=== PATIENT | male | born 1970 | race Caucasian/White ===

== ENCOUNTER → 2017-10-04 07:32 | Outpatient (CLI) | payer BC, SELFPAY | PROVIDERS: Family Provider Physician Assistant; PCP Physician Assistant; Visit Provider Physician Assistant | DX: G47.30 Sleep apnea, unspecified (principal) | CPT/HCPCS: 95811 ==

== ENCOUNTER 2018-06-28 17:23 | Emergency (ER) | payer BC, SELFPAY ==
[2018-06-28 17:24] VITALS: BP 141/85; PULSE 89; RESP 16; TEMP 36.6; O2SAT 96; BMI 46.7
--- NOTE | 2018-06-28 17:35 | RAD_ITS ---
STUDY: X-RAY CHEST REASON FOR EXAM: Male, 47 years old. Trauma TECHNIQUE: PA and lateral views of the chest. COMPARISON: None. FINDINGS: The lungs are clear and expanded. There is no demonstrated pleural abnormality. There is mild cardiac enlargement. Normal mediastinum and ayesha. Normal visualized pulmonary arteries. Normal visualized aortic arch and descending thoracic aorta. There are diffuse degenerative changes of the visualized thoracic spine. Normal visualized ribs, clavicles, and shoulders. There is no demonstrated abnormality of the visualized soft tissue structures of the upper abdomen. RAD/Chest PA and Lateral IMPRESSION: Mild cardiomegaly. Degenerative changes of the thoracic spine. No acute cardiopulmonary disease process is seen. If left rib fracture is clinically suspected, specific left rib views are recommended for further evaluation. Electronically Signed: Shekhar Alfonso MD at 18:18 EST , Service support ,
--- NOTE | 2018-06-28 18:24 | ED.VISSUMM ---
- ER Visit Summary Date of Service: 06/28/18 Chief Complaint: Fall History of Present Illness: The patient is a 47 M who sees Farhad Dockery. He reports that yesterday he slipped on the ice and fell onto his back. He reports that he has left-sided chest pain Zeta 10 severity and right-sided back pain is 5 out of 10 severity. No blow to the head or loss of consciousness. No neck, back, shoulder, wrist, or hip pain. Physical Examination: Vitals: Stable. Afebrile. Neck: No vertebral tenderness. Full ROM without difficulty. Cleared by NEXUS criteria. Back: No vertebral tenderness. Moderate tenderness palpation over the lower ribs on the right. General: A&O x 3. NAD. Cardiovascular exam: Regular rate and rhythm, no murmur, rub or gallop. Respiratory exam: Moderate tenderness palpation over the lower ribs on the left. Pain is reproduced with anterior posterior compression of his chest. No crepitus. Clear to auscultation bilaterally. No wheezes or stridor. Abdominal exam: Soft, nontender, nondistended, normal bowel sounds. No pain in RUQ or LUQ specifically. No peritoneal signs. Extremity: Atraumatic. No pain with range of motion. Test Results: X-ray shows no obvious rib fractures or pneumothorax. Emergency Department Course and Treatment: Patient refused pain medications. He is resting comfortably. Treatment Plan: Patient will be discharged with incentive spirometer and 10 [place]. Instructed to follow-up his primary care physician 1 week if not improving. Return to the emergency department for any worsening symptoms. Disposition: To home in improved and stable condition. Impression: 1. Fall. 2. Chest wall pain. This note was generated with [employer] dictation software. It may contain incorrect words, spelling, and punctuation that were not noted in review of the chart prior to signing ED Disposition - Plan for ED Patient: Chief Complaint: Fall Instructions: ED Contusion Vs Minor Fx Rib Prescriptions: Hydrocodone Bitart/Apap 5-325 [[place] 5MG-325MG] 1 tablet PO Q4H PRN PRN 2 Days #10 tablet PRN Reason: Pain Referrals: Yogesh Dockery PA [Primary Care Provider] - 1 Week if not improving
--- NOTE | 2018-06-28 18:27 | ED.DCSUM_ITS ---
- ER Visit Summary Date of Service: 06/28/18 Chief Complaint: Fall History of Present Illness: The patient is a 47 M who sees Farhad Dockery. He reports that yesterday he slipped on the ice and fell onto his back. He reports that he has left-sided chest pain Zeta 10 severity and right-sided back pain is 5 out of 10 severity. No blow to the head or loss of consciousness. No neck, back, shoulder, wrist, or hip pain. Physical Examination: Vitals: Stable. Afebrile. Neck: No vertebral tenderness. Full ROM without difficulty. Cleared by NEXUS criteria. Back: No vertebral tenderness. Moderate tenderness palpation over the lower ribs on the right. General: A&O x 3. NAD. Cardiovascular exam: Regular rate and rhythm, no murmur, rub or gallop. Respiratory exam: Moderate tenderness palpation over the lower ribs on the left. Pain is reproduced with anterior posterior compression of his chest. No crepitus. Clear to auscultation bilaterally. No wheezes or stridor. Abdominal exam: Soft, nontender, nondistended, normal bowel sounds. No pain in RUQ or LUQ specifically. No peritoneal signs. Extremity: Atraumatic. No pain with range of motion. Test Results: X-ray shows no obvious rib fractures or pneumothorax. Emergency Department Course and Treatment: Patient refused pain medications. He is resting comfortably. Treatment Plan: Patient will be discharged with incentive spirometer and 10 [place]. Instructed to follow-up his primary care physician 1 week if not improving. Return to the emergency department for any worsening symptoms. Disposition: To home in improved and stable condition. Impression: 1. Fall. 2. Chest wall pain. This note was generated with [employer] dictation software. It may contain incorrect words, spelling, and punctuation that were not noted in review of the chart prior to signing ED Disposition - Plan for ED Patient: Chief Complaint: Fall Instructions: ED Contusion Vs Minor Fx Rib Prescriptions: Hydrocodone Bitart/Apap 5-325 [[place] 5MG-325MG] 1 tablet PO Q4H PRN PRN 2 Days #10 tablet PRN Reason: Pain Referrals: Yogesh Dockery PA [Primary Care Provider] - 1 Week if not improving
--- OUTSIDE RECORDS SUMMARY | 2018-09-02 12:25 | XMS RPT_ITS ---
:1970 Author Organization OHIP Care Team Providers Name Role Phone Yogesh DOCKERY (PA-C) Attending Unavailable DOCKERYYogesh (PA-C) Referring Unavailable DOCKERY, Yogesh BOSWELL (PA-C) Attending Unavailable DOCKERYYogesh (PA-C) Attending Unavailable DOCKERYYogesh (PA-C) Referring Unavailable DOCKERY, Yogesh BOSWELL (PA-C) Attending Unavailable Yogesh DOCKERY (PA-C) Referring Unavailable DOCKERYYoegsh (PA-C) Referring Unavailable CHELSI BRITTON (RD) Attending Unavailable Yogesh DOCKERY (PA-C) Referring Unavailable DOCKERYYogesh (PA-C) Attending Unavailable CHELSI BRITTON (RD) Attending Unavailable Yogesh DOCKERY (PA-C) Referring Unavailable DOCKERYYogesh (PA-C) Attending Unavailable CHELSI BRITTON (RD) Attending Unavailable CHELSI BRITTON (RD) Attending Unavailable Yogesh DOCKERY (PA-C) Referring Unavailable DOCKERYYogesh MARCOS (PA-C) Attending Unavailable NNAMDI DALEY Attending Unavailable Yogesh DOCKERY (PA-C) Referring Unavailable Yogesh Dockery Primary Care Unavailable Catracho Zelaya Attending Unavailable Yogesh Dockery Attending Unavailable Yogesh Dockery Referring Unavailable Yogesh Dockery Primary Care Unavailable PROBLEMS PROBLEMS DATE TYPE CONDITION / CODE ATTENDING STATUS SOURCE 07/04/2018 Active Contusion of left NA Active [place] front wall of thorax, Clinic Main subsequent encounter / [place] S20.212D(ICD-10) Repository 06/28/2018 Unknown S22.39XA - Fracture of Nathalie, Active [place] one rib, unspecified [facility] side, initial Hospital encounter for closed Repository fracture / S22.39XA(ICD-10) 04/02/2018 Active Type 2 diabetes NA Active [place] mellitus with moderate [facility] nonproliferative [place] diabetic retinopathy Repository with macular edema, bilateral / E11.3313(ICD-10) 03/27/2018 Active Mixed hyperlipidemia / NA Active [place] E78.2(ICD-10) Clinic Main [place] Repository 09/28/2017 Active Proteinuria, NA Active [place] unspecified / [facility] R80.9(ICD-10) [place] Repository 06/25/2018 Active Essential (primary) NA Active [place] hypertension / [facility] I10(ICD-10) [place] Repository 06/25/2018 Active Male erectile NA Active [place] dysfunction, [facility] unspecified / [place] N52.9(ICD-10) Repository 06/01/2007 Active Elevated NA Active [place] blood-pressure [facility] reading, without [place] diagnosis of Repository hypertension / R03.0(ICD-10) 10/31/2017 Active Unknown / UNK(Unknown) Yogesh DOCKERY Active [place] YESIKA (PA-C) Clinic [facility] [place] Repository 09/25/2017 Active Type 2 diabetes NA Active [place] mellitus with [facility] hyperglycemia / [place] E11.65(ICD-10) Repository 09/25/2017 Active jail (current) NA Active [place] use of insulin / [facility] Z79.4(ICD-10) [place] Repository 09/25/2017 Active Lipoprotein deficiency NA Active [place] / E78.6(ICD-10) Clinic Main [place] Repository 09/25/2017 Active Obstructive sleep NA Active [place] apnea (adult) [facility] (pediatric) / [place] G47.33(ICD-10) Repository PROCEDURES PROCEDURES No Procedure Records FoundRESULTS RESULTS XR RIBS 2V AP/OBL Observed: 07/04/2018 Status: F Source: [facility] 3:21 PM CLINIC MAIN CAMPUS REPOSITORY * * *Final Report* * * DATE OF EXAM: Jul 04 2018 3:21PM WOX [id number] - XR RIBS 2V AP/OBL LT / PROCEDURE REASON: Rib contusion, left, subsequent encounter * * * * Physician Interpretation * * * * EXAM:XR RIBS 2V AP/OBL LT HISTORY: Rib contusion, left, subsequent encounter COMPARISON:None IMPRESSION: Study is limited secondary to patient's body habitus and underpenetrated technique. Lucency projecting over the anterior aspect of the fifth rib is probably projectional artifact, nondisplaced fracture cannot be excluded. Correlation with point of tenderness is recommended. Impregnation Operator: PSCB Transcribe Date/Time: Jul 05 2018 10:12A Dictated by : ISHA ALAN MD This examination was interpreted and the report reviewed and electronically signed by: ISHA ALAN MD on Jul 05 2018 10:14AM EST [id number] PROGRESS Observed: 07/04/2018 Status: COMPLETED Source: [place] 3:09 PM [facility] REPOSITORY HNO ID: [id number] Author: Nancy Jules (RtNikki Dukes Service: (none) Author Type: Electrical Cad Designer Type: Progress Notes Filed: 07/04/2018 3:21 PM Note Text: Radiology Service Progress Note PATIENT NAME: Shekhar Kimbrough DATE OF SERVICE: July 04, 2018 TIME: 3:09 PM PATIENT IDENTITY VERIFICATION COMPLETED USING TWO (2) METHODS: Patient confirmed name verbally and Date of . PATIENT GENDER DATA: Male PATIENT RELEVANT IMPLANT DATA REVIEWED: Not Applicable RADIOLOGY DEPARTMENT: General X-ray: Exam(s) Completed: Rib X-Ray: Left PERIPHERAL IV DATA: Not applicable SIGNED BY: RT Jessica July 04, 2018 3:09 PM PROGRESS Observed: 07/04/2018 Status: COMPLETED Source: [place] 2:59 PM [facility] REPOSITORY HNO ID: [id number] Author: Yogesh Boswell (Kalie Dockery Service: (none) Author Type: Physician Health Service Worker Type: Progress Notes Filed: 07/04/2018 5:48 PM Note Text: 47 year old male with c/o left anterior rib pain after falling on 06/27/18 on [facility] sidewalk. Patient fell onto his left back. Was seen on 06/28/18 in the emergency department with complaint of left-sided chest pain, 10 out of 10. X-rays showed no fracture although only a chest x- ray was done in radiology identified should have focal views of rib of concern. Patient was given 10 [place] which she has used all but one. States the medicine really doesn't help much. He has been taking ibuprofen 400 mg intermittently as well. No nausea, vomiting, abdominal pain. Lesions appetite is been normal. Normal bowel habits. Also identifies that his insurance is no longer covering Lantus insulin and will cause some children some dollars to get his pens. Asking if this can be changed. HISTORIES FAMILY HISTORY Problem Relation Age of Onset - Diabetes Mother - Heart Mother HEART DISEASE - Hypertension Mother - Psychiatry Mother depressed - None Father - Allergies Father - Diabetes Father - Hypertension Father - Stroke Father - Psychiatry Father depression - None Sister - Diabetes Sister - other (Other) Sister growth in lung, lots of lung problems, pneumonia - Diabetes Brother - Psychiatry Brother depression - Breast Cancer Paternal Aunt - Cancer Maternal Aunt Stomache - Cancer Paternal Uncle Bone PAST MEDICAL HISTORY Diagnosis Date - Acute nonsuppurative otitis media, unspecified 03/07/2007 - Cataract right eye, surgery 2009 [facility] - Closed Colles' fracture 08/03/20052007 left - Closed fracture of navicular (scaphoid) bone of wrist 01/18/05 Wrist fracture-left distal radius - Depression in past, was on effexor but stopped years ago. - Diabetes mellitus - Esophagitis, unspecified ESOPHAGITIS - Hyperlipidemia borderline - Measles - Mild intermittent asthma uses albuterl rarely - Mumps - Peptic ulcer, unspecified site, unspecified as acute or chronic, without mention of hemorrhage, perforation, or obstruction Peptic ulcer disease per EGD maybe 2006 - Tobacco use disorder 06/01/2007 Quit 2009 chew - Traumatic pneumothorax 01/15/2008 Ran over by cow, broke 4 ribs, lung collapsed, unconscious. No chest tube. Was sent to [facility]. No sequellae - Unspecified essential hypertension Essential hypertension: controlled without medication PAST SURGICAL HISTORY Procedure Laterality Date - ANKLE SURGERY HX Left 2014 rupture posterior tibial tendon repaired - APPENDECTOMY 1982 - EGD W/O OR W/BRUSH/WASH EGD Social History Marital status: Single Spouse name: Years of education: Number of children: Social History Main Topics Smoking status: Never Smoker Smokeless tobacco: Former User Types: Chew Quit date: 11/15/2009 Alcohol use: No Drug use: No ACTIVE PROBLEM LIST Obesity, Unspecified Infective Otitis Externa, Unspecified Elevated Blood Pressure Reading Without Diagnosis of Hypertension PAD (peripheral artery disease) ([facility]) Sleep Apnea Controlled Type 2 Diabetes Mellitus 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 Disp: Rfl: lisinopril (ZESTRIL, PRINIVIL) 20 mg tablet Take 1 tablet by mouth once daily. Disp: 90 tablet Rfl: 1 atorvastatin (LIPITOR) 20 mg tablet Take 1 tablet by mouth daily at bedtime. For cholesterol. Disp: 90 tablet Rfl: 1 insulin glargine (LANTUS SOLOSTAR U-100 INSULIN) 100 unit/mL (3 mL) inpn Administer 2 injections of 61 units (122 units total) of Lantus once daily in the evening. Disp: Rfl: dulaglutide (TRULICITY) 1.5 mg/ 0.5 ml subcutaneous pen injector Inject 1.5 mg subcutaneously once each week. Inject once per week. Discard Pen After Disp: 4 Pen Rfl: 11 insulin lispro (HUMALOG KWIKPEN INSULIN) 100 unit/mL inpn As directed for coverage scale: add additional 4u for every 50 points above glucose 150 Disp: 5 Pen Rfl: 2 metFORMIN ER (GLUCOPHAGE XR) 500 mg 24 hr tablet Take 4 tablets by mouth daily with breakfast. Disp: 360 tablet Rfl: 3 Lancets lancets Check blood sugar 4 times daily diagnosis: e11.65, insulin: yes Disp: 200 Each Rfl: 3 Insulin [place], Disposable, 32 gauge x 5/16 ndle Use one needle per dose. 5 doses per day Disp: 200 Each Rfl: 5 No current facility-administered medications for this visit. DILATED RETINAL EXAM due on 06/08/2018 EXAM: BP 120/64 Pulse 80 Temp 36.8 ?C (98.2 ?F) (Tympanic) Resp 24 Wt (!) 157.4 kg (347 lb) BMI 47.06 kg/m? Pleasant Obese adult male in moderate distress, holding his left anterior chest and guarding. Alert and oriented all spheres. Normal affect and cognition. Speech normal. No deficits to learning or comprehension. Skin warm, dry, pink to lips and nailbeds. Normal turgor. Respirations regular and unlabored. Chest shows equal expansion on inspiration. No evidence of deformity, bruising, erythema, no subcutaneous crepitus over the chest wall. He is tender in the anterior axillary line at about the 10th rib space. No palpable deformity. Motion of the ribs laterally does not cause pain. Direct pressure does. Extrem: no clubbing, cyanosis, edema. Extremities are warm and pink with prompt capillary refill. X-ray left rib:no obvious fx pending radiologist ASSESSMENT/PLAN: 1. Rib contusion, left, subsequent encounter - ICD9: V58.89, 922.1, ICD10: S20.212D Counseled per d/c instructions. Has used OTC and ED narcotic rx. Very painful, limiting mobility. I week narcotic supplied with cautions on risk and side effects. - XR RIBS 2V AP/OBL LT - HYDROCODONE 10 MG-ACETAMINOPHEN 325 MG TABLET Yogesh Dockery PA-C CNOV Observed: 07/04/2018 Status: COMPLETED Source: [place] 2:00 PM [facility] REPOSITORY Office Visit (FAMPWS) SHEKHAR KIMBROUGH ([id number]) 1970 M Date Time Provider Department 07/04/18 2:00 PM Yogesh DOCKERY) FAMPWS During your visit today, we recorded the following information about you: Temperature Pulse Respiration Blood pressure 98.2 degrees 80/minute 24/minute 120/64 Weight 157.4 kg M Yesika Dockery PA-C 07/04/2018 5:48 PM Signed 47 year old male with c/o left anterior rib pain after falling on 06/27/18 on [address]. Patient fell onto his left back. Was seen on 06/28/18 in the emergency department with complaint of left-sided chest pain, 10 out of 10. X-rays showed no fracture although only a chest x-ray was done in radiology identified should have focal views of rib of concern. Patient was given 10 [place] which she has used all but one. States the medicine really doesn't help much. He has been taking ibuprofen 400 mg intermittently as well. No nausea, vomiting, abdominal pain. Lesions appetite is been normal. Normal bowel habits. Also identifies that his insurance is no longer covering Lantus insulin and will cause some children some dollars to get his pens. Asking if this can be changed. HISTORIES FAMILY HISTORY Problem Relation Age of Onset - Diabetes Mother - Heart Mother HEART DISEASE - Hypertension Mother - Psychiatry Mother depressed - None Father - Allergies Father - Diabetes Father - Hypertension Father - Stroke Father - Psychiatry Father depression - None Sister - Diabetes Sister - other (Other) Sister growth in lung, lots of lung problems, pneumonia - Diabetes Brother - Psychiatry Brother depression - Breast Cancer Paternal Aunt - Cancer Maternal Aunt Stomache - Cancer Paternal Uncle Bone PAST MEDICAL HISTORY Diagnosis Date - Acute nonsuppurative otitis media, unspecified 03/07/2007 - Cataract right eye, surgery 2009 [facility] - Closed Colles' fracture 08/03/20052007 left - Closed fracture of navicular (scaphoid) bone of wrist 01/18/05 Wrist fracture-left distal radius - Depression in past, was on effexor but stopped years ago. - Diabetes mellitus - Esophagitis, unspecified ESOPHAGITIS - Hyperlipidemia borderline - Measles - Mild intermittent asthma uses albuterl rarely - Mumps - Peptic ulcer, unspecified site, unspecified as acute or chronic, without mention of hemorrhage, perforation, or obstruction Peptic ulcer disease per EGD maybe 2006 - Tobacco use disorder 06/01/2007 Quit 2009 chew - Traumatic pneumothorax 01/15/2008 Ran over by cow, broke 4 ribs, lung collapsed, unconscious. No chest tube. Was sent to [facility]. No sequellae - Unspecified essential hypertension Essential hypertension: controlled without medication PAST SURGICAL HISTORY Procedure Laterality Date - ANKLE SURGERY HX Left 2014 rupture posterior tibial tendon repaired - APPENDECTOMY 1982 - EGD W/O OR W/BRUSH/WASH EGD Social History Marital status: Single Spouse name: Years of education: Number of children: Social History Main Topics Smoking status: Never Smoker Smokeless tobacco: Former User Types: Chew Quit date: 11/15/2009 Alcohol use: No Drug use: No ACTIVE PROBLEM LIST Obesity, Unspecified Infective Otitis Externa, Unspecified Elevated Blood Pressure Reading Without Diagnosis of Hypertension PAD (peripheral artery disease) (HCC) Sleep Apnea Controlled Type 2 Diabetes Mellitus With Both Eyes Affected By Moderate Nonproliferative Retinopathy and Macular Edema, Without Long- Term Current Use of Insulin (H[facility]) Mild Intermittent Asthma Cataract Microalbuminuria Low Hdl (Under 40) Reaction, Adjustment, With Depressed Mood, Prolonged Obesity, Class III, BMI >= 40 Hyperlipidemia, Mixed Current Outpatient Prescriptions: HYDROcodone-acetaminophen (NORCO) 5-325 mg per tablet Take 1 tablet by mouth every 4 hours as needed. Disp: Rfl: lisinopril (ZESTRIL, PRINIVIL) 20 mg tablet Take 1 tablet by mouth once daily. Disp: 90 tablet Rfl: 1 atorvastatin (LIPITOR) 20 mg tablet Take 1 tablet by mouth daily at bedtime. For cholesterol. Disp: 90 tablet Rfl: 1 insulin glargine (LANTUS SOLOSTAR U-100 INSULIN) 100 unit/mL (3 mL) inpn Administer 2 injections of 61 units (122 units total) of Lantus once daily in the evening. Disp: Rfl: dulaglutide (TRULICITY) 1.5 mg/ 0.5 ml subcutaneous pen injector Inject 1.5 mg subcutaneously once each week. Inject once per week. Discard Pen After Disp: 4 Pen Rfl: 11 insulin lispro (HUMALOG KWIKPEN INSULIN) 100 unit/mL inpn As directed for coverage scale: add additional 4u for every 50 points above glucose 150 Disp: 5 Pen Rfl: 2 metFORMIN ER (GLUCOPHAGE XR) 500 mg 24 hr tablet Take 4 tablets by mouth daily with breakfast. Disp: 360 tablet Rfl: 3 Lancets lancets Check blood sugar 4 times daily diagnosis: e11.65, insulin: yes Disp: 200 Each Rfl: 3 Insulin [place], Disposable, 32 gauge x 5/16 ndle Use one needle per dose. 5 doses per day Disp: 200 Each Rfl: 5 No current facility-administered medications for this visit. DILATED RETINAL EXAM due on 06/08/2018 EXAM: BP 120/64 Pulse 80 Temp 36.8 ?C (98.2 ?F) (Tympanic) Resp 24 Wt (!) 157.4 kg (347 lb) BMI 47.06 kg/m? Pleasant Obese adult male in moderate distress, holding his left anterior chest and guarding. Alert and oriented all spheres. Normal affect and cognition. Speech normal. No deficits to learning or comprehension. Skin warm, dry, pink to lips and nailbeds. Normal turgor. Respirations regular and unlabored. Chest shows equal expansion on inspiration. No evidence of deformity, bruising, erythema, no subcutaneous crepitus over the chest wall. He is tender in the anterior axillary line at about the 10th rib space. No palpable deformity. Motion of the ribs laterally does not cause pain. Direct pressure does. Extrem: no clubbing, cyanosis, edema. Extremities are warm and pink with prompt capillary refill. X-ray left rib:no obvious fx pending radiologist ASSESSMENT/PLAN: 1. Rib contusion, left, subsequent encounter - ICD9: V58.89, 922.1, ICD10: S20.212D Counseled per d/c instructions. Has used OTC and ED narcotic rx. Very painful, limiting mobility. I week narcotic supplied with cautions on risk and side effects. - XR RIBS 2V AP/OBL LT - HYDROCODONE 10 MG-ACETAMINOPHEN 325 MG TABLET ANDREW Cifuentes PA-C 07/04/2018 3:51 PM Signed [place]: as directed per prescription for pain being careful to limit to 1-2 doses a day unless it is more severe pain. Do not drive or operate dangerous machinery while on this medication. It may cause drowsiness or impair judgment and cause increased risk for falls. This medication may be habit forming if used regularly, and may cause drowsiness, so use caution. This medication may cause constipation so increase fiber and exercise if possible. Stimulant laxatives such as pericolace or Sennekot OTC may help if needed but should not be used over long periods. Rib Injury What is a rib injury? The 12 ribs on each side of your chest may be bruised, strained, broken, or . All of the ribs are attached to the vertebrae (backbone) in the rear. In the front, 10 of them are attached to the sternum (breastbone) by pieces of cartilage. Direct blows to the ribs may bruise or break the ribs or injure the rib cartilage. The ribs may tear away from the cartilage that attaches them to the breastbone. This tearing away from the cartilage is called a costochondral separation. How does it occur? Rib injuries usually result from a direct blow to the chest wall. Breaks usually occur in the curved portion of the outer part of the rib cage. A costochondral separation may occur from trauma, when you land hard on your feet, or even when you cough or sneeze violently. What are the symptoms? A rib injury causes pain and tenderness over the place of injury. You may have pain when you breathe, move, laugh, or cough. How is it diagnosed? Your healthcare provider will review your symptoms, examine your rib cage, and listen to your lungs. He or she may order a chest X-ray to look for rib damage, lung damage, or bleeding around the lungs. How is it treated? To help your injury heal, your provider may recommend that you: Rest. Put an ice pack over the injured rib for 20 to 30 minutes every 3 to 4 hours for 2 to 3 days or until the pain goes away. Take an anti-inflammatory or other pain medicine. Adults aged 65 years and older should not take non-steroidal anti-inflammatory medicine for more than 7 days without their healthcare provider's approval. Wear a rib belt, which your healthcare provider may suggest for very painful injuries. The belt works as a girdle for your chest and helps support your ribs. It limits movement of your ribs when you cough, breathe, or move your body in other ways. This helps decrease pain. If you wear a rib belt, your provider will give you breathing exercises to help you avoid lung complications. How long will the effects last? Bruised ribs and a costochondral separation usually take 3 to 4 weeks to heal. Broken ribs take 6 to 8 weeks to heal. When can I return to my normal activities? Everyone recovers from an injury at a different rate. Return to your activities will be determined by how soon your ribs recover, not by how many days or weeks it has been since your injury has occurred. The goal of rehabilitation is to return you to your normal activities as soon as is safely possible. If you return too soon you may worsen your injury. Your healthcare provider may take an X-ray to see that the bone has healed before he or she allows you to return to your normal activities. You may participate in noncontact activities if you can do so without pain in your ribs and without pain when you breathe. How can I prevent a rib injury? Ribs are often injured in accidents that are not preventable. However, in contact sports such as football it is important to wear appropriate protective equipment. Published by [employer]. This content is reviewed periodically and is subject to change as new health information becomes available. The information is intended to inform and educate and is not a replacement for medical evaluation, advice, diagnosis or treatment by a healthcare professional. Written by Davon Kumar M.D., for [employer] Copyright ? 2006 [employer] and/or one of its subsidiaries. All Rights Reserved. Special Instructions: Copyright ? [employer] 2006 [employer] Copyright ? 2006 [employer]. All rights reserved. - www.[employer] Referring Provider: SELF [200] Allergies As of Date: 07/04/2018 (No Known Allergies) Date Reviewed: 07/04/2018 Reviewed by: Roslyn Rose LPN - Fully Assessed Reason for Visit: ER F/U [41] Cmt: Fell 06/[address] [facility] ER on 06/28/18. Primary Visit Diagnosis:Rib contusion, left, subsequent encounter [I44.752D] Order(s):XR RIBS 2V AP/OBL LT [[id number]] Order #: [id number] FUTURE HYDROcodone-Acetaminophen (NORCO) 10-325 mg per tabletTake 1 tablet by mouth every 8 hours as needed for up to 7 days.Disp: 21 tabletRfl: 0 insulin detemir U-100 (LEVEMIR FLEXTOUCH U-100 INSULN) 100 unit/mL (3 mL) inpn injectionInject 61 Units subcutaneously twice daily.Disp: 11 PenRfl: 5 insulin lispro (HUMALOG KWIKPEN INSULIN) 100 unit/mL inpnAs directed for coverage scale: add additional 4u for every 50 points above glucose 150Disp: 5 PenRfl: 2 Prescriptions as of 07/04/2018 Sig: HYDROCODONE 5 MG-ACETAMINOPHE* Take 1 tablet by mouth every * INSULIN LISPRO (U-100) 100 UN* As directed for coverage scal* LISINOPRIL 20 MG TABLET Take 1 tablet by mouth once d* ATORVASTATIN 20 MG TABLET Take 1 tablet by mouth daily * INSULIN GLARGINE (U-100) 100 * Administer 2 injections of 61* DULAGLUTIDE 1.5 MG/0.5 ML SUB* Inject 1.5 mg subcutaneously * METFORMIN ER 500 MG TABLET,EX* Take 4 tablets by mouth daily* HYDROCODONE 10 MG-ACETAMINOPH* Take 1 tablet by mouth every * INSULIN DETEMIR (U-100) 100 U* Inject 61 Units subcutaneousl* LANCETS Check blood sugar 4 times patricia* PEN NEEDLE, DIABETIC 32 GAUGE* Use one needle per dose. 5 do* Problem List As Of Date 07/04/2018 Noted Resolved Closed Colles' fracture [S52.539A] INVALID FOR*09/25/2017 More... OBESITY NOS [E66.9] INVALID FOR* Acute nonsuppurative otitis media, unspecified *INVALID FOR*09/25/2017 INFEC OTITIS EXTERNA NOS [H60.399] INVALID FOR* Tobacco use disorder [F17.200] INVALID FOR*09/25/2017 More... ELEV BL PRES W/O HYPERTN [R03.0] INVALID FOR* Traumatic pneumothorax [S27.0XXA] INVALID FOR*09/25/2017 More... PAD (peripheral artery disease) (HCC) [I73.9] INVALID FOR* More... Sleep apnea [G47.30] INVALID FOR* More... Controlled type 2 diabetes mellitus with both e*INVALID FOR* More... Mild intermittent asthma [J45.20] More... Cataract [H26.9] More... Microalbuminuria [R80.9] INVALID FOR* Low HDL (under 40) [E78.6] INVALID FOR* Reaction, adjustment, with depressed mood, prol*INVALID FOR* Obesity, Class III, BMI >= 40 [E66.01] INVALID FOR* Hyperlipidemia, mixed [E78.2] INVALID FOR* Other instructions from your clinician: [place]: as directed per prescription for pain being careful to limit to 1-2 doses a day unless it is more severe pain. Do not drive or operate dangerous machinery while on this medication. It may cause drowsiness or impair judgment and cause increased risk for falls. This medication may be habit forming if used regularly, and may cause drowsiness, so use caution. This medication may cause constipation so increase fiber and exercise if possible. Stimulant laxatives such as pericolace or Sennekot OTC may help if needed but should not be used over long periods. Rib Injury What is a rib injury? The 12 ribs on each side of your chest may be bruised, strained, broken, or . All of the ribs are attached to the vertebrae (backbone) in the rear. In the front, 10 of them are attached to the sternum (breastbone) by pieces of cartilage. Direct blows to the ribs may bruise or break the ribs or injure the rib cartilage. The ribs may tear away from the cartilage that attaches them to the breastbone. This tearing away from the cartilage is called a costochondral separation. How does it occur? Rib injuries usually result from a direct blow to the chest wall. Breaks usually occur in the curved portion of the outer part of the rib cage. A costochondral separation may occur from trauma, when you land hard on your feet, or even when you cough or sneeze violently. What are the symptoms? A rib injury causes pain and tenderness over the place of injury. You may have pain when you breathe, move, laugh, or cough. How is it diagnosed? Your healthcare provider will review your symptoms, examine your rib cage, and listen to your lungs. He or she may order a chest X-ray to look for rib damage, lung damage, or bleeding around the lungs. How is it treated? To help your injury heal, your provider may recommend that you: Rest. Put an ice pack over the injured rib for 20 to 30 minutes every 3 to 4 hours for 2 to 3 days or until the pain goes away. Take an anti-inflammatory or other pain medicine. Adults aged 65 years and older should not take non-steroidal anti-inflammatory medicine for more than 7 days without their healthcare provider's approval. Wear a rib belt, which your healthcare provider may suggest for very painful injuries. The belt works as a girdle for your chest and helps support your ribs. It limits movement of your ribs when you cough, breathe, or move your body in other ways. This helps decrease pain. If you wear a rib belt, your provider will give you breathing exercises to help you avoid lung complications. How long will the effects last? Bruised ribs and a costochondral separation usually take 3 to 4 weeks to heal. Broken ribs take 6 to 8 weeks to heal. When can I return to my normal activities? Everyone recovers from an injury at a different rate. Return to your activities will be determined by how soon your ribs recover, not by how many days or weeks it has been since your injury has occurred. The goal of rehabilitation is to return you to your normal activities as soon as is safely possible. If you return too soon you may worsen your injury. Your healthcare provider may take an X-ray to see that the bone has healed before he or she allows you to return to your normal activities. You may participate in noncontact activities if you can do so without pain in your ribs and without pain when you breathe. How can I prevent a rib injury? Ribs are often injured in accidents that are not preventable. However, in contact sports such as football it is important to wear appropriate protective equipment. ----- Published by [employer]. This content is reviewed periodically and is subject to change as new health information becomes available. The information is intended to inform and educate and is not a replacement for medical evaluation, advice, diagnosis or treatment by a healthcare professional. Written by Davon Kumar M.D., for [employer] Copyright ? 2006 [employer] and/or one of its subsidiaries. All Rights Reserved. Special Instructions: Copyright ? [employer] 2007 [employer] Copyright ? 2006 [employer]. All rights reserved. - www.Shicon.DailyDeal Prescriptions ordered this encounter Disp Refills Start End HYDROCODONE 10 MG-ACETAMINOPHEN 325 * 21 t* 0 07/04/2018 07/11/2018 Class: Print RX Route: ORAL Sig: Take 1 tablet by mouth every 8 hours as needed for up to 7 days. INSULIN DETEMIR (U-100) 100 UNIT/ML * 11 P* 5 07/04/2018 Route: SUBCUTANEOUS Sig: Inject 61 Units subcutaneously twice daily. INSULIN LISPRO (U-100) 100 UNIT/ML S* 5 Pen 2 07/04/2018 Sig: As directed for coverage scale: add additional 4u for every 50 points above glucose 150 Medications Discontinued During This Encounter insulin lispro (HUMALOG KWIKPEN INSU* 5 Pen 2 12/28/2017 07/04/2018 Sig: As directed for coverage scale: add additional 4u for every 50 points above glucose 150 Disc: Reason for discontinue is not on file. Encounter Status:Closed by Yogesh DCOKERY PA-C on 07/04/18 EMERGENCY DEPARTMENT Observed: 06/29/2018 Status: F Source: [place] SUMMARY 12:13 AM [facility] Medical Records Department [address] [place] [address] Emergency Department Summary 06/28/18 1824 MR#: [id number] Acct: [id number] Name: SHEKHAR KIMBROUGH Rep #: [id number] : 1970 47 From: Catracho Zelaya MD PCP: Yogesh Dockery Status: DEP ER - ER Visit Summary Date of Service: 06/28/18 Chief Complaint: Fall History of Present Illness: The patient is a 47 M who sees Farhad Dockery. He reports that yesterday he slipped on the ice and fell onto his back. He reports that he has left-sided chest pain Zeta 10 severity and right-sided back pain is 5 out of 10 severity. No blow to the head or loss of consciousness. No neck, back, shoulder, wrist, or hip pain. Physical Examination: Vitals: Stable. Afebrile. Neck: No vertebral tenderness. Full ROM without difficulty. Cleared by NEXUS criteria. Back: No vertebral tenderness. Moderate tenderness palpation over the lower ribs on the right. General: A AND O x 3. NAD. Cardiovascular exam: Regular rate and rhythm, no murmur, rub or gallop. Respiratory exam: Moderate tenderness palpation over the lower ribs on the left. Pain is reproduced with anterior posterior compression of his chest. No crepitus. Clear to auscultation bilaterally. No wheezes or stridor. Abdominal exam: Soft, nontender, nondistended, normal bowel sounds. No pain in RUQ or LUQ specifically. No peritoneal signs. Extremity: Atraumatic. No pain with range of motion. Test Results: X-ray shows no obvious rib fractures or pneumothorax. Emergency Department Course and Treatment: Patient refused pain medications. He is resting comfortably. Treatment Plan: Patient will be discharged with incentive spirometer and 10 [place]. Instructed to follow-up his primary care physician 1 week if not improving. Return to the emergency department for any worsening symptoms. Disposition: To home in improved and stable condition. Impression: 1. Fall. 2. Chest wall pain. This note was generated with [employer] dictation software. It may contain incorrect words, spelling, and punctuation that were not noted in review of the chart prior to signing ED Disposition - Plan for ED Patient: Chief Complaint: Fall Instructions: ED Contusion Vs Minor Fx Rib Prescriptions: Hydrocodone Bitart/Apap 5-325 [[place] 5MG-325MG] 1 tablet PO Q4H PRN PRN 2 Days #10 tablet PRN Reason: Pain Referrals: Yogesh Dockery PA [Primary Care Provider] - 1 Week if not improving What to do if you have Problems For any increased pain, shortness of breath, bleeding, nausea or vomiting, chest pain, or any unexpected problems, contact your Primary Care Provider. Call [facility] ([phone]) or report to the closest Emergency Room. Call 911 if necessary. 06/29/18 0013 <Electronically signed by Catracho Zelaya MD> Date Catracho Zelaya MD Cosigner Signature (If Indicated): Date CC: Yogesh Dockery CHEST PA AND LATERAL Observed: 06/28/2018 Status: F Source: [place] [facility] Imaging Services [address] [place] [address] Chest PA and Lateral MR#: [id number] Acct: [id number] Name: SHEKHAR KIMBROUGH Rep #: [id number] : 1970 M 47 From: Shekhar Alfonso MD PCP: Yogesh Dockery Status: REG ER Study: Chest PA and Lateral Date of Exam: 06/28/18 Exam# [id number] Ordering Dr: Catracho Zelaya MD STUDY: X-RAY CHEST REASON FOR EXAM: Male, 47 years old. Trauma TECHNIQUE: PA and lateral views of the chest. COMPARISON: None. FINDINGS: The lungs are clear and expanded. There is no demonstrated pleural abnormality. There is mild cardiac enlargement. Normal mediastinum and ayesha. Normal visualized pulmonary arteries. Normal visualized aortic arch and descending thoracic aorta. There are diffuse degenerative changes of the visualized thoracic spine. Normal visualized ribs, clavicles, and shoulders. There is no demonstrated abnormality of the visualized soft tissue structures of the upper abdomen. RAD/Chest PA and Lateral IMPRESSION: Mild cardiomegaly. Degenerative changes of the thoracic spine. No acute cardiopulmonary disease process is seen. If left rib fracture is clinically suspected, specific left rib views are recommended for further evaluation. Electronically Signed: Shekhar Alfonso MD at 18:18 EST , Service support , CC: Yogesh Dockery; Catracho Zelaya MD Impregnation Operator: Signed PROGRESS Observed: 06/27/2018 Status: COMPLETED Source: [place] 9:00 AM [facility] REPOSITORY HNO ID: [id number] Author: Mehnaz Cook (Pharmacist) Service: (none) Author Type: Pharmacist Type: Progress Notes Filed: 06/27/2018 10:14 AM Note Text: Patient consents to pharmacy collaborative practice agreement. REASON FOR CONSULT: DM? GOALS: A1c <?7% CONSULTING PROVIDER: ADAM Rosales? Date of Consult: 10/2017 ? Shekhar Kimbrough is a 47 year old male was last seen by PCP, Dr. Yogesh Dockery PA-C on 06/27 - no med changes were made. Yesterday, PCP increased dose of lisinopril to 20mg d/t proteinuria. Subjective: Patient is presenting today for f/u pharmacotherapy management appointment for diabetes. At last PharmD visit on 04/05, no med changes were made. 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 Current HTN Medications: Lisinopril 20mg daily ? Preventative Medications: ? On IVETH/ARB: Yes ? On Statin: Yes - started by PCP 04/02 ? On ASA: Yes - stopped by PCP 04/02, but patient still taking remaining supply ROS: ? Patient denies CP, SOB, SHARMA, blurred vision, dizziness or lightheadedness ? Patient denies symptoms of hypoglycemia (sweating, anxiety, palpitations, hunger, and tremor) ? Patient denies symptoms of hyperglycemia (polyuria, polydipsia, polyphagia) ? Patient denies potential medication adverse effects DIET/EXERCISE/SOCIAL Hx: ? Has eliminated bread, chips, and pasta (no change from last visit) MEDICATIONS: ? Pill bottles are not present. ? Adherence: denies missed doses. ? Pharmacy: [facility]? Rx coverage: [place] ? Affordability: no issues ? Diabetes supplies: [employer]ion ? 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, Without Long- Term Current Use of Insulin ([facility]) Mild Intermittent Asthma Cataract Microalbuminuria Low Hdl (Under 40) Reaction, Adjustment, With Depressed Mood, Prolonged Obesity, Class III, BMI >= 40 Hyperlipidemia, Mixed PAST MEDICAL HISTORY Diagnosis Date - Acute nonsuppurative otitis media, unspecified 03/07/2007 - Cataract right eye, surgery 2009 [facility] - Closed Colles' fracture 08/03/20052007 left - Closed fracture of navicular (scaphoid) bone of wrist 01/18/05 Wrist fracture-left distal radius - Depression in past, was on effexor but stopped years ago. - Diabetes mellitus - Esophagitis, unspecified ESOPHAGITIS - Hyperlipidemia borderline - Measles - Mild intermittent asthma uses albuterl rarely - Mumps - Peptic ulcer, unspecified site, unspecified as acute or chronic, without mention of hemorrhage, perforation, or obstruction Peptic ulcer disease per EGD maybe 2006 - Tobacco use disorder 06/01/2007 Quit 2009 chew - Traumatic pneumothorax 01/15/2008 Ran over by cow, broke 4 ribs, lung collapsed, unconscious. No chest tube. Was sent to [facility]. No sequellae - Unspecified essential hypertension Essential hypertension: controlled without medication ALLERGIES No Known Allergies Medication List Medication Directions Comments Action/Plan atorvastatin (LIPITOR) 20 mg tablet Take 1 tablet by mouth daily at bedtime. For cholesterol. taking dulaglutide (TRULICITY) 1.5 mg/ 0.5 ml subcutaneous pen injector Inject 1.5 mg subcutaneously once each week. Inject once per week. Discard Pen After taking insulin glargine (LANTUS SOLOSTAR U-100 INSULIN) 100 unit/mL (3 mL) inpn Administer 2 injections of 61 units (122 units total) of Lantus once daily in the evening. taking insulin lispro (HUMALOG KWIKPEN INSULIN) 100 unit/mL inpn As directed for coverage scale: add additional 4u for every 50 points above glucose 150 Not using Insulin [place], Disposable, 32 gauge x 5/16 ndle Use one needle per dose. 5 doses per day Lancets lancets Check blood sugar 4 times daily diagnosis: e11.65, insulin: yes lisinopril (ZESTRIL, PRINIVIL) 20 mg tablet Take 1 tablet by mouth once daily. Dose was increased to 20mg daily yesterday metFORMIN ER (GLUCOPHAGE XR) 500 mg 24 hr tablet Take 4 tablets by mouth daily with breakfast. taking Tadalafil (CIALIS) 10 mg tablet One tablets 3-4 hours before anticipated activity Too expensive, not taking Rx meds not listed in EPIC: none OTCs: Multivitamin (Equate gummy); Fiber gummy every other day Herbals: none GLYCEMIC CONTROL: ? Glucometer present at visit: No ? SMBG?s: reports checking BG once or twice/day; hasn't tested BG recently ? Hypoglycemia: none Objective: VITALS: There were no vitals taken for this visit. (BP taken during PCP appt today) Last 3 Encounter BP Readings: Date: BP: 06/27/2018 110/72 04/05/2018 128/80 04/02/2018 110/76 Wt: 153.8 kg (339 lb) BMI: 45.98 kg/(m2) LABS Lab Results Component Value Date HBA1C 6.6 06/25/2018 HBA1C 7.2 03/26/2018 HBA1C 10.1 12/25/2017 CMP: Glucose 93 06/25/2018 BUN 14 06/25/2018 Creatinine 0.57 06/25/2018 Sodium 136 06/25/2018 Potassium 5.0 06/25/2018 Chloride 99 06/25/2018 CO2 24 06/25/2018 Protein, Total 7.8 06/25/2018 Albumin 4.2 06/25/2018 Calcium 9.0 06/25/2018 Alkaline Phosphatase 81 06/25/2018 Bilirubin, Total 0.5 06/25/2018 AST 27 06/25/2018 ALT 28 06/25/2018 Estimated Creatinine Clearance: 247.6 mL/min (A) (based on SCr of 0.57 mg/dL (L)). Last Lipid Panel Lab Results Component Value Date CHOL 108 06/25/2018 Lab Results Component Value Date HDL 38 06/25/2018 Lab Results Component Value Date LDL 52 06/25/2018 Lab Results Component Value Date TG 89 06/25/2018 Albumin/Creat Ratio (mg/g) Date Value 06/25/2018 101 (H) PHARMACOTHERAPY ASSESSMENT/PLAN: 1. Uncontrolled type 2 diabetes mellitus without complication, with long-term current use of insulin (HCC) - ICD9: 250.02, V58.67, ICD10: E11.65, Z79.4 A1c goal <7%; controlled on current regimen and tolerating well; no concerns of hypoglycemia at this time; patient making changes to diet to reduce carb intake; patient not checking BGs currently - PharmD encouraged patient to make sure he is checking BGs at least once daily (FBGs), twice daily is preferred; no medication changes today, although patient said he would prefer to start taking insulin glargine in 2 divided doses (AM and PM) instead of together - PharmD counseled patient to take 1 injection of 61 units this AM and then take 2nd injection this evening (patient's last dose of insulin was yesterday AM); discussed with patient the option of no longer following up with pharmacy since his BG is controlled - patient stated that he likes the follow-up and would prefer to see pharmacy after next A1c; renal fxn and LFTs WNL and appropriate for continued use - CONTINUE metformin ER 2000mg QAM, dulaglutide 1.5mg weekly, insulin glargine 61 units BID, and insulin lispro sliding scale - A1c due in September Patient is scheduled to see PCP on 06/27/18. Patient to return to clinic for PharmD f/u on 10/01. Patient verbalized understanding of instructions. Mehnaz Cook PharmD, BCPS Primary Care Clinical Pharmacist [facility] CNOV Observed: 06/27/2018 Status: COMPLETED Source: [place] [address]:00 AM [facility] REPOSITORY Office Visit (PHMEWO) SHEKHAR KIMBROUGH ([id number]) 1970 M Date Time Provider Department 06/27/18 9:00 AM JUAN (PHARMACIST)MEHNAZ During your visit today, we recorded the following information about you: MEHNAZ COOK PHARMACIST 06/27/2018 10:14 AM Signed Patient consents to pharmacy collaborative practice agreement. REASON FOR CONSULT: DM? GOALS: A1c <?7% CONSULTING PROVIDER: ADAM Rosales? Date of Consult: 10/2017 ? Shekhar Sreedhar Kimbrough is a 47 year old male was last seen by PCP, Dr. Yogesh Dockery PA-C on 06/27 - no med changes were made. Yesterday, PCP increased dose of lisinopril to 20mg d/t proteinuria. Subjective: Patient is presenting today for f/u pharmacotherapy management appointment for diabetes. At last PharmD visit on 04/05, no med changes were made. 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 Current HTN Medications: Lisinopril 20mg daily ? Preventative Medications: ? On IVETH/ARB: Yes ? On Statin: Yes - started by PCP 04/02 ? On ASA: Yes - stopped by PCP 04/02, but patient still taking remaining supply ROS: ? Patient denies CP, SOB, SHARMA, blurred vision, dizziness or lightheadedness ? Patient denies symptoms of hypoglycemia (sweating, anxiety, palpitations, hunger, and tremor) ? Patient denies symptoms of hyperglycemia (polyuria, polydipsia, polyphagia) ? Patient denies potential medication adverse effects DIET/EXERCISE/SOCIAL Hx: ? Has eliminated bread, chips, and pasta (no change from last visit) MEDICATIONS: ? Pill bottles are not present. ? Adherence: denies missed doses. ? [facility]: [facility]? Rx coverage: [place] ? Affordability: no issues ? Diabetes supplies: [employer] ? 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, Without Long- Term Current Use of Insulin ([facility]) Mild Intermittent Asthma Cataract Microalbuminuria Low Hdl (Under 40) Reaction, Adjustment, With Depressed Mood, Prolonged Obesity, Class III, BMI >= 40 Hyperlipidemia, Mixed PAST MEDICAL HISTORY Diagnosis Date - Acute nonsuppurative otitis media, unspecified 03/07/2007 - Cataract right eye, surgery 2010 [facility] - Closed Colles' fracture 08/03/20052007 left - Closed fracture of navicular (scaphoid) bone of wrist 01/18/05 Wrist fracture-left distal radius - Depression in past, was on effexor but stopped years ago. - Diabetes mellitus - Esophagitis, unspecified ESOPHAGITIS - Hyperlipidemia borderline - Measles - Mild intermittent asthma uses albuterl rarely - Mumps - Peptic ulcer, unspecified site, unspecified as acute or chronic, without mention of hemorrhage, perforation, or obstruction Peptic ulcer disease per EGD maybe 2007 - Tobacco use disorder 06/01/2007 Quit 2009 chew - Traumatic pneumothorax 01/15/2008 Ran over by cow, broke 4 ribs, lung collapsed, unconscious. No chest tube. Was sent to [facility]. No sequellae - Unspecified essential hypertension Essential hypertension: controlled without medication ALLERGIES No Known Allergies Medication List Medication Directions Comments Action/Plan atorvastatin (LIPITOR) 20 mg tablet Take 1 tablet by mouth daily at bedtime. For cholesterol. taking dulaglutide (TRULICITY) 1.5 mg/ 0.5 ml subcutaneous pen injector Inject 1.5 mg subcutaneously once each week. Inject once per week. Discard Pen After taking insulin glargine (LANTUS SOLOSTAR U-100 INSULIN) 100 unit/mL (3 mL) inpn Administer 2 injections of 61 units (122 units total) of Lantus once daily in the evening. taking insulin lispro (HUMALOG KWIKPEN INSULIN) 100 unit/mL inpn As directed for coverage scale: add additional 4u for every 50 points above glucose 150 Not using Insulin [place], Disposable, 32 gauge x 5/16 ndle Use one needle per dose. 5 doses per day Lancets lancets Check blood sugar 4 times daily diagnosis: e11.65, insulin: yes lisinopril (ZESTRIL, PRINIVIL) 20 mg tablet Take 1 tablet by mouth once daily. Dose was increased to 20mg daily yesterday metFORMIN ER (GLUCOPHAGE XR) 500 mg 24 hr tablet Take 4 tablets by mouth daily with breakfast. taking Tadalafil (CIALIS) 10 mg tablet One tablets 3-4 hours before anticipated activity Too expensive, not taking Rx meds not listed in EPIC: none OTCs: Multivitamin (Equate gummy); Fiber gummy every other day Herbals: none GLYCEMIC CONTROL: ? Glucometer present at visit: No ? SMBG?s: reports checking BG once or twice/day; hasn't tested BG recently ? Hypoglycemia: none Objective: VITALS: There were no vitals taken for this visit. (BP taken during PCP appt today) Last 3 Encounter BP Readings: Date: BP: 06/27/2018 110/72 04/05/2018 128/80 04/02/2018 110/76 Wt: 153.8 kg (339 lb) BMI: 45.98 kg/(m2) LABS Lab Results Component Value Date HBA1C 6.6 06/25/2018 HBA1C 7.2 03/26/2018 HBA1C 10.1 12/25/2017 CMP: Glucose 93 06/25/2018 BUN 14 06/25/2018 Creatinine 0.57 06/25/2018 Sodium 136 06/25/2018 Potassium 5.0 06/25/2018 Chloride 99 06/25/2018 CO2 24 06/25/2018 Protein, Total 7.8 06/25/2018 Albumin 4.2 06/25/2018 Calcium 9.0 06/25/2018 Alkaline Phosphatase 81 06/25/2018 Bilirubin, Total 0.5 06/25/2018 AST 27 06/25/2018 ALT 28 06/25/2018 Estimated Creatinine Clearance: 247.6 mL/min (A) (based on SCr of 0.57 mg/dL (L)). Last Lipid Panel Lab Results Component Value Date CHOL 108 06/25/2018 Lab Results Component Value Date HDL 38 06/25/2018 Lab Results Component Value Date LDL 52 06/25/2018 Lab Results Component Value Date TG 89 06/25/2018 Albumin/Creat Ratio (mg/g) Date Value 06/25/2018 101 (H) PHARMACOTHERAPY ASSESSMENT/PLAN: 1. Uncontrolled type 2 diabetes mellitus without complication, with long-term current use of insulin ([facility]) - ICD9: 250.02, V58.67, ICD10: E11.65, Z79.4 A1c goal <7%; controlled on current regimen and tolerating well; no concerns of hypoglycemia at this time; patient making changes to diet to reduce carb intake; patient not checking BGs currently - PharmD encouraged patient to make sure he is checking BGs at least once daily (FBGs), twice daily is preferred; no medication changes today, although patient said he would prefer to start taking insulin glargine in 2 divided doses (AM and PM) instead of together - PharmD counseled patient to take 1 injection of 61 units this AM and then take 2nd injection this evening (patient's last dose of insulin was yesterday AM); discussed with patient the option of no longer following up with pharmacy since his BG is controlled - patient stated that he likes the follow- up and would prefer to see pharmacy after next A1c; renal fxn and LFTs WNL and appropriate for continued use - CONTINUE metformin ER 2000mg QAM, dulaglutide 1.5mg weekly, insulin glargine 61 units BID, and insulin lispro sliding scale - A1c due in September Patient is scheduled to see PCP on 06/27/18. Patient to return to clinic for PharmD f/u on 10/01. Patient verbalized understanding of instructions. Mehnaz Cook, MatteoD, BCPS Primary Care Clinical Pharmacist Formerly [facility], [facility] MEHNAZ COOK, PHARMACIST 06/27/2018 9:24 AM Signed No medication changes, keep up the great work! Referring Provider: SELF [[id number]] Allergies As of Date: 06/27/2018 (No Known Allergies) Date Reviewed: 06/27/2018 Reviewed by: Roslyn Rose LPN - Fully Assessed Reason for Visit: Allied Health Visit [5] Cmt: DM f/u Primary Visit Diagnosis:Uncontrolled type 2 diabetes mellitus without complication, with long-term current use of insulin ([facility]) [E11.65, Z79.4] Prescriptions as of 06/27/2018 Sig: LISINOPRIL 20 MG TABLET Take 1 tablet by mouth once d* ATORVASTATIN 20 MG TABLET Take 1 tablet by mouth daily * INSULIN GLARGINE (U-100) 100 * Administer 2 injections of 61* LANCETS Check blood sugar 4 times patricia* DULAGLUTIDE 1.5 MG/0.5 ML SUB* Inject 1.5 mg subcutaneously * INSULIN LISPRO (U-100) 100 UN* As directed for coverage scal* PEN NEEDLE, DIABETIC 32 GAUGE* Use one needle per dose. 5 do* METFORMIN ER 500 MG TABLET,EX* Take 4 tablets by mouth daily* Problem List As Of Date 06/27/2018 Noted Resolved Closed Colles' fracture [S56.221E] INVALID FOR*09/25/2017 More... OBESITY NOS [E66.9] INVALID FOR* Acute nonsuppurative otitis media, unspecified *INVALID FOR*09/25/2017 INFEC OTITIS EXTERNA NOS [H60.399] INVALID FOR* Tobacco use disorder [F17.200] INVALID FOR*09/25/2017 More... ELEV BL PRES W/O HYPERTN [R03.0] INVALID FOR* Traumatic pneumothorax [S27.0XXA] INVALID FOR*09/25/2017 More... PAD (peripheral artery disease) (HCC) [I73.9] INVALID FOR* More... Sleep apnea [G47.30] INVALID FOR* More... Controlled type 2 diabetes mellitus with both e*INVALID FOR* More... Mild intermittent asthma [J45.20] More... Cataract [H26.9] More... Microalbuminuria [R80.9] INVALID FOR* Low HDL (under 40) [E78.6] INVALID FOR* Reaction, adjustment, with depressed mood, prol*INVALID FOR* Obesity, Class III, BMI >= 40 [E66.01] INVALID FOR* Hyperlipidemia, mixed [E78.2] INVALID FOR* Other instructions from your clinician: No medication changes, keep up the great work! Encounter Status:Closed by JUAN (PHARMACIST)MEHNAZ on 06/27/18 PROGRESS Observed: 06/27/2018 Status: COMPLETED Source: [place] 8:[address] [facility] REPOSITORY O ID: [id number] Author: Yogesh Boswell (Andrew) Sarkis Service: (none) Author Type: Physician Health Service Worker Type: Progress Notes Filed: 06/27/2018 9:13 AM Note Text: 47 year old male with c/o 1. HTN: Current meds: Lisinopril 20mg Patient is compliant with meds Yes Monitors bp at home: No. If yes, readings: Denies side effects: No. Chest pain: No. Dyspnea: No. Edema: No. Palpitations: No. Syncope: No. Headache: No. Dizziness: No. Last 3 Encounter BP Readings: Date: BP: 06/27/2018 110/72 04/05/2018 128/80 04/02/2018 110/76 Last 2 Encounter Wt Readings: Date: Wt: 06/27/2018 153.8 kg (339 lb) 06/25/2018 152.2 kg (335 lb 8 oz) 2. Taking medication as directed consistently? Yes Medical Issues / Complications: peripheral neuropathy- slight tingling in left hand and fingers started about a month ago, denies any tingling/numbness in feet. Following with clinical pharmacy with improving control. Followed through with nutritional consult. Checking blood sugars at home? Yes. Watching diet? Yes Physical Activity: Modest Hypoglycemic spells? No Any visual disturbance? No Chest pain? No New numbness, tingling or loss of sensation? Yes Any recent foot problems, sores or rashes? No Any recent or sudden weight loss? No Any recent illness? Yes- stomach virus Renal protective agent? No ASA daily? No Statin therapy? Yes Triglyceride therapy? Yes Last eye exam: 2017 Last foot exam: 09/25/17 HBA1C: 6.6 Hemoglobin A1C (%) Date Value 06/25/2018 6.6 03/26/2018 7.2 ) CMP: Glucose 93 06/25/2018 BUN 14 06/25/2018 Creatinine 0.57 06/25/2018 Sodium 136 06/25/2018 Potassium 5.0 06/25/2018 Chloride 99 06/25/2018 CO2 24 06/25/2018 Protein, Total 7.8 06/25/2018 Albumin 4.2 06/25/2018 Calcium 9.0 06/25/2018 Alkaline Phosphatase 81 06/25/2018 Bilirubin, Total 0.5 06/25/2018 AST 27 06/25/2018 ALT 28 06/25/2018 Last 2 Encounter Wt Readings: Date: Wt: 06/27/2018 153.8 kg (339 lb) 06/25/2018 152.2 kg (335 lb 8 oz) 3. Hyperlipidemia: Taking medication consistently Yes Observing low cholesterol high fiber diet Yes Muscle aches No Component Latest Ref Rng AND Units 03/30/2012 09/25/2017 06/25/2018 Triglyceride <150 mg/dL 112 197 (H) 89 Cholesterol, Total <200 mg/dL 154 177 108 HDL Cholesterol >39 mg/dL 45 (L) 38 (L) 38 (L) VLDL Cholesterol <30 mg/dL 22 39 (H) 18 LDL Cholesterol <100 mg/dL 87 100 (H) 52 Fasting Time hrs FASTING 7 13 TC:HDL Ratio <5.10 3.42 4.66 2.84 LDL:HDL Ratio <2.54 1.93 2.63 (H) 1.37 Non HDL Cholesterol <130 mg/dL 109 139 (H) 70 4. Peripheral artery disease: no pain, cramping, swelling, loss of sensation. 5. PSYCH: Currently tolerating medications well: not currently on any medications Side effects: N/A Sleep issues: No. Energy changes: No- Still tired most of the time Appetite changes: No. Current depression: Yes- but does not feel medication will work Current anxiety: No. Suicidal ideation: No. 6. CARI: compliant with bipap - sleeping relatively ok. Seeing sleep specialist, Dr. Stevens - discussed eye mask or darkening the room 7. Tingling, numbness left hand. Comes and goes. Whole hand and all five fingers. Not really concerned. No loss of strength. HISTORIES FAMILY HISTORY Problem Relation Age of Onset - Diabetes Mother - Heart Mother HEART DISEASE - Hypertension Mother - Psychiatry Mother depressed - None Father - Allergies Father - Diabetes Father - Hypertension Father - Stroke Father - Psychiatry Father depression - None Sister - Diabetes Sister - other (Other) Sister growth in lung, lots of lung problems, pneumonia - Diabetes Brother - Psychiatry Brother depression - Breast Cancer Paternal Aunt - Cancer Maternal Aunt Stomache - Cancer Paternal Uncle Bone PAST MEDICAL HISTORY Diagnosis Date - Acute nonsuppurative otitis media, unspecified 03/07/2007 - Cataract right eye, surgery 2009 [facility] - Closed Colles' fracture 08/03/20052007 left - Closed fracture of navicular (scaphoid) bone of wrist 01/18/05 Wrist fracture-left distal radius - Depression in past, was on effexor but stopped years ago. - Diabetes mellitus - Esophagitis, unspecified ESOPHAGITIS - Hyperlipidemia borderline - Measles - Mild intermittent asthma uses albuterl rarely - Mumps - Peptic ulcer, unspecified site, unspecified as acute or chronic, without mention of hemorrhage, perforation, or obstruction Peptic ulcer disease per EGD maybe 2006 - Tobacco use disorder 06/01/2007 Quit 2009 chew - Traumatic pneumothorax 01/15/2008 Ran over by cow, broke 4 ribs, lung collapsed, unconscious. No chest tube. Was sent to [facility]. 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 Disp: 90 tablet Rfl: 1 atorvastatin (LIPITOR) 20 mg tablet Take 1 tablet by mouth daily at bedtime. For cholesterol. Disp: 90 tablet Rfl: 1 insulin glargine (LANTUS SOLOSTAR U-100 INSULIN) 100 unit/mL (3 mL) inpn Administer 2 injections of 61 units (122 units total) of Lantus once daily in the evening. Disp: Rfl: dulaglutide (TRULICITY) 1.5 mg/ 0.5 ml subcutaneous pen injector Inject 1.5 mg subcutaneously once each week. Inject once per week. Discard Pen After Disp: 4 Pen Rfl: 11 insulin lispro (HUMALOG KWIKPEN INSULIN) 100 unit/mL inpn As directed for coverage scale: add additional 4u for every 50 points above glucose 150 Disp: 5 Pen Rfl: 2 metFORMIN ER (GLUCOPHAGE XR) 500 mg 24 hr tablet Take 4 tablets by mouth daily with breakfast. Disp: 360 tablet Rfl: 3 Lancets lancets Check blood sugar 4 times daily diagnosis: e11.65, insulin: yes Disp: 200 Each Rfl: 3 Insulin [place], Disposable, 32 gauge x 5/16 ndle Use one needle per dose. 5 doses per day Disp: 200 Each Rfl: 5 No current facility-administered medications for this visit. DILATED RETINAL EXAM due on 06/08/2018 EXAM: BP 110/72 Pulse 80 Temp 36 ?C (96.8 ?F) (Tympanic) Resp 20 Wt (!) 153.8 kg (339 lb) BMI 45.98 kg/m? Pleasant obese in no acute distress. Alert and oriented all spheres. Normal affect and cognition. Speech normal. No deficits to learning or comprehension. Skin warm, dry, pink to lips and nailbeds. Normal turgor. Respirations regular and unlabored. HEENT WNL. TM's clear. Nose and oropharynx free from injection or lesion. No cervical lymph nodes. Thyroid non-tender, no masses Chest CTA. HRRR without murmur or gallop. Extrem: no clubbing, cyanosis, edema. Extremities are warm and pink with prompt capillary refill. Refused foot exam, very worried about nothaving a shower. ASSESSMENT/PLAN: 1. Elevated blood pressure reading without diagnosis of hypertension - ICD9: 796.2, ICD10: R03.0 (primary diagnosis) - Encouraged dietary sodium restriction/DASH diet - Recommended regular aerobic exercise. - Recommend home blood pressure monitoring, to bring results in on next visit - Goal of BP <130/80 2. PAD (peripheral artery disease) ([facility]) - ICD9: 443.9, ICD10: I73.9 Not really much of an issue. Some tingling in fingers and toes, intermittent. 3. Obstructive sleep apnea syndrome - ICD9: 327.23, ICD10: G47.33 Compliant with bipap 4. 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 - Continue current medications - Follows with pharmacist and congratulated on compliance and progress. 5. Microalbuminuria - ICD9: 791.0, ICD10: R80.9 Lisinopril increased: monitor in 3months 6. Reaction, adjustment, with depressed mood, prolonged - ICD9: 309.1, ICD10: F43.21 Stopped Venlafaxine. Stopped psychiatry: feels chronic depression but manages. 7. Hyperlipidemia, mixed - ICD9: 272.2, ICD10: E78.2 - good control - Continue current medication. F/u 3 months with labs M ANDREW Marques Observed: 06/27/2018 Status: COMPLETED Source: [place] 8:00 AM [facility] REPOSITORY [facility] SHEKHAR KIMBROUGH ([id number]) 1970 M Date Time Provider Department 06/27/18 8:00 AM Yogesh DOCKERY) JONATHAN During your visit today, we recorded the following information about you: Temperature Pulse Respiration Blood pressure 96.8 degrees 80/minute 20/minute 110/72 Weight 153.8 kg M Yesika Dockery PA-C 06/27/2018 9:13 AM Signed 47 year old male with c/o 1. HTN: Current meds: Lisinopril 20mg Patient is compliant with meds Yes Monitors bp at home: No. If yes, readings: Denies side effects: No. Chest pain: No. Dyspnea: No. Edema: No. Palpitations: No. Syncope: No. Headache: No. Dizziness: No. Last 3 Encounter BP Readings: Date: BP: 06/27/2018 110/72 04/05/2018 128/80 04/02/2018 110/76 Last 2 Encounter Wt Readings: Date: Wt: 06/27/2018 153.8 kg (339 lb) 06/25/2018 152.2 kg (335 lb 8 oz) 2. Taking medication as directed consistently? Yes Medical Issues / Complications: peripheral neuropathy- slight tingling in left hand and fingers started about a month ago, denies any tingling/numbness in feet. Following with clinical pharmacy with improving control. Followed through with nutritional consult. Checking blood sugars at home? Yes. Watching diet? Yes Physical Activity: Modest Hypoglycemic spells? No Any visual disturbance? No Chest pain? No New numbness, tingling or loss of sensation? Yes Any recent foot problems, sores or rashes? No Any recent or sudden weight loss? No Any recent illness? Yes- stomach virus Renal protective agent? No ASA daily? No Statin therapy? Yes Triglyceride therapy? Yes Last eye exam: 2017 Last foot exam: 09/25/17 HBA1C: 6.6 Hemoglobin A1C (%) Date Value 06/25/2018 6.6 03/26/2018 7.2 ) CMP: Glucose 93 06/25/2018 BUN 14 06/25/2018 Creatinine 0.57 06/25/2018 Sodium 136 06/25/2018 Potassium 5.0 06/25/2018 Chloride 99 06/25/2018 CO2 24 06/25/2018 Protein, Total 7.8 06/25/2018 Albumin 4.2 06/25/2018 Calcium 9.0 06/25/2018 Alkaline Phosphatase 81 06/25/2018 Bilirubin, Total 0.5 06/25/2018 AST 27 06/25/2018 ALT 28 06/25/2018 Last 2 Encounter Wt Readings: Date: Wt: 06/27/2018 153.8 kg (339 lb) 06/25/2018 152.2 kg (335 lb 8 oz) 3. Hyperlipidemia: Taking medication consistently Yes Observing low cholesterol high fiber diet Yes Muscle aches No Component Latest Ref Rng AND Units 03/30/2012 09/25/2017 06/25/2018 Triglyceride <150 mg/dL 112 197 (H) 89 Cholesterol, Total <200 mg/dL 154 177 108 HDL Cholesterol >39 mg/dL 45 (L) 38 (L) 38 (L) VLDL Cholesterol <30 mg/dL 22 39 (H) 18 LDL Cholesterol <100 mg/dL 87 100 (H) 52 Fasting Time hrs FASTING 7 13 TC:HDL Ratio <5.10 3.42 4.66 2.84 LDL:HDL Ratio <2.54 1.93 2.63 (H) 1.37 Non HDL Cholesterol <130 mg/dL 109 139 (H) 70 4. Peripheral artery disease: no pain, cramping, swelling, loss of sensation. 5. PSYCH: Currently tolerating medications well: not currently on any medications Side effects: N/A Sleep issues: No. Energy changes: No- Still tired most of the time Appetite changes: No. Current depression: Yes- but does not feel medication will work Current anxiety: No. Suicidal ideation: No. 6. CARI: compliant with bipap - sleeping relatively ok. Seeing sleep specialist, Dr. Stevens - discussed eye mask or darkening the room 7. Tingling, numbness left hand. Comes and goes. Whole hand and all five fingers. Not really concerned. No loss of strength. HISTORIES FAMILY HISTORY Problem Relation Age of Onset - Diabetes Mother - Heart Mother HEART DISEASE - Hypertension Mother - Psychiatry Mother depressed - None Father - Allergies Father - Diabetes Father - Hypertension Father - Stroke Father - Psychiatry Father depression - None Sister - Diabetes Sister - other (Other) Sister growth in lung, lots of lung problems, pneumonia - Diabetes Brother - Psychiatry Brother depression - Breast Cancer Paternal Aunt - Cancer Maternal Aunt Stomache - Cancer Paternal Uncle Bone PAST MEDICAL HISTORY Diagnosis Date - Acute nonsuppurative otitis media, unspecified 03/07/2007 - Cataract right eye, surgery 2009 [facility] - Closed Colles' fracture 08/03/20052007 left - Closed fracture of navicular (scaphoid) bone of wrist 01/18/05 Wrist fracture-left distal radius - Depression in past, was on effexor but stopped years ago. - Diabetes mellitus - Esophagitis, unspecified ESOPHAGITIS - Hyperlipidemia borderline - Measles - Mild intermittent asthma uses albuterl rarely - Mumps - Peptic ulcer, unspecified site, unspecified as acute or chronic, without mention of hemorrhage, perforation, or obstruction Peptic ulcer disease per EGD maybe 2007 - Tobacco use disorder 06/01/2007 Quit 2009 chew - Traumatic pneumothorax 01/15/2008 Ran over by cow, broke 4 ribs, lung collapsed, unconscious. No chest tube. Was sent to [facility]. No sequellae - Unspecified essential hypertension Essential hypertension: controlled without medication PAST SURGICAL HISTORY Procedure Laterality Date - ANKLE SURGERY HX Left 2013 rupture posterior tibial tendon repaired - APPENDECTOMY 1982 - EGD W/O OR W/BRUSH/WASH EGD ACTIVE PROBLEM LIST Obesity, Unspecified Infective Otitis Externa, Unspecified Elevated Blood Pressure Reading Without Diagnosis of Hypertension PAD (peripheral artery disease) (HCC) Sleep Apnea Controlled Type 2 Diabetes Mellitus With Both Eyes Affected By Moderate Nonproliferative Retinopathy and Macular Edema, Without Long- Term Current Use of Insulin (Hcc) Mild Intermittent Asthma Cataract Microalbuminuria Low Hdl (Under 40) Reaction, Adjustment, With Depressed Mood, Prolonged Obesity, Class III, BMI >= 40 Hyperlipidemia, Mixed Current Outpatient Prescriptions: lisinopril (ZESTRIL, PRINIVIL) 20 mg tablet Take 1 tablet by mouth once daily. Disp: 90 tablet Rfl: 1 atorvastatin (LIPITOR) 20 mg tablet Take 1 tablet by mouth daily at bedtime. For cholesterol. Disp: 90 tablet Rfl: 1 insulin glargine (LANTUS SOLOSTAR U-100 INSULIN) 100 unit/mL (3 mL) inpn Administer 2 injections of 61 units (122 units total) of Lantus once daily in the evening. Disp: Rfl: dulaglutide (TRULICITY) 1.5 mg/ 0.5 ml subcutaneous pen injector Inject 1.5 mg subcutaneously once each week. Inject once per week. Discard Pen After Disp: 4 Pen Rfl: 11 insulin lispro (HUMALOG KWIKPEN INSULIN) 100 unit/mL inpn As directed for coverage scale: add additional 4u for every 50 points above glucose 150 Disp: 5 Pen Rfl: 2 metFORMIN ER (GLUCOPHAGE XR) 500 mg 24 hr tablet Take 4 tablets by mouth daily with breakfast. Disp: 360 tablet Rfl: 3 Lancets lancets Check blood sugar 4 times daily diagnosis: e11.65, insulin: yes Disp: 200 Each Rfl: 3 Insulin [place], Disposable, 32 gauge x 5/16 ndle Use one needle per dose. 5 doses per day Disp: 200 Each Rfl: 5 No current facility-administered medications for this visit. DILATED RETINAL EXAM due on 06/08/2018 EXAM: BP 110/72 Pulse 80 Temp 36 ?C (96.8 ?F) (Tympanic) Resp 20 Wt (!) 153.8 kg (339 lb) BMI 45.98 kg/m? Pleasant obese in no acute distress. Alert and oriented all spheres. Normal affect and cognition. Speech normal. No deficits to learning or comprehension. Skin warm, dry, pink to lips and nailbeds. Normal turgor. Respirations regular and unlabored. HEENT WNL. TM's clear. Nose and oropharynx free from injection or lesion. No cervical lymph nodes. Thyroid non-tender, no masses Chest CTA. HRRR without murmur or gallop. Extrem: no clubbing, cyanosis, edema. Extremities are warm and pink with prompt capillary refill. Refused foot exam, very worried about nothaving a shower. ASSESSMENT/PLAN: 1. Elevated blood pressure reading without diagnosis of hypertension - ICD9: 796.2, ICD10: R03.0 (primary diagnosis) - Encouraged dietary sodium restriction/DASH diet - Recommended regular aerobic exercise. - Recommend home blood pressure monitoring, to bring results in on next visit - Goal of BP <130/80 2. PAD (peripheral artery disease) (HCC) - ICD9: 443.9, ICD10: I73.9 Not really much of an issue. Some tingling in fingers and toes, intermittent. 3. Obstructive sleep apnea syndrome - ICD9: 327.23, ICD10: G47.33 Compliant with bipap 4. 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 - Continue current medications - Follows with pharmacist and congratulated on compliance and progress. 5. Microalbuminuria - ICD9: 791.0, ICD10: R80.9 Lisinopril increased: monitor in 3months 6. Reaction, adjustment, with depressed mood, prolonged - ICD9: 309.1, ICD10: F43.21 Stopped Venlafaxine. Stopped psychiatry: feels chronic depression but manages. 7. Hyperlipidemia, mixed - ICD9: 272.2, ICD10: E78.2 - good control - Continue current medication. F/u 3 months with labs M Yesika Dockery PA-C Referring Provider: SELF [200] Allergies As of Date: 06/27/2018 (No Known Allergies) Date Reviewed: 06/27/2018 Reviewed by: Roslyn Rose LPN - Fully Assessed Reason for Visit: F/U Diabetes 3 Month [445] Numbness [75] Cmt: left hand for about 1 month off and on Reason For Visit History Recorded Primary Visit Diagnosis:Elevated blood pressure reading without diagnosis of hypertension [R03.0] Other Visit Diagnoses:PAD (peripheral artery disease) ([facility]) [I73.9] Obstructive sleep apnea syndrome [G47.33] 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, without long-term current use of insulin ([facility]) [E11.3313] Microalbuminuria [R80.9] Reaction, adjustment, with depressed mood, prolonged [F43.21] Hyperlipidemia, mixed [E78.2] Prescriptions as of 06/27/2018 Sig: LISINOPRIL 20 MG TABLET Take 1 tablet by mouth once d* ATORVASTATIN 20 MG TABLET Take 1 tablet by mouth daily * INSULIN GLARGINE (U-100) 100 * Administer 2 injections of 61* DULAGLUTIDE 1.5 MG/0.5 ML SUB* Inject 1.5 mg subcutaneously * INSULIN LISPRO (U-100) 100 UN* As directed for coverage scal* METFORMIN ER 500 MG TABLET,EX* Take 4 tablets by mouth daily* LANCETS Check blood sugar 4 times patricia* PEN NEEDLE, DIABETIC 32 GAUGE* Use one needle per dose. 5 do* Problem List As Of Date 06/27/2018 Noted Resolved Closed Colles' fracture [S52.539A] INVALID FOR*09/25/2017 More... OBESITY NOS [E66.9] INVALID FOR* Acute nonsuppurative otitis media, unspecified *INVALID FOR*09/25/2017 INFEC OTITIS EXTERNA NOS [H60.399] INVALID FOR* Tobacco use disorder [F17.200] INVALID FOR*09/25/2017 More... ELEV BL PRES W/O HYPERTN [R03.0] INVALID FOR* Traumatic pneumothorax [S27.0XXA] INVALID FOR*09/25/2017 More... PAD (peripheral artery disease) ([facility]) [I73.9] INVALID FOR* More... Sleep apnea [G47.30] INVALID FOR* More... Controlled type 2 diabetes mellitus with both e*INVALID FOR* More... Mild intermittent asthma [J45.20] More... Cataract [H26.9] More... Microalbuminuria [R80.9] INVALID FOR* Low HDL (under 40) [E78.6] INVALID FOR* Reaction, adjustment, with depressed mood, prol*INVALID FOR* Obesity, Class III, BMI >= 40 [E66.01] INVALID FOR* Hyperlipidemia, mixed [E78.2] INVALID FOR* Medications Discontinued During This Encounter Tadalafil (CIALIS) 10 mg tablet 6 ta* 5 04/02/2018 06/27/2018 Sig: One tablets 3-4 hours before anticipated activity Disc: Reason for discontinue is not on file. Disposition: Return in about 3 months (around 09/25/2018). Follow-up and Disposition History Recorded Encounter Status:Closed by Yogesh DOCKERY PA-C on 06/27/18 ALBUMIN/CREAT RATIO Collected: 06/25/2018 Status: F Source: [place] 8:43 AM [facility] REPOSITORY TYPE CODE TESTS RESULT OUT OF REFERENCE UNITS RANGE LAB UCRR 20-300 mg/dL Creatinine,Ur 106.7 ine,Ran LAB UALBR 0.0-23.0 mg/L High Albumin Urine 108.1 Random LAB UALBCR 0-30 mg/g High Albumin/Creat 101 Ratio Result Comment: 30 to 300 mg/g indicates an increased risk for diabetic nephropathy. Greater than 300 mg/g is consistent with clinical nephropathy. (Am J Kidney Disease 1995, 25:107) Performed By: #### UACR #### [facility] [address], [place] [address] CK Collected: 06/25/2018 Status: F Source: [facility] 8:41 AM [facility] REPOSITORY TYPE CODE TESTS RESULT OUT OF RANGE REFERENCE UNITS LAB CK 51-298 U/L CK 112 Performed By: #### CK, CMP, LIPB, VITD, HBA1C, FTESTO #### [facility] [facility] [address] [place], [place] [address] COMP METABOLIC PANEL Collected: 06/25/2018 Status: F Source: [place] 8:41 AM [facility] REPOSITORY TYPE CODE TESTS RESULT OUT OF REFERENCE UNITS RANGE LAB TP 6.3-8.0 g/dL Protein, Total 7.8 LAB ALB 3.9-4.9 g/dL Albumin 4.2 LAB CA 8.5-10.2 mg/dL Calcium, Total 9.0 LAB TBIL 0.2-1.3 mg/dL Bilirubin, Total 0.5 LAB ALKP 38-113 U/L Alkaline Phosphatase 81 LAB AST 14-40 U/L AST 27 LAB GLU 74-99 mg/dL Glucose 93 Result Comment: The [place] Diabetes [employer] (ADA) provides guidance for cutoff values for fasting glucose and random glucose. The ADA defines fasting as no caloric intake for at least 8 hours. Fas ting plasma glucose results between 100 to 125 mg/dL indicate increased risk for diabetes (prediabetes). Fasting plasma glucose results greater than or equal to 126 mg/dL meet the criteria for diagnosis of diabetes. In the absence of unequivocal hyperglycemia, results should be confirmed by repeat testing. In a patient with classic symptoms of hyperglycemia or hyperglycemic crisis, random plasma glucose results greater than or equal to 200 mg/dL meet the criteria for diagnosis of diabetes. Reference: Standards of Medical Care in Diabetes 2016, [place] [employer] Association. Diabetes Care. 2016.39(Suppl 1). LAB BUN 9-24 mg/dL BUN 14 LAB CRET 0.73-1.22 mg/dL Creatinine Low 0.57 LAB NA 136-144 mmol/L Sodium 136 LAB K 3.7-5.1 mmol/L Potassium 5.0 LAB CL 97-105 mmol/L Chloride 99 LAB CO2 22-30 mmol/L CO2 24 LAB AGAP 9-18 mmol/L Anion Gap 13 LAB ALT 10-54 U/L ALT 28 LAB GFRAA eGFR- Amer. >60 LAB GFRNAA . eGFR-All Other Races >60 Result Comment: eGFR (Estimated GFR) Units of measure: mL/min/1.73 meters squared eGFR is derived from the reexpressed MDRD Study equation using the following parameters: serum creatinine, age, gender and race. The creatinine assay has been calibrated to be traceable to IDMS. An eGFR <60 mL/min/1.73m2 for >3 months is consistent with chronic kidney disease. Refer to KDOQI guidelines for clinical interpretation. In patients with unstable renal function, e.g. those with acute kidney injury, the eGFR may not accurately reflect actual GFR. Performed By: #### CK, CMP, LIPB, VITD, HBA1C, FTESTO #### [facility] [address] [place] [id number] LIPID PANEL, BASIC Collected: 06/25/2018 Status: F Source: [place] 8:41 AM [facility] REPOSITORY TYPE CODE TESTS RESULT OUT OF REFERENCE UNITS RANGE LAB CHOL <200 mg/dL Cholesterol 108 Result Comment: <200 mg/dL, Desirable 200-239 mg/dL, Borderline high >239 mg/dL, High LAB TRIGLY <150 mg/dL Triglyceride 89 Result Comment: <150 mg/dL, Normal 150-199 mg/dL, Borderline high 200-499 mg/dL, High >499 mg/dL, Very high LAB HDL >39 mg/dL HDL-Cholesterol Low 38 Result Comment: 40-59 mg/dL, Acceptable >59 mg/dL, High: Negative risk factor for coronary heart disease <40 mg/dL, Low: Positive risk factor for coronary heart disease LAB LDL <100 mg/dL LDL-Cholesterol 52 Result Comment: <100 mg/dL, Optimal 100-129 mg/dL, Near optimal/above optimal 130-159 mg/dL, Borderline high 160-189 mg/dL, High >189 mg/dL, Very high Secondary prevention optimal LDL Cholesterol levels are recommended to be < 70 mg/dL LAB NONHDL <130 mg/dL Non HDL Cholesterol 70 Result Comment: <130 mg/dL, Optimal 130-159 mg/dL, Near optimal/above optimal 160-189 mg/dL, Borderline high 190-219 mg/dL, High >219 mg/dL, Very high Secondary prevention optimal non HDL Cholesterol levels are recommended to be < 100 mg/dL LAB FT hrs Fasting Time 13 LAB VLDL <30 mg/dL VLDL Cholesterol 18 LAB TCHDL <5.10 TC:HDL Ratio 2.84 LAB LDLHDL <2.54 LDL:HDL Ratio 1.37 Result Comment: Reference: 1. National Cholesterol Education Program ATP III Guideline At-A-Glance Quick Desk Reference: National Heart, Lung, and Blood [place]. National Institutes of Health. 2001: NIH Publication No. 01-3305. 2. An International Atherosclerosis Society position paper: global recommendations for the management of dyslipidemia: executive summary, Atherosclerosis. 2014: 232(2):410-413. Performed By: #### CK, CMP, LIPB, VITD, HBA1C, FTESTO #### [facility] [address] [place], [place] [address] VITAMIN D 25 HYDROXY Collected: 06/25/2018 Status: F Source: [place] 8:41 AM [facility] REPOSITORY TYPE CODE TESTS RESULT OUT OF REFERENCE UNITS RANGE LAB VITD 31.0-80.0 ng/mL Low Vitamin D 25 16.1 Hydroxy Result Comment: Classification of 25 [place] Vitamin D status: Insufficiency/Moderate Deficiency: < or = 30 ng/mL Sufficiency/Optimal Levels: 31 to 80 ng/mL Toxicity: > 100 ng/mL Test performed by chemiluminescent immunoassay. Performed By: #### CK, CMP, LIPB, VITD, HBA1C, FTESTO #### [facility] [address] [place] [id number] HEMOGLOBIN A1C Collected: 06/25/2018 Status: F Source: [place] 8:41 AM [facility] REPOSITORY TYPE CODE TESTS RESULT OUT OF REFERENCE UNITS RANGE LAB HGBA1C 4.3-5.6 % High Hemoglobin A1c 6.6 Result Comment: [place] [employer] guidelines indicate that patients with HgbA1c in the range 5.7-6.4% are at increased risk for development of diabetes, and intervention by lifestyle modification may be beneficial. HgbA1c greater or equal to 6.5% is considered diagnostic of diabetes. LAB HBA0 mg/dL Est. Average Glucose 143 Result Comment: eAG: (Estimated average glucose) is a calculated value from HgbA1c and is labor relations representative of the average blood glucose level in the last 2-3 month period. Performed By: #### CK, CMP, LIPB, VITD, HBA1C, FTESTO #### [facility] [address] [place], [place] [address] FREE TESTOSTERONE Collected: 06/25/2018 Status: F Source: [place] 8:41 AM [facility] REPOSITORY TYPE CODE TESTS RESULT OUT OF REFERENCE UNITS RANGE LAB TESTO 193-824 ng/dL Testosterone 226 Result Comment: A testosterone level in the 193-320 ng/dL range with associated clinical symptoms is considered low and may indicate hypogonadism (from [place] 2010 363:123-135). Results >320 ng/dL are considered normal. LAB FREE 1.4-3.2 % Free Testosterone % 2.5 LAB FRTSTO 41.7-180.2 pg/mL Free Testosterone 56.5 Result Comment: This test was developed and its performance characteristics determined by [facility] [place] ([facility]). It has not been cleared or approved by the FDA. [facility] is regulated under CLIA as qualified to perform high-complexity testing. This test is used for clinical purposes. It should not be regarded as investigational or for research. Performed By: #### CK, CMP, LIPB, VITD, HBA1C, FTESTO #### [facility] [address] [place], [place] [address] PROGRESS Observed: 06/25/2018 Status: COMPLETED Source: [place] 8:03 AM [facility] REPOSITORY HNO ID: [id number] Author: Chelsi Britton Service: (none) Author Type: Registered Dietitian Type: Progress Notes Filed: 06/25/2018 8:32 AM Note Text: Nutritional Therapy Re-Assessment PAIN: Is the patient having any pain that is interfering with oral / enteral intake? No 0 on a scale of 0 to 10 PROGRESS: Nutrition Intervention (date of last encounter 04/09/18): 1. Increase walking to 4 days per week 2. Keep proteins as leans as possible 3. Include 2-3 servings of vegetables per day 4. Snack only when hungry 5. Consider adding emily seeds or ground flax seeds 6. 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 Allergies: Patient has no known allergies. Medications: Current Outpatient Prescriptions: lisinopril (ZESTRIL, PRINIVIL) 10 mg tablet Take 1 tablet by mouth once daily. Disp: 90 tablet Rfl: 1 atorvastatin (LIPITOR) 20 mg tablet Take 1 tablet by mouth daily at bedtime. For cholesterol. Disp: 90 tablet Rfl: 1 Tadalafil (CIALIS) 10 mg tablet One tablets 3-4 hours before anticipated activity Disp: 6 tablet Rfl: 5 insulin glargine (LANTUS SOLOSTAR U-100 INSULIN) 100 unit/mL (3 mL) inpn Administer 2 injections of 61 units (122 units total) of Lantus once daily in the evening. Disp: Rfl: Lancets lancets Check blood sugar 4 times daily diagnosis: e11.65, insulin: yes Disp: 200 Each Rfl: 3 dulaglutide (TRULICITY) 1.5 mg/ 0.5 ml subcutaneous pen injector Inject 1.5 mg subcutaneously once each week. Inject once per week. Discard Pen After Disp: 4 Pen Rfl: 11 insulin lispro (HUMALOG KWIKPEN INSULIN) 100 unit/mL inpn As directed for coverage scale: add additional 4u for every 50 points above glucose 150 Disp: 5 Pen Rfl: 2 Insulin [place], Disposable, 32 gauge x 5/16 ndle Use one needle per dose. 5 doses per day Disp: 200 Each Rfl: 5 metFORMIN ER (GLUCOPHAGE XR) 500 mg 24 hr tablet Take 4 tablets by mouth daily with breakfast. Disp: 360 tablet Rfl: 3 No current facility-administered medications for this visit. (currently taking) Anthropometrics: Height: Last 1 Encounter Ht Readings: Date: Ht: 06/25/2018 182.9 cm (6') Current weight: Last 1 Encounter Wt Readings: Date: Wt: 06/25/2018 152.2 kg (335 lb 8 oz) Body mass index is 45.5 kg/m?. Resting Metabolic Rate: 2442 NUTRITION ASSESSMENT: Malnutrition Screening Significant unintentional weight loss? No Eating less than 75% of usual intake for more than 2 weeks? No Potential Signs of Inflammation: no identifiable sources RECOMMENDED MALNUTRITION DIAGNOSIS: NO MALNUTRITION IDENTIFIED Educational materials provided: none this visit READINESS TO LEARN Cognitive ability: Alert and oriented Motivation to learn: Interested Family support: Unable to assess - Family not present Instruction provided to: Patient Patient learns best by: Individual Instruction Factors affecting learning: None Physical limitations affecting learning: None Likelihood of Adherence: Moderate Patient presents for follow up MNT as relates to diabetes uncontrolled and for weight loss. On basil, bolus insulin, states blood sugars improving, reported numbers above target. Has not been exercising with weather changes, prefers walking for exercise, plans to join [employer]. Has not been tracking intake, weight stable from last visit. Nutrition Diagnosis: Overweight Obesity, related to; excess energy intake and physical inactivity, as evidenced by BMI above normative standard for age and gender. Nutrition Intervention 06/25/2018: modify type and amount of food or beverage 1. Start tracking intake with alyssa either [employer] Metrics or Snap Trends; aiming for ~2200 calories 2. Get back to regular exercise at least minutes 5 days per week 3. Follow the Plate Method at lunch and dinner: keep starches to only 1/4 of plate Use a 9 plate - 1/2 plate vegetables-non starchy such as green beans, greens, broccoli, cauliflower, etc (1 serving of fruit optional outside of plate) - 1/4 plate lean protein-primarily chicken, turkey fish, lean red 1-2 x per week at most (size of palm) - 1/4 plate whole grain or starchy vegetable such as corn, peas, potatoes, beans (size of fist, 1 cup) 4. Choose whole grain, high fiber breads and cereals only 5. Have the whole fruit and no juice Nutrition Monitoring AND Evaluation: Consistent carbohydrate calorie controlled diet for glucose within accpetable limits and 1- 2 pound weight loss per week. Criteria: patient update Need for Follow up: 6 weeks Referred/Supervised by: Zachary SCHWARZ Billing Type: Re-assess/15 min 2 units SIGNATURE: Chelsi Britton MS RD LD PATIENT NAME: Shekhar Kimbrough DATE: June 25, 2018 TIME: 8:06 AM CNCNPATED Observed: 06/25/2018 Status: COMPLETED Source: [place] 8:00 AM [facility] REPOSITORY Education (NUTRWS) ZAINSHEKHAR ([id number]) 1970 M Date Time Provider Department 06/25/18 8:00 AM CHELSI BRITTON ([place]) [place] Reason for Visit: Patient Education [91] Reassessment [674] Progress Notes: Chelsi Britton, MS RD LD 06/25/2018 8:32 AM Signed Nutritional Therapy Re-Assessment PAIN: Is the patient having any pain that is interfering with oral / enteral intake? No 0 on a scale of 0 to 10 PROGRESS: Nutrition Intervention (date of last encounter 04/09/18): 1. Increase walking to 4 days per week 2. Keep proteins as leans as possible 3. Include 2-3 servings of vegetables per day 4. Snack only when hungry 5. Consider adding emily seeds or ground flax seeds 6. 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 Allergies: Patient has no known allergies. Medications: Current Outpatient Prescriptions: lisinopril (ZESTRIL, PRINIVIL) 10 mg tablet Take 1 tablet by mouth once daily. Disp: 90 tablet Rfl: 1 atorvastatin (LIPITOR) 20 mg tablet Take 1 tablet by mouth daily at bedtime. For cholesterol. Disp: 90 tablet Rfl: 1 Tadalafil (CIALIS) 10 mg tablet One tablets 3-4 hours before anticipated activity Disp: 6 tablet Rfl: 5 insulin glargine (LANTUS SOLOSTAR U-100 INSULIN) 100 unit/mL (3 mL) inpn Administer 2 injections of 61 units (122 units total) of Lantus once daily in the evening. Disp: Rfl: Lancets lancets Check blood sugar 4 times daily diagnosis: e11.65, insulin: yes Disp: 200 Each Rfl: 3 dulaglutide (TRULICITY) 1.5 mg/ 0.5 ml subcutaneous pen injector Inject 1.5 mg subcutaneously once each week. Inject once per week. Discard Pen After Disp: 4 Pen Rfl: 11 insulin lispro (HUMALOG KWIKPEN INSULIN) 100 unit/mL inpn As directed for coverage scale: add additional 4u for every 50 points above glucose 150 Disp: 5 Pen Rfl: 2 Insulin [place], Disposable, 32 gauge x 5/16 ndle Use one needle per dose. 5 doses per day Disp: 200 Each Rfl: 5 metFORMIN ER (GLUCOPHAGE XR) 500 mg 24 hr tablet Take 4 tablets by mouth daily with breakfast. Disp: 360 tablet Rfl: 3 No current facility-administered medications for this visit. (currently taking) Anthropometrics: Height: Last 1 Encounter Ht Readings: Date: Ht: 06/25/2018 182.9 cm (6') Current weight: Last 1 Encounter Wt Readings: Date: Wt: 06/25/2018 152.2 kg (335 lb 8 oz) Body mass index is 45.5 kg/m?. Resting Metabolic Rate: 2442 NUTRITION ASSESSMENT: Malnutrition Screening Significant unintentional weight loss? No Eating less than 75% of usual intake for more than 2 weeks? No Potential Signs of Inflammation: no identifiable sources RECOMMENDED MALNUTRITION DIAGNOSIS: NO MALNUTRITION IDENTIFIED Educational materials provided: none this visit READINESS TO LEARN Cognitive ability: Alert and oriented Motivation to learn: Interested Family support: Unable to assess - Family not present Instruction provided to: Patient Patient learns best by: Individual Instruction Factors affecting learning: None Physical limitations affecting learning: None Likelihood of Adherence: Moderate Patient presents for follow up MNT as relates to diabetes uncontrolled and for weight loss. On basil, bolus insulin, states blood sugars improving, reported numbers above target. Has not been exercising with weather changes, prefers walking for exercise, plans to join [employer]. Has not been tracking intake, weight stable from last visit. Nutrition Diagnosis: Overweight Obesity, related to; excess energy intake and physical inactivity, as evidenced by BMI above normative standard for age and gender. Nutrition Intervention 06/25/2018: modify type and amount of food or beverage 1. Start tracking intake with alyssa either [employer] Metrics or Snap Trends; aiming for ~2200 calories 2. Get back to regular exercise at least minutes 5 days per week 3. Follow the Plate Method at lunch and dinner: keep starches to only 1/4 of plate Use a 9 plate - 1/2 plate vegetables-non starchy such as green beans, greens, broccoli, cauliflower, etc (1 serving of fruit optional outside of plate) - 1/4 plate lean protein-primarily chicken, turkey fish, lean red 1-2 x per week at most (size of palm) - 1/4 plate whole grain or starchy vegetable such as corn, peas, potatoes, beans (size of fist, 1 cup) 4. Choose whole grain, high fiber breads and cereals only 5. Have the whole fruit and no juice Nutrition Monitoring AND Evaluation: Consistent carbohydrate calorie controlled diet for glucose within accpetable limits and 1-2 pound weight loss per week. Criteria: patient update Need for Follow up: 6 weeks Referred/Supervised by: Salty/Susie WOODYT Billing Type: Re-assess/15 min 2 units SIGNATURE: MS FLORENTIN Mercer PATIENT NAME: Shekhar Kimbrough DATE: June 25, 2018 TIME: 8:06 AM MS FLORENTIN Mercer 06/25/2018 8:24 AM Signed 1. Start tracking intake with alyssa either [employer] or loseit; aiming for ~2200 calories 2. Get back to regular exercise at least minutes 5 days per week 3. Follow the Plate Method at lunch and dinner: keep starches to only 1/4 of plate Use a 9 plate - 1/2 plate vegetables-non starchy such as green beans, greens, broccoli, cauliflower, etc (1 serving of fruit optional outside of plate) - 1/4 plate lean protein-primarily chicken, turkey fish, lean red 1-2 x per week at most (size of palm) - 1/4 plate whole grain or starchy vegetable such as corn, peas, potatoes, beans (size of fist, 1 cup) 4. Choose whole grain, high fiber breads and cereals only 5. Have the whole fruit and no juice Document on: 06/25/2018 by: Chelsi Britton [[id number]] of: Special Effects Specialist Worksheet Document on: 06/25/2018 by: Chelsi Britton [[id number]] of: After Visit Summary Other instructions from your clinician: 1. Start tracking intake with alyssa either myPassboxpal or loseit; aiming for ~2200 calories 2. Get back to regular exercise at least minutes 5 days per week 3. Follow the Plate Method at lunch and dinner: keep starches to only 1/4 of plate Use a 9 plate - 1/2 plate vegetables-non starchy such as green beans, greens, broccoli, cauliflower, etc (1 serving of fruit optional outside of plate) - 1/4 plate lean protein-primarily chicken, turkey fish, lean red 1-2 x per week at most (size of palm) - 1/4 plate whole grain or starchy vegetable such as corn, peas, potatoes, beans (size of fist, 1 cup) 4. Choose whole grain, high fiber breads and cereals only 5. Have the whole fruit and no juice Primary Visit Diagnosis:Uncontrolled type 2 diabetes mellitus without complication, with long-term current use of insulin (HCC) [E11.65, Z79.4] Other Visit Diagnoses:Obesity, Class III, BMI >= 40 [E66.01] Dietary counseling [Z71.3] During your visit today, we recorded the following information about you: Weight Height 152.2 kg 1.829 m Allergies As of Date: 06/25/2018 (No Known Allergies) Date Reviewed: 06/25/2018 Reviewed by: Chelsi Britton - Fully Assessed Prescriptions as of 06/25/2018 Sig: LISINOPRIL 10 MG TABLET Take 1 tablet by mouth once d* ATORVASTATIN 20 MG TABLET Take 1 tablet by mouth daily * TADALAFIL 10 MG TABLET One tablets 3-4 hours before * INSULIN GLARGINE (U-100) 100 * Administer 2 injections of 61* LANCETS Check blood sugar 4 times patricai* DULAGLUTIDE 1.5 MG/0.5 ML SUB* Inject 1.5 mg subcutaneously * INSULIN LISPRO (U-100) 100 UN* As directed for coverage scal* PEN NEEDLE, DIABETIC 32 GAUGE* Use one needle per dose. 5 do* METFORMIN ER 500 MG TABLET,EX* Take 4 tablets by mouth daily* Encounter Status:Closed by TOBI MS RD CHELSI RODRIGUEZ on 06/25/18 CNCNPATED Observed: 04/09/2018 Status: COMPLETED Source: [place] 8:45 AM [facility] REPOSITORY Education (NUTRWS) SHEKHAR KIMBROUGH ([id number]) 1970 M Date Time Provider Department 04/09/18 8:45 AM CHELSI BRITTON) [place] Reason for Visit: Patient Education [91] Reassessment [674] Progress Notes: Chelsi Britton MS FLORENTIN RODRIGUEZ 04/09/2018 9:12 AM Signed Nutritional Therapy Re-Assessment PAIN: Is the patient having any pain that is interfering with oral / enteral intake? No 0 on a scale of 0 to 10 PROGRESS: Nutrition Intervention (date of last encounter 02/26/18): 1. Continue carb controlled diet 2. Consider adding 2 Tablespoons per day of emily seeds or flax seeds 3. Increase exercise to 30 min (twice around the block) 4. Ensure calorie free beverages CHANGES IN TREATMENT: Patient met goal(s): Yes Actions to implement interventions: Walking-30 min - 3 x per week Diet History: Dinner - chicken and broccoli, (before work); two plain hamburgers (no bun) 115 Lunch- chicken, rice TV dinner and veg; water, dill pickle Snack-skinny pop Breakfast: eggs (then to sleep) Beverages -water, [employer] Vitamins/Supplements - MVI gummy, now in Fiber gummys (sugar free) One reading at 200 (bag of candy corn) Avoiding bread, chips, pasta CLINICAL IMPRESSIONS: fair REVISIONS IN DIAGNOSIS: Diagnosis: has not changed. Allergies: Patient has no known allergies. Medications: Current Outpatient Prescriptions: lisinopril (ZESTRIL, PRINIVIL) 10 mg tablet Take 1 tablet by mouth once daily. Disp: 90 tablet Rfl: 1 atorvastatin (LIPITOR) 20 mg tablet Take 1 tablet by mouth daily at bedtime. For cholesterol. Disp: 90 tablet Rfl: 1 Tadalafil (CIALIS) 10 mg tablet One tablets 3-4 hours before anticipated activity Disp: 6 tablet Rfl: 5 insulin glargine (LANTUS SOLOSTAR U-100 INSULIN) 100 unit/mL (3 mL) inpn Administer 2 injections of 61 units (122 units total) of Lantus once daily in the evening. Disp: Rfl: Lancets lancets Check blood sugar 4 times daily diagnosis: e11.65, insulin: yes Disp: 200 Each Rfl: 3 dulaglutide (TRULICITY) 1.5 mg/ 0.5 ml subcutaneous pen injector Inject 1.5 mg subcutaneously once each week. Inject once per week. Discard Pen After Disp: 4 Pen Rfl: 11 insulin lispro (HUMALOG KWIKPEN INSULIN) 100 unit/mL inpn As directed for coverage scale: add additional 4u for every 50 points above glucose 150 Disp: 5 Pen Rfl: 2 Insulin [place], Disposable, 32 gauge x 5/16 ndle Use one needle per dose. 5 doses per day Disp: 200 Each Rfl: 5 metFORMIN ER (GLUCOPHAGE XR) 500 mg 24 hr tablet Take 4 tablets by mouth daily with breakfast. Disp: 360 tablet Rfl: 3 No current facility-administered medications for this visit. (currently taking) Anthropometrics: Height: Last 1 Encounter Ht Readings: Date: Ht: 04/09/2018 182.9 cm (6') Current weight: Last 1 Encounter Wt Readings: Date: Wt: 04/09/2018 151.5 kg (334 lb) Body mass index is 45.3 kg/m?. Resting Metabolic Rate: 2435 Last 2 Encounter Wt Readings: Date: Wt: 04/09/2018 151.5 kg (334 lb) 04/02/2018 153.3 kg (338 lb) . Hemoglobin A1C (%) Date Value 03/26/2018 7.2 12/25/2017 10.1 09/25/2017 12.1 03/30/2012 6.0 12/28/2011 5.9 NUTRITION ASSESSMENT: Malnutrition Screening Significant unintentional weight loss? No Eating less than 75% of usual intake for more than 2 weeks? No RECOMMENDED MALNUTRITION DIAGNOSIS: NO MALNUTRITION IDENTIFIED Educational materials provided: none this visit READINESS TO LEARN Cognitive ability: Alert and oriented Motivation to learn: Interested Family support: Unable to assess - Family not present Instruction provided to: Patient Patient learns best by: Individual Instruction Factors affecting learning: None Physical limitations affecting learning: None Likelihood of Adherence: High Patient presents for follow up MNT as relates to diabetes, weight control. Following recommendations well, making good choices, working on increasing fiber, limiting carbs and starches. 6 pounds lost from last visit, 16 pounds total since starting with weight at 355. States not tempted by treats at work, happy with weight loss and feels good. Blood sugars good control except one high with diet excursion. Improved HgA1c. Nutrition Diagnosis: Overweight Obesity, related to; excess energy intake and physical inactivity, as evidenced by BMI above normative standard for age and gender. Nutrition Intervention 04/09/2018: modify type and amount of food or beverage 1. Increase walking to 4 days per week 2. Keep proteins as leans as possible 3. Include 2-3 servings of vegetables per day 4. Snack only when hungry 5. Consider adding emily seeds or ground flax seeds 6. Continue carb controlled diet Nutrition Monitoring AND Evaluation: Consistent carbohydrate calorie controlled diet for glucose within accpetable limits and 1-2 pound weight loss per week. Criteria: patient update Need for Follow up: 8 weeks Referred/Supervised by: Allie WOODYT Billing Type: Re-assess/15 min 2 units SIGNATURE: Chelsi Britton MS RD LD PATIENT NAME: Shekhar Kimbrough DATE: April 09, 2018 TIME: 8:[address] LD 04/09/2018 8:52 AM Addendum 1. Increase walking to 4 days per week 2. Keep proteins as leans as possible 3. Include 2-3 servings of vegetables per day 4. Snack only when hungry 5. Consider adding emily seeds or ground flax seeds 6. Continue carb controlled diet Previous Version Document on: 04/09/2018 by: Chelsi Britton [[id number]] of: Special Effects Specialist Worksheet Document on: 04/09/2018 by: Chelsi Britton [[id number]] of: After Visit Summary Other instructions from your clinician: 1. Increase walking to 4 days per week 2. Keep proteins as leans as possible 3. Include 2-3 servings of vegetables per day 4. Snack only when hungry 5. Consider adding emily seeds or ground flax seeds 6. Continue carb controlled diet Primary Visit Diagnosis:Uncontrolled type 2 diabetes mellitus without complication, with long-term current use of insulin ([facility]) [E11.65, Z79.4] Other Visit Diagnoses:Obesity, Class III, BMI >= 40 [E66.01] Dietary counseling [Z71.3] During your visit today, we recorded the following information about you: Weight Height 151.5 kg 1.829 m Allergies As of Date: 04/09/2018 (No Known Allergies) Date Reviewed: 04/09/2018 Reviewed by: Chelsi Britton - Fully Assessed Prescriptions as of 04/09/2018 Sig: LISINOPRIL 10 MG TABLET Take 1 tablet by mouth once d* ATORVASTATIN 20 MG TABLET Take 1 tablet by mouth daily * TADALAFIL 10 MG TABLET One tablets 3-4 hours before * INSULIN GLARGINE (U-100) 100 * Administer 2 injections of 61* LANCETS Check blood sugar 4 times patricia* DULAGLUTIDE 1.5 MG/0.5 ML SUB* Inject 1.5 mg subcutaneously * INSULIN LISPRO (U-100) 100 UN* As directed for coverage scal* PEN NEEDLE, DIABETIC 32 GAUGE* Use one needle per dose. 5 do* METFORMIN ER 500 MG TABLET,EX* Take 4 tablets by mouth daily* Encounter Status:Closed by CHELSI KING MS, RD on 04/09/18 PROGRESS Observed: 04/09/2018 Status: COMPLETED Source: [place] 8:[address] [facility] REPOSITORY HNO ID: [id number] Author: Chelsi Goyal) Tobi Service: (none) Author Type: Registered Dietitian Type: Progress Notes Filed: 04/09/2018 9:12 AM Note Text: Nutritional Therapy Re-Assessment PAIN: Is the patient having any pain that is interfering with oral / enteral intake? No 0 on a scale of 0 to 10 PROGRESS: Nutrition Intervention (date of last encounter 02/26/18): 1. Continue carb controlled diet 2. Consider adding 2 Tablespoons per day of emily seeds or flax seeds 3. Increase exercise to 30 min (twice around the block) 4. Ensure calorie free beverages CHANGES IN TREATMENT: Patient met goal(s): Yes Actions to implement interventions: Walking-30 min - 3 x per week Diet History: Dinner - chicken and broccoli, (before work); two plain hamburgers (no bun) 115 Lunch- chicken, rice TV dinner and veg; water, dill pickle Snack-skinny pop Breakfast: eggs (then to sleep) Beverages -water, [employer] Vitamins/Supplements - MVI gummy, now in Fiber gummys (sugar free) One reading at 200 (bag of candy corn) Avoiding bread, chips, pasta CLINICAL IMPRESSIONS: fair REVISIONS IN DIAGNOSIS: Diagnosis: has not changed. Allergies: Patient has no known allergies. Medications: Current Outpatient Prescriptions: lisinopril (ZESTRIL, PRINIVIL) 10 mg tablet Take 1 tablet by mouth once daily. Disp: 90 tablet Rfl: 1 atorvastatin (LIPITOR) 20 mg tablet Take 1 tablet by mouth daily at bedtime. For cholesterol. Disp: 90 tablet Rfl: 1 Tadalafil (CIALIS) 10 mg tablet One tablets 3-4 hours before anticipated activity Disp: 6 tablet Rfl: 5 insulin glargine (LANTUS SOLOSTAR U-100 INSULIN) 100 unit/mL (3 mL) inpn Administer 2 injections of 61 units (122 units total) of Lantus once daily in the evening. Disp: Rfl: Lancets lancets Check blood sugar 4 times daily diagnosis: e11.65, insulin: yes Disp: 200 Each Rfl: 3 dulaglutide (TRULICITY) 1.5 mg/ 0.5 ml subcutaneous pen injector Inject 1.5 mg subcutaneously once each week. Inject once per week. Discard Pen After Disp: 4 Pen Rfl: 11 insulin lispro (HUMALOG KWIKPEN INSULIN) 100 unit/mL inpn As directed for coverage scale: add additional 4u for every 50 points above glucose 150 Disp: 5 Pen Rfl: 2 Insulin [place], Disposable, 32 gauge x 5/16 ndle Use one needle per dose. 5 doses per day Disp: 200 Each Rfl: 5 metFORMIN ER (GLUCOPHAGE XR) 500 mg 24 hr tablet Take 4 tablets by mouth daily with breakfast. Disp: 360 tablet Rfl: 3 No current facility-administered medications for this visit. (currently taking) Anthropometrics: Height: Last 1 Encounter Ht Readings: Date: Ht: 04/09/2018 182.9 cm (6') Current weight: Last 1 Encounter Wt Readings: Date: Wt: 04/09/2018 151.5 kg (334 lb) Body mass index is 45.3 kg/m?. Resting Metabolic Rate: 2435 Last 2 Encounter Wt Readings: Date: Wt: 04/09/2018 151.5 kg (334 lb) 04/02/2018 153.3 kg (338 lb) . Hemoglobin A1C (%) Date Value 03/26/2018 7.2 12/25/2017 10.1 09/25/2017 12.1 03/30/2012 6.0 12/28/2011 5.9 NUTRITION ASSESSMENT: Malnutrition Screening Significant unintentional weight loss? No Eating less than 75% of usual intake for more than 2 weeks? No RECOMMENDED MALNUTRITION DIAGNOSIS: NO MALNUTRITION IDENTIFIED Educational materials provided: none this visit READINESS TO LEARN Cognitive ability: Alert and oriented Motivation to learn: Interested Family support: Unable to assess - Family not present Instruction provided to: Patient Patient learns best by: Individual Instruction Factors affecting learning: None Physical limitations affecting learning: None Likelihood of Adherence: High Patient presents for follow up MNT as relates to diabetes, weight control. Following recommendations well, making good choices, working on increasing fiber, limiting carbs and starches. 6 pounds lost from last visit, 16 pounds total since starting with weight at 355. States not tempted by treats at work, happy with weight loss and feels good. Blood sugars good control except one high with diet excursion. Improved HgA1c. Nutrition Diagnosis: Overweight Obesity, related to; excess energy intake and physical inactivity, as evidenced by BMI above normative standard for age and gender. Nutrition Intervention 04/09/2018: modify type and amount of food or beverage 1. Increase walking to 4 days per week 2. Keep proteins as leans as possible 3. Include 2-3 servings of vegetables per day 4. Snack only when hungry 5. Consider adding emily seeds or ground flax seeds 6. Continue carb controlled diet Nutrition Monitoring AND Evaluation: Consistent carbohydrate calorie controlled diet for glucose within accpetable limits and 1- 2 pound weight loss per week. Criteria: patient update Need for Follow up: 8 weeks Referred/Supervised by: Sarkis/Susie SCHWARZ Billing Type: Re-assess/15 min 2 units SIGNATURE: Chelsi Britton MS RD LD PATIENT NAME: Shekhar Kimbrough DATE: April 09, 2018 TIME: 8:36 AM PROGRESS Observed: 04/05/2018 Status: COMPLETED Source: [place] 9:00 AM [facility] REPOSITORY [facility] ID: [id number] Author: Mehnaz Cook (Pharmacist) Service: (none) Author Type: Pharmacist Type: Progress Notes Filed: 04/05/2018 10:42 AM Note Text: Patient consents to pharmacy collaborative practice agreement. REASON FOR CONSULT: DM? GOALS: A1c <?7% CONSULTING PROVIDER: Farhad MEDINA? Date of Consult: 10/2017 Shekhar Kimbrough is a 47 year old male was last seen by PCP, Dr. Yogesh Dockery PA-C on 04/02 - patient was started on atorvastatin 20mg daily and aspirin was discontinued. Subjective: Patient is presenting today for f/u pharmacotherapy management appointment for diabetes. At last PharmD visit on 02/26, timing of insulin glargine was switched from BID to daily dosing. 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 Started taking atorvastatin several days ago Tolerating well, no ADEs Still taking aspirin because just had a refill Says that PCP told him to finish supply and then stop Reports occasionally missing doses of insulin glargine on days off Reports missing maybe 1 dose/week because of sleeping in Patient reports that insulin cost for insulin glargine is $0 - does not want to switch insulins States he has lost ~20 lbs intentionally, he is happy about weight loss States his personal goal for BG control is A1c <6% Current DM Medications: Metformin ER 500mg take 4 tablets QAM Dulaglutide 1.5mg weekly on Tuesdays Insulin glargine 122?units daily (2 injections of 61 units every evening) Insulin lispro sliding scale (reports only using insulin if >200 mg/dL; hasn't used in months) ?151-200 4 ?201-250?8?251-300?12 ?301-350?16 ?351-400?20 ?401-450?24 ?451-500?28 ?>500?32 Current HTN Medications: Lisinopril 10mg daily Preventative Medications: ? On IVETH/ARB: Yes ? On Statin: Yes - started by PCP 04/02 ? On ASA: Yes - stopped by PCP 04/02, but patient still taking remaining supply ROS: ? Patient denies CP, SOB, SHARMA, blurred vision, dizziness or lightheadedness ? Patient denies symptoms of hypoglycemia (sweating, anxiety, palpitations, hunger, and tremor) ? Patient denies symptoms of hyperglycemia (polyuria, polydipsia, polyphagia) ? Patient denies potential medication adverse effects DIET/EXERCISE/SOCIAL Hx: ? On a low-carb diet - gave up bread, pasta, potato chips ? Reports cutting back on pizza is the hardest MEDICATIONS: ? Pill bottles are not present. ? Adherence: reports missed doses of insulin glargine about once/week. ? [facility]acy: [facility]? Rx coverage: [place] ? Affordability: no issues ? Diabetes supplies: [employer] ? 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, Without Long- Term Current Use of Insulin ([facility]) Mild Intermittent Asthma Cataract Microalbuminuria Low Hdl (Under 40) Reaction, Adjustment, With Depressed Mood, Prolonged Obesity, Class III, BMI >= 40 Hyperlipidemia, Mixed PAST MEDICAL HISTORY Diagnosis Date - Acute nonsuppurative otitis media, unspecified 03/07/2007 - Cataract right eye, surgery 2009 [facility] - Closed Colles' fracture 08/03/20052007 left - Closed fracture of navicular (scaphoid) bone of wrist 01/18/05 Wrist fracture-left distal radius - Depression in past, was on effexor but stopped years ago. - Diabetes mellitus - Esophagitis, unspecified ESOPHAGITIS - Hyperlipidemia borderline - Measles - Mild intermittent asthma uses albuterl rarely - Mumps - Peptic ulcer, unspecified site, unspecified as acute or chronic, without mention of hemorrhage, perforation, or obstruction Peptic ulcer disease per EGD maybe 2007 - Tobacco use disorder 06/01/2007 Quit 2009 chew - Traumatic pneumothorax 01/15/2008 Ran over by cow, broke 4 ribs, lung collapsed, unconscious. No chest tube. Was sent to [facility]. No sequellae - Unspecified essential hypertension Essential hypertension: controlled without medication ALLERGIES No Known Allergies Medication List Medication Directions Comments Action/Plan Discontinued: 04/02/2018 8:26 AM Still finishing current supply; will stop per PCP advice once supply runs out atorvastatin (LIPITOR) 20 mg tablet Take 1 tablet by mouth daily at bedtime. For cholesterol. taking dulaglutide (TRULICITY) 1.5 mg/ 0.5 ml subcutaneous pen injector Inject 1.5 mg subcutaneously once each week. Inject once per week. Discard Pen After taking insulin glargine (LANTUS SOLOSTAR U-100 INSULIN) 100 unit/mL (3 mL) inpn Administer 2 injections of 61 units (122 units total) of Lantus once daily in the evening. taking insulin lispro (HUMALOG KWIKPEN INSULIN) 100 unit/mL inpn As directed for coverage scale: add additional 4u for every 50 points above glucose 150 Not taking Insulin [place], Disposable, 32 gauge x 10/25 ndle Use one needle per dose. 5 doses per day Lancets lancets Check blood sugar 4 times daily diagnosis: e11.65, insulin: yes Discontinued: 04/02/2018 8:56 AM lisinopril (ZESTRIL, PRINIVIL) 10 mg tablet Take 1 tablet by mouth once daily. metFORMIN ER (GLUCOPHAGE XR) 500 mg 24 hr tablet Take 4 tablets by mouth daily with breakfast. taking Tadalafil (CIALIS) 10 mg tablet One tablets 3-4 hours before anticipated activity GLYCEMIC CONTROL: ? Glucometer present at visit: No ? SMBG?s: no log present; states he hasn't had any BG >200 in a month; never <70 ? Hypoglycemia: none Objective: VITALS: BP 128/80 Last 3 Encounter BP Readings: Date: BP: 04/02/2018 110/76 12/28/2017 110/82 10/31/2017 136/88 Wt: 153.3 kg (338 lb) BMI: 45.84 kg/(m2) LABS Lab Results Component Value Date HBA1C 7.2 03/26/2018 HBA1C 10.1 12/25/2017 HBA1C 12.1 09/25/2017 CMP: Glucose 193 03/26/2018 BUN 15 03/26/2018 Creatinine 0.61 03/26/2018 Sodium 136 03/26/2018 Potassium 4.3 03/26/2018 Chloride 98 03/26/2018 CO2 22 03/26/2018 Protein, Total 7.3 03/26/2018 Albumin 4.1 03/26/2018 Calcium 9.8 03/26/2018 Alkaline Phosphatase 87 03/26/2018 Bilirubin, Total 0.3 03/26/2018 AST 37 03/26/2018 ALT 50 03/26/2018 Estimated Creatinine Clearance: 230.9 mL/min (A) (based on SCr of 0.61 mg/dL (L)). Last Lipid Panel Lab Results Component Value Date CHOL 177 09/25/2017 Lab Results Component Value Date HDL 38 09/25/2017 Lab Results Component Value Date LDL 100 09/25/2017 Lab Results Component Value Date TG 197 09/25/2017 Albumin/Creat Ratio (mg/g) Date Value 09/25/2017 130 (H) PHARMACOTHERAPY ASSESSMENT/PLAN: 1. Uncontrolled type 2 diabetes mellitus without complication, with long-term current use of insulin ([facility]) - ICD9: 250.02, V58.67, ICD10: E11.65, Z79.4 (primary diagnosis) A1c goal <7%; uncontrolled based on last A1c but sugars have greatly improved over past 6 months (12.1-->7.2%); no SMBG log to review but patient denies ever having sugars <70 or >200; no concerns for hypoglycemia at this time but PharmD reviewed appropriate management of hypoglycemia and provided educational handout; patient not interested in switching to once daily insulin injections because currently getting insulin glargine for free with coupon card; not taking any mealtime insulin because blood sugars have improved; patient making great strides with diet and weight loss; renal fxn WNL and appropriate for continued use; LFTs are elevated but stable and appropriate for continued use - CONTINUE metformin ER 2000mg daily, dulaglutide 1.5mg weekly, insulin glargine 122 units daily, and insulin lispro sliding scale (patient has not been using sliding scale in months - will likely d/c at next appt) - Applauded patient on improved A1c through lifestyle modifications and medication adherence Patient recently started on atorvastatin for clinical ASCVD and tolerating well; LFTs WNL and appropriate for continued therapy - CONTINUE atorvastatin 20mg daily 2. Elevated blood pressure reading without diagnosis of hypertension - ICD9: 796.2, ICD10: R03.0 BP goal <130/80; controlled and tolerating current regimen well; no concerns for orthostasis; renal fxn and K+ WNL and appropriate for continued use - CONTINUE lisinopril 10mg daily Patient is scheduled to see PCP on 06/27/18. Patient to return to clinic for PharmD f/u on 05/16/18. Patient verbalized understanding of instructions. Mehnaz Cook, Bev, [facility] Primary Care Clinical Pharmacist [facility] CNOV Observed: 04/05/2018 Status: COMPLETED Source: [place] 9:00 AM [facility] REPOSITORY Office Visit ([facility]) SHEKHAR KIMBROUGH ([id number]) 1970 M Date Time Provider Department 04/05/18 9:00 AM JUAN (PHARMACIST)MEHNAZ During your visit today, we recorded the following information about you: Blood pressure 128/80 MEHNAZ COOK, PHARMACIST 04/05/2018 10:42 AM Signed Patient consents to pharmacy collaborative practice agreement. REASON FOR CONSULT: DM? GOALS: A1c <?7% CONSULTING PROVIDER: Farhad MEDINA? Date of Consult: 10/2017 Shekhar Kimbrough is a 47 year old male was last seen by PCP, Dr. Yogesh Dockery PA-C on 04/02 - patient was started on atorvastatin 20mg daily and aspirin was discontinued. Subjective: Patient is presenting today for f/u pharmacotherapy management appointment for diabetes. At last PharmD visit on 02/26, timing of insulin glargine was switched from BID to daily dosing. 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 Started taking atorvastatin several days ago Tolerating well, no ADEs Still taking aspirin because just had a refill Says that PCP told him to finish supply and then stop Reports occasionally missing doses of insulin glargine on days off Reports missing maybe 1 dose/week because of sleeping in Patient reports that insulin cost for insulin glargine is $0 - does not want to switch insulins States he has lost ~20 lbs intentionally, he is happy about weight loss States his personal goal for BG control is A1c <6% Current DM Medications: Metformin ER 500mg take 4 tablets QAM Dulaglutide 1.5mg weekly on Tuesdays Insulin glargine 122?units daily (2 injections of 61 units every evening) Insulin lispro sliding scale (reports only using insulin if >200 mg/dL; hasn't used in months) ?151-200 4 ?201-250?8?251-300?12 ?301-350?16 ?351-400?20 ?401-450?24 ?451-500?28 ?>500?32 Current HTN Medications: Lisinopril 10mg daily Preventative Medications: ? On IVETH/ARB: Yes ? On Statin: Yes - started by PCP 04/02 ? On ASA: Yes - stopped by PCP 04/02, but patient still taking remaining supply ROS: ? Patient denies CP, SOB, SHARMA, blurred vision, dizziness or lightheadedness ? Patient denies symptoms of hypoglycemia (sweating, anxiety, palpitations, hunger, and tremor) ? Patient denies symptoms of hyperglycemia (polyuria, polydipsia, polyphagia) ? Patient denies potential medication adverse effects DIET/EXERCISE/SOCIAL Hx: ? On a low-carb diet - gave up bread, pasta, potato chips ? Reports cutting back on pizza is the hardest MEDICATIONS: ? Pill bottles are not present. ? Adherence: reports missed doses of insulin glargine about once/week. ? [facility]acy: [facility]? Rx coverage: [place] ? Affordability: no issues ? Diabetes supplies: [place] ? 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, Without Long- Term Current Use of Insulin ([facility]) Mild Intermittent Asthma Cataract Microalbuminuria Low Hdl (Under 40) Reaction, Adjustment, With Depressed Mood, Prolonged Obesity, Class III, BMI >= 40 Hyperlipidemia, Mixed PAST MEDICAL HISTORY Diagnosis Date - Acute nonsuppurative otitis media, unspecified 03/07/2007 - Cataract right eye, surgery 2009 [facility] - Closed Colles' fracture 08/03/20052007 left - Closed fracture of navicular (scaphoid) bone of wrist 01/18/05 Wrist fracture-left distal radius - Depression in past, was on effexor but stopped years ago. - Diabetes mellitus - Esophagitis, unspecified ESOPHAGITIS - Hyperlipidemia borderline - Measles - Mild intermittent asthma uses albuterl rarely - Mumps - Peptic ulcer, unspecified site, unspecified as acute or chronic, without mention of hemorrhage, perforation, or obstruction Peptic ulcer disease per EGD maybe 2007 - Tobacco use disorder 06/01/2007 Quit 2009 chew - Traumatic pneumothorax 01/15/2008 Ran over by cow, broke 4 ribs, lung collapsed, unconscious. No chest tube. Was sent to [facility]. No sequellae - Unspecified essential hypertension Essential hypertension: controlled without medication ALLERGIES No Known Allergies Medication List Medication Directions Comments Action/Plan Discontinued: 04/02/2018 8:26 AM Still finishing current supply; will stop per PCP advice once supply runs out atorvastatin (LIPITOR) 20 mg tablet Take 1 tablet by mouth daily at bedtime. For cholesterol. taking dulaglutide (TRULICITY) 1.5 mg/ 0.5 ml subcutaneous pen injector Inject 1.5 mg subcutaneously once each week. Inject once per week. Discard Pen After taking insulin glargine (LANTUS SOLOSTAR U-100 INSULIN) 100 unit/mL (3 mL) inpn Administer 2 injections of 61 units (122 units total) of Lantus once daily in the evening. taking insulin lispro (HUMALOG KWIKPEN INSULIN) 100 unit/mL inpn As directed for coverage scale: add additional 4u for every 50 points above glucose 150 Not taking Insulin [place], Disposable, 32 gauge x 5/16 ndle Use one needle per dose. 5 doses per day Lancets lancets Check blood sugar 4 times daily diagnosis: e11.65, insulin: yes Discontinued: 04/02/2018 8:56 AM lisinopril (ZESTRIL, PRINIVIL) 10 mg tablet Take 1 tablet by mouth once daily. metFORMIN ER (GLUCOPHAGE XR) 500 mg 24 hr tablet Take 4 tablets by mouth daily with breakfast. taking Tadalafil (CIALIS) 10 mg tablet One tablets 3-4 hours before anticipated activity GLYCEMIC CONTROL: ? Glucometer present at visit: No ? SMBG?s: no log present; states he hasn't had any BG >200 in a month; never <70 ? Hypoglycemia: none Objective: VITALS: BP 128/80 Last 3 Encounter BP Readings: Date: BP: 04/02/2018 110/76 12/28/2017 110/82 10/31/2017 136/88 Wt: 153.3 kg (338 lb) BMI: 45.84 kg/(m2) LABS Lab Results Component Value Date HBA1C 7.2 03/26/2018 HBA1C 10.1 12/25/2017 HBA1C 12.1 09/25/2017 CMP: Glucose 193 03/26/2018 BUN 15 03/26/2018 Creatinine 0.61 03/26/2018 Sodium 136 03/26/2018 Potassium 4.3 03/26/2018 Chloride 98 03/26/2018 CO2 22 03/26/2018 Protein, Total 7.3 03/26/2018 Albumin 4.1 03/26/2018 Calcium 9.8 03/26/2018 Alkaline Phosphatase 87 03/26/2018 Bilirubin, Total 0.3 03/26/2018 AST 37 03/26/2018 ALT 50 03/26/2018 Estimated Creatinine Clearance: 230.9 mL/min (A) (based on SCr of 0.61 mg/dL (L)). Last Lipid Panel Lab Results Component Value Date CHOL 177 09/25/2017 Lab Results Component Value Date HDL 38 09/25/2017 Lab Results Component Value Date LDL 100 09/25/2017 Lab Results Component Value Date TG 197 09/25/2017 Albumin/Creat Ratio (mg/g) Date Value 09/25/2017 130 (H) PHARMACOTHERAPY ASSESSMENT/PLAN: 1. Uncontrolled type 2 diabetes mellitus without complication, with long-term current use of insulin ([facility]) - ICD9: 250.02, V58.67, ICD10: E11.65, Z79.4 (primary diagnosis) A1c goal <7%; uncontrolled based on last A1c but sugars have greatly improved over past 6 months (12.1-->7.2%); no SMBG log to review but patient denies ever having sugars <70 or >200; no concerns for hypoglycemia at this time but PharmD reviewed appropriate management of hypoglycemia and provided educational handout; patient not interested in switching to once daily insulin injections because currently getting insulin glargine for free with coupon card; not taking any mealtime insulin because blood sugars have improved; patient making great strides with diet and weight loss; renal fxn WNL and appropriate for continued use; LFTs are elevated but stable and appropriate for continued use - CONTINUE metformin ER 2000mg daily, dulaglutide 1.5mg weekly, insulin glargine 122 units daily, and insulin lispro sliding scale (patient has not been using sliding scale in months - will likely d/c at next appt) - Applauded patient on improved A1c through lifestyle modifications and medication adherence Patient recently started on atorvastatin for clinical ASCVD and tolerating well; LFTs WNL and appropriate for continued therapy - CONTINUE atorvastatin 20mg daily 2. Elevated blood pressure reading without diagnosis of hypertension - ICD9: 796.2, ICD10: R03.0 BP goal <130/80; controlled and tolerating current regimen well; no concerns for orthostasis; renal fxn and K+ WNL and appropriate for continued use - CONTINUE lisinopril 10mg daily Patient is scheduled to see PCP on 06/27/18. Patient to return to clinic for PharmD f/u on 05/16/18. Patient verbalized understanding of instructions. Mehnaz Cook, PharmD, BCPS Primary Care Clinical Pharmacist [facility] Referring Provider: SELF [[id number]] Allergies As of Date: 04/05/2018 (No Known Allergies) Date Reviewed: 04/02/2018 Reviewed by: Roslyn Rose LPN - Fully Assessed Reason for Visit: Allied Health Visit [5] Cmt: DM f/u Primary Visit Diagnosis:Uncontrolled type 2 diabetes mellitus without complication, with long-term current use of insulin ([facility]) [E11.65, Z79.4] Other Visit Diagnosis:Elevated blood pressure reading without diagnosis of hypertension [R03.0] Prescriptions as of 04/05/2018 Sig: LISINOPRIL 10 MG TABLET Take 1 tablet by mouth once d* ATORVASTATIN 20 MG TABLET Take 1 tablet by mouth daily * TADALAFIL 10 MG TABLET One tablets 3-4 hours before * INSULIN GLARGINE (U-100) 100 * Administer 2 injections of 61* LANCETS Check blood sugar 4 times patricia* DULAGLUTIDE 1.5 MG/0.5 ML SUB* Inject 1.5 mg subcutaneously * INSULIN LISPRO (U-100) 100 UN* As directed for coverage scal* PEN NEEDLE, DIABETIC 32 GAUGE* Use one needle per dose. 5 do* METFORMIN ER 500 MG TABLET,EX* Take 4 tablets by mouth daily* Problem List As Of Date 04/05/2018 Noted Resolved Closed Colles' fracture [S52.539A] INVALID FOR*09/25/2017 More... OBESITY NOS [E66.9] INVALID FOR* Acute nonsuppurative otitis media, unspecified *INVALID FOR*09/25/2017 INFEC OTITIS EXTERNA NOS [H60.399] INVALID FOR* Tobacco use disorder [F17.200] INVALID FOR*09/25/2017 More... ELEV BL PRES W/O HYPERTN [R03.0] INVALID FOR* Traumatic pneumothorax [S27.0XXA] INVALID FOR*09/25/2017 More... PAD (peripheral artery disease) (HCC) [I73.9] INVALID FOR* More... Sleep apnea [G47.30] INVALID FOR* More... Controlled type 2 diabetes mellitus with both e*INVALID FOR* More... Mild intermittent asthma [J45.20] More... Cataract [H26.9] More... Microalbuminuria [R80.9] INVALID FOR* Low HDL (under 40) [E78.6] INVALID FOR* Reaction, adjustment, with depressed mood, prol*INVALID FOR* Obesity, Class III, BMI >= 40 [E66.01] INVALID FOR* Hyperlipidemia, mixed [E78.2] INVALID FOR* Encounter Status:Closed by JUAN (PHARMACIST)MEHNAZ on 04/05/18 PROGRESS Observed: 04/02/2018 Status: COMPLETED Source: [place] 8:20 AM [facility] REPOSITORY [facility] ID: [id number] Author: Yogesh Boswell (Adam-C) Sarkis Service: (none) Author Type: Physician Health Service Worker Type: Progress Notes Filed: 04/02/2018 9:09 AM Note Text: 47 year old male with c/o 1. Taking medication as directed consistently? Yes Medical Issues / Complications: hypertension and hyperlipidemia Checking blood sugars at home? Yes. 115 Watching diet? Yes Physical Activity: Regular Hypoglycemic spells? No Any visual disturbance? No Chest pain? No New numbness, tingling or loss of sensation? No Any recent foot problems, sores or rashes? No Any recent or sudden weight loss? No Any recent illness? No Renal protective agent? Yes ASA daily? Yes: discussed new findings with recommendation to not continune Statin therapy? No Triglyceride therapy? No Last eye exam: in last year. Was to have laser surgery but hasn't. Last foot exam: 09/25/17. HBA1C: Hemoglobin A1C (%) Date Value 03/26/2018 7.2 12/25/2017 10.1 ) CMP: Glucose 193 03/26/2018 BUN 15 03/26/2018 Creatinine 0.61 03/26/2018 Sodium 136 03/26/2018 Potassium 4.3 03/26/2018 Chloride 98 03/26/2018 CO2 22 03/26/2018 Protein, Total 7.3 03/26/2018 Albumin 4.1 03/26/2018 Calcium 9.8 03/26/2018 Alkaline Phosphatase 87 03/26/2018 Bilirubin, Total 0.3 03/26/2018 AST 37 03/26/2018 ALT 50 03/26/2018 Last 2 Encounter Wt Readings: Date: Wt: 04/02/2018 153.3 kg (338 lb) 02/26/2018 154.2 kg (340 lb) 2. HTN: Current meds: Zestril 10mg Patient is compliant with meds Yes Monitors bp at home: No. If yes, readings: Denies side effects: Yes. Chest pain: No. Dyspnea: No. Edema: No. Palpitations: No. Syncope: . Headache: No. Dizziness: No. Last 3 Encounter BP Readings: Date: BP: 04/02/2018 110/76 12/28/2017 110/82 10/31/2017 136/88 Last 2 Encounter Wt Readings: Date: Wt: 04/02/2018 153.3 kg (338 lb) 02/26/2018 154.2 kg (340 lb) 3. Depression: Mood is positive. Sleeping pretty well. Some depressive thoughts but able to manage. 4. CARI: new mask, wearing nightly. 5. Obesity Last 2 Encounter Wt Readings: Date: Wt: 04/02/2018 153.3 kg (338 lb) 02/26/2018 154.2 kg (340 lb) 6. Erectile dysfunction: over a year. Erections are not as hard as previously, can't perform. Not a firm erection in years. Able to climax. Not sexually active but plays around with occasional partner, unable to penetrate, too soft. Does get morning erections. HISTORIES FAMILY HISTORY Problem Relation Age of Onset - Diabetes Mother - Heart Mother HEART DISEASE - Hypertension Mother - Psychiatry Mother depressed - None Father - Allergies Father - Diabetes Father - Hypertension Father - Stroke Father - Psychiatry Father depression - None Sister - Diabetes Sister - other (Other) Sister growth in lung, lots of lung problems, pneumonia - Diabetes Brother - Psychiatry Brother depression - Breast Cancer Paternal Aunt - Cancer Maternal Aunt Stomache - Cancer Paternal Uncle Bone PAST MEDICAL HISTORY Diagnosis Date - Acute nonsuppurative otitis media, unspecified 03/07/2007 - Cataract right eye, surgery 2009 [facility] - Closed Colles' fracture 08/03/20052007 left - Closed fracture of navicular (scaphoid) bone of wrist 01/18/05 Wrist fracture-left distal radius - Depression in past, was on effexor but stopped years ago. - Diabetes mellitus - Esophagitis, unspecified ESOPHAGITIS - Hyperlipidemia borderline - Measles - Mild intermittent asthma uses albuterl rarely - Mumps - Peptic ulcer, unspecified site, unspecified as acute or chronic, without mention of hemorrhage, perforation, or obstruction Peptic ulcer disease per EGD maybe 2007 - Tobacco use disorder 06/01/2007 Quit 2009 chew - Traumatic pneumothorax 01/15/2008 Ran over by cow, broke 4 ribs, lung collapsed, unconscious. No chest tube. Was sent to [facility]. No sequellae - Unspecified essential hypertension Essential hypertension: controlled without medication PAST SURGICAL HISTORY Procedure Laterality Date - ANKLE SURGERY HX Left 2014 rupture posterior tibial tendon repaired - APPENDECTOMY 1982 - EGD W/O OR W/BRUSH/WASH EGD Social History Marital status: Single Spouse name: Years of education: Number of children: Social History Main Topics Smoking status: Never Smoker Smokeless tobacco: Former User Types: Chew Quit date: 11/15/2009 Alcohol use: No Drug use: No ACTIVE PROBLEM LIST Obesity, Unspecified Infective Otitis Externa, Unspecified Elevated Blood Pressure Reading Without Diagnosis of Hypertension PAD (peripheral artery disease) (HCC) Sleep Apnea Uncontrolled Type 2 Diabetes Mellitus Without Complication, With Long-Term Current Use of Insulin (Hcc) Mild Intermittent Asthma Cataract Microalbuminuria Low Hdl (Under 40) Reaction, Adjustment, With Depressed Mood, Prolonged Obesity, Class III, BMI >= 40 Hyperlipidemia, Mixed Current Outpatient Prescriptions: insulin glargine (LANTUS SOLOSTAR U-100 INSULIN) 100 unit/mL (3 mL) inpn Administer 2 injections of 61 units (122 units total) of Lantus once daily in the evening. Disp: Rfl: dulaglutide (TRULICITY) 1.5 mg/ 0.5 ml subcutaneous pen injector Inject 1.5 mg subcutaneously once each week. Inject once per week. Discard Pen After Disp: 4 Pen Rfl: 11 insulin lispro (HUMALOG KWIKPEN INSULIN) 100 unit/mL inpn As directed for coverage scale: add additional 4u for every 50 points above glucose 150 Disp: 5 Pen Rfl: 2 lisinopril (ZESTRIL, PRINIVIL) 10 mg tablet Take 1 tablet by mouth once daily. Disp: 30 tablet Rfl: 2 aspirin, enteric coated (ASPIR-81) 81 mg EC tablet Take 1 tablet by mouth once daily. Disp: 90 tablet Rfl: 3 metFORMIN ER (GLUCOPHAGE XR) 500 mg 24 hr tablet Take 4 tablets by mouth daily with breakfast. Disp: 360 tablet Rfl: 3 Lancets lancets Check blood sugar 4 times daily diagnosis: e11.65, insulin: yes Disp: 200 Each Rfl: 3 Insulin [place], Disposable, 32 gauge x 5/16 ndle Use one needle per dose. 5 doses per day Disp: 200 Each Rfl: 5 No current facility-administered medications for this visit. INFLUENZA(1) due on 02/10/2018 EXAM: BP 110/76 Pulse 84 Temp 36.1 ?C (97 ?F) (Tympanic) Resp 20 Wt (!) 153.3 kg (338 lb) BMI 45.84 kg/m? Pleasant in no acute distress. Alert and oriented all spheres. Normal affect and cognition. Speech normal. No deficits to learning or comprehension. Skin warm, dry, pink to lips and nailbeds. Normal turgor. Respirations regular and unlabored. HEENT WNL. TM's clear. Nose and oropharynx free from injection or lesion. No cervical lymph nodes. Thyroid non-tender, no masses Chest CTA. HRRR without murmur or gallop. Abdomen: active bowel sounds throughout, soft, nontender, no masses or organomegaly. No CVAT. Penis retractile. Testicles 5g bilaterally and without nodules. No hernia. + Cremasteric. Femoral pulses 2/4+, no bruits. Normal male hair pattern. Extrem: no clubbing, cyanosis, edema. Extremities are warm and pink with prompt capillary refill. ASSESSMENT/PLAN: 1. 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 Hyperlipidemia, mixed - ICD9: 272.2, ICD10: E78.2 - suboptimal control - Begin treatment with atorvastatin (Lipitor) 20 mg - VITAMIN D 25 HYDROXY - LIPID PANEL BASIC - CK CREATINE KINASE 3. Hypertension, essential - ICD9: 401.9, ICD10: I10 - good control - Continue current medication(s) - Recommended regular aerobic exercise. - Recommend home blood pressure monitoring, to bring results in on next visit - Goal of BP <130/80 - LISINOPRIL 10 MG TABLET - VITAMIN D 25 HYDROXY 4. Obstructive sleep apnea syndrome - ICD9: 327.23, ICD10: G47.33 compliant 5. Microalbuminuria - ICD9: 791.0, ICD10: R80.9 Recheck with improved control - HGB A1C - ALBUMIN/CREAT RATIO RND UR 6. Reaction, adjustment, with depressed mood, prolonged - ICD9: 309.1, ICD10: F43.21 Stable, no meds. 7. Obesity, Class III, BMI >= 40 - ICD9: 278.01, ICD10: E66.01 Working on weight loss. 2lb down 8. ED (erectile dysfunction) of organic origin - ICD9: 607.84, ICD10: N52.9 Combination organic and psychogenic - TADALAFIL 10 MG TABLET Recheck in 3 months. ANDREW Cifuentes Observed: 04/02/2018 Status: COMPLETED Source: [place] 8:00 AM [facility] REPOSITORY Office Visit (FAMPWS) ZAINSHEKHAR Eli ([id number]) 1970 M Date Time Provider Department 04/02/18 8:00 AM Yogesh DOCKERY) LAURAPSTEVE During your visit today, we recorded the following information about you: Temperature Pulse Respiration Blood pressure 97 degrees 84/minute 20/minute 110/76 Weight 153.3 kg M Yesika Dockery PA-C 04/02/2018 9:09 AM Signed 47 year old male with c/o 1. Taking medication as directed consistently? Yes Medical Issues / Complications: hypertension and hyperlipidemia Checking blood sugars at home? Yes. 115 Watching diet? Yes Physical Activity: Regular Hypoglycemic spells? No Any visual disturbance? No Chest pain? No New numbness, tingling or loss of sensation? No Any recent foot problems, sores or rashes? No Any recent or sudden weight loss? No Any recent illness? No Renal protective agent? Yes ASA daily? Yes: discussed new findings with recommendation to not continune Statin therapy? No Triglyceride therapy? No Last eye exam: in last year. Was to have laser surgery but hasn't. Last foot exam: 09/25/17. HBA1C: Hemoglobin A1C (%) Date Value 03/26/2018 7.2 12/25/2017 10.1 ) CMP: Glucose 193 03/26/2018 BUN 15 03/26/2018 Creatinine 0.61 03/26/2018 Sodium 136 03/26/2018 Potassium 4.3 03/26/2018 Chloride 98 03/26/2018 CO2 22 03/26/2018 Protein, Total 7.3 03/26/2018 Albumin 4.1 03/26/2018 Calcium 9.8 03/26/2018 Alkaline Phosphatase 87 03/26/2018 Bilirubin, Total 0.3 03/26/2018 AST 37 03/26/2018 ALT 50 03/26/2018 Last 2 Encounter Wt Readings: Date: Wt: 04/02/2018 153.3 kg (338 lb) 02/26/2018 154.2 kg (340 lb) 2. HTN: Current meds: Zestril 10mg Patient is compliant with meds Yes Monitors bp at home: No. If yes, readings: Denies side effects: Yes. Chest pain: No. Dyspnea: No. Edema: No. Palpitations: No. Syncope: . Headache: No. Dizziness: No. Last 3 Encounter BP Readings: Date: BP: 04/02/2018 110/76 12/28/2017 110/82 10/31/2017 136/88 Last 2 Encounter Wt Readings: Date: Wt: 04/02/2018 153.3 kg (338 lb) 02/26/2018 154.2 kg (340 lb) 3. Depression: Mood is positive. Sleeping pretty well. Some depressive thoughts but able to manage. 4. CARI: new mask, wearing nightly. 5. Obesity Last 2 Encounter Wt Readings: Date: Wt: 04/02/2018 153.3 kg (338 lb) 02/26/2018 154.2 kg (340 lb) 6. Erectile dysfunction: over a year. Erections are not as hard as previously, can't perform. Not a firm erection in years. Able to climax. Not sexually active but plays around with occasional partner, unable to penetrate, too soft. Does get morning erections. HISTORIES FAMILY HISTORY Problem Relation Age of Onset - Diabetes Mother - Heart Mother HEART DISEASE - Hypertension Mother - Psychiatry Mother depressed - None Father - Allergies Father - Diabetes Father - Hypertension Father - Stroke Father - Psychiatry Father depression - None Sister - Diabetes Sister - other (Other) Sister growth in lung, lots of lung problems, pneumonia - Diabetes Brother - Psychiatry Brother depression - Breast Cancer Paternal Aunt - Cancer Maternal Aunt Stomache - Cancer Paternal Uncle Bone PAST MEDICAL HISTORY Diagnosis Date - Acute nonsuppurative otitis media, unspecified 03/07/2007 - Cataract right eye, surgery 2009 [facility] - Closed Colles' fracture 08/03/20052007 left - Closed fracture of navicular (scaphoid) bone of wrist 01/18/05 Wrist fracture-left distal radius - Depression in past, was on effexor but stopped years ago. - Diabetes mellitus - Esophagitis, unspecified ESOPHAGITIS - Hyperlipidemia borderline - Measles - Mild intermittent asthma uses albuterl rarely - Mumps - Peptic ulcer, unspecified site, unspecified as acute or chronic, without mention of hemorrhage, perforation, or obstruction Peptic ulcer disease per EGD maybe 2007 - Tobacco use disorder 06/01/2007 Quit 2009 chew - Traumatic pneumothorax 01/15/2008 Ran over by cow, broke 4 ribs, lung collapsed, unconscious. No chest tube. Was sent to [facility]. No sequellae - Unspecified essential hypertension Essential hypertension: controlled without medication PAST SURGICAL HISTORY Procedure Laterality Date - ANKLE SURGERY HX Left 2014 rupture posterior tibial tendon repaired - APPENDECTOMY 1982 - EGD W/O OR W/BRUSH/WASH EGD Social History Marital status: Single Spouse name: Years of education: Number of children: Social History Main Topics Smoking status: Never Smoker Smokeless tobacco: Former User Types: Chew Quit date: 11/15/2009 Alcohol use: No Drug use: No ACTIVE PROBLEM LIST Obesity, Unspecified Infective Otitis Externa, Unspecified Elevated Blood Pressure Reading Without Diagnosis of Hypertension PAD (peripheral artery disease) ([facility]) Sleep Apnea Uncontrolled Type 2 Diabetes Mellitus Without Complication, With Long-Term Current Use of Insulin ([facility]) Mild Intermittent Asthma Cataract Microalbuminuria Low Hdl (Under 40) Reaction, Adjustment, With Depressed Mood, Prolonged Obesity, Class III, BMI >= 40 Hyperlipidemia, Mixed Current Outpatient Prescriptions: insulin glargine (LANTUS SOLOSTAR U-100 INSULIN) 100 unit/mL (3 mL) inpn Administer 2 injections of 61 units (122 units total) of Lantus once daily in the evening. Disp: Rfl: dulaglutide (TRULICITY) 1.5 mg/ 0.5 ml subcutaneous pen injector Inject 1.5 mg subcutaneously once each week. Inject once per week. Discard Pen After Disp: 4 Pen Rfl: 11 insulin lispro (HUMALOG KWIKPEN INSULIN) 100 unit/mL inpn As directed for coverage scale: add additional 4u for every 50 points above glucose 150 Disp: 5 Pen Rfl: 2 lisinopril (ZESTRIL, PRINIVIL) 10 mg tablet Take 1 tablet by mouth once daily. Disp: 30 tablet Rfl: 2 aspirin, enteric coated (ASPIR-81) 81 mg EC tablet Take 1 tablet by mouth once daily. Disp: 90 tablet Rfl: 3 metFORMIN ER (GLUCOPHAGE XR) 500 mg 24 hr tablet Take 4 tablets by mouth daily with breakfast. Disp: 360 tablet Rfl: 3 Lancets lancets Check blood sugar 4 times daily diagnosis: e11.65, insulin: yes Disp: 200 Each Rfl: 3 Insulin [place], Disposable, 32 gauge x 5/16 ndle Use one needle per dose. 5 doses per day Disp: 200 Each Rfl: 5 No current facility-administered medications for this visit. INFLUENZA(1) due on 02/10/2018 EXAM: BP 110/76 Pulse 84 Temp 36.1 ?C (97 ?F) (Tympanic) Resp 20 Wt (!) 153.3 kg (338 lb) BMI 45.84 kg/m? Pleasant in no acute distress. Alert and oriented all spheres. Normal affect and cognition. Speech normal. No deficits to learning or comprehension. Skin warm, dry, pink to lips and nailbeds. Normal turgor. Respirations regular and unlabored. HEENT WNL. TM's clear. Nose and oropharynx free from injection or lesion. No cervical lymph nodes. Thyroid non-tender, no masses Chest CTA. HRRR without murmur or gallop. Abdomen: active bowel sounds throughout, soft, nontender, no masses or organomegaly. No CVAT. Penis retractile. Testicles 5g bilaterally and without nodules. No hernia. + Cremasteric. Femoral pulses 2/4+, no bruits. Normal male hair pattern. Extrem: no clubbing, cyanosis, edema. Extremities are warm and pink with prompt capillary refill. ASSESSMENT/PLAN: 1. 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 Hyperlipidemia, mixed - ICD9: 272.2, ICD10: E78.2 - suboptimal control - Begin treatment with atorvastatin (Lipitor) 20 mg - VITAMIN D 25 HYDROXY - LIPID PANEL BASIC - CK CREATINE KINASE 3. Hypertension, essential - ICD9: 401.9, ICD10: I10 - good control - Continue current medication(s) - Recommended regular aerobic exercise. - Recommend home blood pressure monitoring, to bring results in on next visit - Goal of BP <130/80 - LISINOPRIL 10 MG TABLET - VITAMIN D 25 HYDROXY 4. Obstructive sleep apnea syndrome - ICD9: 327.23, ICD10: G47.33 compliant 5. Microalbuminuria - ICD9: 791.0, ICD10: R80.9 Recheck with improved control - HGB A1C - ALBUMIN/CREAT RATIO RND UR 6. Reaction, adjustment, with depressed mood, prolonged - ICD9: 309.1, ICD10: F43.21 Stable, no meds. 7. Obesity, Class III, BMI >= 40 - ICD9: 278.01, ICD10: E66.01 Working on weight loss. 2lb down 8. ED (erectile dysfunction) of organic origin - ICD9: 607.84, ICD10: N52.9 Combination organic and psychogenic - TADALAFIL 10 MG TABLET Recheck in 3 months. ANDREW Cifuentes PA-C 04/02/2018 8:57 AM Signed Erectile dysfunction, sometimes called impotence, is the repeated inability to get or keep an erection firm enough for sexual intercourse. The word impotence may also be used to describe other problems that interfere with sexual intercourse and reproduction, such as lack of sexual desire and problems with ejaculation or orgasm. Using the term erectile dysfunction makes it clear that those other problems are not involved. Erectile dysfunction, or ED, can be a total inability to achieve erection, an inconsistent ability to do so, or a tendency to sustain only brief erections. These variations make defining ED and estimating its incidence difficult. Estimates range from 15 million to 30 million, depending on the definition used. According to the National Ambulatory Medical Care Survey ([facility]), for every 1,000 men in the [place], 7.7 physician office visits were made for ED in 1984. By 1998, that rate had nearly tripled to 22.3. The increase happened gradually, presumably as treatments such as vacuum devices and injectable drugs became more widely available and discussing erectile function became accepted. Perhaps the most publicized advance was the introduction of the oral drug sildenafil citrate (Viagra) in August 1997. [facility] data on new drugs show an estimated 2.6 million mentions of Viagra at physician office visits in 1998, and one-third of those mentions occurred during visits for a diagnosis other than ED. In older men, ED usually has a physical cause, such as disease, injury, or side effects of drugs. Any disorder that causes injury to the nerves or impairs blood flow in the penis has the potential to cause ED. Incidence increases with age: About 5 percent of 40-year-old men and between 15 and 25 percent of 65-year-old men experience ED. But it is not an inevitable part of aging. ED is treatable at any age, and awareness of this fact has been growing. More men have been seeking help and returning to normal sexual activity because of improved, successful treatments for ED. Urologists, who specialize in problems of the urinary tract, have traditionally treated ED; however, urologists accounted for only 25 percent of Viagra mentions in 1998. How does an erection occur? The penis contains two chambers called the corpora cavernosa, which run the length of the organ (see figure 1). A spongy tissue fills the chambers. The corpora cavernosa are surrounded by a membrane, called the tunica albuginea. The spongy tissue contains smooth muscles, fibrous tissues, spaces, veins, and arteries. The urethra, which is the channel for urine and ejaculate, runs along the underside of the corpora cavernosa and is surrounded by the corpus spongiosum. Erection begins with sensory or mental stimulation, or both. Impulses from the brain and local nerves cause the muscles of the corpora cavernosa to relax, allowing blood to flow in and fill the spaces. The blood creates pressure in the corpora cavernosa, making the penis expand. The tunica albuginea helps trap the blood in the corpora cavernosa, thereby sustaining erection. When muscles in the penis contract to stop the inflow of blood and open outflow channels, erection is reversed. What causes erectile dysfunction (ED)? Since an erection requires a precise sequence of events, ED can occur when any of the events is disrupted. The sequence includes nerve impulses in the brain, spinal column, and area around the penis, and response in muscles, fibrous tissues, veins, and arteries in and near the corpora cavernosa. Damage to nerves, arteries, smooth muscles, and fibrous tissues, often as a result of disease, is the most common cause of ED. Diseases?such as diabetes, kidney disease, chronic alcoholism, multiple sclerosis, atherosclerosis, vascular disease, and neurologic disease?account for about 70 percent of ED cases. Between 35 and 50 percent of men with diabetes experience ED. Lifestyle choices that contribute to heart disease and vascular problems also raise the risk of erectile dysfunction. Smoking, being overweight, and avoiding exercise are possible causes of ED. Also, surgery (especially radical prostate and bladder surgery for cancer) can injure nerves and arteries near the penis, causing ED. Injury to the penis, spinal cord, prostate, bladder, and pelvis can lead to ED by harming nerves, smooth muscles, arteries, and fibrous tissues of the corpora cavernosa. In addition, many common medicines?blood pressure drugs, antihistamines, antidepressants, tranquilizers, appetite suppressants, and cimetidine (an ulcer drug)?can produce ED as a side effect. Experts believe that psychological factors such as stress, anxiety, guilt, depression, low self-esteem, and fear of sexual failure cause 10 to 20 percent of ED cases. Men with a physical cause for ED frequently experience the same sort of psychological reactions (stress, anxiety, guilt, depression). Other possible causes are smoking, which affects blood flow in veins and arteries, and hormonal abnormalities, such as not enough testosterone. How is ED diagnosed? Patient History Medical and sexual histories help define the degree and nature of ED. A medical history can disclose diseases that lead to ED, while a simple recounting of sexual activity might distinguish among problems with sexual desire, erection, ejaculation, or orgasm. Using certain prescription or illegal drugs can suggest a chemical cause, since drug effects account for 25 percent of ED cases. Cutting back on or substituting certain medications can often alleviate the problem. Physical Examination A physical examination can give clues to systemic problems. For example, if the penis is not sensitive to touching, a problem in the nervous system may be the cause. Abnormal secondary sex characteristics, such as hair pattern or breast enlargement, can point to hormonal problems, which would mean that the endocrine system is involved. The examiner might discover a circulatory problem by observing decreased pulses in the wrist or ankles. And unusual characteristics of the penis itself could suggest the source of the problem?for example, a penis that bends or curves when erect could be the result of Peyronie's disease. Laboratory Tests Several laboratory tests can help diagnose ED. Tests for systemic diseases include blood counts, urinalysis, lipid profile, and measurements of creatinine and liver enzymes. Measuring the amount of free testosterone in the blood can yield information about problems with the endocrine system and is indicated especially in patients with decreased sexual desire. Other Tests Monitoring erections that occur during sleep (nocturnal penile tumescence) can help rule out certain psychological causes of ED. Healthy men have involuntary erections during sleep. If nocturnal erections do not occur, then ED is likely to have a physical rather than psychological cause. Tests of nocturnal erections are not completely reliable, however. Scientists have not standardized such tests and have not determined when they should be applied for best results. Psychosocial Examination A psychosocial examination, using an interview and a questionnaire, reveals psychological factors. A man's sexual partner may also be interviewed to determine expectations and perceptions during sexual intercourse. How is ED treated? Most physicians suggest that treatments proceed from least to most invasive. For some men, making a few healthy lifestyle changes may solve the problem. Quitting smoking, losing excess weight, and increasing physical activity may help some men regain sexual function. Cutting back on any drugs with harmful side effects is considered next. For example, drugs for high blood pressure work in different ways. If you think a particular drug is causing problems with erection, tell your doctor and ask whether you can try a different class of blood pressure medicine. Psychotherapy and behavior modifications in selected patients are considered next if indicated, followed by oral or locally injected drugs, vacuum devices, and surgically implanted devices. In rare cases, surgery involving veins or arteries may be considered. Psychotherapy Experts often treat psychologically based ED using techniques that decrease the anxiety associated with intercourse. The patient's partner can help with the techniques, which include gradual development of intimacy and stimulation. Such techniques also can help relieve anxiety when ED from physical causes is being treated. Drug Therapy Drugs for treating ED can be taken orally, injected directly into the penis, or inserted into the urethra at the tip of the penis. In August 1997, the Food and Drug Administration (FDA) approved Viagra, the first pill to treat ED. Since that time, vardenafil hydrochloride (Levitra) and tadalafil (Cialis) have also been approved. Additional oral medicines are being tested for safety and effectiveness. Viagra, Levitra, and Cialis all belong to a class of drugs called phosphodiesterase (PDE) inhibitors. Taken an hour before sexual activity, these drugs work by enhancing the effects of nitric oxide, a chemical that relaxes smooth muscles in the penis during sexual stimulation and allows increased blood flow. While oral medicines improve the response to sexual stimulation, they do not trigger an automatic erection as injections do. The recommended dose for Viagra is 50 mg, and the physician may adjust this dose to 100 mg or 25 mg, depending on the patient. The recommended dose for either Levitra or Cialis is 10 mg, and the physician may adjust this dose to 20 mg if 10 mg is insufficient. A lower dose of 5 mg is available for patients who take other medicines or have conditions that may decrease the body's ability to use the drug. Levitra is also available in a 2.5 mg dose. None of these PDE inhibitors should be used more than once a day. Men who take nitrate-based drugs such as nitroglycerin for heart problems should not use either drug because the combination can cause a sudden drop in blood pressure. Also, tell your doctor if you take any drugs called alpha- blockers, which are used to treat prostate enlargement or high blood pressure. Your doctor may need to adjust your ED prescription. Taking a PDE inhibitor and an alpha-blanka at the same time (within 4 hours) can cause a sudden drop in blood pressure. Oral testosterone can reduce ED in some men with low levels of natural testosterone, but it is often ineffective and may cause liver damage. Patients also have claimed that other oral drugs?including yohimbine hydrochloride, dopamine and serotonin agonists, and trazodone?are effective, but the results of scientific studies to substantiate these claims have been inconsistent. Improvements observed following use of these drugs may be examples of the placebo effect, that is, a change that results simply from the patient's believing that an improvement will occur. Many men achieve stronger erections by injecting drugs into the penis, causing it to become engorged with blood. Drugs such as papaverine hydrochloride, phentolamine, and alprostadil (marketed as Caverject) widen blood vessels. These drugs may create unwanted side effects, however, including persistent erection (known as priapism) and scarring. Nitroglycerin, a muscle relaxant, can sometimes enhance erection when rubbed on the penis. A system for inserting a pellet of alprostadil into the urethra is marketed as [place]. The system uses a prefilled applicator to deliver the pellet about an inch deep into the urethra. An erection will begin within 8 to 10 minutes and may last 30 to 60 minutes. The most common side effects are aching in the penis, testicles, and area between the penis and rectum; warmth or burning sensation in the urethra; redness from increased blood flow to the penis; and minor urethral bleeding or spotting. Research on drugs for treating ED is expanding rapidly. Patients should ask their doctor about the latest advances. Vacuum Devices Mechanical vacuum devices cause erection by creating a partial vacuum, which draws blood into the penis, engorging and expanding it. The devices have three components: a plastic cylinder, into which the penis is placed; a pump, which draws air out of the cylinder; and an elastic band, which is placed around the base of the penis to maintain the erection after the cylinder is removed and during intercourse by preventing blood from flowing back into the body (see figure 2). One variation of the vacuum device involves a semirigid rubber sheath that is placed on the penis and remains there after erection is attained and during intercourse. Surgery Surgery usually has one of three goals: to implant a device that can cause the penis to become erect to reconstruct arteries to increase flow of blood to the penis to block off veins that allow blood to leak from the penile tissues Implanted devices, known as prostheses, can restore erection in many men with ED. Possible problems with implants include mechanical breakdown and infection, although mechanical problems have diminished in recent years because of technological advances. Malleable implants usually consist of paired rods, which are inserted surgically into the corpora cavernosa. The user manually adjusts the position of the penis and, therefore, the rods. Adjustment does not affect the width or length of the penis. Inflatable implants consist of paired cylinders, which are surgically inserted inside the penis and can be expanded using pressurized fluid (see figure 3). Tubes connect the cylinders to a fluid reservoir and a pump, which are also surgically implanted. The patient inflates the cylinders by pressing on the small pump, located under the skin in the scrotum. Inflatable implants can expand the length and width of the penis somewhat. They also leave the penis in a more natural state when not inflated. Surgery to repair arteries can reduce ED caused by obstructions that block the flow of blood. The best candidates for such surgery are young men with discrete blockage of an artery because of an injury to the crotch or fracture of the pelvis. The procedure is almost never successful in older men with widespread blockage. Surgery to veins that allow blood to leave the penis usually involves an opposite procedure?intentional blockage. Blocking off veins (ligation) can reduce the leakage of blood that diminishes the rigidity of the penis during erection. However, experts have raised questions about the long-term effectiveness of this procedure, and it is rarely done. Hope Through Research Advances in suppositories, injectable medications, implants, and vacuum devices have expanded the options for men seeking treatment for ED. These advances have also helped increase the number of men seeking treatment. Gene therapy for ED is now being tested in several centers and may offer a long- lasting therapeutic approach for ED. The National [place] of Diabetes and Digestive and Kidney Diseases (NIDDK) sponsors programs aimed at understanding the causes of erectile dysfunction and finding treatments to reverse its effects. NIDDK's Division of Kidney, Urologic, and Hematologic Diseases supported the researchers who developed Viagra and continue to support basic research into the mechanisms of erection and the diseases that impair normal function at the cellular and molecular levels, including diabetes and high blood pressure. Points to Remember Erectile dysfunction (ED) is the repeated inability to get or keep an erection firm enough for sexual intercourse. ED affects 15 to 30 million [place] men. ED usually has a physical cause. ED is treatable at all ages. Treatments include psychotherapy, drug therapy, vacuum devices, and surgery. For More Information [employer] (AUA) [address] [place] [address] Phone: 1?866?RING?AUA ([phone]) or [phone] Fax: [phone] Email: [email or web address] Internet: [email or web address].urologyhealth.[email or web address] AUA can refer you to a urologist in your area. [place] (ADA) Attn: National Call Center [address] [place] [address] Phone: 1?800?DIABETES (342?1300) Internet: www.diabetes.org ADA can help you find a doctor who specializes in diabetes care in your area. [place] [employer] Educators, Counselors, and Therapists (AASECT) [address] [place] [address] Phone: [phone] Fax: [phone] Internet: www.aasect.org Check the AASECT website to find a certified sexuality educator, counselor, or therapist in your area. The U.S. Government does not endorse or favor any specific commercial product or company. Trade, proprietary, or company names appearing in this document are used only because they are considered necessary in the context of the information provided. If a product is not mentioned, the omission does not mean or imply that the product is unsatisfactory. National Kidney and Urologic Diseases Information Clearinghouse [address] [place] [address] Phone: [phone] Email: Internet: www.kidney.niddk.nih.gov/ The National Kidney and Urologic Diseases Information Clearinghouse (NKUDIC) is a service of the National [place] of Diabetes and Digestive and Kidney Diseases (NIDDK). The NIDDK is part of the National Institutes of Health of the U.S. Department of Health and Human Services. Established in 1986, the Clearinghouse provides information about diseases of the kidneys and urologic system to people with kidney and urologic disorders and to their families, health careers adviser, and the public. The NKUDIC answers inquiries, develops and distributes publications, and works closely with professional and patient organizations and Government agencies to coordinate resources about kidney and urologic diseases. Publications produced by the Clearinghouse are carefully reviewed by both NIDDK scientists and outside experts. This publication was reviewed by Austin Franco M.D., [place], [place]; and Garo Baumann M.D., U.S. Food and Drug Administration. This publication is not copyrighted. The Clearinghouse encourages users of this publication to duplicate and distribute as many copies as desired. [facility] Publication No. [id number] May 2005 CIALIS (see-AL-iss) TADALAFIL) Cialis (tadalafil) is an FDA approved medication for use in erectile dysfunction. The drug was approved in April of 2003. 1) If you are initiating a trial of this drug, the mechanism of the action of the drug will be discussed with you in detail. It is important that Cialis requires sexual stimulation to be effective. 2) You cannot use this drug if you are taking nitroglycerine or nitrates in any form. If you have any questions about the medications you are taking, you need to review them with your doctor at the time your visit concerning Cialis. 3) If you are utilizing an alternative method of treatment for erectile dysfunction such as intracavernous injection therapy, intraurtheral therapy (MUSE), or a vacuum constriction device, you are NOT to combine these with the use of the drug Cialis. If you are using any of these and desire to try them again you must wait at least four days after taking a tablet of Cialis. As mentioned above, they are NOT to be combined together with Cialis. If you are currently using the drug Viagra you may initiate your trial of Cialis 24-hours after having taken a tablet of Viagra. If you have taken Cialis and desire to go back to using Viagra I would suggest that you wait four days before re-initiating the Viagra tablet. 4) You do not need to take the drug daily. You should use the drug when you are planning intercourse. It takes two hours for the drug to be maximally absorbed and then the drug may be effective for 36 hours. It is therefore, reasonable to take the drug at least two hours prior to anticipated intercourse. It is also reasonable to perhaps take the drug the morning of a day on which intercourse is planned well before any sexual activity, i.e. six, eight, twelve or more hours before planned intercourse. Remember, however that it does require sexual stimulation to be effective. 5) The initial dose of your medication will be discussed with you. This drug can be taken without regards to food intake. 6) Common side-effects that can occur include headache, flushing, heartburn or dyspepsia or stomach distress, nasal congestion, myalgia or muscle aching, and backache. 7) If you are taking alpha blockers, Cardura (doxazosin), Hytrin (terezosin), Flomax (tamsulosin), or Uroxatral (alfuzosin), caution should be taken since these drugs combined with Cialis may result in a drop in blood pressure, dizziness, or fainting. I would recommend Vit D level check as is a risk factor for muscle aches with statin. I would recommend supplement with Vit D and K to prevent aches. Follow lab in 3 months. Please read pharmacy provided literature on risks and administration. Notify if unusual muscle aches, GI sx, persistent dark urine or jaundice. 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 For cholesterol.Disp: 90 tabletRfl: 1 VITAMIN D 25 HYDROXY [SQVITD] Order #: [id number] FUTURE HGB A1C [XXIFL9P] Order #: [id number] FUTURE LIPID PANEL BASIC [SQLIPB] Order #: [id number] FUTURE ALBUMIN/CREAT RATIO RND UR [SQUACR] Order #: [id number] FUTURE Tadalafil (CIALIS) 10 mg tabletOne tablets 3-4 hours before anticipated activityDisp: 6 tabletRfl: 5 CK CREATINE KINASE [SQCK] Order #: [id number] FUTURE TESTOSTERONE, FREE AND TOTAL [SQFTESTO] Order #: [id number] FUTURE Prescriptions as of 04/02/2018 Sig: LISINOPRIL 10 MG TABLET Take 1 tablet by mouth once d* INSULIN GLARGINE (U-100) 100 * Administer 2 injections of 61* DULAGLUTIDE 1.5 MG/0.5 ML SUB* Inject 1.5 mg subcutaneously * INSULIN LISPRO (U-100) 100 UN* As directed for coverage scal* METFORMIN ER 500 MG TABLET,EX* Take 4 tablets by mouth daily* ATORVASTATIN 20 MG TABLET Take 1 tablet by mouth daily * TADALAFIL 10 MG TABLET One tablets 3-4 hours before * LANCETS Check blood sugar 4 times patricia* PEN NEEDLE, DIABETIC 32 GAUGE* Use one needle per dose. 5 do* Problem List As Of Date 04/02/2018 Noted Resolved Closed Colles' fracture [S50.539A] INVALID FOR*09/25/2017 More... OBESITY NOS [E66.9] INVALID FOR* Acute nonsuppurative otitis media, unspecified *INVALID FOR*09/25/2017 INFEC OTITIS EXTERNA NOS [H60.399] INVALID FOR* Tobacco use disorder [F17.200] INVALID FOR*09/25/2017 More... ELEV BL PRES W/O HYPERTN [R03.0] INVALID FOR* Traumatic pneumothorax [S27.0XXA] INVALID FOR*09/25/2017 More... PAD (peripheral artery disease) ([facility]) [I73.9] INVALID FOR* More... Sleep apnea [G47.30] INVALID FOR* More... Controlled type 2 diabetes mellitus with both e*INVALID FOR* More... Mild intermittent asthma [J45.20] More... Cataract [H26.9] More... Microalbuminuria [R80.9] INVALID FOR* Low HDL (under 40) [E78.6] INVALID FOR* Reaction, adjustment, with depressed mood, prol*INVALID FOR* Obesity, Class III, BMI >= 40 [E66.01] INVALID FOR* Hyperlipidemia, mixed [E78.2] INVALID FOR* Other instructions from your clinician: Erectile dysfunction, sometimes called impotence, is the repeated inability to get or keep an erection firm enough for sexual intercourse. The word impotence may also be used to describe other problems that interfere with sexual intercourse and reproduction, such as lack of sexual desire and problems with ejaculation or orgasm. Using the term erectile dysfunction makes it clear that those other problems are not involved. Erectile dysfunction, or ED, can be a total inability to achieve erection, an inconsistent ability to do so, or a tendency to sustain only brief erections. These variations make defining ED and estimating its incidence difficult. Estimates range from 15 million to 30 million, depending on the definition used. According to the National Ambulatory Medical Care Survey (NAM), for every 1,000 men in the [place], 7.7 physician office visits were made for ED in 1984. By 1998, that rate had nearly tripled to 22.3. The increase happened gradually, presumably as treatments such as vacuum devices and injectable drugs became more widely available and discussing erectile function became accepted. Perhaps the most publicized advance was the introduction of the oral drug sildenafil citrate (Viagra) in August 1997. [facility] data on new drugs show an estimated 2.6 million mentions of Viagra at physician office visits in 1998, and one-third of those mentions occurred during visits for a diagnosis other than ED. In older men, ED usually has a physical cause, such as disease, injury, or side effects of drugs. Any disorder that causes injury to the nerves or impairs blood flow in the penis has the potential to cause ED. Incidence increases with age: About 5 percent of 40-year-old men and between 15 and 25 percent of 65-year-old men experience ED. But it is not an inevitable part of aging. ED is treatable at any age, and awareness of this fact has been growing. More men have been seeking help and returning to normal sexual activity because of improved, successful treatments for ED. Urologists, who specialize in problems of the urinary tract, have traditionally treated ED; however, urologists accounted for only 25 percent of Viagra mentions in 1998. How does an erection occur? The penis contains two chambers called the corpora cavernosa, which run the length of the organ (see figure 1). A spongy tissue fills the chambers. The corpora cavernosa are surrounded by a membrane, called the tunica albuginea. The spongy tissue contains smooth muscles, fibrous tissues, spaces, veins, and arteries. The urethra, which is the channel for urine and ejaculate, runs along the underside of the corpora cavernosa and is surrounded by the corpus spongiosum. Erection begins with sensory or mental stimulation, or both. Impulses from the brain and local nerves cause the muscles of the corpora cavernosa to relax, allowing blood to flow in and fill the spaces. The blood creates pressure in the corpora cavernosa, making the penis expand. The tunica albuginea helps trap the blood in the corpora cavernosa, thereby sustaining erection. When muscles in the penis contract to stop the inflow of blood and open outflow channels, erection is reversed. What causes erectile dysfunction (ED)? Since an erection requires a precise sequence of events, ED can occur when any of the events is disrupted. The sequence includes nerve impulses in the brain, spinal column, and area around the penis, and response in muscles, fibrous tissues, veins, and arteries in and near the corpora cavernosa. Damage to nerves, arteries, smooth muscles, and fibrous tissues, often as a result of disease, is the most common cause of ED. Diseases?such as diabetes, kidney disease, chronic alcoholism, multiple sclerosis, atherosclerosis, vascular disease, and neurologic disease?account for about 70 percent of ED cases. Between 35 and 50 percent of men with diabetes experience ED. Lifestyle choices that contribute to heart disease and vascular problems also raise the risk of erectile dysfunction. Smoking, being overweight, and avoiding exercise are possible causes of ED. Also, surgery (especially radical prostate and bladder surgery for cancer) can injure nerves and arteries near the penis, causing ED. Injury to the penis, spinal cord, prostate, bladder, and pelvis can lead to ED by harming nerves, smooth muscles, arteries, and fibrous tissues of the corpora cavernosa. In addition, many common medicines?blood pressure drugs, antihistamines, antidepressants, tranquilizers, appetite suppressants, and cimetidine (an ulcer drug)?can produce ED as a side effect. Experts believe that psychological factors such as stress, anxiety, guilt, depression, low self-esteem, and fear of sexual failure cause 10 to 20 percent of ED cases. Men with a physical cause for ED frequently experience the same sort of psychological reactions (stress, anxiety, guilt, depression). Other possible causes are smoking, which affects blood flow in veins and arteries, and hormonal abnormalities, such as not enough testosterone. How is ED diagnosed? Patient History Medical and sexual histories help define the degree and nature of ED. A medical history can disclose diseases that lead to ED, while a simple recounting of sexual activity might distinguish among problems with sexual desire, erection, ejaculation, or orgasm. Using certain prescription or illegal drugs can suggest a chemical cause, since drug effects account for 25 percent of ED cases. Cutting back on or substituting certain medications can often alleviate the problem. Physical Examination A physical examination can give clues to systemic problems. For example, if the penis is not sensitive to touching, a problem in the nervous system may be the cause. Abnormal secondary sex characteristics, such as hair pattern or breast enlargement, can point to hormonal problems, which would mean that the endocrine system is involved. The examiner might discover a circulatory problem by observing decreased pulses in the wrist or ankles. And unusual characteristics of the penis itself could suggest the source of the problem?for example, a penis that bends or curves when erect could be the result of Peyronie's disease. Laboratory Tests Several laboratory tests can help diagnose ED. Tests for systemic diseases include blood counts, urinalysis, lipid profile, and measurements of creatinine and liver enzymes. Measuring the amount of free testosterone in the blood can yield information about problems with the endocrine system and is indicated especially in patients with decreased sexual desire. Other Tests Monitoring erections that occur during sleep (nocturnal penile tumescence) can help rule out certain psychological causes of ED. Healthy men have involuntary erections during sleep. If nocturnal erections do not occur, then ED is likely to have a physical rather than psychological cause. Tests of nocturnal erections are not completely reliable, however. Scientists have not standardized such tests and have not determined when they should be applied for best results. Psychosocial Examination A psychosocial examination, using an interview and a questionnaire, reveals psychological factors. A man's sexual partner may also be interviewed to determine expectations and perceptions during sexual intercourse. How is ED treated? Most physicians suggest that treatments proceed from least to most invasive. For some men, making a few healthy lifestyle changes may solve the problem. Quitting smoking, losing excess weight, and increasing physical activity may help some men regain sexual function. Cutting back on any drugs with harmful side effects is considered next. For example, drugs for high blood pressure work in different ways. If you think a particular drug is causing problems with erection, tell your doctor and ask whether you can try a different class of blood pressure medicine. Psychotherapy and behavior modifications in selected patients are considered next if indicated, followed by oral or locally injected drugs, vacuum devices, and surgically implanted devices. In rare cases, surgery involving veins or arteries may be considered. Psychotherapy Experts often treat psychologically based ED using techniques that decrease the anxiety associated with intercourse. The patient's partner can help with the techniques, which include gradual development of intimacy and stimulation. Such techniques also can help relieve anxiety when ED from physical causes is being treated. Drug Therapy Drugs for treating ED can be taken orally, injected directly into the penis, or inserted into the urethra at the tip of the penis. In August 1997, the Food and Drug Administration (FDA) approved Viagra, the first pill to treat ED. Since that time, vardenafil hydrochloride (Levitra) and tadalafil (Cialis) have also been approved. Additional oral medicines are being tested for safety and effectiveness. Viagra, Levitra, and Cialis all belong to a class of drugs called phosphodiesterase (PDE) inhibitors. Taken an hour before sexual activity, these drugs work by enhancing the effects of nitric oxide, a chemical that relaxes smooth muscles in the penis during sexual stimulation and allows increased blood flow. While oral medicines improve the response to sexual stimulation, they do not trigger an automatic erection as injections do. The recommended dose for Viagra is 50 mg, and the physician may adjust this dose to 100 mg or 25 mg, depending on the patient. The recommended dose for either Levitra or Cialis is 10 mg, and the physician may adjust this dose to 20 mg if 10 mg is insufficient. A lower dose of 5 mg is available for patients who take other medicines or have conditions that may decrease the body's ability to use the drug. Levitra is also available in a 2.5 mg dose. None of these PDE inhibitors should be used more than once a day. Men who take nitrate-based drugs such as nitroglycerin for heart problems should not use either drug because the combination can cause a sudden drop in blood pressure. Also, tell your doctor if you take any drugs called alpha-blockers, which are used to treat prostate enlargement or high blood pressure. Your doctor may need to adjust your ED prescription. Taking a PDE inhibitor and an alpha-blanka at the same time (within 4 hours) can cause a sudden drop in blood pressure. Oral testosterone can reduce ED in some men with low levels of natural testosterone, but it is often ineffective and may cause liver damage. Patients also have claimed that other oral drugs?including yohimbine hydrochloride, dopamine and serotonin agonists, and trazodone?are effective, but the results of scientific studies to substantiate these claims have been inconsistent. Improvements observed following use of these drugs may be examples of the placebo effect, that is, a change that results simply from the patient's believing that an improvement will occur. Many men achieve stronger erections by injecting drugs into the penis, causing it to become engorged with blood. Drugs such as papaverine hydrochloride, phentolamine, and alprostadil (marketed as Caverject) widen blood vessels. These drugs may create unwanted side effects, however, including persistent erection (known as priapism) and scarring. Nitroglycerin, a muscle relaxant, can sometimes enhance erection when rubbed on the penis. A system for inserting a pellet of alprostadil into the urethra is marketed as [place]. The system uses a prefilled applicator to deliver the pellet about an inch deep into the urethra. An erection will begin within 8 to 10 minutes and may last 30 to 60 minutes. The most common side effects are aching in the penis, testicles, and area between the penis and rectum; warmth or burning sensation in the urethra; redness from increased blood flow to the penis; and minor urethral bleeding or spotting. Research on drugs for treating ED is expanding rapidly. Patients should ask their doctor about the latest advances. Vacuum Devices Mechanical vacuum devices cause erection by creating a partial vacuum, which draws blood into the penis, engorging and expanding it. The devices have three components: a plastic cylinder, into which the penis is placed; a pump, which draws air out of the cylinder; and an elastic band, which is placed around the base of the penis to maintain the erection after the cylinder is removed and during intercourse by preventing blood from flowing back into the body (see figure 2). One variation of the vacuum device involves a semirigid rubber sheath that is placed on the penis and remains there after erection is attained and during intercourse. Surgery Surgery usually has one of three goals: to implant a device that can cause the penis to become erect to reconstruct arteries to increase flow of blood to the penis to block off veins that allow blood to leak from the penile tissues Implanted devices, known as prostheses, can restore erection in many men with ED. Possible problems with implants include mechanical breakdown and infection, although mechanical problems have diminished in recent years because of technological advances. Malleable implants usually consist of paired rods, which are inserted surgically into the corpora cavernosa. The user manually adjusts the position of the penis and, therefore, the rods. Adjustment does not affect the width or length of the penis. Inflatable implants consist of paired cylinders, which are surgically inserted inside the penis and can be expanded using pressurized fluid (see figure 3). Tubes connect the cylinders to a fluid reservoir and a pump, which are also surgically implanted. The patient inflates the cylinders by pressing on the small pump, located under the skin in the scrotum. Inflatable implants can expand the length and width of the penis somewhat. They also leave the penis in a more natural state when not inflated. Surgery to repair arteries can reduce ED caused by obstructions that block the flow of blood. The best candidates for such surgery are young men with discrete blockage of an artery because of an injury to the crotch or fracture of the pelvis. The procedure is almost never successful in older men with widespread blockage. Surgery to veins that allow blood to leave the penis usually involves an opposite procedure?intentional blockage. Blocking off veins (ligation) can reduce the leakage of blood that diminishes the rigidity of the penis during erection. However, experts have raised questions about the long-term effectiveness of this procedure, and it is rarely done. Hope Through Research Advances in suppositories, injectable medications, implants, and vacuum devices have expanded the options for men seeking treatment for ED. These advances have also helped increase the number of men seeking treatment. Gene therapy for ED is now being tested in several centers and may offer a long-lasting therapeutic approach for ED. The National [place] of Diabetes and Digestive and Kidney Diseases (NIDDK) sponsors programs aimed at understanding the causes of erectile dysfunction and finding treatments to reverse its effects. NIDDK's Division of Kidney, Urologic, and Hematologic Diseases supported the researchers who developed Viagra and continue to support basic research into the mechanisms of erection and the diseases that impair normal function at the cellular and molecular levels, including diabetes and high blood pressure. Points to Remember Erectile dysfunction (ED) is the repeated inability to get or keep an erection firm enough for sexual intercourse. ED affects 15 to 30 million [place] men. ED usually has a physical cause. ED is treatable at all ages. Treatments include psychotherapy, drug therapy, vacuum devices, and surgery. For More Information [employer] ([employer]A) [address] [place] [address] Phone: 1?866?RING?AUA ([phone]) or [phone] Fax: [phone] Email: Internet: www.auanet.org www.urologyhealth.org [facility] can refer you to a urologist in your area. [place] [employer] (ADA) Attn: National Call Center [address] [place] [address] Phone: 1?800?DIABETES (198?7209) Internet: www.diabetes.org ADA can help you find a doctor who specializes in diabetes care in your area. [place] [employer] Sex Educators, Counselors, and Therapists (AASECT) [address] [place] [address] Phone: [phone] Fax: [phone] Internet: www.aasect.org Check the AASECT website to find a certified sexuality educator, counselor, or therapist in your area. The U.S. Government does not endorse or favor any specific commercial product or company. Trade, proprietary, or company names appearing in this document are used only because they are considered necessary in the context of the information provided. If a product is not mentioned, the omission does not mean or imply that the product is unsatisfactory. National Kidney and Urologic Diseases Information Clearinghouse [address] [place] [address] Phone: [phone] Fax: [phone] Email: Internet: www.kidney.niddk.nih.gov/ The National Kidney and Urologic Diseases Information Clearinghouse (NKUDIC) is a service of the National [place] of Diabetes and Digestive and Kidney Diseases (NIDDK). The NIDDK is part of the National Institutes of Health of the U.S. Department of Health and Human Services. Established in 1986, the Clearinghouse provides information about diseases of the kidneys and urologic system to people with kidney and urologic disorders and to their families, health careers adviser, and the public. The NKUDIC answers inquiries, develops and distributes publications, and works closely with professional and patient organizations and Government agencies to coordinate resources about kidney and urologic diseases. Publications produced by the Clearinghouse are carefully reviewed by both NIDDK scientists and outside experts. This publication was reviewed by Austin Franco M.D., [place], [place]; and Garo Baumann M.D., U.S. Food and Drug Administration. This publication is not copyrighted. The Clearinghouse encourages users of this publication to duplicate and distribute as many copies as desired. NIH Publication No. 06?3923 May 2005 CIALIS (see-AL-iss) TADALAFIL) Cialis (tadalafil) is an FDA approved medication for use in erectile dysfunction. The drug was approved in April of 2003. 1) If you are initiating a trial of this drug, the mechanism of the action of the drug will be discussed with you in detail. It is important that Cialis requires sexual stimulation to be effective. 2) You cannot use this drug if you are taking nitroglycerine or nitrates in any form. If you have any questions about the medications you are taking, you need to review them with your doctor at the time your visit concerning Cialis. 3) If you are utilizing an alternative method of treatment for erectile dysfunction such as intracavernous injection therapy, intraurtheral therapy (MUSE), or a vacuum constriction device, you are NOT to combine these with the use of the drug Cialis. If you are using any of these and desire to try them again you must wait at least four days after taking a tablet of Cialis. As mentioned above, they are NOT to be combined together with Cialis. If you are currently using the drug Viagra you may initiate your trial of Cialis 24-hours after having taken a tablet of Viagra. If you have taken Cialis and desire to go back to using Viagra I would suggest that you wait four days before re-initiating the Viagra tablet. 4) You do not need to take the drug daily. You should use the drug when you are planning intercourse. It takes two hours for the drug to be maximally absorbed and then the drug may be effective for 36 hours. It is therefore, reasonable to take the drug at least two hours prior to anticipated intercourse. It is also reasonable to perhaps take the drug the morning of a day on which intercourse is planned well before any sexual activity, i.e. six, eight, twelve or more hours before planned intercourse. Remember, however that it does require sexual stimulation to be effective. 5) The initial dose of your medication will be discussed with you. This drug can be taken without regards to food intake. 6) Common side-effects that can occur include headache, flushing, heartburn or dyspepsia or stomach distress, nasal congestion, myalgia or muscle aching, and backache. 7) If you are taking alpha blockers, Cardura (doxazosin), Hytrin (terezosin), Flomax (tamsulosin), or Uroxatral (alfuzosin), caution should be taken since these drugs combined with Cialis may result in a drop in blood pressure, dizziness, or fainting. I would recommend Vit D level check as is a risk factor for muscle aches with statin. I would recommend supplement with Vit D and K to prevent aches. Follow lab in 3 months. Please read pharmacy provided literature on risks and administration. Notify if unusual muscle aches, GI sx, persistent dark urine or jaundice. Prescriptions ordered this encounter Disp Refills Start End LISINOPRIL 10 MG TABLET 90 t* 1 04/02/2018 Route: ORAL Sig: Take 1 tablet by mouth once daily. ATORVASTATIN 20 MG TABLET 90 t* 1 04/02/2018 Route: ORAL Sig: Take 1 tablet by mouth daily at bedtime. For cholesterol. TADALAFIL 10 MG TABLET 6 ta* 5 04/02/2018 Sig: One tablets 3-4 hours before anticipated activity Medications Discontinued During This Encounter aspirin, enteric coated (ASPIR-81) 8* 90 t* 3 09/28/2017 04/02/2018 Route: ORAL Sig: Take 1 tablet by mouth once daily. Disc: Reason for discontinue is not on file. lisinopril (ZESTRIL, PRINIVIL) 10 mg* 30 t* 2 12/28/2017 04/02/2018 Route: ORAL Sig: Take 1 tablet by mouth once daily. Disc: Reason for discontinue is not on file. Disposition: Return in about 3 months (around 07/03/2018). Follow-up and Disposition History Recorded Encounter Status:Closed by Yogesh DOCKERY PA-C on 04/02/18 COMP METABOLIC PANEL Collected: 03/26/2018 Status: F Source: [facility] REPOSITORY TYPE CODE TESTS RESULT OUT OF REFERENCE UNITS RANGE LAB TP 6.3-8.0 g/dL Protein, Total 7.3 LAB ALB 3.9-4.9 g/dL Albumin 4.1 LAB CA 8.5-10.2 mg/dL Calcium, Total 9.8 LAB TBIL 0.2-1.3 mg/dL Bilirubin, Total 0.3 LAB ALKP 38-113 U/L Alkaline Phosphatase 87 LAB AST 14-40 U/L AST 37 LAB GLU 74-99 mg/dL Glucose High 193 Result Comment: The [place] [employer] (ADA) provides guidance for cutoff values for fasting glucose and random glucose. The ADA defines fasting as no caloric intake for at least 8 hours. Fas ting plasma glucose results between 100 to 125 mg/dL indicate increased risk for diabetes (prediabetes). Fasting plasma glucose results greater than or equal to 126 mg/dL meet the criteria for diagnosis of diabetes. In the absence of unequivocal hyperglycemia, results should be confirmed by repeat testing. In a patient with classic symptoms of hyperglycemia or hyperglycemic crisis, random plasma glucose results greater than or equal to 200 mg/dL meet the criteria for diagnosis of diabetes. Reference: Standards of Medical Care in Diabetes 2016, [place] [employer]. Diabetes Care. 2016.39(Suppl 1). LAB BUN 9-24 mg/dL BUN 15 LAB CRET 0.73-1.22 mg/dL Creatinine Low 0.61 LAB NA 136-144 mmol/L Sodium 136 LAB K 3.7-5.1 mmol/L Potassium 4.3 LAB CL 97-105 mmol/L Chloride 98 LAB CO2 22-30 mmol/L CO2 22 LAB AGAP 9-18 mmol/L Anion Gap 16 LAB ALT 10-54 U/L ALT 50 LAB GFRAA eGFR- Amer. >60 LAB GFRNAA . eGFR-All Other Races >60 Result Comment: eGFR (Estimated GFR) Units of measure: mL/min/1.73 meters squared eGFR is derived from the reexpressed MDRD Study equation using the following parameters: serum creatinine, age, gender and race. The creatinine assay has been calibrated to be traceable to IDMS. An eGFR <60 mL/min/1.73m2 for >3 months is consistent with chronic kidney disease. Refer to KDOQI guidelines for clinical interpretation. In patients with unstable renal function, e.g. those with acute kidney injury, the eGFR may not accurately reflect actual GFR. Performed By: #### CMP, HBA1C #### [facility] [address] [place], [place] [address] HEMOGLOBIN A1C Collected: 03/26/2018 Status: F Source: [facility] 8:[address] [facility] REPOSITORY TYPE CODE TESTS RESULT OUT OF REFERENCE UNITS RANGE LAB HGBA1C 4.3-5.6 % High Hemoglobin A1c 7.2 LAB HBA0 mg/dL Est. Average Glucose 160 Result Comment: eAG: (Estimated average glucose) is a calculated value from HgbA1c and is labor relations representative of the average blood glucose level in the last 2-3 month period. Performed By: #### CMP, HBA1C #### [facility] [address] [place], [place] [address] PROGRESS Observed: 02/26/2018 Status: COMPLETED Source: [facility]:[address] [facility] REPOSITORY HNO ID: [id number] Author: Chelsi Britton Service: (none) Author Type: Registered Dietitian Type: Progress Notes Filed: 02/26/2018 10:04 AM Note Text: Nutritional Therapy Re-Assessment PAIN: Is the patient having any pain that is interfering with oral / enteral intake? No 0 on a scale of 0 to 10 PROGRESS: Nutrition Intervention (date of last encounter 12/25/17): Follow carb and calorie controlled plan, 40% calories form carb, 1800 calooriess Recommended patterns: 3 fresh fruit, 2 milk/dairy, 5 starches, 14 oz protein and 5 fat choices, non starchy vegetables free but at least 4 servings daily. Choose Lean protein, fat free dairy only Choose High fiber whole grain breads and cereals Watch portion sizes of fats carefully, choose unsaturated fats, avoid trans and saturated fats Weight and measure servings sizes. Keep accurate food log bring to next appointment; keep portions, choices, blood sugars. Increase exercise to at least 5 days cardio for at least 30 min; preferably 45-60 min cardio type activity plus 2-3 days of weight resistance exercise for weight loss. Cardio is anything that you do continuously to that gets your heart rate up CHANGES IN TREATMENT: Patient met goal(s): Yes Actions to implement interventions: Monitoring blood sugars Walking most days for 15 min Diet History: Breakfast - usually skip sleeping during the day (works nights) Snack - occ wake hungry and have peanuts Dinner - 7 p.m.-frozen broccoli, frozen vegetable,s green beans and mushrooms with burger no bun Snack - midnite- trail mix Lunch - 2-2:30-salad, TV dinner, water Snack-skinny pop-100 calorie Beverages - water, Monster sugar free, milk-2% Vitamins/Supplements - MVI gummies CLINICAL IMPRESSIONS: good REVISIONS IN DIAGNOSIS: Diagnosis: has not changed. Allergies: Patient has no known allergies. Medications: Current Outpatient Prescriptions: insulin glargine (LANTUS SOLOSTAR U-100 INSULIN) 100 unit/mL (3 mL) inpn Administer 2 injections of 61 units (122 units total) of Lantus once daily in the evening. Disp: Rfl: Lancets lancets Check blood sugar 4 times daily diagnosis: e11.65, insulin: yes Disp: 200 Each Rfl: 3 dulaglutide (TRULICITY) 1.5 mg/ 0.5 ml subcutaneous pen injector Inject 1.5 mg subcutaneously once each week. Inject once per week. Discard Pen After Disp: 4 Pen Rfl: 11 insulin lispro (HUMALOG KWIKPEN INSULIN) 100 unit/mL inpn As directed for coverage scale: add additional 4u for every 50 points above glucose 150 Disp: 5 Pen Rfl: 2 lisinopril (ZESTRIL, PRINIVIL) 10 mg tablet Take 1 tablet by mouth once daily. Disp: 30 tablet Rfl: 2 Insulin [place], Disposable, 32 gauge x 5/16 ndle Use one needle per dose. 5 doses per day Disp: 200 Each Rfl: 5 aspirin, enteric coated (ASPIR-81) 81 mg EC tablet Take 1 tablet by mouth once daily. Disp: 90 tablet Rfl: 3 metFORMIN ER (GLUCOPHAGE XR) 500 mg 24 hr tablet Take 4 tablets by mouth daily with breakfast. Disp: 360 tablet Rfl: 3 No current facility-administered medications for this visit. (currently taking) Anthropometrics: Height: Last 1 Encounter Ht Readings: Date: Ht: 02/26/2018 182.9 cm (6') Current weight: Last 1 Encounter Wt Readings: Date: Wt: 02/26/2018 154.2 kg (340 lb) Body mass index is 46.11 kg/m?. Resting Metabolic Rate: 2462 NUTRITION ASSESSMENT: Malnutrition Screening Significant unintentional weight loss? No Eating less than 75% of usual intake for more than 2 weeks? No RECOMMENDED MALNUTRITION DIAGNOSIS: NO MALNUTRITION IDENTIFIED Nutritional status: Educational materials provided: none this visit READINESS TO LEARN Cognitive ability: Alert and oriented Motivation to learn: Interested Family support: Unable to assess - Family not present Instruction provided to: Patient Patient learns best by: Individual Instruction Factors affecting learning: None Physical limitations affecting learning: None Likelihood of Adherence: Moderate Patient presents for follow up MNT as relates to diabetes uncontrolled and obesity. Working hard on diet resulting in improved blood sugars - most in target range and 15 pounds weight loss since last visit. Works nights-getting 7 hours sleep per night. Has added exercise although less than recommended, in considering joining a gym. Nutrition Diagnosis: Overweight Obesity, related to; excess energy intake and physical inactivity, as evidenced by BMI above normative standard for age and gender. Nutrition Intervention 02/26/2018: modify type and amount of food or beverage 1. Continue carb controlled diet 2. Consider adding 2 Tablespoons per day of emily seeds or flax seeds 3. Increase exercise to 30 min (twice around the block) 4. Ensure calorie free beverages Nutrition Monitoring AND Evaluation: Consistent carbohydrate calorie controlled diet for glucose within accpetable limits and 1- 2 pound weight loss per week. Criteria: patient update Need for Follow up: 6 weeks Referred/Supervised by: Allie SCHWARZ Billing Type: Re-assess/15 min 2 units SIGNATURE: Chelsi Britton MS RD LD PATIENT NAME: Shekhar Kimbrough DATE: February 26, 2018 TIME: 9:38 AM CNCNPATED Observed: 02/26/2018 Status: COMPLETED Source: [place] 9:30 AM [facility] REPOSITORY Education (NUTRWS) ZAINSHEKHAR ([id number]) 1970 M Date Time Provider Department 02/26/18 9:30 AM CHELSI BRITTON) [place] Reason for Visit: Patient Education [91] Reassessment [674] Progress Notes: MS FLORENTIN Mercer 02/26/2018 10:04 AM Signed Nutritional Therapy Re-Assessment PAIN: Is the patient having any pain that is interfering with oral / enteral intake? No 0 on a scale of 0 to 10 PROGRESS: Nutrition Intervention (date of last encounter 12/25/17): Follow carb and calorie controlled plan, 40% calories form carb, 1800 calooriess Recommended patterns: 3 fresh fruit, 2 milk/dairy, 5 starches, 14 oz protein and 5 fat choices, non starchy vegetables free but at least 4 servings daily. Choose Lean protein, fat free dairy only Choose High fiber whole grain breads and cereals Watch portion sizes of fats carefully, choose unsaturated fats, avoid trans and saturated fats Weight and measure servings sizes. Keep accurate food log bring to next appointment; keep portions, choices, blood sugars. Increase exercise to at least 5 days cardio for at least 30 min; preferably 45-60 min cardio type activity plus 2-3 days of weight resistance exercise for weight loss. Cardio is anything that you do continuously to that gets your heart rate up CHANGES IN TREATMENT: Patient met goal(s): Yes Actions to implement interventions: Monitoring blood sugars Walking most days for 15 min Diet History: Breakfast - usually skip sleeping during the day (works nights) Snack - occ wake hungry and have peanuts Dinner - 7 p.m.-frozen broccoli, frozen vegetable,s green beans and mushrooms with burger no bun Snack - midnite- trail mix Lunch - 2-2:30-salad, TV dinner, water Snack-skinny pop-100 calorie Beverages - water, Monster sugar free, milk-2% Vitamins/Supplements - MVI gummies CLINICAL IMPRESSIONS: good REVISIONS IN DIAGNOSIS: Diagnosis: has not changed. Allergies: Patient has no known allergies. Medications: Current Outpatient Prescriptions: insulin glargine (LANTUS SOLOSTAR U-100 INSULIN) 100 unit/mL (3 mL) inpn Administer 2 injections of 61 units (122 units total) of Lantus once daily in the evening. Disp: Rfl: Lancets lancets Check blood sugar 4 times daily diagnosis: e11.65, insulin: yes Disp: 200 Each Rfl: 3 dulaglutide (TRULICITY) 1.5 mg/ 0.5 ml subcutaneous pen injector Inject 1.5 mg subcutaneously once each week. Inject once per week. Discard Pen After Disp: 4 Pen Rfl: 11 insulin lispro (HUMALOG KWIKPEN INSULIN) 100 unit/mL inpn As directed for coverage scale: add additional 4u for every 50 points above glucose 150 Disp: 5 Pen Rfl: 2 lisinopril (ZESTRIL, PRINIVIL) 10 mg tablet Take 1 tablet by mouth once daily. Disp: 30 tablet Rfl: 2 Insulin [place], Disposable, 32 gauge x 5/16 ndle Use one needle per dose. 5 doses per day Disp: 200 Each Rfl: 5 aspirin, enteric coated (ASPIR-81) 81 mg EC tablet Take 1 tablet by mouth once daily. Disp: 90 tablet Rfl: 3 metFORMIN ER (GLUCOPHAGE XR) 500 mg 24 hr tablet Take 4 tablets by mouth daily with breakfast. Disp: 360 tablet Rfl: 3 No current facility-administered medications for this visit. (currently taking) Anthropometrics: Height: Last 1 Encounter Ht Readings: Date: Ht: 02/26/2018 182.9 cm (6') Current weight: Last 1 Encounter Wt Readings: Date: Wt: 02/26/2018 154.2 kg (340 lb) Body mass index is 46.11 kg/m?. Resting Metabolic Rate: 2462 NUTRITION ASSESSMENT: Malnutrition Screening Significant unintentional weight loss? No Eating less than 75% of usual intake for more than 2 weeks? No RECOMMENDED MALNUTRITION DIAGNOSIS: NO MALNUTRITION IDENTIFIED Nutritional status: Educational materials provided: none this visit READINESS TO LEARN Cognitive ability: Alert and oriented Motivation to learn: Interested Family support: Unable to assess - Family not present Instruction provided to: Patient Patient learns best by: Individual Instruction Factors affecting learning: None Physical limitations affecting learning: None Likelihood of Adherence: Moderate Patient presents for follow up MNT as relates to diabetes uncontrolled and obesity. Working hard on diet resulting in improved blood sugars - most in target range and 15 pounds weight loss since last visit. Works nights-getting 7 hours sleep per night. Has added exercise although less than recommended, in considering joining a gym. Nutrition Diagnosis: Overweight Obesity, related to; excess energy intake and physical inactivity, as evidenced by BMI above normative standard for age and gender. Nutrition Intervention 02/26/2018: modify type and amount of food or beverage 1. Continue carb controlled diet 2. Consider adding 2 Tablespoons per day of emily seeds or flax seeds 3. Increase exercise to 30 min (twice around the block) 4. Ensure calorie free beverages Nutrition Monitoring AND Evaluation: Consistent carbohydrate calorie controlled diet for glucose within accpetable limits and 1-2 pound weight loss per week. Criteria: patient update Need for Follow up: 6 weeks Referred/Supervised by: Sarkis/Susie MNT Billing Type: Re-assess/15 min 2 units SIGNATURE: MS FLORENTIN Mercer PATIENT NAME: Shekhar Kimbrough DATE: February 26, 2018 TIME: 9:38 AM MS FLORENTIN Mercer 02/26/2018 9:55 AM Addendum 1. Continue carb controlled diet 2. Consider adding 2 Tablespoons per day of emily seeds or flax seeds 3. Increase exercise to 30 min (twice around the block) 4. Ensure calorie free beverages Previous Version Document on: 02/26/2018 by: Chelsi Britton [[id number]] of: Special Effects Specialist Worksheet Document on: 02/26/2018 by: Chelsi Britton [[id number]] of: After Visit Summary Other instructions from your clinician: 1. Continue carb controlled diet 2. Consider adding 2 Tablespoons per day of emily seeds or flax seeds 3. Increase exercise to 30 min (twice around the block) 4. Ensure calorie free beverages Primary Visit Diagnosis:Uncontrolled type 2 diabetes mellitus without complication, with long-term current use of insulin (HCC) [E11.65, Z79.4] Other Visit Diagnoses:Obesity, Class III, BMI >= 40 [E66.01] Dietary counseling [Z71.3] During your visit today, we recorded the following information about you: Weight Height 154.2 kg 1.829 m Allergies As of Date: 02/26/2018 (No Known Allergies) Date Reviewed: 02/26/2018 Reviewed by: Chelsi Britton - Fully Assessed Prescriptions as of 02/26/2018 Sig: INSULIN GLARGINE (U-100) 100 * Administer 2 injections of 61* LANCETS Check blood sugar 4 times patricia* DULAGLUTIDE 1.5 MG/0.5 ML SUB* Inject 1.5 mg subcutaneously * INSULIN LISPRO (U-100) 100 UN* As directed for coverage scal* LISINOPRIL 10 MG TABLET Take 1 tablet by mouth once d* X INSULIN GLARGINE (U-100) 100 * Inject 61 Units subcutaneousl* PEN NEEDLE, DIABETIC 32 GAUGE* Use one needle per dose. 5 do* ASPIRIN 81 MG TABLET,DELAYED * Take 1 tablet by mouth once d* METFORMIN ER 500 MG TABLET,EX* Take 4 tablets by mouth daily* Encounter Status:Closed by CHELSI KING MS, RD on 02/26/18 PROGRESS Observed: 02/26/2018 Status: COMPLETED Source: [place] 9:[address] [facility] REPOSITORY HNO ID: [id number] Author: Mehnaz Cook (Pharmacist) Service: (none) Author Type: Pharmacist Type: Progress Notes Filed: 02/26/2018 2:26 PM Note Text: Patient consents to pharmacy collaborative practice agreement. REASON FOR CONSULT: DM? GOALS: A1c <?7% CONSULTING PROVIDER: Farahd MEDINA? Date of Consult: 10/2017 Shekhar Kimbrough is a 47 year old male was last seen in [facility] by PCP, Yogesh Dockery PA-C on 12/28. Subjective: Patient is presenting today for f/u pharmacotherapy management appointment for diabetes. At last PharmD visit on 01/01, dose of dulaglutide was increased to 1.5mg weekly. INTERIM HISTORY: Reports things are not bad Claims dulaglutide is helping with sugers; hasn't lost much weight yet Tolerating dose increase well but says the injection hurts Sometimes misses AM dose of insulin glargine because oversleeps on days when he is not working Reports missing insulin glargine dose maybe twice/week Interested in getting an insulin that he can do only 1 injection (he just picked up refill of insulin glargine today - willing to wait until finished with supply) Denies sx hypoglycemia Reports that he hates pricking his fingers and he wishes he didn't have to check as frequently Says dad has hx strokes Thinks he has been on a statin before but not sure Current DM Medications: Metformin ER 500mg take 4 tablets QAM Dulaglutide 1.5mg weekly Insulin glargine 61 units BID Insulin lispro sliding scale (reports only using insulin if >200 mg/dL; hasn't used any since prior to last PharmD visit) ?151-200 4 ?201-250?8?251-300?12 ?301-350?16 ?351-400?20 ?401-450?24 ?451-500?28 ?>500?32 ? Current HTN Medications: Lisinopril 10mg once daily Preventative Medications: ? On IVETH/ARB: Yes ? On Statin: No ? On ASA: Yes ROS: ? Patient denies CP, SOB, SHARMA, blurred vision, dizziness or lightheadedness ? Patient denies symptoms of hypoglycemia (sweating, anxiety, palpitations, hunger, and tremor) ? Patient denies symptoms of hyperglycemia (polyuria, polydipsia, polyphagia) ? Patient denies potential medication adverse effects DIET/EXERCISE/SOCIAL Hx: ? Eats 2 meals/day; eats at 7-8 PM and 2-2:30 AM while at work ? No changes since last visit Works third shift Gets home at 730-8am - takes all morning meds and glargine Sleeps from 10am-4pm ?Takes evening glargine Works from 10pm-7am Lunch 2-3am - main meal MEDICATIONS: ? Pill bottles are present. ? Adherence: reports missed doses of insulin glargine ~2x/week ? [facility]acy: [facility]? Rx coverage: [place] ? Affordability: no issues ? Diabetes supplies: [employer]ion ? Organization System: none ACTIVE PROBLEM LIST Obesity, Unspecified Infective Otitis Externa, Unspecified Elevated Blood Pressure Reading Without Diagnosis of Hypertension PAD (peripheral artery disease) ([facility]) Sleep Apnea Uncontrolled Type 2 Diabetes Mellitus Without Complication, With Long-Term Current Use of Insulin (Hcc) Mild Intermittent Asthma Cataract Microalbuminuria Low Hdl (Under 40) Reaction, Adjustment, With Depressed Mood, Prolonged Obesity, Class III, BMI >= 40 PAST MEDICAL HISTORY Diagnosis Date - Acute nonsuppurative otitis media, unspecified 03/07/2007 - Cataract right eye, surgery 2009 [facility] - Closed Colles' fracture 08/03/20052007 left - Closed fracture of navicular (scaphoid) bone of wrist 01/18/05 Wrist fracture-left distal radius - Depression in past, was on effexor but stopped years ago. - Diabetes mellitus - Esophagitis, unspecified ESOPHAGITIS - Hyperlipidemia borderline - Measles - Mild intermittent asthma uses albuterl rarely - Mumps - Peptic ulcer, unspecified site, unspecified as acute or chronic, without mention of hemorrhage, perforation, or obstruction Peptic ulcer disease per EGD maybe 2007 - Tobacco use disorder 06/01/2007 Quit 2009 chew - Traumatic pneumothorax 01/15/2008 Ran over by cow, broke 4 ribs, lung collapsed, unconscious. No chest tube. Was sent to [facility]. No sequellae - Unspecified essential hypertension Essential hypertension: controlled without medication ALLERGIES No Known Allergies Medication List Medication Directions Comments Action/Plan aspirin, enteric coated (ASPIR-81) 81 mg EC tablet Take 1 tablet by mouth once daily. dulaglutide (TRULICITY) 1.5 mg/ 0.5 ml subcutaneous pen injector Inject 1.5 mg subcutaneously once each week. Inject once per week. Discard Pen After taking insulin glargine (LANTUS SOLOSTAR U-100 INSULIN) 100 unit/mL (3 mL) inpn Inject 61 Units subcutaneously twice daily. taking insulin lispro (HUMALOG KWIKPEN INSULIN) 100 unit/mL inpn As directed for coverage scale: add additional 4u for every 50 points above glucose 150 Taking; hasn't needed to use since dulaglutide dose was maximized Insulin [place], Disposable, 32 gauge x 5/16 ndle Use one needle per dose. 5 doses per day Lancets lancets Check blood sugar 4 times daily diagnosis: e11.65, insulin: yes lisinopril (ZESTRIL, PRINIVIL) 10 mg tablet Take 1 tablet by mouth once daily. metFORMIN ER (GLUCOPHAGE XR) 500 mg 24 hr tablet Take 4 tablets by mouth daily with breakfast. taking GLYCEMIC CONTROL: ? Glucometer present at visit: No ? SMBG?s: Date Fasting AM 2 hr PP Before Lunch 2 hr PP Before Dinner 2 hr PP Bedtime 02/25 99 108 140 /15 80 120 110 /14 90 131 185 /13 111 146 135 /12 86 129 130 /11 110 101 112 /10 99 130 145 9/9 134 107 175 9/8 99 158 173 9/7 108 133 120 9/6 126 134 169 9/5 99 112 159 9/4 116 106 112 ? Hypoglycemia: denies Objective: VITALS: None taken - BP reader malfunctioned Last 3 Encounter BP Readings: Date: BP: 12/28/2017 110/82 10/31/2017 136/88 10/03/2017 126/86 Wt: 160.1 kg (353 lb) BMI: 47.88 kg/(m2) LABS Lab Results Component Value Date HBA1C 10.1 12/25/2017 HBA1C 12.1 09/25/2017 HBA1C 6.0 03/30/2012 CMP: Glucose 152 12/25/2017 BUN 10 12/25/2017 Creatinine 0.46 12/25/2017 Sodium 137 12/25/2017 Potassium 4.5 12/25/2017 Chloride 101 12/25/2017 CO2 24 12/25/2017 Protein, Total 7.5 12/25/2017 Albumin 3.9 12/25/2017 Calcium 9.1 12/25/2017 Alkaline Phosphatase 91 12/25/2017 Bilirubin, Total 0.4 12/25/2017 AST 60 12/25/2017 ALT 91 12/25/2017 eGFR > 60 mL/min/1.73m2 (per CMP on 12/25/17) Estimated Creatinine Clearance: 313.9 mL/min (A) (based on SCr of 0.46 mg/dL (L)). Last Lipid Panel Lab Results Component Value Date CHOL 177 09/25/2017 Lab Results Component Value Date HDL 38 09/25/2017 Lab Results Component Value Date LDL 100 09/25/2017 Lab Results Component Value Date TG 197 09/25/2017 Albumin/Creat Ratio (mg/g) Date Value 09/25/2017 130 (H) PHARMACOTHERAPY ASSESSMENT/PLAN: 1. Uncontrolled type 2 diabetes mellitus without complication, with long-term current use of insulin ([facility]) - ICD9: 250.02, V58.67, ICD10: E11.65, Z79.4 A1c goal <7%; uncontrolled based on last A1c (10.1%) but SMBG log shows that FBGs and PPGs have improved significantly since addition of dulaglutide; patient reports occasional non-adherence with AM dose of insulin glargine several days per week - will combine dose to once-daily dosing to improve adherence; patient interested in switching to an insulin that allows for once-daily injection but he just picked up a refill of insulin glargine this AM; patient tolerating dulaglutide but complains of pain at injection site - PharmD counseled patient to ice area prior to injection; patient has not needed mealtime insulin since dulaglutide dose was increased (patient only prescribed as taking a sliding scale); will review patient's SMBG log in 1 month to see if patient needs a set-dose of mealtime insulin - at that time can also consider d/c sliding scale; patient frustrated with checking BG so frequently - since he has not needed mealtime insulin in past month, PharmD informed that he could check BG 3x/day (FBG, 2 hours after lunch/dinner, HS) instead of 4x/day; renal fxn WNL and appropriate for continued use; LFTs are elevated but stable and appropriate for continued use - SWITCH from taking insulin glargine 61 units BID to 2 injections of 61 units once daily in the evening (maintaining same TDD); since patient took PM dose yesterday, advised not to take dose this AM and to start the 2 injections this evening - CONTINUE metformin ER 2000mg daily, dulaglutide 1.5mg weekly, and insulin lispro sliding scale - PharmD reviewed patient's formulary - appears that insulin degludec 200 units/mL is covered under insurance (insulin glargine 300 units/mL 3 mL pen is not covered) - will switch patient from insulin glargine 100 units/mL to insulin degludec 200 units/mL at next appt - A1c and CMP prior to next PharmD appt Patient indicated for high-intensity statin and aspirin given clinical ASCVD; patient not on a statin but reports being on one in the past and is unsure when/why it was discontinued; ALT and AST are elevated but not >3x ULN and have decreased since last check in September 2017; according to package insert, statins are contraindicated in patients with active liver disease or if unexplained persistent elevations in transaminases; patient has no documentation of liver disease on file; PharmD will discuss with PCP his thoughts regarding initiation of statin therapy - CONTINUE aspirin 81mg daily - CMP ordered Patient is scheduled to see PCP on 04/02/18. Patient to return to clinic for PharmD f/u on 04/05/18. Patient verbalized understanding of instructions. Mehnaz Cook, MatteoD, [facility] Primary Care Clinical Pharmacist [facility] PROGRESS Observed: 02/26/2018 Status: COMPLETED Source: [place] 9:[address] [facility] REPOSITORY HNO ID: [id number] Author: Kym Alfred (Pharmacist) Service: (none) Author Type: Pharmacist Type: Progress Notes Filed: 02/26/2018 2:26 PM Note Text: Patient interviewed and examined with PharmD. Mayen elements of history confirmed during office visit. The progress note reflects my input and comments. ? Kym Alfred PharmD, [facility] Primary Care Clinical Pharmacist [facility] CNOV Observed: 02/26/2018 Status: COMPLETED Source: [place] 9:00 AM [facility] REPOSITORY Office Visit (PHMEWO) ZAINSHEKHAR Sreedhar ([id number]) 1970 M Date Time Provider Department 02/26/18 9:00 AM AUBRIE (PHARMACIST), KYM HANDY During your visit today, we recorded the following information about you: MEHNAZ COOK, PHARMACIST 02/26/2018 12:22 PM Signed Patient consents to pharmacy collaborative practice agreement. REASON FOR CONSULT: DM? GOALS: A1c <?7% CONSULTING PROVIDER: Farhad MEDINA? Date of Consult: 10/2017 Shekhar Eli Zain is a 47 year old male was last seen in [facility] by PCP, Yogesh Dockery PA-C on 12/28. Subjective: Patient is presenting today for f/u pharmacotherapy management appointment for diabetes. At last PharmD visit on 01/01, dose of dulaglutide was increased to 1.5mg weekly. INTERIM HISTORY: Reports things are not bad Claims dulaglutide is helping with sugers; hasn't lost much weight yet Tolerating dose increase well but says the injection hurts Sometimes misses AM dose of insulin glargine because oversleeps on days when he is not working Reports missing insulin glargine dose maybe twice/week Interested in getting an insulin that he can do only 1 injection (he just picked up refill of insulin glargine today - willing to wait until finished with supply) Denies sx hypoglycemia Reports that he hates pricking his fingers and he wishes he didn't have to check as frequently Says dad has hx strokes Thinks he has been on a statin before but not sure Current DM Medications: Metformin ER 500mg take 4 tablets QAM Dulaglutide 1.5mg weekly Insulin glargine 61 units BID Insulin lispro sliding scale (reports only using insulin if >200 mg/dL; hasn't used any since prior to last PharmD visit) ?151-200 4 ?201-250?8?251-300?12 ?301-350?16 ?351-400?20 ?401-450?24 ?451-500?28 ?>500?32 ? Current HTN Medications: Lisinopril 10mg once daily Preventative Medications: ? On IVETH/ARB: Yes ? On Statin: No ? On ASA: Yes ROS: ? Patient denies CP, SOB, SHARMA, blurred vision, dizziness or lightheadedness ? Patient denies symptoms of hypoglycemia (sweating, anxiety, palpitations, hunger, and tremor) ? Patient denies symptoms of hyperglycemia (polyuria, polydipsia, polyphagia) ? Patient denies potential medication adverse effects DIET/EXERCISE/SOCIAL Hx: ? Eats 2 meals/day; eats at 7-8 PM and 2-2:30 AM while at work ? No changes since last visit Works third shift Gets home at 730-8am - takes all morning meds and glargine Sleeps from 10am-4pm ?Takes evening glargine Works from 10pm-7am Lunch 2-3am - main meal MEDICATIONS: ? Pill bottles are present. ? Adherence: reports missed doses of insulin glargine ~2x/week ? Pharmacy: [facility]? Rx coverage: [place] ? Affordability: no issues ? Diabetes supplies: [employer] ? Organization System: none ACTIVE PROBLEM LIST Obesity, Unspecified Infective Otitis Externa, Unspecified Elevated Blood Pressure Reading Without Diagnosis of Hypertension PAD (peripheral artery disease) ([facility]) Sleep Apnea Uncontrolled Type 2 Diabetes Mellitus Without Complication, With Long-Term Current Use of Insulin ([facility]) Mild Intermittent Asthma Cataract Microalbuminuria Low Hdl (Under 40) Reaction, Adjustment, With Depressed Mood, Prolonged Obesity, Class III, BMI >= 40 PAST MEDICAL HISTORY Diagnosis Date - Acute nonsuppurative otitis media, unspecified 03/07/2007 - Cataract right eye, surgery 2009 [facility] - Closed Colles' fracture 08/03/20052007 left - Closed fracture of navicular (scaphoid) bone of wrist 01/18/05 Wrist fracture-left distal radius - Depression in past, was on effexor but stopped years ago. - Diabetes mellitus - Esophagitis, unspecified ESOPHAGITIS - Hyperlipidemia borderline - Measles - Mild intermittent asthma uses albuterl rarely - Mumps - Peptic ulcer, unspecified site, unspecified as acute or chronic, without mention of hemorrhage, perforation, or obstruction Peptic ulcer disease per EGD maybe 2007 - Tobacco use disorder 06/01/2007 Quit 2009 chew - Traumatic pneumothorax 01/15/2008 Ran over by cow, broke 4 ribs, lung collapsed, unconscious. No chest tube. Was sent to [facility]. No sequellae - Unspecified essential hypertension Essential hypertension: controlled without medication ALLERGIES No Known Allergies Medication List Medication Directions Comments Action/Plan aspirin, enteric coated (ASPIR-81) 81 mg EC tablet Take 1 tablet by mouth once daily. dulaglutide (TRULICITY) 1.5 mg/ 0.5 ml subcutaneous pen injector Inject 1.5 mg subcutaneously once each week. Inject once per week. Discard Pen After taking insulin glargine (LANTUS SOLOSTAR U-100 INSULIN) 100 unit/mL (3 mL) inpn Inject 61 Units subcutaneously twice daily. taking insulin lispro (HUMALOG KWIKPEN INSULIN) 100 unit/mL inpn As directed for coverage scale: add additional 4u for every 50 points above glucose 150 Taking; hasn't needed to use since dulaglutide dose was maximized Insulin [place], Disposable, 32 gauge x 5/16 ndle Use one needle per dose. 5 doses per day Lancets lancets Check blood sugar 4 times daily diagnosis: e11.65, insulin: yes lisinopril (ZESTRIL, PRINIVIL) 10 mg tablet Take 1 tablet by mouth once daily. metFORMIN ER (GLUCOPHAGE XR) 500 mg 24 hr tablet Take 4 tablets by mouth daily with breakfast. taking GLYCEMIC CONTROL: ? Glucometer present at visit: No ? SMBG?s: Date Fasting AM 2 hr PP Before Lunch 2 hr PP Before Dinner 2 hr PP Bedtime 02/25 99 108 140 15 80 120 110 14 90 131 185 02/22 111 146 135 02/21 86 129 130 / 110 101 112 10 99 130 145 02/18 134 107 175 /8 99 158 173 /7 108 133 120 /6 126 134 169 /5 99 112 159 /4 116 106 112 ? Hypoglycemia: denies Objective: VITALS: None taken - BP reader malfunctioned Last 3 Encounter BP Readings: Date: BP: 12/28/2017 110/82 10/31/2017 136/88 10/03/2017 126/86 Wt: 160.1 kg (353 lb) BMI: 47.88 kg/(m2) LABS Lab Results Component Value Date HBA1C 10.1 12/25/2017 HBA1C 12.1 09/25/2017 HBA1C 6.0 03/30/2012 CMP: Glucose 152 12/25/2017 BUN 10 12/25/2017 Creatinine 0.46 12/25/2017 Sodium 137 12/25/2017 Potassium 4.5 12/25/2017 Chloride 101 12/25/2017 CO2 24 12/25/2017 Protein, Total 7.5 12/25/2017 Albumin 3.9 12/25/2017 Calcium 9.1 12/25/2017 Alkaline Phosphatase 91 12/25/2017 Bilirubin, Total 0.4 12/25/2017 AST 60 12/25/2017 ALT 91 12/25/2017 eGFR > 60 mL/min/1.73m2 (per CMP on 12/25/17) Estimated Creatinine Clearance: 313.9 mL/min (A) (based on SCr of 0.46 mg/dL (L)). Last Lipid Panel Lab Results Component Value Date CHOL 177 09/25/2017 Lab Results Component Value Date HDL 38 09/25/2017 Lab Results Component Value Date LDL 100 09/25/2017 Lab Results Component Value Date TG 197 09/25/2017 Albumin/Creat Ratio (mg/g) Date Value 09/25/2017 130 (H) PHARMACOTHERAPY ASSESSMENT/PLAN: 1. Uncontrolled type 2 diabetes mellitus without complication, with long-term current use of insulin ([facility]) - ICD9: 250.02, V58.67, ICD10: E11.65, Z79.4 A1c goal <7%; uncontrolled based on last A1c (10.1%) but SMBG log shows that FBGs and PPGs have improved significantly since addition of dulaglutide; patient reports occasional non-adherence with AM dose of insulin glargine several days per week - will combine dose to once-daily dosing to improve adherence; patient interested in switching to an insulin that allows for once-daily injection but he just picked up a refill of insulin glargine this AM; patient tolerating dulaglutide but complains of pain at injection site - PharmD counseled patient to ice area prior to injection; patient has not needed mealtime insulin since dulaglutide dose was increased (patient only prescribed as taking a sliding scale); will review patient's SMBG log in 1 month to see if patient needs a set-dose of mealtime insulin - at that time can also consider d/c sliding scale; patient frustrated with checking BG so frequently - since he has not needed mealtime insulin in past month, PharmD informed that he could check BG 3x/day (FBG, 2 hours after lunch/dinner, HS) instead of 4x/day; renal fxn WNL and appropriate for continued use; LFTs are elevated but stable and appropriate for continued use - SWITCH from taking insulin glargine 61 units BID to 2 injections of 61 units once daily in the evening (maintaining same TDD); since patient took PM dose yesterday, advised not to take dose this AM and to start the 2 injections this evening - CONTINUE metformin ER 2000mg daily, dulaglutide 1.5mg weekly, and insulin lispro sliding scale - PharmD reviewed patient's formulary - appears that insulin degludec 200 units/mL is covered under insurance (insulin glargine 300 units/mL 3 mL pen is not covered) - will switch patient from insulin glargine 100 units/mL to insulin degludec 200 units/mL at next appt - A1c and CMP prior to next PharmD appt Patient indicated for high-intensity statin and aspirin given clinical ASCVD; patient not on a statin but reports being on one in the past and is unsure when/why it was discontinued; ALT and AST are elevated but not >3x ULN and have decreased since last check in September 2017; according to package insert, statins are contraindicated in patients with active liver disease or if unexplained persistent elevations in transaminases; patient has no documentation of liver disease on file; PharmD will discuss with PCP his thoughts regarding initiation of statin therapy - CONTINUE aspirin 81mg daily - CMP ordered Patient is scheduled to see PCP on 04/02/18. Patient to return to clinic for PharmD f/u on 04/05/18. Patient verbalized understanding of instructions. Mehnaz Cook PharmD, [facility] Primary Care Clinical Pharmacist [facility]ly [facility] WILLIE CALHOUN 02/26/2018 9:20 AM Addendum Continue taking Trulicity 1.5mg weekly on Tuesdays Continue taking Metformin ER 4 tabs daily Today we are going to combine your dose of Lantus so you only have to administer it at one time a day. Do NOT take your Lantus dose this morning. This evening before work, take 2 injections of 61 units. Then continue taking 2 injection of 61 units daily (total daily dose of 122 units). PharmD will look to see if your insurance covers another insulin product that will allow you to only need to give 1 injection a day. KYM ALFRED PHARMACIST 02/26/2018 2:26 PM Signed Patient interviewed and examined with PharmD. Mayen elements of history confirmed during office visit. The progress note reflects my input and comments. ? Kym Alfred PharmD, [facility] Primary Care Clinical Pharmacist [facility] Referring Provider: SELF [[id number]] Allergies As of Date: 02/26/2018 (No Known Allergies) Date Reviewed: 02/26/2018 Reviewed by: Chelsi (Lisa Britton - Fully Assessed Reason for Visit: Allied Health Visit [5] Cmt: DM f/u Visit Diagnosis:Uncontrolled type 2 diabetes mellitus without complication, with long-term current use of insulin (HCC) [E11.65, Z79.4] Order(s):insulin glargine (LANTUS SOLOSTAR U-100 INSULIN) 100 unit/mL (3 mL) inpnAdminister 2 injections of 61 units (122 units total) of Lantus once daily in the evening.Disp: Rfl: COMP METABOLIC PANEL [SQCMP] Order #: [id number] FUTURE Prescriptions as of 02/26/2018 Sig: INSULIN GLARGINE (U-100) 100 * Administer 2 injections of 61* LANCETS Check blood sugar 4 times patircia* DULAGLUTIDE 1.5 MG/0.5 ML SUB* Inject 1.5 mg subcutaneously * INSULIN LISPRO (U-100) 100 UN* As directed for coverage scal* LISINOPRIL 10 MG TABLET Take 1 tablet by mouth once d* PEN NEEDLE, DIABETIC 32 GAUGE* Use one needle per dose. 5 do* ASPIRIN 81 MG TABLET,DELAYED * Take 1 tablet by mouth once d* METFORMIN ER 500 MG TABLET,EX* Take 4 tablets by mouth daily* Problem List As Of Date 02/26/2018 Noted Resolved Closed Colles' fracture [S52.539A] INVALID FOR*09/25/2017 More... OBESITY NOS [E66.9] INVALID FOR* Acute nonsuppurative otitis media, unspecified *INVALID FOR*09/25/2017 INFEC OTITIS EXTERNA NOS [H60.399] INVALID FOR* Tobacco use disorder [F17.200] INVALID FOR*09/25/2017 More... ELEV BL PRES W/O HYPERTN [R03.0] INVALID FOR* Traumatic pneumothorax [S27.0XXA] INVALID FOR*09/25/2017 More... PAD (peripheral artery disease) (HCC) [I73.9] INVALID FOR* More... Sleep apnea [G47.30] INVALID FOR* More... Uncontrolled type 2 diabetes mellitus without c*INVALID FOR* More... Mild intermittent asthma [J45.20] More... Cataract [H26.9] More... Microalbuminuria [R80.9] INVALID FOR* Low HDL (under 40) [E78.6] INVALID FOR* Reaction, adjustment, with depressed mood, prol*INVALID FOR* Obesity, Class III, BMI >= 40 [E66.01] INVALID FOR* Other instructions from your clinician: Continue taking Trulicity 1.5mg weekly on Tuesdays Continue taking Metformin ER 4 tabs daily Today we are going to combine your dose of Lantus so you only have to administer it at one time a day. Do NOT take your Lantus dose this morning. This evening before work, take 2 injections of 61 units. Then continue taking 2 injection of 61 units daily (total daily dose of 122 units). PharmD will look to see if your insurance covers another insulin product that will allow you to only need to give 1 injection a day. Prescriptions ordered this encounter Disp Refills Start End INSULIN GLARGINE (U-100) 100 UNIT/ML* 02/26/2018 Class: Med Update Sig: Administer 2 injections of 61 units (122 units total) of Lantus once daily in the evening. Medications Discontinued During This Encounter insulin glargine (LANTUS SOLOSTAR U-* 10 P* 5 12/28/2017 02/26/2018 Class: Med Update Route: SUBCUTANEOUS Sig: Inject 61 Units subcutaneously twice daily. Disc: Reason for discontinue is not on file. Follow-up and Disposition History Recorded Encounter Status:Closed by AUBRIE (PHARMACIST)KYM on 02/26/18 PROGRESS Observed: 01/01/2018 Status: COMPLETED Source: [place] 9:30 AM [facility] REPOSITORY HNO ID: [id number] Author: Kym Alfred (Pharmacist) Service: (none) Author Type: Pharmacist Type: Progress Notes Filed: 01/01/2018 12:44 PM Note Text: Patient consents to pharmacy collaborative practice agreement. REASON FOR CONSULT: DM GOALS: A1c < 7% CONSULTING PROVIDER: Farhad MEDINA Date of Consult: 10/2017 Shekhar Kimbrough is a 47 year old male was last seen in [facility] by PCP, Dr. Yogesh Dockery PA-C on 12/28. Patient is presenting today for f/u pharmacotherapy management appointment for DM. At last PCP visit insulin glargine was increased to 61 units BID INTERIM HISTORY: Reports dulaglutide going well, denies any issues or concerns Reports using the same lancet every time he checks, does not change lancets Current DM Medications: Metformin ER 500mg take 4 tablets QAM Insulin glargine 61 units BID Insulin lispro sliding scale (reports needing 16 units usually) 151-200 - 4 201-250 8 251-300 12 301-350 16 351-400 20 401-450 24 451 28 500 32 Current HTN Medications: Lisinopril 10mg once daily Preventative Medications: ? On IVETH/ARB: Yes ? On Statin: No ? On ASA: Yes ROS: ? Patient denies CP, SOB, SHARMA, blurred vision, dizziness or lightheadedness ? Patient denies symptoms of hypoglycemia (sweating, anxiety, palpitations, hunger, and tremor) ? Patient denies symptoms of hyperglycemia (polyuria, polydipsia, polyphagia) ? 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 Denies any lifestyle changes since last visit MEDICATIONS: ? Pill bottles are not present. ? Adherence: denies missed doses ? [facility]acy: [facility] ? Rx coverage: [place] ? Affordability: no issues ? Diabetes supplies: Relion ? Organization System: none ACTIVE PROBLEM LIST Obesity, Unspecified Infective Otitis Externa, Unspecified Elevated Blood Pressure Reading Without Diagnosis of Hypertension PAD (peripheral artery disease) ([facility]) Sleep Apnea Uncontrolled Type 2 Diabetes Mellitus Without Complication, With Long-Term Current Use of Insulin ([facility]) Mild Intermittent Asthma Cataract Microalbuminuria Low Hdl (Under 40) Reaction, Adjustment, With Depressed Mood, Prolonged Obesity, Class III, BMI >= 40 PAST MEDICAL HISTORY Diagnosis Date - Acute nonsuppurative otitis media, unspecified 03/07/2007 - Cataract right eye, surgery 2009 [facility] - Closed Colles' fracture 08/03/20052007 left - Closed fracture of navicular (scaphoid) bone of wrist 01/18/05 Wrist fracture-left distal radius - Depression in past, was on effexor but stopped years ago. - Diabetes mellitus - Esophagitis, unspecified ESOPHAGITIS - Hyperlipidemia borderline - Measles - Mild intermittent asthma uses albuterl rarely - Mumps - Peptic ulcer, unspecified site, unspecified as acute or chronic, without mention of hemorrhage, perforation, or obstruction Peptic ulcer disease per EGD maybe 2006 - Tobacco use disorder 06/01/2007 Quit 2009 chew - Traumatic pneumothorax 01/15/2008 Ran over by cow, broke 4 ribs, lung collapsed, unconscious. No chest tube. Was sent to [facility]. No sequellae - Unspecified essential hypertension Essential hypertension: controlled without medication ALLERGIES No Known Allergies Medication List Medication Directions Comments Action/Plan aspirin, enteric coated (ASPIR-81) 81 mg EC tablet Take 1 tablet by mouth once daily. Discontinued: 12/26/2017 7:17 AM dulaglutide (TRULICITY) 1.5 mg/ 0.5 ml subcutaneous pen injector Inject 1.5 mg subcutaneously once each week. Inject once per week. Discard Pen After Discontinued: 12/28/2017 10:08 AM insulin glargine (LANTUS SOLOSTAR U-100 INSULIN) 100 unit/mL (3 mL) inpn Inject 61 Units subcutaneously twice daily. Discontinued: 12/28/2017 10:13 AM insulin lispro (HUMALOG KWIKPEN INSULIN) 100 unit/mL inpn As directed for coverage scale: add additional 4u for every 50 points above glucose 150 Insulin [place], Disposable, 32 gauge x 5/16 ndle Use one needle per dose. 5 doses per day Discontinued: 12/28/2017 10:13 AM lisinopril (ZESTRIL, PRINIVIL) 10 mg tablet Take 1 tablet by mouth once daily. metFORMIN ER (GLUCOPHAGE XR) 500 mg 24 hr tablet Take 4 tablets by mouth daily with breakfast. Rx meds not listed in EPIC: none OTCs: none Herbals: none GLYCEMIC CONTROL: ? Glucometer present at visit: No ? SMBG?s: Fasting [phone] Lunch [phone] 2h after lunch [phone] Bedtime [phone] ? Hypoglycemia: no Last 3 Encounter BP Readings: Date: BP: 12/28/2017 110/82 10/31/2017 136/88 10/03/2017 126/86 Wt: 160.1 kg (353 lb) BMI: 47.88 kg/(m2) LABS Lab Results Component Value Date HBA1C 10.1 12/25/2017 HBA1C 12.1 09/25/2017 HBA1C 6.0 03/30/2012 CMP: Glucose 152 12/25/2017 BUN 10 12/25/2017 Creatinine 0.46 12/25/2017 Sodium 137 12/25/2017 Potassium 4.5 12/25/2017 Chloride 101 12/25/2017 CO2 24 12/25/2017 Protein, Total 7.5 12/25/2017 Albumin 3.9 12/25/2017 Calcium 9.1 12/25/2017 Alkaline Phosphatase 91 12/25/2017 Bilirubin, Total 0.4 12/25/2017 AST 60 12/25/2017 ALT 91 12/25/2017 Estimated Creatinine Clearance: 313.9 mL/min (A) (based on SCr of 0.46 mg/dL (L)). Last Lipid Panel Lab Results Component Value Date CHOL 177 09/25/2017 Lab Results Component Value Date HDL 38 09/25/2017 Lab Results Component Value Date LDL 100 09/25/2017 Lab Results Component Value Date TG 197 09/25/2017 Albumin/Creat Ratio (mg/g) Date Value 09/25/2017 130 (H) PHARMACOTHERAPY ASSESSMENT/PLAN: 1. Uncontrolled type 2 diabetes mellitus without complication, with long-term current use of insulin (HCC) - ICD9: 250.02, V58.67, ICD10: E11.65, Z79.4 (primary diagnosis) A1c goal < 7%, patient is not at goal but improving (10.1% on 12/25) .BG snot at goal without instances of hypoglycemia. Patient compliant with and tolerating current regimen. Appropriate to increase dulaglutide at this time. Continue other therapies. Would prefer to initiate set dose of prandial insulin instead of sliding scale but will first monitor BGs on GLP-1 prior to changing insulin doses. Discussed using different lancet for each BG check and patient expressed understanding. Renal fxn WNL and LFTs elevated but and appropriate for continued therapy ? INCREASE dulaglutide to 1.5 mg every Monday ? CONTINUE metformin ER 500mg take 4 tablets QAM, insulin glargine 60 units BID, insulin lispro sliding scale ? Instructed patient to continue checking BGs and bring to PharmD weekly for next 2 weeks 2. Low HDL (under 40) - ICD9: 272.5, ICD10: E78.6 Pt is on not prescribed statin therapy (indicated for high intensity d/t clinical ASCVD. Discussed in brief at today's visit. Patient would be willing to start. Will focus on DM med changes first then statin addition at next visit. LFTs elevated, improving since last check, and renal fxn WNL and appropriate for continued therapy Patient is scheduled to see PCP 04/02. Patient to return to clinic for PharmD f/u on 02/26. Patient verbalized understanding of instructions. Kym Alfred PharmD, BCPS CNOV Observed: 01/01/2018 Status: COMPLETED Source: [place] 9:30 AM [facility] REPOSITORY Office Visit ([facility]) SHEKHAR KIMBROUGH ([id number]) 1970 M Date Time Provider Department 01/01/18 9:30 AM AUBRIE (PHARMACIST), KYM HANDY During your visit today, we recorded the following information about you: WILLIE CARLISLE 01/01/2018 12:44 PM Signed Patient consents to pharmacy collaborative practice agreement. REASON FOR CONSULT: DM GOALS: A1c < 7% CONSULTING PROVIDER: Farhad MEDINA Date of Consult: 10/2017 Shekhar Kimbrough is a 47 year old male was last seen in [facility] by PCP, Dr. Yogesh Dockery PA-C on 12/28. Patient is presenting today for f/u pharmacotherapy management appointment for DM. At last PCP visit insulin glargine was increased to 61 units BID INTERIM HISTORY: Reports dulaglutide going well, denies any issues or concerns Reports using the same lancet every time he checks, does not change lancets Current DM Medications: Metformin ER 500mg take 4 tablets QAM Insulin glargine 61 units BID Insulin lispro sliding scale (reports needing 16 units usually) 151-200 - 4 201-250 8 251-300 12 301-350 16 351-400 20 401-450 24 451 28 500 32 Current HTN Medications: Lisinopril 10mg once daily Preventative Medications: ? On IVETH/ARB: Yes ? On Statin: No ? On ASA: Yes ROS: ? Patient denies CP, SOB, SHARMA, blurred vision, dizziness or lightheadedness ? Patient denies symptoms of hypoglycemia (sweating, anxiety, palpitations, hunger, and tremor) ? Patient denies symptoms of hyperglycemia (polyuria, polydipsia, polyphagia) ? 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 Denies any lifestyle changes since last visit MEDICATIONS: ? Pill bottles are not present. ? Adherence: denies missed doses ? [facility] ? Rx coverage: [place] ? Affordability: no issues ? Diabetes supplies: [employer] ? Organization System: none ACTIVE PROBLEM LIST Obesity, Unspecified Infective Otitis Externa, Unspecified Elevated Blood Pressure Reading Without Diagnosis of Hypertension PAD (peripheral artery disease) ([facility]) Sleep Apnea Uncontrolled Type 2 Diabetes Mellitus Without Complication, With Long-Term Current Use of Insulin ([facility]) Mild Intermittent Asthma Cataract Microalbuminuria Low Hdl (Under 40) Reaction, Adjustment, With Depressed Mood, Prolonged Obesity, Class III, BMI >= 40 PAST MEDICAL HISTORY Diagnosis Date - Acute nonsuppurative otitis media, unspecified 03/07/2007 - Cataract right eye, surgery 2009 [facility] - Closed Colles' fracture 08/03/20052007 left - Closed fracture of navicular (scaphoid) bone of wrist 01/18/05 Wrist fracture-left distal radius - Depression in past, was on effexor but stopped years ago. - Diabetes mellitus - Esophagitis, unspecified ESOPHAGITIS - Hyperlipidemia borderline - Measles - Mild intermittent asthma uses albuterl rarely - Mumps - Peptic ulcer, unspecified site, unspecified as acute or chronic, without mention of hemorrhage, perforation, or obstruction Peptic ulcer disease per EGD maybe 2007 - Tobacco use disorder 06/01/2007 Quit 2009 chew - Traumatic pneumothorax 01/15/2008 Ran over by cow, broke 4 ribs, lung collapsed, unconscious. No chest tube. Was sent to [facility]. No sequellae - Unspecified essential hypertension Essential hypertension: controlled without medication ALLERGIES No Known Allergies Medication List Medication Directions Comments Action/Plan aspirin, enteric coated (ASPIR-81) 81 mg EC tablet Take 1 tablet by mouth once daily. Discontinued: 12/26/2017 7:17 AM dulaglutide (TRULICITY) 1.5 mg/ 0.5 ml subcutaneous pen injector Inject 1.5 mg subcutaneously once each week. Inject once per week. Discard Pen After Discontinued: 12/28/2017 10:08 AM insulin glargine (LANTUS SOLOSTAR U-100 INSULIN) 100 unit/mL (3 mL) inpn Inject 61 Units subcutaneously twice daily. Discontinued: 12/28/2017 10:13 AM insulin lispro (HUMALOG KWIKPEN INSULIN) 100 unit/mL inpn As directed for coverage scale: add additional 4u for every 50 points above glucose 150 Insulin [place], Disposable, 32 gauge x 10/25 ndle Use one needle per dose. 5 doses per day Discontinued: 12/28/2017 10:13 AM lisinopril (ZESTRIL, PRINIVIL) 10 mg tablet Take 1 tablet by mouth once daily. metFORMIN ER (GLUCOPHAGE XR) 500 mg 24 hr tablet Take 4 tablets by mouth daily with breakfast. Rx meds not listed in EPIC: none OTCs: none Herbals: none GLYCEMIC CONTROL: ? Glucometer present at visit: No ? SMBG?s: Fasting [phone] Lunch [phone] 2h after lunch [phone] Bedtime [phone] ? Hypoglycemia: no Last 3 Encounter BP Readings: Date: BP: 12/28/2017 110/82 10/31/2017 136/88 10/03/2017 126/86 Wt: 160.1 kg (353 lb) BMI: 47.88 kg/(m2) LABS Lab Results Component Value Date HBA1C 10.1 12/25/2017 HBA1C 12.1 09/25/2017 HBA1C 6.0 03/30/2012 CMP: Glucose 152 12/25/2017 BUN 10 12/25/2017 Creatinine 0.46 12/25/2017 Sodium 137 12/25/2017 Potassium 4.5 12/25/2017 Chloride 101 12/25/2017 CO2 24 12/25/2017 Protein, Total 7.5 12/25/2017 Albumin 3.9 12/25/2017 Calcium 9.1 12/25/2017 Alkaline Phosphatase 91 12/25/2017 Bilirubin, Total 0.4 12/25/2017 AST 60 12/25/2017 ALT 91 12/25/2017 Estimated Creatinine Clearance: 313.9 mL/min (A) (based on SCr of 0.46 mg/dL (L)). Last Lipid Panel Lab Results Component Value Date CHOL 177 09/25/2017 Lab Results Component Value Date HDL 38 09/25/2017 Lab Results Component Value Date LDL 100 09/25/2017 Lab Results Component Value Date TG 197 09/25/2017 Albumin/Creat Ratio (mg/g) Date Value 09/25/2017 130 (H) PHARMACOTHERAPY ASSESSMENT/PLAN: 1. Uncontrolled type 2 diabetes mellitus without complication, with long-term current use of insulin (HCC) - ICD9: 250.02, V58.67, ICD10: E11.65, Z79.4 (primary diagnosis) A1c goal < 7%, patient is not at goal but improving (10.1% on 12/25) .BG snot at goal without instances of hypoglycemia. Patient compliant with and tolerating current regimen. Appropriate to increase dulaglutide at this time. Continue other therapies. Would prefer to initiate set dose of prandial insulin instead of sliding scale but will first monitor BGs on GLP-1 prior to changing insulin doses. Discussed using different lancet for each BG check and patient expressed understanding. Renal fxn WNL and LFTs elevated but and appropriate for continued therapy ? INCREASE dulaglutide to 1.5 mg every Monday ? CONTINUE metformin ER 500mg take 4 tablets QAM, insulin glargine 60 units BID, insulin lispro sliding scale ? Instructed patient to continue checking BGs and bring to PharmD weekly for next 2 weeks 2. Low HDL (under 40) - ICD9: 272.5, ICD10: E78.6 Pt is on not prescribed statin therapy (indicated for high intensity d/t clinical ASCVD. Discussed in brief at today's visit. Patient would be willing to start. Will focus on DM med changes first then statin addition at next visit. LFTs elevated, improving since last check, and renal fxn WNL and appropriate for continued therapy Patient is scheduled to see PCP 04/02. Patient to return to clinic for PharmD f/u on 02/26. Patient verbalized understanding of instructions. Kym Bondar, PharmD, BCPS Referring Provider: SELF [200] Allergies As of Date: 01/01/2018 (No Known Allergies) Date Reviewed: 12/28/2017 Reviewed by: Roslyn Rose LPN - Fully Assessed Reason for Visit: Allied Health Visit [5] Cmt: DM follow-up Primary Visit Diagnosis:Uncontrolled type 2 diabetes mellitus without complication, with long-term current use of insulin (HCC) [E11.65, Z79.4] Other Visit Diagnosis:Low HDL (under 40) [E78.6] Order(s):Lancets lancetsCheck blood sugar 4 times daily diagnosis: e11.65, insulin: yesDisp: 200 EachRfl: 3 dulaglutide (TRULICITY) 1.5 mg/ 0.5 ml subcutaneous pen injectorInject 1.5 mg subcutaneously once each week. Inject once per week. Discard Pen AfterDisp: 4 PenRfl: 11 Prescriptions as of 01/01/2018 Sig: INSULIN LISPRO (U-100) 100 UN* As directed for coverage scal* LISINOPRIL 10 MG TABLET Take 1 tablet by mouth once d* INSULIN GLARGINE (U-100) 100 * Inject 61 Units subcutaneousl* ASPIRIN 81 MG TABLET,DELAYED * Take 1 tablet by mouth once d* METFORMIN ER 500 MG TABLET,EX* Take 4 tablets by mouth daily* LANCETS Check blood sugar 4 times patricia* DULAGLUTIDE 1.5 MG/0.5 ML SUB* Inject 1.5 mg subcutaneously * PEN NEEDLE, DIABETIC 32 GAUGE* Use one needle per dose. 5 do* Problem List As Of Date 01/01/2018 Noted Resolved Closed Colles' fracture [S52.539A] INVALID FOR*09/25/2017 More... OBESITY NOS [E66.9] INVALID FOR* Acute nonsuppurative otitis media, unspecified *INVALID FOR*09/25/2017 INFEC OTITIS EXTERNA NOS [H60.399] INVALID FOR* Tobacco use disorder [F17.200] INVALID FOR*09/25/2017 More... ELEV BL PRES W/O HYPERTN [R03.0] INVALID FOR* Traumatic pneumothorax [S27.0XXA] INVALID FOR*09/25/2017 More... PAD (peripheral artery disease) ([facility]) [I73.9] INVALID FOR* More... Sleep apnea [G47.30] INVALID FOR* More... Uncontrolled type 2 diabetes mellitus without c*INVALID FOR* More... Mild intermittent asthma [J45.20] More... Cataract [H26.9] More... Microalbuminuria [R80.9] INVALID FOR* Low HDL (under 40) [E78.6] INVALID FOR* Reaction, adjustment, with depressed mood, prol*INVALID FOR* Obesity, Class III, BMI >= 40 [E66.01] INVALID FOR* Prescriptions ordered this encounter Disp Refills Start End LANCETS 200 * 3 01/01/2018 Sig: Check blood sugar 4 times daily diagnosis: e11.65, insulin: yes DULAGLUTIDE 1.5 MG/0.5 ML SUBCUTANEO* 4 Pen 11 01/01/2018 Route: SUBCUTANEOUS Sig: Inject 1.5 mg subcutaneously once each week. Inject once per week. Discard Pen After Medications Discontinued During This Encounter dulaglutide (TRULICITY) 1.5 mg/ 0.5 * 4 Pen 0 12/26/2017 01/01/2018 Route: SUBCUTANEOUS Sig: Inject 1.5 mg subcutaneously once each week. Inject once per week. Discard Pen After Disc: Reason for discontinue is not on file. Encounter Status:Closed by AUBRIE (PHARMACIST)KYM on 01/01/18 PROGRESS Observed: 12/28/2017 Status: COMPLETED Source: [place] 9:51 AM [facility] REPOSITORY HNO ID: [id number] Author: Yogesh Boswell (Andrew) Sarkis Service: (none) Author Type: Physician Health Service Worker Type: Progress Notes Filed: 12/28/2017 6:54 PM Note Text: 47 year old male with c/o Taking medication as directed consistently? Yes Medical Issues / Complications: hyperlipidemia Checking blood sugars at home? Yes. Fasting [phone] Lunch [phone] 2h after lunch [phone] Bedtime [phone] Watching diet? Yes. Acknowledges 1800-calorie diabetes seems to sling for him. Physical Activity: Regular Hypoglycemic spells? No Any visual disturbance? No Chest pain? No New numbness, tingling or loss of sensation? No Any recent foot problems, sores or rashes? No Any recent or sudden weight loss? No Any recent illness? No Renal protective agent? Yes ASA daily? Yes Statin therapy? No Triglyceride therapy? No Last eye exam: 06/08/17. Last foot exam: 09/25/17. HBA1C: Hemoglobin A1C (%) Date Value 12/25/2017 10.1 09/25/2017 12.1 ) CMP: Glucose 152 12/25/2017 BUN 10 12/25/2017 Creatinine 0.46 12/25/2017 Sodium 137 12/25/2017 Potassium 4.5 12/25/2017 Chloride 101 12/25/2017 CO2 24 12/25/2017 Protein, Total 7.5 12/25/2017 Albumin 3.9 12/25/2017 Calcium 9.1 12/25/2017 Alkaline Phosphatase 91 12/25/2017 Bilirubin, Total 0.4 12/25/2017 AST 60 12/25/2017 ALT 91 12/25/2017 Last 2 Encounter Wt Readings: Date: Wt: 12/28/2017 160.1 kg (353 lb) 12/25/2017 161 kg (355 lb) HISTORIES FAMILY HISTORY Problem Relation Age of Onset - Diabetes Mother - Heart Mother HEART DISEASE - Hypertension Mother - Psychiatry Mother depressed - None Father - Allergies Father - Diabetes Father - Hypertension Father - Stroke Father - Psychiatry Father depression - None Sister - Diabetes Sister - Other [OTHER] Sister growth in lung, lots of lung problems, pneumonia - Diabetes Brother - Psychiatry Brother depression - Breast Cancer Paternal Aunt - Cancer Maternal Aunt Stomache - Cancer Paternal Uncle Bone PAST MEDICAL HISTORY Diagnosis Date - Acute nonsuppurative otitis media, unspecified 03/07/2007 - Cataract right eye, surgery 2009 [facility] - Closed Colles' fracture 08/03/20052007 left - Closed fracture of navicular (scaphoid) bone of wrist 01/18/05 Wrist fracture-left distal radius - Depression in past, was on effexor but stopped years ago. - Diabetes mellitus - Esophagitis, unspecified ESOPHAGITIS - Hyperlipidemia borderline - Measles - Mild intermittent asthma uses albuterl rarely - Mumps - Peptic ulcer, unspecified site, unspecified as acute or chronic, without mention of hemorrhage, perforation, or obstruction Peptic ulcer disease per EGD maybe 2007 - Tobacco use disorder 06/01/2007 Quit 2009 chew - Traumatic pneumothorax 01/15/2008 Ran over by cow, broke 4 ribs, lung collapsed, unconscious. No chest tube. Was sent to [facility]. No sequellae - Unspecified essential hypertension Essential hypertension: controlled without medication PAST SURGICAL HISTORY Procedure Laterality Date - ANKLE SURGERY HX Left 2014 rupture posterior tibial tendon repaired - APPENDECTOMY 1982 - EGD W/O OR W/BRUSH/WASH EGD Social History Marital status: Single Spouse name: Years of education: Number of children: Social History Main Topics Smoking status: Never Smoker Smokeless tobacco: Former User Types: Chew Quit date: 11/15/2009 Alcohol use: No Drug use: No ACTIVE PROBLEM LIST Obesity, Unspecified Infective Otitis Externa, Unspecified Elevated Blood Pressure Reading Without Diagnosis of Hypertension PAD (peripheral artery disease) ([facility]) Sleep Apnea Uncontrolled Type 2 Diabetes Mellitus Without Complication, With Long-Term Current Use of Insulin ([facility]) Mild Intermittent Asthma Cataract Microalbuminuria Low Hdl (Under 40) Reaction, Adjustment, With Depressed Mood, Prolonged Obesity, Class III, BMI >= 40 Current Outpatient Prescriptions: dulaglutide (TRULICITY) 1.5 mg/ 0.5 ml subcutaneous pen injector Inject 1.5 mg subcutaneously once each week. Inject once per week. Discard Pen After Disp: 4 Pen Rfl: 0 insulin glargine (LANTUS SOLOSTAR U-100 INSULIN) 100 unit/mL (3 mL) inpn Inject 60 Units subcutaneously twice daily. Disp: 10 Pen Rfl: 5 insulin lispro (HUMALOG KWIKPEN INSULIN) 100 unit/mL inpn As directed for coverage scale: add additional 4u for every 50 points above glucose 150 Disp: 5 Pen Rfl: 2 lisinopril (ZESTRIL, PRINIVIL) 10 mg tablet Take 1 tablet by mouth once daily. Disp: 30 tablet Rfl: 2 aspirin, enteric coated (ASPIR-81) 81 mg EC tablet Take 1 tablet by mouth once daily. Disp: 90 tablet Rfl: 3 metFORMIN ER (GLUCOPHAGE XR) 500 mg 24 hr tablet Take 4 tablets by mouth daily with breakfast. Disp: 360 tablet Rfl: 3 Insulin [place], Disposable, 32 gauge x 5/16 ndle Use one needle per dose. 5 doses per day Disp: 200 Each Rfl: 5 No current facility-administered medications for this visit. There are no preventive care reminders to display for this patient. EXAM: BP 110/82 Pulse 88 Temp 37.1 ?C (98.8 ?F) (Tympanic) Resp 20 Wt (!) 160.1 kg (353 lb) BMI 47.88 kg/m? Vitals 09/28/2017 10/03/2017 10/31/2017 12/25/2017 12/28/2017 WEIGHT in POUNDS 352 lb 353 lb 352 lb 355 lb 353 lb Pleasant obese man in no acute distress. Alert and oriented all spheres. Normal affect and cognition. Speech normal. No deficits to learning or comprehension. Skin warm, dry, pink to lips and nailbeds. Normal turgor. Respirations regular and unlabored. Chest CTA. HRRR without murmur or gallop. Extrem: no clubbing, cyanosis, edema. Extremities are warm and pink with prompt capillary refill. ASSESSMENT/PLAN: 1. Uncontrolled type 2 diabetes mellitus without complication, with long-term current use of insulin ([facility]) - ICD9: 250.02, V58.67, ICD10: E11.65, Z79.4 - Increase insulin glargine to 61 units twice a day. Patient is to monitor blood sugars over the next 5 days and my chart results to me. Patient is meeting with pharmacist and a stein are this week as well. Cautioned to watch for and be prepared for hypoglycemia or changes. Patient acknowledges. Follow-up in 3 months with hemoglobin A1c in office visit, in the interim maintaining contacting my chart with blood sugars. - INSULIN GLARGINE (U-100) 100 UNIT/ML (3 ML) SUBCUTANEOUS PEN - HGB A1C Patient was able to repeat instructions on teach back. ANDREW Cifuentes Observed: 12/28/2017 Status: COMPLETED Source: [place] 8:40 AM [facility] REPOSITORY Office Visit (FAMPWS) SHEKHAR KIMBROUGH ([id number]) 1970 Yogesh Date Time Provider Department 12/28/17 8:40 AM Yogesh DOCKERY) LAURAPSTEVE During your visit today, we recorded the following information about you: Temperature Pulse Respiration Blood pressure 98.8 degrees 88/minute 20/minute 110/82 Weight 160.1 kg M Yesika Dockery PA-C 12/28/2017 6:54 PM Signed 47 year old male with c/o Taking medication as directed consistently? Yes Medical Issues / Complications: hyperlipidemia Checking blood sugars at home? Yes. Fasting [phone] Lunch [phone] 2h after lunch [phone] Bedtime [phone] Watching diet? Yes. Acknowledges 1800-calorie diabetes seems to sling for him. Physical Activity: Regular Hypoglycemic spells? No Any visual disturbance? No Chest pain? No New numbness, tingling or loss of sensation? No Any recent foot problems, sores or rashes? No Any recent or sudden weight loss? No Any recent illness? No Renal protective agent? Yes ASA daily? Yes Statin therapy? No Triglyceride therapy? No Last eye exam: 06/08/17. Last foot exam: 09/25/17. HBA1C: Hemoglobin A1C (%) Date Value 12/25/2017 10.1 09/25/2017 12.1 ) CMP: Glucose 152 12/25/2017 BUN 10 12/25/2017 Creatinine 0.46 12/25/2017 Sodium 137 12/25/2017 Potassium 4.5 12/25/2017 Chloride 101 12/25/2017 CO2 24 12/25/2017 Protein, Total 7.5 12/25/2017 Albumin 3.9 12/25/2017 Calcium 9.1 12/25/2017 Alkaline Phosphatase 91 12/25/2017 Bilirubin, Total 0.4 12/25/2017 AST 60 12/25/2017 ALT 91 12/25/2017 Last 2 Encounter Wt Readings: Date: Wt: 12/28/2017 160.1 kg (353 lb) 12/25/2017 161 kg (355 lb) HISTORIES FAMILY HISTORY Problem Relation Age of Onset - Diabetes Mother - Heart Mother HEART DISEASE - Hypertension Mother - Psychiatry Mother depressed - None Father - Allergies Father - Diabetes Father - Hypertension Father - Stroke Father - Psychiatry Father depression - None Sister - Diabetes Sister - Other [OTHER] Sister growth in lung, lots of lung problems, pneumonia - Diabetes Brother - Psychiatry Brother depression - Breast Cancer Paternal Aunt - Cancer Maternal Aunt Stomache - Cancer Paternal Uncle Bone PAST MEDICAL HISTORY Diagnosis Date - Acute nonsuppurative otitis media, unspecified 03/07/2007 - Cataract right eye, surgery 2009 [facility] - Closed Colles' fracture 08/03/20052007 left - Closed fracture of navicular (scaphoid) bone of wrist 01/18/05 Wrist fracture-left distal radius - Depression in past, was on effexor but stopped years ago. - Diabetes mellitus - Esophagitis, unspecified ESOPHAGITIS - Hyperlipidemia borderline - Measles - Mild intermittent asthma uses albuterl rarely - Mumps - Peptic ulcer, unspecified site, unspecified as acute or chronic, without mention of hemorrhage, perforation, or obstruction Peptic ulcer disease per EGD maybe 2007 - Tobacco use disorder 06/01/2007 Quit 2009 chew - Traumatic pneumothorax 01/15/2008 Ran over by cow, broke 4 ribs, lung collapsed, unconscious. No chest tube. Was sent to [facility]. No sequellae - Unspecified essential hypertension Essential hypertension: controlled without medication PAST SURGICAL HISTORY Procedure Laterality Date - ANKLE SURGERY HX Left 2013 rupture posterior tibial tendon repaired - APPENDECTOMY 1982 - EGD W/O OR W/BRUSH/WASH EGD Social History Marital status: Single Spouse name: Years of education: Number of children: Social History Main Topics Smoking status: Never Smoker Smokeless tobacco: Former User Types: Chew Quit date: 11/15/2009 Alcohol use: No Drug use: No ACTIVE PROBLEM LIST Obesity, Unspecified Infective Otitis Externa, Unspecified Elevated Blood Pressure Reading Without Diagnosis of Hypertension PAD (peripheral artery disease) ([facility]) Sleep Apnea Uncontrolled Type 2 Diabetes Mellitus Without Complication, With Long-Term Current Use of Insulin (Hcc) Mild Intermittent Asthma Cataract Microalbuminuria Low Hdl (Under 40) Reaction, Adjustment, With Depressed Mood, Prolonged Obesity, Class III, BMI >= 40 Current Outpatient Prescriptions: dulaglutide (TRULICITY) 1.5 mg/ 0.5 ml subcutaneous pen injector Inject 1.5 mg subcutaneously once each week. Inject once per week. Discard Pen After Disp: 4 Pen Rfl: 0 insulin glargine (LANTUS SOLOSTAR U-100 INSULIN) 100 unit/mL (3 mL) inpn Inject 60 Units subcutaneously twice daily. Disp: 10 Pen Rfl: 5 insulin lispro (HUMALOG KWIKPEN INSULIN) 100 unit/mL inpn As directed for coverage scale: add additional 4u for every 50 points above glucose 150 Disp: 5 Pen Rfl: 2 lisinopril (ZESTRIL, PRINIVIL) 10 mg tablet Take 1 tablet by mouth once daily. Disp: 30 tablet Rfl: 2 aspirin, enteric coated (ASPIR-81) 81 mg EC tablet Take 1 tablet by mouth once daily. Disp: 90 tablet Rfl: 3 metFORMIN ER (GLUCOPHAGE XR) 500 mg 24 hr tablet Take 4 tablets by mouth daily with breakfast. Disp: 360 tablet Rfl: 3 Insulin [place], Disposable, 32 gauge x 5/16 ndle Use one needle per dose. 5 doses per day Disp: 200 Each Rfl: 5 No current facility-administered medications for this visit. There are no preventive care reminders to display for this patient. EXAM: BP 110/82 Pulse 88 Temp 37.1 ?C (98.8 ?F) (Tympanic) Resp 20 Wt (!) 160.1 kg (353 lb) BMI 47.88 kg/m? Vitals 09/28/2017 10/03/2017 10/31/2017 12/25/2017 12/28/2017 WEIGHT in POUNDS 352 lb 353 lb 352 lb 355 lb 353 lb Pleasant obese man in no acute distress. Alert and oriented all spheres. Normal affect and cognition. Speech normal. No deficits to learning or comprehension. Skin warm, dry, pink to lips and nailbeds. Normal turgor. Respirations regular and unlabored. Chest CTA. HRRR without murmur or gallop. Extrem: no clubbing, cyanosis, edema. Extremities are warm and pink with prompt capillary refill. ASSESSMENT/PLAN: 1. Uncontrolled type 2 diabetes mellitus without complication, with long-term current use of insulin ([facility]) - ICD9: 250.02, V58.67, ICD10: E11.65, Z79.4 - Increase insulin glargine to 61 units twice a day. Patient is to monitor blood sugars over the next 5 days and my chart results to me. Patient is meeting with pharmacist and a stein are this week as well. Cautioned to watch for and be prepared for hypoglycemia or changes. Patient acknowledges. Follow-up in 3 months with hemoglobin A1c in office visit, in the interim maintaining contacting my chart with blood sugars. - INSULIN GLARGINE (U-100) 100 UNIT/ML (3 ML) SUBCUTANEOUS PEN - HGB A1C Patient was able to repeat instructions on teach back. M Yesika Dockery PA-C Referring Provider: SELF [200] Allergies As of Date: 12/28/2017 (No Known Allergies) Date Reviewed: 12/28/2017 Reviewed by: Roslyn Rose LPN - Fully Assessed Reason for Visit: Recheck [92] Cmt: lab results, diabetes Visit Diagnosis:Uncontrolled type 2 diabetes mellitus without complication, with long-term current use of insulin ([facility]) [E11.65, Z79.4] Order(s):insulin lispro (HUMALOG KWIKPEN INSULIN) 100 unit/mL inpnAs directed for coverage scale: add additional 4u for every 50 points above glucose 150Disp: 5 PenRfl: 2 lisinopril (ZESTRIL, PRINIVIL) 10 mg tabletTake 1 tablet by mouth once daily.Disp: 30 tabletRfl: 2 insulin glargine (LANTUS SOLOSTAR U-100 INSULIN) 100 unit/mL (3 mL) inpnInject 61 Units subcutaneously twice daily.Disp: 10 PenRfl: 5 HGB A1C [[id number]] Order #: [id number] FUTURE Prescriptions as of 12/28/2017 Sig: INSULIN LISPRO (U-100) 100 UN* As directed for coverage scal* LISINOPRIL 10 MG TABLET Take 1 tablet by mouth once d* INSULIN GLARGINE (U-100) 100 * Inject 61 Units subcutaneousl* DULAGLUTIDE 1.5 MG/0.5 ML SUB* Inject 1.5 mg subcutaneously * ASPIRIN 81 MG TABLET,DELAYED * Take 1 tablet by mouth once d* METFORMIN ER 500 MG TABLET,EX* Take 4 tablets by mouth daily* PEN NEEDLE, DIABETIC 32 GAUGE* Use one needle per dose. 5 do* Problem List As Of Date 12/28/2017 Noted Resolved Closed Colles' fracture [S52.539A] INVALID FOR*09/25/2017 More... OBESITY NOS [E66.9] INVALID FOR* Acute nonsuppurative otitis media, unspecified *INVALID FOR*09/25/2017 INFEC OTITIS EXTERNA NOS [H60.399] INVALID FOR* Tobacco use disorder [F17.200] INVALID FOR*09/25/2017 More... ELEV BL PRES W/O HYPERTN [R03.0] INVALID FOR* Traumatic pneumothorax [S27.0XXA] INVALID FOR*09/25/2017 More... PAD (peripheral artery disease) (HCC) [I73.9] INVALID FOR* More... Sleep apnea [G47.30] INVALID FOR* More... Uncontrolled type 2 diabetes mellitus without c*INVALID FOR* More... Mild intermittent asthma [J45.20] More... Cataract [H26.9] More... Microalbuminuria [R80.9] INVALID FOR* Low HDL (under 40) [E78.6] INVALID FOR* Reaction, adjustment, with depressed mood, prol*INVALID FOR* Obesity, Class III, BMI >= 40 [E66.01] INVALID FOR* Prescriptions ordered this encounter Disp Refills Start End INSULIN LISPRO (U-100) 100 UNIT/ML S* 5 Pen 2 12/28/2017 Sig: As directed for coverage scale: add additional 4u for every 50 points above glucose 150 LISINOPRIL 10 MG TABLET 30 t* 2 12/28/2017 Route: ORAL Sig: Take 1 tablet by mouth once daily. INSULIN GLARGINE (U-100) 100 UNIT/ML* 10 P* 5 12/28/2017 03/28/2018 Class: Med Update Route: SUBCUTANEOUS Sig: Inject 61 Units subcutaneously twice daily. Medications Discontinued During This Encounter insulin glargine (LANTUS SOLOSTAR U-* 10 P* 5 11/21/2017 12/28/2017 Route: SUBCUTANEOUS Sig: Inject 60 Units subcutaneously twice daily. Disc: Reason for discontinue is not on file. insulin lispro (HUMALOG KWIKPEN INSU* 5 Pen 2 10/31/2017 12/28/2017 Class: Med Update Sig: As directed for coverage scale: add additional 4u for every 50 points above glucose 150 Disc: Reason for discontinue is not on file. lisinopril (ZESTRIL, PRINIVIL) 10 mg* 30 t* 2 10/31/2017 12/28/2017 Route: ORAL Sig: Take 1 tablet by mouth once daily. Disc: Reason for discontinue is not on file. Disposition: Return in about 3 months (around 03/30/2018). Follow-up and Disposition History Recorded Encounter Status:Closed by Yogesh DOCKERY PA-C on 12/28/17 CNCNPATED Observed: 12/25/2017 Status: COMPLETED Source: [place] 8:45 AM [facility] REPOSITORY Education (NUTRWS) SHEKHAR KIMBROUGH ([id number]) 1970 M Date Time Provider Department 12/25/17 8:45 AM CHELSI BRITTON) [place] Reason for Visit: Patient Education [91] Assessment [673] Progress Notes: Chelsi Britton MS RD LD 12/25/2017 9:24 AM Signed Nutrition Therapy Initial Assessment Patient states reason for visit: diabetes, uncontrolled Activity: Patient's exercise is: Activities of Daily Living: 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 No 0 on a scale of 0 to 10 Diet History: wake: 6:30-7 Fasting 110-256 Breakfast - 8 p.m. westley. Frozen veggies, hot dog on wheat bun; V8 juice Snack - midnite_cracker pack,peanut butter, water Lunch - 2:30 a.m lee- salad with ranch dressing; water Snack - 5 a.m. Skip food, will check glucose: 200-230 Check: 150 range Dinner - 7 a.m beforfe bed occ cereal 2-3 days (oats, wheaties, stopped sugar cereal)2%; usually skip Snack - no Beverages - water, v8, SF alice aid Vitamins/Supplements - diabetic vitamin Allergies: Patient has no known allergies. Medications: Current Outpatient Prescriptions: dulaglutide (TRULICITY) 0.75 mg/0.5 mL pnij Inject 0.75 mg subcutaneously once each week. Disp: 4 Pen Rfl: 1 Insulin [place], Disposable, 32 gauge x 5/16 ndle Use one needle per dose. 5 doses per day Disp: 200 Each Rfl: 5 insulin glargine (LANTUS SOLOSTAR U-100 INSULIN) 100 unit/mL (3 mL) inpn Inject 60 Units subcutaneously twice daily. Disp: 10 Pen Rfl: 5 insulin lispro (HUMALOG KWIKPEN INSULIN) 100 unit/mL inpn As directed for coverage scale: add additional 4u for every 50 points above glucose 150 Disp: 5 Pen Rfl: 2 lisinopril (ZESTRIL, PRINIVIL) 10 mg tablet Take 1 tablet by mouth once daily. Disp: 30 tablet Rfl: 2 aspirin, enteric coated (ASPIR-81) 81 mg EC tablet Take 1 tablet by mouth once daily. Disp: 90 tablet Rfl: 3 metFORMIN ER (GLUCOPHAGE XR) 500 mg 24 hr tablet Take 4 tablets by mouth daily with breakfast. Disp: 360 tablet Rfl: 3 No current facility-administered medications for this visit. Anthropometrics: Height: Last 1 Encounter Ht Readings: Date: Ht: 12/25/2017 182.9 cm (6') Current weight: Last 1 Encounter Wt Readings: Date: Wt: 12/25/2017 161 kg (355 lb) Body mass index is 48.15 kg/m?. Resting Metabolic Rate: 2530 NUTRITION ASSESSMENT: Malnutrition Screening Significant unintentional weight loss? No Eating less than 75% of usual intake for more than 2 weeks? No RECOMMENDED MALNUTRITION DIAGNOSIS: NO MALNUTRITION IDENTIFIED Educational materials provided: Carb controlled plan READINESS TO LEARN Cognitive ability: Alert and oriented Motivation to learn: Interested Family support: Unable to assess - Family not present Instruction provided to: Patient Patient learns best by: Individual Instruction Factors affecting learning: None Physical limitations affecting learning: None Patient presents for initial MNT as relates to diabetes, uncontrolled, has had a few years. Uncontrolled, started trulicity, and on Novolong/Lantus, blood sugars improving. Often skips meals, has been trying to make changes, choices generally appropriate. No regular exercise but active at work. Desires weight loss, currently morbidly obese BMI. No previous MNT for diabetes. Nutrition Diagnosis: Overweight Obesity, related to; excess energy intake and physical inactivity, as evidenced by BMI above normative standard for age and gender. Nutrition Intervention 12/25/2017: comprehensive nutrition education Follow carb and calorie controlled plan, 40% calories form carb, 1800 calooriess Recommended patterns: 3 fresh fruit, 2 milk/dairy, 5 starches, 14 oz protein and 5 fat choices, non starchy vegetables free but at least 4 servings daily. Choose Lean protein, fat free dairy only Choose High fiber whole grain breads and cereals Watch portion sizes of fats carefully, choose unsaturated fats, avoid trans and saturated fats Weight and measure servings sizes. Keep accurate food log bring to next appointment; keep portions, choices, blood sugars. Increase exercise to at least 5 days cardio for at least 30 min; preferably 45-60 min cardio type activity plus 2-3 days of weight resistance exercise for weight loss. Cardio is anything that you do continuously to that gets your heart rate up . Nutrition Monitoring AND Evaluation: Consistent carbohydrate calorie controlled diet for glucose within accpetable limits and 1-2 pound weight loss per week. Criteria: patient update Need for Follow up: 4-6 weeks Referred/Supervised by: Sarkis/Cecilio SCHWARZ Billing Type: Initial Assess/15 min 3 units SIGNATURE: Chelsi Britton MS RD LD PATIENT NAME: Shekhar Kimbrough DATE: December 25, 2017 TIME: 8:46 AM MS FLORENTIN Mercer 12/25/2017 9:19 AM Signed Follow carb and calorie controlled plan, 40% calories form carb, 1800 calooriess Recommended patterns: 3 fresh fruit, 2 milk/dairy, 5 starches, 14 oz protein and 5 fat choices, non starchy vegetables free but at least 4 servings daily. Choose Lean protein, fat free dairy only Choose High fiber whole grain breads and cereals Watch portion sizes of fats carefully, choose unsaturated fats, avoid trans and saturated fats Weight and measure servings sizes. Keep accurate food log bring to next appointment; keep portions, choices, blood sugars. Increase exercise to at least 5 days cardio for at least 30 min; preferably 45-60 min cardio type activity plus 2-3 days of weight resistance exercise for weight loss. Cardio is anything that you do continuously to that gets your heart rate up . Document on: 12/25/2017 by: Chelsi Britton [[id number]] of: Special Effects Specialist Worksheet Document on: 12/25/2017 by: Chelsi Britton [[id number]] of: After Visit Summary Other instructions from your clinician: Follow carb and calorie controlled plan, 40% calories form carb, 1800 calooriess Recommended patterns: 3 fresh fruit, 2 milk/dairy, 5 starches, 14 oz protein and 5 fat choices, non starchy vegetables free but at least 4 servings daily. Choose Lean protein, fat free dairy only Choose High fiber whole grain breads and cereals Watch portion sizes of fats carefully, choose unsaturated fats, avoid trans and saturated fats Weight and measure servings sizes. Keep accurate food log bring to next appointment; keep portions, choices, blood sugars. Increase exercise to at least 5 days cardio for at least 30 min; preferably 45-60 min cardio type activity plus 2-3 days of weight resistance exercise for weight loss. Cardio is anything that you do continuously to that gets your heart rate up . Primary Visit Diagnosis:Uncontrolled type 2 diabetes mellitus without complication, with long-term current use of insulin (HCC) [E11.65, Z79.4] Other Visit Diagnoses:Obesity, Class III, BMI >= 40 [E66.01] Dietary counseling [Z71.3] During your visit today, we recorded the following information about you: Weight Height 161 kg 1.829 m Allergies As of Date: 12/25/2017 (No Known Allergies) Date Reviewed: 12/25/2017 Reviewed by: Chelsi Britton - Fully Assessed Prescriptions as of 12/25/2017 Sig: DULAGLUTIDE 0.75 MG/0.5 ML MOELLER* Inject 0.75 mg subcutaneously* PEN NEEDLE, DIABETIC 32 GAUGE* Use one needle per dose. 5 do* INSULIN GLARGINE (U-100) 100 * Inject 60 Units subcutaneousl* INSULIN LISPRO (U-100) 100 UN* As directed for coverage scal* LISINOPRIL 10 MG TABLET Take 1 tablet by mouth once d* ASPIRIN 81 MG TABLET,DELAYED * Take 1 tablet by mouth once d* METFORMIN ER 500 MG TABLET,EX* Take 4 tablets by mouth daily* Encounter Status:Closed by TOBICHELSI FINNEY MS, RD on 12/25/17 PROGRESS Observed: 12/25/2017 Status: COMPLETED Source: [place] 8:[address] 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 No 0 on a scale of 0 to 10 Diet History: wake: 6:30-7 Fasting 110-256 Breakfast - 8 p.m. westley. Frozen veggies, hot dog on wheat bun; V8 juice Snack - midnite_cracker pack,peanut butter, water Lunch - 2:30 a.m lee- salad with ranch dressing; water Snack - 5 a.m. Skip food, will check glucose: 200-230 Check: 150 range Dinner - 7 a.m beforfe bed occ cereal 2-3 days (oats, wheaties, stopped sugar cereal)2%; usually skip Snack - no Beverages - water, v8, SF alice aid Vitamins/Supplements - diabetic vitamin Allergies: Patient has no known allergies. Medications: Current Outpatient Prescriptions: dulaglutide (TRULICITY) 0.75 mg/0.5 mL pnij Inject 0.75 mg subcutaneously once each week. Disp: 4 Pen Rfl: 1 Insulin [place], Disposable, 32 gauge x 10/25 ndle Use one needle per dose. 5 doses per day Disp: 200 Each Rfl: 5 insulin glargine (LANTUS SOLOSTAR U-100 INSULIN) 100 unit/mL (3 mL) inpn Inject 60 Units subcutaneously twice daily. Disp: 10 Pen Rfl: 5 insulin lispro (HUMALOG KWIKPEN INSULIN) 100 unit/mL inpn As directed for coverage scale: add additional 4u for every 50 points above glucose 150 Disp: 5 Pen Rfl: 2 lisinopril (ZESTRIL, PRINIVIL) 10 mg tablet Take 1 tablet by mouth once daily. Disp: 30 tablet Rfl: 2 aspirin, enteric coated (ASPIR-81) 81 mg EC tablet Take 1 tablet by mouth once daily. Disp: 90 tablet Rfl: 3 metFORMIN ER (GLUCOPHAGE XR) 500 mg 24 hr tablet Take 4 tablets by mouth daily with breakfast. Disp: 360 tablet Rfl: 3 No current facility-administered medications for this visit. Anthropometrics: Height: Last 1 Encounter Ht Readings: Date: Ht: 12/25/2017 182.9 cm (6') Current weight: Last 1 Encounter Wt Readings: Date: Wt: 12/25/2017 161 kg (355 lb) Body mass index is 48.15 kg/m?. Resting Metabolic Rate: 2530 NUTRITION ASSESSMENT: Malnutrition Screening Significant unintentional weight loss? No Eating less than 75% of usual intake for more than 2 weeks? No RECOMMENDED MALNUTRITION DIAGNOSIS: NO MALNUTRITION IDENTIFIED Educational materials provided: Carb controlled plan READINESS TO LEARN Cognitive ability: Alert and oriented Motivation to learn: Interested Family support: Unable to assess - Family not present Instruction provided to: Patient Patient learns best by: Individual Instruction Factors affecting learning: None Physical limitations affecting learning: None Patient presents for initial MNT as relates to diabetes, uncontrolled, has had a few years. Uncontrolled, started trulicity, and on Novolong/Lantus, blood sugars improving. Often skips meals, has been trying to make changes, choices generally appropriate. No regular exercise but active at work. Desires weight loss, currently morbidly obese BMI. No previous MNT for diabetes. Nutrition Diagnosis: Overweight Obesity, related to; excess energy intake and physical inactivity, as evidenced by BMI above normative standard for age and gender. Nutrition Intervention 12/25/2017: comprehensive nutrition education Follow carb and calorie controlled plan, 40% calories form carb, 1800 calooriess Recommended patterns: 3 fresh fruit, 2 milk/dairy, 5 starches, 14 oz protein and 5 fat choices, non starchy vegetables free but at least 4 servings daily. Choose Lean protein, fat free dairy only Choose High fiber whole grain breads and cereals Watch portion sizes of fats carefully, choose unsaturated fats, avoid trans and saturated fats Weight and measure servings sizes. Keep accurate food log bring to next appointment; keep portions, choices, blood sugars. Increase exercise to at least 5 days cardio for at least 30 min; preferably 45-60 min cardio type activity plus 2-3 days of weight resistance exercise for weight loss. Cardio is anything that you do continuously to that gets your heart rate up . Nutrition Monitoring AND Evaluation: Consistent carbohydrate calorie controlled diet for glucose within accpetable limits and 1- 2 pound weight loss per week. Criteria: patient update Need for Follow up: 4-6 weeks Referred/Supervised by: Sarkis/Cecilio SCHWARZ Billing Type: Initial Assess/15 min 3 units SIGNATURE: Chelsi Britton, MS RD LD PATIENT NAME: Shekhar Kimbrough DATE: December 25, 2017 TIME: 8:46 AM COMP METABOLIC PANEL Collected: 12/25/2017 Status: F Source: [place] 8:[address] [facility] REPOSITORY TYPE CODE TESTS RESULT OUT OF REFERENCE UNITS RANGE LAB TP 6.3-8.0 g/dL Protein, Total 7.5 LAB ALB 3.9-4.9 g/dL Albumin 3.9 LAB CA 8.5-10.2 mg/dL Calcium, Total 9.1 LAB TBIL 0.2-1.3 mg/dL Bilirubin, Total 0.4 LAB ALKP 36-108 U/L Alkaline Phosphatase 91 LAB AST 14-40 U/L AST High 60 LAB GLU 74-99 mg/dL Glucose High 152 Result Comment: The [place] [employer] (ADA) provides guidance for cutoff values for fasting glucose and random glucose. The ADA defines fasting as no caloric intake for at least 8 hours. Fas ting plasma glucose results between 100 to 125 mg/dL indicate increased risk for diabetes (prediabetes). Fasting plasma glucose results greater than or equal to 126 mg/dL meet the criteria for diagnosis of diabetes. In the absence of unequivocal hyperglycemia, results should be confirmed by repeat testing. In a patient with classic symptoms of hyperglycemia or hyperglycemic crisis, random plasma glucose results greater than or equal to 200 mg/dL meet the criteria for diagnosis of diabetes. Reference: Standards of Medical Care in Diabetes 2016, [place] [employer]. Diabetes Care. 2016.39(Suppl 1). LAB BUN 9-24 mg/dL BUN 10 LAB CRET 0.73-1.22 mg/dL Low Creatinine 0.46 LAB NA 136-144 mmol/L Sodium 137 LAB K 3.7-5.1 mmol/L Potassium 4.5 LAB CL 97-105 mmol/L Chloride 101 LAB CO2 22-30 mmol/L CO2 24 LAB AGAP 9-18 mmol/L Anion Gap 12 LAB ALT 10-54 U/L ALT High 91 LAB GFRAA eGFR- Amer. >60 LAB GFRNAA . eGFR-All Other Races >60 Result Comment: eGFR (Estimated GFR) Units of measure: mL/min/1.73 meters squared eGFR is derived from the reexpressed MDRD Study equation using the following parameters: serum creatinine, age, gender and race. The creatinine assay has been calibrated to be traceable to IDMS. An eGFR <60 mL/min/1.73m2 for >3 months is consistent with chronic kidney disease. Refer to KDOQI guidelines for clinical interpretation. In patients with unstable renal function, e.g. those with acute kidney injury, the eGFR may not accurately reflect actual GFR. Performed By: #### CMP, HBA1C #### [facility] [employer] [address] [place], [place] [id number] HEMOGLOBIN A1C Collected: 12/25/2017 Status: F Source: [place] 8:24 AM [facility] REPOSITORY TYPE CODE TESTS RESULT OUT OF REFERENCE UNITS RANGE LAB HGBA1C 4.3-5.6 % High Hemoglobin A1c 10.1 LAB HBA0 mg/dL Est. Average Glucose 243 Result Comment: eAG: (Estimated average glucose) is a calculated value from HgbA1c and is labor relations representative of the average blood glucose level in the last 2-3 month period. Performed By: #### CMP, HBA1C #### [facility] [employer] [address] [place], [place] [id number] CNPN Observed: 12/12/2017 Status: COMPLETED Source: [place] 12:00 AM [facility] REPOSITORY Telephone ([employer]) SHEKHAR KIMBROUGH ([id number]) 1970 M Date Time Provider Department 12/12/17 AUBRIE (PHARMACIST), KYM PHMEWO During your visit today, we recorded the following information about you: KYM ALFRED PHARMACIST 12/12/2017 3:22 PM Signed Patient brings in BG readings. PharmD visit 12/04 Margie was started. Current DM Medications: Dulaglutide 0.75mg every Monday Metformin ER 500mg take 4 tablets QAM Insulin glargine 60 units BID Insulin lispro sliding scale 151-200 - 4 201-250 8 251-300 12 301-350 16 351-400 20 401-450 24 451 28 500 32 Fasting AM 2 hr PP Before Lunch 2 hr PP Before Dinner 2 hr PP Bedtime 208 227 200 176 140 172 262 157 195 252 277 200 247 383 168 144 136 357 368 200 67 248 234 113 Continue current regimen. Contact PharmD if any lows. F/u on 01/01 Kym Alfred PharmD, BCPS KYM ALFRED PHARMACIST 12/12/2017 3:24 PM Signed Attempted to call patient to discuss but VM not set up. Will try again later Kym Alfred PharmD, BCPS Allergies As of Date: 12/12/2017 (No Known Allergies) Date Reviewed: 10/31/2017 Reviewed by: Roslyn Rose LPN - Fully Assessed Reason for Visit: Blood Sugar Reading [1269] Prescriptions as of 12/12/2017 Sig: DULAGLUTIDE 0.75 MG/0.5 ML MOELLER* Inject 0.75 mg subcutaneously* PEN NEEDLE, DIABETIC 32 GAUGE* Use one needle per dose. 5 do* INSULIN GLARGINE (U-100) 100 * Inject 60 Units subcutaneousl* INSULIN LISPRO (U-100) 100 UN* As directed for coverage scal* LISINOPRIL 10 MG TABLET Take 1 tablet by mouth once d* ASPIRIN 81 MG TABLET,DELAYED * Take 1 tablet by mouth once d* METFORMIN ER 500 MG TABLET,EX* Take 4 tablets by mouth daily* Problem List As Of Date 12/12/2017 Noted Resolved Closed Colles' fracture [N37.216J] INVALID FOR*09/25/2017 More... OBESITY NOS [E66.9] INVALID FOR* Acute nonsuppurative otitis media, unspecified *INVALID FOR*09/25/2017 INFEC OTITIS EXTERNA NOS [H60.399] INVALID FOR* Tobacco use disorder [F17.200] INVALID FOR*09/25/2017 More... ELEV BL PRES W/O HYPERTN [R03.0] INVALID FOR* Traumatic pneumothorax [S27.0XXA] INVALID FOR*09/25/2017 More... PAD (peripheral artery disease) (HCC) [I73.9] INVALID FOR* More... Sleep apnea [G47.30] INVALID FOR* More... Uncontrolled type 2 diabetes mellitus without c*INVALID FOR* More... Mild intermittent asthma [J45.20] More... Cataract [H26.9] More... Microalbuminuria [R80.9] INVALID FOR* Low HDL (under 40) [E78.6] INVALID FOR* Reaction, adjustment, with depressed mood, prol*INVALID FOR* Obesity, Class III, BMI >= 40 [E66.01] INVALID FOR* Encounter Status:Closed by AUBRIE (PHARMACIST)KYM on 12/12/17 PROGRESS Observed: 12/04/2017 Status: COMPLETED Source: [place] 1:00 PM [facility] REPOSITORY O ID: [id number] Author: Kym Alfred (Pharmacist) Service: (none) Author Type: Pharmacist Type: Progress Notes Filed: 12/04/2017 5:22 PM Note Text: Patient consents to pharmacy collaborative practice agreement. REASON FOR CONSULT: DM GOALS: A1c < 7% CONSULTING PROVIDER: Farhad MEDINA Date of Consult: 10/2017 Shekhar Kimbrough is a 47 year old male was last seen in [facility] by PCP, Dr. Yogesh Dockery, ANDREW on 10/31/17. Patient is presenting today for initial pharmacotherapy management appointment for DM. At last provider visit insulin lispro was increased to sliding scale - take 4 units per BG 50 over 150. Glargine was increased to 55 units BID INTERIM HISTORY: On 11/21 glargine was increased to 60 untis BID Reports doing well overall Recognizes his weight is an issue. Has discussed gastric bypass with PCP Past DM medications: Liraglutide - no issues, unsure why it was stopped Current DM Medications: Metformin ER 500mg take 4 tablets QAM Insulin glargine 60 units BID Insulin lispro sliding scale (reports needing 16 units usually) 151-200 - 4 201-250 8 251-300 12 301-350 16 351-400 20 401-450 24 451 28 500 32 Current HTN Medications: Lisinopril 10mg once daily Preventative Medications: ? On IVETH/ARB: Yes ? On Statin: No ? On ASA: Yes ROS: ? Patient denies CP, SOB, SHARMA, blurred vision, dizziness or lightheadedness ? Patient denies symptoms of hypoglycemia (sweating, anxiety, palpitations, hunger, and tremor) ? Patient denies symptoms of hyperglycemia (polyuria, polydipsia, polyphagia) ? 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 Breakfast: burrito or cereal ? Lunch: sandwich and macaroni salad or potato salad at 2am at work ? Snacks: ramen noodles ? Following Na restrictions: no ? Beverages: water, coffee, milk (3 glasses per day) ? Exercise: no ? Tobacco: denies ? Alcohol: denies ? Illicits: denies MEDICATIONS: ? Pill bottles are not present. ? Adherence: reports missed doses of insulin doses in the evenings on weekends when not working ? Pharmacy: [facility] ? Rx coverage: [place] ? Affordability: no issues ? Diabetes supplies: [employer] ? Organization System: none ACTIVE PROBLEM LIST Obesity, Unspecified Infective Otitis Externa, Unspecified Elevated Blood Pressure Reading Without Diagnosis of Hypertension PAD (peripheral artery disease) ([facility]) Sleep Apnea Uncontrolled Type 2 Diabetes Mellitus Without Complication, With Long-Term Current Use of Insulin ([facility]) Mild Intermittent Asthma Cataract Microalbuminuria Low Hdl (Under 40) Reaction, Adjustment, With Depressed Mood, Prolonged Obesity, Class III, BMI >= 40 PAST MEDICAL HISTORY Diagnosis Date - Acute nonsuppurative otitis media, unspecified 03/07/2007 - Cataract right eye, surgery 2009 [facility] - Closed Colles' fracture 08/03/20052007 left - Closed fracture of navicular (scaphoid) bone of wrist 01/18/05 Wrist fracture-left distal radius - Depression in past, was on effexor but stopped years ago. - Diabetes mellitus - Esophagitis, unspecified ESOPHAGITIS - Hyperlipidemia borderline - Measles - Mild intermittent asthma uses albuterl rarely - Mumps - Peptic ulcer, unspecified site, unspecified as acute or chronic, without mention of hemorrhage, perforation, or obstruction Peptic ulcer disease per EGD maybe 2007 - Tobacco use disorder 06/01/2007 Quit 2009 chew - Traumatic pneumothorax 01/15/2008 Ran over by cow, broke 4 ribs, lung collapsed, unconscious. No chest tube. Was sent to [facility]. No sequellae - Unspecified essential hypertension Essential hypertension: controlled without medication ALLERGIES No Known Allergies Current Outpatient Prescriptions: insulin glargine (LANTUS SOLOSTAR U-100 INSULIN) 100 unit/mL (3 mL) inpn Inject 60 Units subcutaneously twice daily. insulin lispro (HUMALOG KWIKPEN INSULIN) 100 unit/mL inpn As directed for coverage scale: add additional 4u for every 50 points above glucose 150 lisinopril (ZESTRIL, PRINIVIL) 10 mg tablet Take 1 tablet by mouth once daily. aspirin, enteric coated (ASPIR-81) 81 mg EC tablet Take 1 tablet by mouth once daily. lisinopril (ZESTRIL) 5 mg tablet Take 0.5 tablets by mouth once daily. metFORMIN ER (GLUCOPHAGE XR) 500 mg 24 hr tablet Take 4 tablets by mouth daily with breakfast. No current facility-administered medications for this visit. Rx meds not listed in EPIC: none OTCs: none Herbals: none GLYCEMIC CONTROL: ? Glucometer present at visit: No ? SMBG?s: ? Reports checking 4 times per day usually ? Checks before 2am meal; 5am; 8am and 7-8pm ? Lowest 184 - 350 in the last week Last 3 Encounter BP Readings: Date: BP: 10/31/2017 136/88 10/03/2017 126/86 09/28/2017 132/78 Wt: 159.7 kg (352 lb) BMI: 49.09 kg/(m2) LABS Lab Results Component Value Date HBA1C 12.1 09/25/2017 HBA1C 6.0 03/30/2012 HBA1C 5.9 12/28/2011 CMP: Glucose 335 09/25/2017 BUN 12 09/25/2017 Creatinine 0.54 09/25/2017 Sodium 133 09/25/2017 Potassium 4.4 09/25/2017 Chloride 93 09/25/2017 CO2 23 09/25/2017 Protein, Total 7.4 09/25/2017 Albumin 3.9 09/25/2017 Calcium 8.7 09/25/2017 Alkaline Phosphatase 101 09/25/2017 Bilirubin, Total 0.2 09/25/2017 AST 113 09/25/2017 ALT 124 09/25/2017 Estimated Creatinine Clearance: 263.8 mL/min (A) (based on SCr of 0.54 mg/dL (L)). Last Lipid Panel Lab Results Component Value Date CHOL 177 09/25/2017 Lab Results Component Value Date HDL 38 09/25/2017 Lab Results Component Value Date LDL 100 09/25/2017 Lab Results Component Value Date TG 197 09/25/2017 Albumin/Creat Ratio (mg/g) Date Value 09/25/2017 130 (H) PHARMACOTHERAPY ASSESSMENT/PLAN: 1. Uncontrolled type 2 diabetes mellitus without complication, with long-term current use of insulin (HCC) - ICD9: 250.02, V58.67, ICD10: E11.65, Z79.4 (primary diagnosis) A1c goal < 7%, patient is not at goal (12.1% on 09/25). FBGs at goal and PPBGs not at goal. Patient compliant with and tolerating current regimen. Discussed addition of GLP-1 for weight loss benefit and patient is agreeable, as has tolerated liraglutide in the past. Patient denies personal or family hx of pancreatitis or MEN2/MTC. Reviewed dietary adjustments to prevent AE, smaller more frequent meals, not eating past full, avoiding foods high in fat. Patient expresses understanding. Also discussed lifestyle modifications including cutting back on milk intake. Would prefer to initiate set dose of prandial insulin instead of sliding scale but will first monitor BGs on new GLP-1 prior to changing insulin doses. Renal fxn WNL and LFTs elevated but and appropriate for continued therapy ? START dulaglutide 0.75mg every Monday ? CONTINUE metformin ER 500mg take 4 tablets QAM, insulin glargine 60 units BID, insulin lispro sliding scale ? Instructed patient to continue checking BGs and bring to PharmD weekly for next 2 weeks 2. Elevated blood pressure reading without diagnosis of hypertension - ICD9: 796.2, ICD10: R03.0 BP goal < 130/80, pt is at goal on current therapy. Patient compliant with and tolerating current regimen. Will continue. Renal fxn, K+ WNL and appropriate for continued therapy. ? CONTINUE lisinopril 10mg once daily 3. Low HDL (under 40) - ICD9: 272.5, ICD10: E78.6 Pt is on not prescribed statin therapy (indicated for high intensity d/t clinical ASCVD. Discussed in brief at today's visit. Patient would be willing to start. Will focus on DM med changes first then statin addition at next visit. LFTs elevated, will need to repeat before starting therapy and renal fxn WNL and appropriate for continued therapy Patient is scheduled to see PCP open access. Patient to return to clinic for PharmD f/u on 01/01. Patient verbalized understanding of instructions. Kym Alfred PharmD, BCPS CNOV Observed: 12/04/2017 Status: COMPLETED Source: [place] 1:00 PM [facility] REPOSITORY Office Visit (PHMEWO) SHEKHAR KIMBROUGH ([id number]) 1970 M Date Time Provider Department 12/04/17 1:00 PM AUBRIE (PHARMACIST), KYM HANDY During your visit today, we recorded the following information about you: WILLIE CARLISLE 12/04/2017 5:22 PM Addendum Patient consents to pharmacy collaborative practice agreement. REASON FOR CONSULT: DM GOALS: A1c < 7% CONSULTING PROVIDER: Farhad MEDINA Date of Consult: 10/2017 Shekhar Kimbrough is a 47 year old male was last seen in [facility] by PCP, Dr. Yogesh Dockery PA-C on 10/31/17. Patient is presenting today for initial pharmacotherapy management appointment for DM. At last provider visit insulin lispro was increased to sliding scale - take 4 units per BG 50 over 150. Glargine was increased to 55 units BID INTERIM HISTORY: On 11/21 glargine was increased to 60 untis BID Reports doing well overall Recognizes his weight is an issue. Has discussed gastric bypass with PCP Past DM medications: Liraglutide - no issues, unsure why it was stopped Current DM Medications: Metformin ER 500mg take 4 tablets QAM Insulin glargine 60 units BID Insulin lispro sliding scale (reports needing 16 units usually) 151-200 - 4 201-250 8 251-300 12 301-350 16 351-400 20 401-450 24 451 28 500 32 Current HTN Medications: Lisinopril 10mg once daily Preventative Medications: ? On IVETH/ARB: Yes ? On Statin: No ? On ASA: Yes ROS: ? Patient denies CP, SOB, SHARMA, blurred vision, dizziness or lightheadedness ? Patient denies symptoms of hypoglycemia (sweating, anxiety, palpitations, hunger, and tremor) ? Patient denies symptoms of hyperglycemia (polyuria, polydipsia, polyphagia) ? 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 Breakfast: burrito or cereal ? Lunch: sandwich and macaroni salad or potato salad at 2am at work ? Snacks: ramen noodles ? Following Na restrictions: no ? Beverages: water, coffee, milk (3 glasses per day) ? Exercise: no ? Tobacco: denies ? Alcohol: denies ? Illicits: denies MEDICATIONS: ? Pill bottles are not present. ? Adherence: reports missed doses of insulin doses in the evenings on weekends when not working ? Pharmacy: [facility] ? Rx coverage: [place] ? Affordability: no issues ? Diabetes supplies: [employer] ? Organization System: none ACTIVE PROBLEM LIST Obesity, Unspecified Infective Otitis Externa, Unspecified Elevated Blood Pressure Reading Without Diagnosis of Hypertension PAD (peripheral artery disease) ([facility]) Sleep Apnea Uncontrolled Type 2 Diabetes Mellitus Without Complication, With Long-Term Current Use of Insulin ([facility]) Mild Intermittent Asthma Cataract Microalbuminuria Low Hdl (Under 40) Reaction, Adjustment, With Depressed Mood, Prolonged Obesity, Class III, BMI >= 40 PAST MEDICAL HISTORY Diagnosis Date - Acute nonsuppurative otitis media, unspecified 03/07/2007 - Cataract right eye, surgery 2009 [facility] - Closed Colles' fracture 08/03/20052007 left - Closed fracture of navicular (scaphoid) bone of wrist 01/18/05 Wrist fracture-left distal radius - Depression in past, was on effexor but stopped years ago. - Diabetes mellitus - Esophagitis, unspecified ESOPHAGITIS - Hyperlipidemia borderline - Measles - Mild intermittent asthma uses albuterl rarely - Mumps - Peptic ulcer, unspecified site, unspecified as acute or chronic, without mention of hemorrhage, perforation, or obstruction Peptic ulcer disease per EGD maybe 2006 - Tobacco use disorder 06/01/2007 Quit 2009 chew - Traumatic pneumothorax 01/15/2008 Ran over by cow, broke 4 ribs, lung collapsed, unconscious. No chest tube. Was sent to [facility]. No sequellae - Unspecified essential hypertension Essential hypertension: controlled without medication ALLERGIES No Known Allergies Current Outpatient Prescriptions: insulin glargine (LANTUS SOLOSTAR U-100 INSULIN) 100 unit/mL (3 mL) inpn Inject 60 Units subcutaneously twice daily. insulin lispro (HUMALOG KWIKPEN INSULIN) 100 unit/mL inpn As directed for coverage scale: add additional 4u for every 50 points above glucose 150 lisinopril (ZESTRIL, PRINIVIL) 10 mg tablet Take 1 tablet by mouth once daily. aspirin, enteric coated (ASPIR-81) 81 mg EC tablet Take 1 tablet by mouth once daily. lisinopril (ZESTRIL) 5 mg tablet Take 0.5 tablets by mouth once daily. metFORMIN ER (GLUCOPHAGE XR) 500 mg 24 hr tablet Take 4 tablets by mouth daily with breakfast. No current facility-administered medications for this visit. Rx meds not listed in EPIC: none OTCs: none Herbals: none GLYCEMIC CONTROL: ? Glucometer present at visit: No ? SMBG?s: ? Reports checking 4 times per day usually ? Checks before 2am meal; 5am; 8am and 7-8pm ? Lowest 184 - 350 in the last week Last 3 Encounter BP Readings: Date: BP: 10/31/2017 136/88 10/03/2017 126/86 09/28/2017 132/78 Wt: 159.7 kg (352 lb) BMI: 49.09 kg/(m2) LABS Lab Results Component Value Date HBA1C 12.1 09/25/2017 HBA1C 6.0 03/30/2012 HBA1C 5.9 12/28/2011 CMP: Glucose 335 09/25/2017 BUN 12 09/25/2017 Creatinine 0.54 09/25/2017 Sodium 133 09/25/2017 Potassium 4.4 09/25/2017 Chloride 93 09/25/2017 CO2 23 09/25/2017 Protein, Total 7.4 09/25/2017 Albumin 3.9 09/25/2017 Calcium 8.7 09/25/2017 Alkaline Phosphatase 101 09/25/2017 Bilirubin, Total 0.2 09/25/2017 AST 113 09/25/2017 ALT 124 09/25/2017 Estimated Creatinine Clearance: 263.8 mL/min (A) (based on SCr of 0.54 mg/dL (L)). Last Lipid Panel Lab Results Component Value Date CHOL 177 09/25/2017 Lab Results Component Value Date HDL 38 09/25/2017 Lab Results Component Value Date LDL 100 09/25/2017 Lab Results Component Value Date TG 197 09/25/2017 Albumin/Creat Ratio (mg/g) Date Value 09/25/2017 130 (H) PHARMACOTHERAPY ASSESSMENT/PLAN: 1. Uncontrolled type 2 diabetes mellitus without complication, with long-term current use of insulin ([facility]) - ICD9: 250.02, V58.67, ICD10: E11.65, Z79.4 (primary diagnosis) A1c goal < 7%, patient is not at goal (12.1% on 09/25). FBGs at goal and PPBGs not at goal. Patient compliant with and tolerating current regimen. Discussed addition of GLP-1 for weight loss benefit and patient is agreeable, as has tolerated liraglutide in the past. Patient denies personal or family hx of pancreatitis or MEN2/MTC. Reviewed dietary adjustments to prevent AE, smaller more frequent meals, not eating past full, avoiding foods high in fat. Patient expresses understanding. Also discussed lifestyle modifications including cutting back on milk intake. Would prefer to initiate set dose of prandial insulin instead of sliding scale but will first monitor BGs on new GLP-1 prior to changing insulin doses. Renal fxn WNL and LFTs elevated but and appropriate for continued therapy ? START dulaglutide 0.75mg every Monday ? CONTINUE metformin ER 500mg take 4 tablets QAM, insulin glargine 60 units BID, insulin lispro sliding scale ? Instructed patient to continue checking BGs and bring to PharmD weekly for next 2 weeks 2. Elevated blood pressure reading without diagnosis of hypertension - ICD9: 796.2, ICD10: R03.0 BP goal < 130/80, pt is at goal on current therapy. Patient compliant with and tolerating current regimen. Will continue. Renal fxn, K+ WNL and appropriate for continued therapy. ? CONTINUE lisinopril 10mg once daily 3. Low HDL (under 40) - ICD9: 272.5, ICD10: E78.6 Pt is on not prescribed statin therapy (indicated for high intensity d/t clinical ASCVD. Discussed in brief at today's visit. Patient would be willing to start. Will focus on DM med changes first then statin addition at next visit. LFTs elevated, will need to repeat before starting therapy and renal fxn WNL and appropriate for continued therapy Patient is scheduled to see PCP open access. Patient to return to clinic for PharmD f/u on 01/01. Patient verbalized understanding of instructions. Kym Alfred, PharmD, BCPS KYM ALFRED, PHARMACIST 12/04/2017 3:26 PM Addendum Trulicity on Mondays Keep taking metforin 4 pills in the morning Lantus 60 units morning and evening Humalog - call Kym with sliding scale doses Try to cut down on milk intake BGs tomorrow and next Monday (paper to front end ui developer) Kym Alfred PharmD, [facility] [phone] Referring Provider: Yogesh DOCKERY (PAMargaritaC) [[id number]] Allergies As of Date: 12/04/2017 (No Known Allergies) Date Reviewed: 10/31/2017 Reviewed by: Roslyn Rose LPN - Fully Assessed Reason for Visit: Allied Health Visit [5] Cmt: DM initial Primary Visit Diagnosis:Uncontrolled type 2 diabetes mellitus without complication, with long-term current use of insulin ([facility]) [E11.65, Z79.4] Other Visit Diagnoses:Elevated blood pressure reading without diagnosis of hypertension [R03.0] Low HDL (under 40) [E78.6] PAD (peripheral artery disease) ([facility]) [I73.9] Order(s):dulaglutide (TRULICITY) 0.75 mg/0.5 mL pnijInject 0.75 mg subcutaneously once each week.Disp: 4 PenRfl: 1 Insulin [place], Disposable, 32 gauge x 5/16 ndleUse one needle per dose. 5 doses per dayDisp: 200 EachRfl: 5 HGB A1C [[id number]] Order #: [id number] FUTURE COMP METABOLIC PANEL [SQCMP] Order #: [id number] FUTURE Prescriptions as of 12/04/2017 Sig: INSULIN GLARGINE (U-100) 100 * Inject 60 Units subcutaneousl* INSULIN LISPRO (U-100) 100 UN* As directed for coverage scal* LISINOPRIL 10 MG TABLET Take 1 tablet by mouth once d* ASPIRIN 81 MG TABLET,DELAYED * Take 1 tablet by mouth once d* METFORMIN ER 500 MG TABLET,EX* Take 4 tablets by mouth daily* DULAGLUTIDE 0.75 MG/0.5 ML MOELLER* Inject 0.75 mg subcutaneously* PEN NEEDLE, DIABETIC 32 GAUGE* Use one needle per dose. 5 do* Problem List As Of Date 12/04/2017 Noted Resolved Closed Colles' fracture [S52.539A] INVALID FOR*09/25/2017 More... OBESITY NOS [E66.9] INVALID FOR* Acute nonsuppurative otitis media, unspecified *INVALID FOR*09/25/2017 INFEC OTITIS EXTERNA NOS [H60.399] INVALID FOR* Tobacco use disorder [F17.200] INVALID FOR*09/25/2017 More... ELEV BL PRES W/O HYPERTN [R03.0] INVALID FOR* Traumatic pneumothorax [S27.0XXA] INVALID FOR*09/25/2017 More... PAD (peripheral artery disease) (HCC) [I73.9] INVALID FOR* More... Sleep apnea [G47.30] INVALID FOR* More... Uncontrolled type 2 diabetes mellitus without c*INVALID FOR* More... Mild intermittent asthma [J45.20] More... Cataract [H26.9] More... Microalbuminuria [R80.9] INVALID FOR* Low HDL (under 40) [E78.6] INVALID FOR* Reaction, adjustment, with depressed mood, prol*INVALID FOR* Obesity, Class III, BMI >= 40 [E66.01] INVALID FOR* Other instructions from your clinician: Trulicity on Mondays Keep taking metforin 4 pills in the morning Lantus 60 units morning and evening Humalog - call Kym with sliding scale doses Try to cut down on milk intake BGs tomorrow and next Monday (paper to front end ui developer) Kym Alfred, Bev, [facility] [phone] Prescriptions ordered this encounter Disp Refills Start End DULAGLUTIDE 0.75 MG/0.5 ML SUBCUTANE* 4 Pen 1 12/04/2017 Route: SUBCUTANEOUS Sig: Inject 0.75 mg subcutaneously once each week. PEN NEEDLE, DIABETIC 32 GAUGE X 10/25 200 * 5 12/04/2017 Sig: Use one needle per dose. 5 doses per day Medications Discontinued During This Encounter lisinopril (ZESTRIL) 5 mg tablet 45 t* 3 09/25/2017 12/04/2017 Route: ORAL Sig: Take 0.5 tablets by mouth once daily. Disc: Duplicate Entry Encounter Status:Closed by AUBRIE (PHARMACIST)KYM on 12/04/17 PROGRESS Observed: 10/31/2017 Status: COMPLETED Source: [place] 8:[address] [facility] REPOSITORY O ID: [id number] Author: Yogesh Boswell (Pa-C) [place] Service: (none) Author Type: Physician Health Service Worker Type: Progress Notes Filed: 11/06/2017 3:58 PM Note Text: 47 year old male with c/o 1. blood sugar of 560 this am. Hasn't been this high in 2 years. Works nights, had algerian rice yesterday and dessert. Feeling extra fatigued and not uncharacteristically diaphoretic. Denies SHARMA, paresthesias, changes in vision, or nausea. Denies chest pain, shortness of breath. Noticed sugars rising over the last year, no stressors or major life changes. Uses Reli On meter approx 3 times a day. Denies hypoglycemic episodes. 50 units two times yesterday of Lantus= 100 total 12u at lunch (glucose 335), and at break (glucose 560) 24u Humalog=36 total Still taking 4 tabs of 500mg Metformin with breakfast. Home sugars: occasional 139, 119. Most in upper 250-350 range. Today's reading likely from eating cheese cake last night. Saw MINNIE Bryson NP in endo in June but not since for diabetes. Has never been well controlled. 2. Sleep apnea- last Monday recieved Bipap. Doesn't feel rested like he did after staying in hospital. Constantly tired. Likes Bipap better than Cpap, but doesn't feel like he's getting enough air. Started 1 weeks ago. 3. Depression scores high. States he acknowledges depression but feels it is his baseline and doesn't need treatment. Lonely. Has never bee n in long term care social worker relationship. Feels he is depressed but coping well no thoughts of self injury. Motivated to get healthier. HISTORIES FAMILY HISTORY Problem Relation Age of Onset - Diabetes Mother - Heart Mother HEART DISEASE - Hypertension Mother - Psychiatry Mother depressed - None Father - Allergies Father - Diabetes Father - Hypertension Father - Stroke Father - Psychiatry Father depression - None Sister - Diabetes Sister - Other [OTHER] Sister growth in lung, lots of lung problems, pneumonia - Diabetes Brother - Psychiatry Brother depression - Breast Cancer Paternal Aunt - Cancer Maternal Aunt Stomache - Cancer Paternal Uncle Bone PAST MEDICAL HISTORY Diagnosis Date - Acute nonsuppurative otitis media, unspecified 03/07/2007 - Cataract right eye, surgery 2009 [facility] - Closed Colles' fracture 08/03/20052007 left - Closed fracture of navicular (scaphoid) bone of wrist 01/18/05 Wrist fracture-left distal radius - Depression in past, was on effexor but stopped years ago. - Diabetes mellitus - Esophagitis, unspecified ESOPHAGITIS - Hyperlipidemia borderline - Measles - Mild intermittent asthma uses albuterl rarely - Mumps - Peptic ulcer, unspecified site, unspecified as acute or chronic, without mention of hemorrhage, perforation, or obstruction Peptic ulcer disease per EGD maybe 2007 - Tobacco use disorder 06/01/2007 Quit 2009 chew - Traumatic pneumothorax 01/15/2008 Ran over by cow, broke 4 ribs, lung collapsed, unconscious. No chest tube. Was sent to [facility]. No sequellae - Unspecified essential hypertension Essential hypertension: controlled without medication PAST SURGICAL HISTORY Procedure Laterality Date - ANKLE SURGERY HX Left 2014 rupture posterior tibial tendon repaired - APPENDECTOMY 1982 - EGD W/O OR W/BRUSH/WASH EGD Social History Marital status: Single Spouse name: Years of education: Number of children: Social History Main Topics Smoking status: Never Smoker Smokeless tobacco: Former User Types: Chew Quit date: 11/15/2009 Alcohol use: No Drug use: No ACTIVE PROBLEM LIST Obesity, Unspecified Infective Otitis Externa, Unspecified Elevated Blood Pressure Reading Without Diagnosis of Hypertension PAD (peripheral artery disease) (HCC) Sleep Apnea Uncontrolled Type 2 Diabetes Mellitus Without Complication, With Long-Term Current Use of Insulin ([facility]) Mild Intermittent Asthma Cataract Microalbuminuria Low Hdl (Under 40) Reaction, Adjustment, With Depressed Mood, Prolonged Current Outpatient Prescriptions: insulin glargine (LANTUS SOLOSTAR U-100 INSULIN) 100 unit/mL (3 mL) inpn Inject 50 Units subcutaneously twice daily. Disp: 10 Pen Rfl: 5 aspirin, enteric coated (ASPIR-81) 81 mg EC tablet Take 1 tablet by mouth once daily. Disp: 90 tablet Rfl: 3 insulin lispro (HUMALOG KWIKPEN INSULIN) 100 unit/mL inpn As directed for coverage scale Disp: 5 Pen Rfl: 2 lisinopril (ZESTRIL) 5 mg tablet Take 0.5 tablets by mouth once daily. Disp: 45 tablet Rfl: 3 metFORMIN ER (GLUCOPHAGE XR) 500 mg 24 hr tablet Take 4 tablets by mouth daily with breakfast. Disp: 360 tablet Rfl: 3 No current facility-administered medications for this visit. There are no preventive care reminders to display for this patient. EXAM: BP 136/88 Pulse 88 Temp 36.5 ?C (97.7 ?F) (Tympanic) Resp 20 Wt (!) 159.7 kg (352 lb) BMI 49.09 kg/m? Pleasant adult male in no acute distress. Alert and oriented all spheres. Normal affect and cognition. Speech normal. No deficits to learning or comprehension. Skin warm, dry, pink to lips and nailbeds. Normal turgor. Respirations regular and unlabored. Extrem: no clubbing, cyanosis, edema. Extremities are warm and pink with prompt capillary refill. Left lower extremity erythematous skin changes. Swelling is baseline. No skin breakdown or lesions. DP/PT pulses +2 bilaterally ASSESSMENT/PLAN: 1. Uncontrolled type 2 diabetes mellitus without complication, with long-term current use of insulin ([facility]) - ICD9: 250.02, V58.67, ICD10: E11.65, Z79.4 (primary diagnosis) uncontrolled - Increase Humalog/Novolog insulin sliding scale to 4u per 50 glucose over 150. Increase Lantus 55u BID - Blood glucose monitoring on a four times a day schedule x 5 days and send results. - Referral to Nutrition consult for Diabetes diet education - critical care educator Kym Uribe for clinical pharmacy counseling - Discussed diabetic education issues of intermediate diabetic complications, hypoglycemic symptoms and diet with patient. - BP goal of <130/80 - CONSULT TO NUTRITION THERAPY - CONSULT TO AMBULATORY CLINIC PHARMACY - HGB A1C - BASIC METABOLIC PNL 2. Elevated blood pressure reading without diagnosis of hypertension - ICD9: 796.2, ICD10: R03.0 - Encouraged dietary sodium restriction/DASH diet - Recommended regular aerobic exercise. - Recommend home blood pressure monitoring, to bring results in on next visit - Goal of BP <130/80 - BASIC METABOLIC PNL 3. Obesity, Class III, BMI 40-49.9 (morbid obesity) (HCC) - ICD9: 278.01, ICD10: E66.01 Working on weigh loss. Discussed bariatric treatment. He is interested but we will try focus on rehabilitation liaison first. Yogesh Dockery PA-C with [employer] Student participating. Modified Yogesh Dockery PA-C November 06, 2017 3:58 PM. CNOV Observed: 10/31/2017 Status: COMPLETED Source: [place] 8:00 AM [facility] REPOSITORY Office Visit (FAMPWS) SHEKHAR KIMBROUGH ([id number]) 1970 M Date Time Provider Department 10/31/17 8:00 AM Yogesh DOCKERY) [facility]AMPWS During your visit today, we recorded the following information about you: Temperature Pulse Respiration Blood pressure 97.7 degrees 88/minute 20/minute 136/88 Weight 159.7 kg Yogesh Dockery PA-C 11/06/2017 3:58 PM Addendum 47 year old male with c/o 1. blood sugar of 560 this am. Hasn't been this high in 2 years. Works nights, had algerian rice yesterday and dessert. Feeling extra fatigued and not uncharacteristically diaphoretic. Denies SHARMA, paresthesias, changes in vision, or nausea. Denies chest pain, shortness of breath. Noticed sugars rising over the last year, no stressors or major life changes. Uses Reli On meter approx 3 times a day. Denies hypoglycemic episodes. 50 units two times yesterday of Lantus= 100 total 12u at lunch (glucose 335), and at break (glucose 560) 24u Humalog=36 total Still taking 4 tabs of 500mg Metformin with breakfast. Home sugars: occasional 139, 119. Most in upper 250-350 range. Today's reading likely from eating cheese cake last night. Saw MINNIE Bryson NP in the [facility] in June but not since for diabetes. Has never been well controlled. 2. Sleep apnea- last Monday recieved Bipap. Doesn't feel rested like he did after staying in hospital. Constantly tired. Likes Bipap better than Cpap, but doesn't feel like he's getting enough air. Started 1 weeks ago. 3. Depression scores high. States he acknowledges depression but feels it is his baseline and doesn't need treatment. Lonely. Has never bee n in intermediate relationship. Feels he is depressed but coping well no thoughts of self injury. Motivated to get healthier. HISTORIES FAMILY HISTORY Problem Relation Age of Onset - Diabetes Mother - Heart Mother HEART DISEASE - Hypertension Mother - Psychiatry Mother depressed - None Father - Allergies Father - Diabetes Father - Hypertension Father - Stroke Father - Psychiatry Father depression - None Sister - Diabetes Sister - Other [OTHER] Sister growth in lung, lots of lung problems, pneumonia - Diabetes Brother - Psychiatry Brother depression - Breast Cancer Paternal Aunt - Cancer Maternal Aunt Stomache - Cancer Paternal Uncle Bone PAST MEDICAL HISTORY Diagnosis Date - Acute nonsuppurative otitis media, unspecified 03/07/2007 - Cataract right eye, surgery 2009 [facility] - Closed Colles' fracture 08/03/20052007 left - Closed fracture of navicular (scaphoid) bone of wrist 01/18/05 Wrist fracture-left distal radius - Depression in past, was on effexor but stopped years ago. - Diabetes mellitus - Esophagitis, unspecified ESOPHAGITIS - Hyperlipidemia borderline - Measles - Mild intermittent asthma uses albuterl rarely - Mumps - Peptic ulcer, unspecified site, unspecified as acute or chronic, without mention of hemorrhage, perforation, or obstruction Peptic ulcer disease per EGD maybe 2006 - Tobacco use disorder 06/01/2007 Quit 2009 chew - Traumatic pneumothorax 01/15/2008 Ran over by cow, broke 4 ribs, lung collapsed, unconscious. No chest tube. Was sent to [facility]. No sequellae - Unspecified essential hypertension Essential hypertension: controlled without medication PAST SURGICAL HISTORY Procedure Laterality Date - ANKLE SURGERY HX Left 2013 rupture posterior tibial tendon repaired - APPENDECTOMY 1982 - EGD W/O OR W/BRUSH/WASH EGD Social History Marital status: Single Spouse name: Years of education: Number of children: Social History Main Topics Smoking status: Never Smoker Smokeless tobacco: Former User Types: Chew Quit date: 11/15/2009 Alcohol use: No Drug use: No ACTIVE PROBLEM LIST Obesity, Unspecified Infective Otitis Externa, Unspecified Elevated Blood Pressure Reading Without Diagnosis of Hypertension PAD (peripheral artery disease) ([facility]) Sleep Apnea Uncontrolled Type 2 Diabetes Mellitus Without Complication, With Long-Term Current Use of Insulin ([facility]) Mild Intermittent Asthma Cataract Microalbuminuria Low Hdl (Under 40) Reaction, Adjustment, With Depressed Mood, Prolonged Current Outpatient Prescriptions: insulin glargine (LANTUS SOLOSTAR U-100 INSULIN) 100 unit/mL (3 mL) inpn Inject 50 Units subcutaneously twice daily. Disp: 10 Pen Rfl: 5 aspirin, enteric coated (ASPIR-81) 81 mg EC tablet Take 1 tablet by mouth once daily. Disp: 90 tablet Rfl: 3 insulin lispro (HUMALOG KWIKPEN INSULIN) 100 unit/mL inpn As directed for coverage scale Disp: 5 Pen Rfl: 2 lisinopril (ZESTRIL) 5 mg tablet Take 0.5 tablets by mouth once daily. Disp: 45 tablet Rfl: 3 metFORMIN ER (GLUCOPHAGE XR) 500 mg 24 hr tablet Take 4 tablets by mouth daily with breakfast. Disp: 360 tablet Rfl: 3 No current facility-administered medications for this visit. There are no preventive care reminders to display for this patient. EXAM: BP 136/88 Pulse 88 Temp 36.5 ?C (97.7 ?F) (Tympanic) Resp 20 Wt (!) 159.7 kg (352 lb) BMI 49.09 kg/m? Pleasant adult male in no acute distress. Alert and oriented all spheres. Normal affect and cognition. Speech normal. No deficits to learning or comprehension. Skin warm, dry, pink to lips and nailbeds. Normal turgor. Respirations regular and unlabored. Extrem: no clubbing, cyanosis, edema. Extremities are warm and pink with prompt capillary refill. Left lower extremity erythematous skin changes. Swelling is baseline. No skin breakdown or lesions. DP/PT pulses +2 bilaterally ASSESSMENT/PLAN: 1. Uncontrolled type 2 diabetes mellitus without complication, with long-term current use of insulin ([facility]) - ICD9: 250.02, V58.67, ICD10: E11.65, Z79.4 (primary diagnosis) uncontrolled - Increase Humalog/Novolog insulin sliding scale to 4u per 50 glucose over 150. Increase Lantus 55u BID - Blood glucose monitoring on a four times a day schedule x 5 days and send results. - Referral to Nutrition consult for Diabetes diet education - critical care educator Kym Uribe for clinical pharmacy counseling - Discussed diabetic education issues of intermediate diabetic complications, hypoglycemic symptoms and diet with patient. - BP goal of <130/80 - CONSULT TO NUTRITION THERAPY - CONSULT TO AMBULATORY CLINIC PHARMACY - HGB A1C - BASIC METABOLIC PNL 2. Elevated blood pressure reading without diagnosis of hypertension - ICD9: 796.2, ICD10: R03.0 - Encouraged dietary sodium restriction/DASH diet - Recommended regular aerobic exercise. - Recommend home blood pressure monitoring, to bring results in on next visit - Goal of BP <130/80 - BASIC METABOLIC PNL 3. Obesity, Class III, BMI 40-49.9 (morbid obesity) (HCC) - ICD9: 278.01, ICD10: E66.01 Working on weigh loss. Discussed bariatric treatment. He is interested but we will try focus on rehabilitation liaison first. Yogesh Dockery PA-C with [employer] Student participating. Modified Yogesh Dockery PA-C November 06, 2017 3:58 PM. Yogesh Dockery PA-C 10/31/2017 9:11 AM Signed If your blood sugar is: Take Humalog Lispro insulin: Less than 150 No additional Insulin 151-200 4U 201-250 8u 251-300 12u 301-350 16u 351-400 20u 401-450 24u 451-500 28u Above 500 32u and call the office or go to ED See materials provided on insulin injection, management of hypoglycemia and care on needles and pens. Referring Provider: SELF [[id number]] Allergies As of Date: 10/31/2017 (No Known Allergies) Date Reviewed: 10/31/2017 Reviewed by: Roslyn Rose LPN - Fully Assessed Reason for Visit: High Blood Sugar [212] Primary Visit Diagnosis:Uncontrolled type 2 diabetes mellitus without complication, with long-term current use of insulin (HCC) [E11.65, Z79.4] Other Visit Diagnoses:Elevated blood pressure reading without diagnosis of hypertension [R03.0] Obesity, Class III, BMI 40-49.9 (morbid obesity) ([facility]) [E66.01] Order(s):insulin lispro (HUMALOG KWIKPEN INSULIN) 100 unit/mL inpnAs directed for coverage scale: add additional 4u for every 50 points above glucose 150Disp: 5 PenRfl: 2 insulin glargine (LANTUS SOLOSTAR U-100 INSULIN) 100 unit/mL (3 mL) inpnInject 55 Units subcutaneously twice daily.Disp: 10 PenRfl: 5 CONSULT TO NUTRITION THERAPY [9043] Order #: [id number]: 1 CONSULT TO AMBULATORY CLINIC PHARMACY [229529] Order #: [id number]: 1 lisinopril (ZESTRIL, PRINIVIL) 10 mg tabletTake 1 tablet by mouth once daily.Disp: 30 tabletRfl: 2 HGB A1C [MDYDL9X] Order #: [id number] FUTURE BASIC METABOLIC PNL [SQBMP] Order #: [id number] FUTURE Prescriptions as of 10/31/2017 Sig: INSULIN LISPRO (U-100) 100 UN* As directed for coverage scal* INSULIN GLARGINE (U-100) 100 * Inject 55 Units subcutaneousl* ASPIRIN 81 MG TABLET,DELAYED * Take 1 tablet by mouth once d* LISINOPRIL 5 MG TABLET Take 0.5 tablets by mouth onc* METFORMIN ER 500 MG TABLET,EX* Take 4 tablets by mouth daily* LISINOPRIL 10 MG TABLET Take 1 tablet by mouth once d* Problem List As Of Date 10/31/2017 Noted Resolved Closed Colles' fracture [S52.994N] INVALID FOR*09/25/2017 More... OBESITY NOS [E66.9] INVALID FOR* Acute nonsuppurative otitis media, unspecified *INVALID FOR*09/25/2017 INFEC OTITIS EXTERNA NOS [H60.399] INVALID FOR* Tobacco use disorder [F17.200] INVALID FOR*09/25/2017 More... ELEV BL PRES W/O HYPERTN [R03.0] INVALID FOR* Traumatic pneumothorax [S27.0XXA] INVALID FOR*09/25/2017 More... PAD (peripheral artery disease) ([facility]) [I73.9] INVALID FOR* More... Sleep apnea [G47.30] INVALID FOR* More... Uncontrolled type 2 diabetes mellitus without c*INVALID FOR* More... Mild intermittent asthma [J45.20] More... Cataract [H26.9] More... Microalbuminuria [R80.9] INVALID FOR* Low HDL (under 40) [E78.6] INVALID FOR* Reaction, adjustment, with depressed mood, prol*INVALID FOR* Other instructions from your clinician: If your blood sugar is: Take Humalog Lispro insulin: Less than 150 No additional Insulin 151-200 4U 201-250 8u 251-300 12u 301-350 16u 351-400 20u 401-450 24u 451-500 28u Above 500 32u and call the office or go to ED See materials provided on insulin injection, management of hypoglycemia and care on needles and pens. Prescriptions ordered this encounter Disp Refills Start End INSULIN LISPRO (U-100) 100 UNIT/ML S* 5 Pen 2 10/31/2017 Class: Med Update Sig: As directed for coverage scale: add additional 4u for every 50 points above glucose 150 INSULIN GLARGINE (U-100) 100 UNIT/ML* 10 P* 5 10/31/2017 01/29/2018 Route: SUBCUTANEOUS Sig: Inject 55 Units subcutaneously twice daily. LISINOPRIL 10 MG TABLET 30 t* 2 10/31/2017 Route: ORAL Sig: Take 1 tablet by mouth once daily. Medications Discontinued During This Encounter insulin lispro (HUMALOG KWIKPEN INSU* 5 Pen 2 09/28/2017 10/31/2017 Sig: As directed for coverage scale Disc: Reason for discontinue is not on file. insulin glargine (LANTUS SOLOSTAR U-* 10 P* 5 10/03/2017 10/31/2017 Route: SUBCUTANEOUS Sig: Inject 50 Units subcutaneously twice daily. Disc: Reason for discontinue is not on file. Disposition: Return in about 2 months (around 12/31/2017). Follow-up and Disposition History Recorded Encounter Status:Closed by Yogesh DOCKERY PA-C on 10/31/17 PROGRESS Observed: 10/03/2017 Status: COMPLETED Source: [place] 8:[address] [facility] REPOSITORY O ID: [id number] Author: Yogesh Dockery Service: (none) Author Type: Physician Health Service Worker Type: Progress Notes Filed: 10/03/2017 9:16 AM Note Text: 47 year old male with c/o here to review numbers for coverage. Was told he could call but wanted to come in. Frustrated numbers aren't better. Had first blood 119, all the rest between 240 and 350. Followed coverage scale as directed. Discussed depression scores: identifies loneliness as biggest factor. Not thoughts of self injury. Doesn't want medication. No blurred vision, dizzy when sugars in 400s HISTORIES FAMILY HISTORY Problem Relation Age of Onset - Diabetes Mother - Heart Mother HEART DISEASE - Hypertension Mother - Psychiatry Mother depressed - None Father - Allergies Father - Diabetes Father - Hypertension Father - Stroke Father - Psychiatry Father depression - None Sister - Diabetes Sister - Other [OTHER] Sister growth in lung, lots of lung problems, pneumonia - Diabetes Brother - Psychiatry Brother depression - Breast Cancer Paternal Aunt - Cancer Maternal Aunt Stomache - Cancer Paternal Uncle Bone PAST MEDICAL HISTORY Diagnosis Date - Acute nonsuppurative otitis media, unspecified 03/07/2007 - Cataract right eye, surgery 2009 [facility] - Closed Colles' fracture 08/03/20052007 left - Closed fracture of navicular (scaphoid) bone of wrist 01/18/05 Wrist fracture-left distal radius - Depression in past, was on effexor but stopped years ago. - Diabetes mellitus - Esophagitis, unspecified ESOPHAGITIS - Hyperlipidemia borderline - Measles - Mild intermittent asthma uses albuterl rarely - Mumps - Peptic ulcer, unspecified site, unspecified as acute or chronic, without mention of hemorrhage, perforation, or obstruction Peptic ulcer disease per EGD maybe 2006 - Tobacco use disorder 06/01/2007 Quit 2009 chew - Traumatic pneumothorax 01/15/2008 Ran over by cow, broke 4 ribs, lung collapsed, unconscious. No chest tube. Was sent to [facility]. No sequellae - Unspecified essential hypertension Essential hypertension: controlled without medication PAST SURGICAL HISTORY Procedure Laterality Date - ANKLE SURGERY HX Left 2014 rupture posterior tibial tendon repaired - APPENDECTOMY 1982 - EGD W/O OR W/BRUSH/WASH EGD Social History Marital status: Single Spouse name: Years of education: Number of children: Social History Main Topics Smoking status: Never Smoker Smokeless status: Former User Types: Chew Quit date: 11/15/2009 Alcohol use: No Drug use: No ACTIVE PROBLEM LIST Obesity, Unspecified Infective Otitis Externa, Unspecified Elevated Blood Pressure Reading Without Diagnosis of Hypertension PAD (peripheral artery disease) ([facility]) Sleep Apnea Uncontrolled Type 2 Diabetes Mellitus Without Complication, With Long-Term Current Use of Insulin ([facility]) Mild Intermittent Asthma Cataract Microalbuminuria Low Hdl (Under 40) Current Outpatient Prescriptions: aspirin, enteric coated (ASPIR-81) 81 mg EC tablet Take 1 tablet by mouth once daily. Disp: 90 tablet Rfl: 3 insulin lispro (HUMALOG KWIKPEN INSULIN) 100 unit/mL inpn As directed for coverage scale Disp: 5 Pen Rfl: 2 insulin glargine (LANTUS SOLOSTAR U-100 INSULIN) 100 unit/mL (3 mL) inpn Inject 45 Units subcutaneously twice daily. Disp: Rfl: lisinopril (ZESTRIL) 5 mg tablet Take 0.5 tablets by mouth once daily. Disp: 45 tablet Rfl: 3 metFORMIN ER (GLUCOPHAGE XR) 500 mg 24 hr tablet Take 4 tablets by mouth daily with breakfast. Disp: 360 tablet Rfl: 3 insulin needles, DISPOSABLE, (BD INSULIN PEN NEEDLE UF) 31 gauge x 5/16 ndle 1 Each four times daily. Disp: 120 Each Rfl: 5 No current facility-administered medications for this visit. TETANUS due on 06/01/2017 EXAM: BP 126/86 Pulse 88 Temp 36.7 ?C (98 ?F) (Tympanic) Resp 24 Wt (!) 160.1 kg (353 lb) BMI 49.23 kg/m2 Last 2 Encounter Wt Readings: Date: Wt: 10/03/2017 160.1 kg (353 lb) 09/28/2017 159.7 kg (352 lb) Pleasant adult male in no acute distress. Alert and oriented all spheres. Normal affect and cognition. Speech normal. No deficits to learning or comprehension. Skin warm, dry, pink to lips and nailbeds. Normal turgor. Respirations regular and unlabored. Extrem: no clubbing, cyanosis, edema. Extremities are warm and pink with prompt capillary refill. ASSESSMENT/PLAN: 1. Uncontrolled type 2 diabetes mellitus without complication, with long-term current use of insulin ([facility]) - ICD9: 250.02, V58.67, ICD10: E11.65, Z79.4 (primary diagnosis) Increase lantus to 50u BID, Humalog coverage to 3u/ 50 glucose above 150. Call or drop off blood sugars in 5 days. 2. Reaction, adjustment, with depressed mood, prolonged - ICD9: 309.1, ICD10: F43.21 Discussed options. Not interested in medication. Suggested options for dating. Supportive and reflective listening Yogesh Dockery PA-C CNOV Observed: 10/03/2017 Status: COMPLETED Source: [place] 8:40 AM [facility]POS[facility] Office Visit ([facility]) SHEKHAR KIMBROUGH ([id number]) 1970 M Date Time Provider Department 10/03/17 8:40 AM Yogesh DOCKERY) [facility] During your visit today, we recorded the following information about you: Temperature Pulse Respiration Blood pressure 98 degrees 88/minute 24/minute 126/86 Weight 160.1 kg Yogesh Dockery PA-C 10/03/2017 9:16 AM Signed 47 year old male with c/o here to review numbers for coverage. Was told he could call but wanted to come in. Frustrated numbers aren't better. Had first blood 119, all the rest between 240 and 350. Followed coverage scale as directed. Discussed depression scores: identifies loneliness as biggest factor. Not thoughts of self injury. Doesn't want medication. No blurred vision, dizzy when sugars in 400s HISTORIES FAMILY HISTORY Problem Relation Age of Onset - Diabetes Mother - Heart Mother HEART DISEASE - Hypertension Mother - Psychiatry Mother depressed - None Father - Allergies Father - Diabetes Father - Hypertension Father - Stroke Father - Psychiatry Father depression - None Sister - Diabetes Sister - Other [OTHER] Sister growth in lung, lots of lung problems, pneumonia - Diabetes Brother - Psychiatry Brother depression - Breast Cancer Paternal Aunt - Cancer Maternal Aunt Stomache - Cancer Paternal Uncle Bone PAST MEDICAL HISTORY Diagnosis Date - Acute nonsuppurative otitis media, unspecified 03/07/2007 - Cataract right eye, surgery 2009 [facility] - Closed Colles' fracture 08/03/20052007 left - Closed fracture of navicular (scaphoid) bone of wrist 01/18/05 Wrist fracture-left distal radius - Depression in past, was on effexor but stopped years ago. - Diabetes mellitus - Esophagitis, unspecified ESOPHAGITIS - Hyperlipidemia borderline - Measles - Mild intermittent asthma uses albuterl rarely - Mumps - Peptic ulcer, unspecified site, unspecified as acute or chronic, without mention of hemorrhage, perforation, or obstruction Peptic ulcer disease per EGD maybe 2007 - Tobacco use disorder 06/01/2007 Quit 2009 chew - Traumatic pneumothorax 01/15/2008 Ran over by cow, broke 4 ribs, lung collapsed, unconscious. No chest tube. Was sent to [facility]. No sequellae - Unspecified essential hypertension Essential hypertension: controlled without medication PAST SURGICAL HISTORY Procedure Laterality Date - ANKLE SURGERY HX Left 2013 rupture posterior tibial tendon repaired - APPENDECTOMY 1982 - EGD W/O OR W/BRUSH/WASH EGD Social History Marital status: Single Spouse name: Years of education: Number of children: Social History Main Topics Smoking status: Never Smoker Smokeless status: Former User Types: Chew Quit date: 11/15/2009 Alcohol use: No Drug use: No ACTIVE PROBLEM LIST Obesity, Unspecified Infective Otitis Externa, Unspecified Elevated Blood Pressure Reading Without Diagnosis of Hypertension PAD (peripheral artery disease) (HCC) Sleep Apnea Uncontrolled Type 2 Diabetes Mellitus Without Complication, With Long-Term Current Use of Insulin ([facility]) Mild Intermittent Asthma Cataract Microalbuminuria Low Hdl (Under 40) Current Outpatient Prescriptions: aspirin, enteric coated (ASPIR-81) 81 mg EC tablet Take 1 tablet by mouth once daily. Disp: 90 tablet Rfl: 3 insulin lispro (HUMALOG KWIKPEN INSULIN) 100 unit/mL inpn As directed for coverage scale Disp: 5 Pen Rfl: 2 insulin glargine (LANTUS SOLOSTAR U-100 INSULIN) 100 unit/mL (3 mL) inpn Inject 45 Units subcutaneously twice daily. Disp: Rfl: lisinopril (ZESTRIL) 5 mg tablet Take 0.5 tablets by mouth once daily. Disp: 45 tablet Rfl: 3 metFORMIN ER (GLUCOPHAGE XR) 500 mg 24 hr tablet Take 4 tablets by mouth daily with breakfast. Disp: 360 tablet Rfl: 3 insulin needles, DISPOSABLE, (BD INSULIN PEN NEEDLE UF) 31 gauge x 5/16ANDquot; ndle 1 Each four times daily. Disp: 120 Each Rfl: 5 No current facility-administered medications for this visit. TETANUS due on 06/01/2017 EXAM: BP 126/86 Pulse 88 Temp 36.7 ?C (98 ?F) (Tympanic) Resp 24 Wt (!) 160.1 kg (353 lb) BMI 49.23 kg/m2 Last 2 Encounter Wt Readings: Date: Wt: 10/03/2017 160.1 kg (353 lb) 09/28/2017 159.7 kg (352 lb) Pleasant adult male in no acute distress. Alert and oriented all spheres. Normal affect and cognition. Speech normal. No deficits to learning or comprehension. Skin warm, dry, pink to lips and nailbeds. Normal turgor. Respirations regular and unlabored. Extrem: no clubbing, cyanosis, edema. Extremities are warm and pink with prompt capillary refill. ASSESSMENT/PLAN: 1. Uncontrolled type 2 diabetes mellitus without complication, with long-term current use of insulin (HCC) - ICD9: 250.02, V58.67, ICD10: E11.65, Z79.4 (primary diagnosis) Increase lantus to 50u BID, Humalog coverage to 3u/ 50 glucose above 150. Call or drop off blood sugars in 5 days. 2. Reaction, adjustment, with depressed mood, prolonged - ICD9: 309.1, ICD10: F43.21 Discussed options. Not interested in medication. Suggested options for dating. Supportive and reflective listening ANDREW Cifuentes PA-C 10/03/2017 8:57 AM Signed Change coverage scale to 3u additional for each 50 point in glucose over 150 four times a day with meals and at bedtime If your blood sugar is: Take Humalog insulin: Less than 150 No insulin 150-199 3u 201-250 6u 251-300 9u 301-350 12u 351-400 15u 401-450 18u 451-500 21u Above 500 24u and call the office or go to ED See materials provided on insulin injection, management of hypoglycemia and care on needles and pens. IF BLOOD SUGARS DROPPING BELOW 100 REVERT BACK TO 2 UNIT/ 50 SCALE Referring Provider: Yogesh DOCKERY (ANDREW) [[id number]] Allergies As of Date: 10/03/2017 (No Known Allergies) Date Reviewed: 10/03/2017 Reviewed by: Roslyn Rose LPN - Fully Assessed Reason for Visit: Diabetes [34] Cmt: discuss blood sugar readings Primary Visit Diagnosis:Uncontrolled type 2 diabetes mellitus without complication, with long-term current use of insulin (HCC) [E11.65, Z79.4] Other Visit Diagnosis:Reaction, adjustment, with depressed mood, prolonged [F43.21] Order(s):insulin glargine (LANTUS SOLOSTAR U-100 INSULIN) 100 unit/mL (3 mL) inpnInject 50 Units subcutaneously twice daily.Disp: 10 PenRfl: 5 Prescriptions as of 10/03/2017 Sig: INSULIN GLARGINE (U-100) 100 * Inject 50 Units subcutaneousl* ASPIRIN 81 MG TABLET,DELAYED * Take 1 tablet by mouth once d* INSULIN LISPRO (U-100) 100 UN* As directed for coverage scale LISINOPRIL 5 MG TABLET Take 0.5 tablets by mouth onc* METFORMIN ER 500 MG TABLET,EX* Take 4 tablets by mouth daily* PEN NEEDLE, DIABETIC 31 GAUGE* 1 Each four times daily. Medication notes this encounter LISINOPRIL 5 MG TABLET >> Roslyn Rose LPN 10/03/2017 8:30 AM >> ROSLYN ROSE LPN MonOct 03, 2017 8:30 AM Has resumed Problem List As Of Date 10/03/2017 Noted Resolved Closed Colles' fracture [S52.539A] INVALID FOR*09/25/2017 More... OBESITY NOS [E66.9] INVALID FOR* Acute nonsuppurative otitis media, unspecified *INVALID FOR*09/25/2017 INFEC OTITIS EXTERNA NOS [H60.399] INVALID FOR* Tobacco use disorder [F17.200] INVALID FOR*09/25/2017 More... ELEV BL PRES W/O HYPERTN [R03.0] INVALID FOR* Traumatic pneumothorax [S27.0XXA] INVALID FOR*09/25/2017 More... PAD (peripheral artery disease) (HCC) [I73.9] INVALID FOR* More... Sleep apnea [G47.30] INVALID FOR* Uncontrolled type 2 diabetes mellitus without c*INVALID FOR* More... Mild intermittent asthma [J45.20] More... Cataract [H26.9] More... Microalbuminuria [R80.9] INVALID FOR* Low HDL (under 40) [E78.6] INVALID FOR* Reaction, adjustment, with depressed mood, prol*INVALID FOR* Other instructions from your clinician: Change coverage scale to 3u additional for each 50 point in glucose over 150 four times a day with meals and at bedtime If your blood sugar is: Take Humalog insulin: Less than 150 No insulin 150-199 3u 201-250 6u 251-300 9u 301-350 12u 351-400 15u 401-450 18u 451-500 21u Above 500 24u and call the office or go to ED See materials provided on insulin injection, management of hypoglycemia and care on needles and pens. IF BLOOD SUGARS DROPPING BELOW 100 REVERT BACK TO 2 UNIT/ 50 SCALE Prescriptions ordered this encounter Disp Refills Start End INSULIN GLARGINE (U-100) 100 UNIT/ML* 10 P* 5 10/03/2017 01/01/2018 Route: SUBCUTANEOUS Sig: Inject 50 Units subcutaneously twice daily. Medications Discontinued During This Encounter insulin glargine (LANTUS SOLOSTAR U-* 10/03/2017 Class: Historical Med Route: SUBCUTANEOUS Sig: Inject 45 Units subcutaneously twice daily. Disc: Reason for discontinue is not on file. Encounter Status:Closed by Yogesh DOCKERY PA-C on 10/03/17 PROGRESS Observed: 09/28/2017 Status: COMPLETED Source: [place] 10:42 AM [facility] REPOSITORY [facility] ID: [id number] Author: Yogesh Boswell (Andrew) Sarkis Service: (none) Author Type: Physician Health Service Worker Type: Progress Notes Filed: 09/28/2017 10:47 AM Note Text: 47 year old male with c/o returns for discussion of uncontrolled blood sugars. We reviewed complications of his uncontrolled diabetes, microalbuminuria and low HDL cholesterol. I had patient come in so we could review options for treatment. HISTORIES FAMILY HISTORY Problem Relation Age of Onset - Diabetes Mother - Heart Mother HEART DISEASE - Hypertension Mother - Psychiatry Mother depressed - None Father - Allergies Father - Diabetes Father - Hypertension Father - Stroke Father - Psychiatry Father depression - None Sister - Diabetes Sister - Other [OTHER] Sister growth in lung, lots of lung problems, pneumonia - Diabetes Brother - Psychiatry Brother depression - Breast Cancer Paternal Aunt - Cancer Maternal Aunt Stomache - Cancer Paternal Uncle Bone PAST MEDICAL HISTORY Diagnosis Date - Acute nonsuppurative otitis media, unspecified 03/07/2007 - Cataract right eye, surgery 2010 [facility] - Closed Colles' fracture 08/03/20052007 left - Closed fracture of navicular (scaphoid) bone of wrist 01/18/05 Wrist fracture-left distal radius - Depression in past, was on effexor but stopped years ago. - Diabetes mellitus - Esophagitis, unspecified ESOPHAGITIS - Hyperlipidemia borderline - Measles - Mild intermittent asthma uses albuterl rarely - Mumps - Peptic ulcer, unspecified site, unspecified as acute or chronic, without mention of hemorrhage, perforation, or obstruction Peptic ulcer disease per EGD maybe 2007 - Tobacco use disorder 06/01/2007 Quit 2009 chew - Traumatic pneumothorax 01/15/2008 Ran over by cow, broke 4 ribs, lung collapsed, unconscious. No chest tube. Was sent to [facility]. No sequellae - Unspecified essential hypertension Essential hypertension: controlled without medication PAST SURGICAL HISTORY Procedure Laterality Date - ANKLE SURGERY HX Left 2013 rupture posterior tibial tendon repaired - APPENDECTOMY 1982 - EGD W/O OR W/BRUSH/WASH EGD Social History Marital status: Single Spouse name: Years of education: Number of children: Social History Main Topics Smoking status: Never Smoker Smokeless status: Former User Types: Chew Quit date: 11/15/2009 Alcohol use: No Drug use: No ACTIVE PROBLEM LIST Obesity, Unspecified Infective Otitis Externa, Unspecified Elevated Blood Pressure Reading Without Diagnosis of Hypertension PAD (peripheral artery disease) ([facility]) Sleep Apnea Uncontrolled Type 2 Diabetes Mellitus Without Complication, With Long-Term Current Use of Insulin ([facility]) Mild Intermittent Asthma Cataract Current Outpatient Prescriptions: insulin needles, DISPOSABLE, (BD INSULIN PEN NEEDLE UF) 31 gauge x 5/16 ndle 1 Each four times daily. Disp: 120 Each Rfl: 5 aspirin, enteric coated (ASPIR-81) 81 mg EC tablet Take 1 tablet by mouth once daily. Disp: 90 tablet Rfl: 3 insulin glargine (LANTUS SOLOSTAR U-100 INSULIN) 100 unit/mL (3 mL) inpn Inject 45 Units subcutaneously twice daily. Disp: Rfl: metFORMIN ER (GLUCOPHAGE XR) 500 mg 24 hr tablet Take 4 tablets by mouth daily with breakfast. Disp: 360 tablet Rfl: 3 insulin lispro (HUMALOG KWIKPEN INSULIN) 100 unit/mL inpn As directed for coverage scale Disp: 5 Pen Rfl: 2 lisinopril (ZESTRIL) 5 mg tablet Take 0.5 tablets by mouth once daily. Disp: 45 tablet Rfl: 3 No current facility-administered medications for this visit. TETANUS due on 06/01/2017 EXAM: BP 132/78 Pulse 78 Resp 16 Wt (!) 159.7 kg (352 lb) BMI 49.09 kg/m2 Pleasant Adult male in no acute distress. Alert and oriented all spheres. Normal affect and cognition. Speech normal. No deficits to learning or comprehension. Skin warm, dry, pink to lips and nailbeds. Normal turgor. Respirations regular and unlabored. Extrem: no clubbing, cyanosis, edema. Extremities are warm and pink with prompt capillary refill. ASSESSMENT/PLAN: 1. Microalbuminuria - ICD9: 791.0, ICD10: R80.9 (primary diagnosis) Patient was started on lisinopril. Encouraged to do so. Discussed the importance of getting diabetes under control to prevent renal damage. 2. Uncontrolled type 2 diabetes mellitus without complication, with long-term current use of insulin (HCC) - ICD9: 250.02, V58.67, ICD10: E11.65, Z79.4 Patient is not done insulin coverage for short-term insulin before. We discussed the mechanism of impairment with pancreas related to high blood sugars. Reviewed how the insulin works versus basal insulin. Patient is instructed to take both. Reviewed insulin coverage scale as per discharge instructions. Patient is to check 4 times a day before meals and at bedtime blood sugars and cover and then call with results. We will do this intensively over the next few weeks until we get all sugars below 180 as goal. At that time we can consider possibly resuming the toes or other agents once we get pancreas functional again. - PEN NEEDLE, DIABETIC 31 GAUGE X /16 3. Low HDL (under 40) - ICD9: 272.5, ICD10: E78.6 Discussed ramifications with patient. Current guidelines are for all diabetic patients to be on statin therapy and maximize dose to tolerance for reduction in cardiovascular and stroke risk. We will start this at a different point once we've gotten blood sugars controlled. 20 minute visit spent in education and counseling. ANDREW Cifuentes Observed: 09/28/2017 Status: COMPLETED Source: [place] 8:40 AM [facility] ZAINSHEKHAR ([id number]) 1970 M Date Time Provider Department 09/28/17 8:40 AM Yogesh DOCKERY) JONATHAN During your visit today, we recorded the following information about you: Pulse Respiration Blood pressure Weight 78/minute 16/minute 132/78 159.7 kg Yogesh Dockery PA-C 09/28/2017 9:26 AM Signed Check four times a day before each meal and at bedtime If your blood sugar is: Take Humalog insulin: Less than 150 151-200 2u 201-250 4u 251-300 6u 301-350 8u 351-400 10u 401-450 12u 451-500 14u Above 500 16u and call the office or go to ED See materials provided on insulin injection, management of hypoglycemia and care on needles and pens. Group blood sugars by time for 3 days and call with results. Yogesh Dockery PA-C 09/28/2017 10:47 AM Signed 47 year old male with c/o returns for discussion of uncontrolled blood sugars. We reviewed complications of his uncontrolled diabetes, microalbuminuria and low HDL cholesterol. I had patient come in so we could review options for treatment. HISTORIES FAMILY HISTORY Problem Relation Age of Onset - Diabetes Mother - Heart Mother HEART DISEASE - Hypertension Mother - Psychiatry Mother depressed - None Father - Allergies Father - Diabetes Father - Hypertension Father - Stroke Father - Psychiatry Father depression - None Sister - Diabetes Sister - Other [OTHER] Sister growth in lung, lots of lung problems, pneumonia - Diabetes Brother - Psychiatry Brother depression - Breast Cancer Paternal Aunt - Cancer Maternal Aunt Stomache - Cancer Paternal Uncle Bone PAST MEDICAL HISTORY Diagnosis Date - Acute nonsuppurative otitis media, unspecified 03/07/2007 - Cataract right eye, surgery 2009 [facility] - Closed Colles' fracture 08/03/20052007 left - Closed fracture of navicular (scaphoid) bone of wrist 01/18/05 Wrist fracture-left distal radius - Depression in past, was on effexor but stopped years ago. - Diabetes mellitus - Esophagitis, unspecified ESOPHAGITIS - Hyperlipidemia borderline - Measles - Mild intermittent asthma uses albuterl rarely - Mumps - Peptic ulcer, unspecified site, unspecified as acute or chronic, without mention of hemorrhage, perforation, or obstruction Peptic ulcer disease per EGD maybe 2007 - Tobacco use disorder 06/01/2007 Quit 2009 chew - Traumatic pneumothorax 01/15/2008 Ran over by cow, broke 4 ribs, lung collapsed, unconscious. No chest tube. Was sent to [facility]. No sequellae - Unspecified essential hypertension Essential hypertension: controlled without medication PAST SURGICAL HISTORY Procedure Laterality Date - ANKLE SURGERY HX Left 2014 rupture posterior tibial tendon repaired - APPENDECTOMY 1982 - EGD W/O OR W/BRUSH/WASH EGD Social History Marital status: Single Spouse name: Years of education: Number of children: Social History Main Topics Smoking status: Never Smoker Smokeless status: Former User Types: Chew Quit date: 11/15/2009 Alcohol use: No Drug use: No ACTIVE PROBLEM LIST Obesity, Unspecified Infective Otitis Externa, Unspecified Elevated Blood Pressure Reading Without Diagnosis of Hypertension PAD (peripheral artery disease) ([facility]) Sleep Apnea Uncontrolled Type 2 Diabetes Mellitus Without Complication, With Long-Term Current Use of Insulin (Hcc) Mild Intermittent Asthma Cataract Current Outpatient Prescriptions: insulin needles, DISPOSABLE, (BD INSULIN PEN NEEDLE UF) 31 gauge x 5/16ANDquot; ndle 1 Each four times daily. Disp: 120 Each Rfl: 5 aspirin, enteric coated (ASPIR-81) 81 mg EC tablet Take 1 tablet by mouth once daily. Disp: 90 tablet Rfl: 3 insulin glargine (LANTUS SOLOSTAR U-100 INSULIN) 100 unit/mL (3 mL) inpn Inject 45 Units subcutaneously twice daily. Disp: Rfl: metFORMIN ER (GLUCOPHAGE XR) 500 mg 24 hr tablet Take 4 tablets by mouth daily with breakfast. Disp: 360 tablet Rfl: 3 insulin lispro (HUMALOG KWIKPEN INSULIN) 100 unit/mL inpn As directed for coverage scale Disp: 5 Pen Rfl: 2 lisinopril (ZESTRIL) 5 mg tablet Take 0.5 tablets by mouth once daily. Disp: 45 tablet Rfl: 3 No current facility-administered medications for this visit. TETANUS due on 06/01/2017 EXAM: BP 132/78 Pulse 78 Resp 16 Wt (!) 159.7 kg (352 lb) BMI 49.09 kg/m2 Pleasant Adult male in no acute distress. Alert and oriented all spheres. Normal affect and cognition. Speech normal. No deficits to learning or comprehension. Skin warm, dry, pink to lips and nailbeds. Normal turgor. Respirations regular and unlabored. Extrem: no clubbing, cyanosis, edema. Extremities are warm and pink with prompt capillary refill. ASSESSMENT/PLAN: 1. Microalbuminuria - ICD9: 791.0, ICD10: R80.9 (primary diagnosis) Patient was started on lisinopril. Encouraged to do so. Discussed the importance of getting diabetes under control to prevent renal damage. 2. Uncontrolled type 2 diabetes mellitus without complication, with long-term current use of insulin (HCC) - ICD9: 250.02, V58.67, ICD10: E11.65, Z79.4 Patient is not done insulin coverage for short-term insulin before. We discussed the mechanism of impairment with pancreas related to high blood sugars. Reviewed how the insulin works versus basal insulin. Patient is instructed to take both. Reviewed insulin coverage scale as per discharge instructions. Patient is to check 4 times a day before meals and at bedtime blood sugars and cover and then call with results. We will do this intensively over the next few weeks until we get all sugars below 180 as goal. At that time we can consider possibly resuming the toes or other agents once we get pancreas functional again. - PEN NEEDLE, DIABETIC 31 GAUGE X 5/16ANDquot; 3. Low HDL (under 40) - ICD9: 272.5, ICD10: E78.6 Discussed ramifications with patient. Current guidelines are for all diabetic patients to be on statin therapy and maximize dose to tolerance for reduction in cardiovascular and stroke risk. We will start this at a different point once we've gotten blood sugars controlled. 20 minute visit spent in education and counseling. Yogesh Dockery PA-C Referring Provider: SELF [[id number]] Allergies As of Date: 09/28/2017 (No Known Allergies) Date Reviewed: 09/28/2017 Reviewed by: Amrita (Sohail) SOHAIL Huntley - Fully Assessed Reason for Visit: Same Day Appointment [[id number]] Cmt: lab results Primary Visit Diagnosis:Microalbuminuria [R80.9] Other Visit Diagnoses:Uncontrolled type 2 diabetes mellitus without complication, with long-term current use of insulin (HCC) [E11.65, Z79.4] Low HDL (under 40) [E78.6] Order(s):insulin needles, DISPOSABLE, (BD INSULIN PEN NEEDLE UF) 31 gauge x 10/25 ndle1 Each four times daily.Disp: 120 EachRfl: 5 aspirin, enteric coated (ASPIR-81) 81 mg EC tabletTake 1 tablet by mouth once daily.Disp: 90 tabletRfl: 3 insulin lispro (HUMALOG KWIKPEN INSULIN) 100 unit/mL inpnAs directed for coverage scaleDisp: 5 PenRfl: 2 Prescriptions as of 09/28/2017 Sig: PEN NEEDLE, DIABETIC 31 GAUGE* 1 Each four times daily. ASPIRIN 81 MG TABLET,DELAYED * Take 1 tablet by mouth once d* INSULIN GLARGINE (U-100) 100 * Inject 45 Units subcutaneousl* METFORMIN ER 500 MG TABLET,EX* Take 4 tablets by mouth daily* INSULIN LISPRO (U-100) 100 UN* As directed for coverage scale LISINOPRIL 5 MG TABLET Take 0.5 tablets by mouth onc* Medication notes this encounter LISINOPRIL 5 MG TABLET >> Amrita Huntley MA, MA 09/28/2017 8:35 AM >> AMRITA HUNTLEY Sep 28, 2017 8:35 AM No longer taking MULTIVITAMIN TABLET >> Amrita Huntley MA, MA 09/28/2017 8:35 AM >> AMRITA HUNTLEY Sep 28, 2017 8:35 AM No longer taking VENLAFAXINE ER 150 MG CAPSULE,EXTENDED RELEASE 24 HR >> Amrita Huntley MA, MA 09/28/2017 8:36 AM >> AMRITA HUNTLEY Sep 28, 2017 8:36 AM No longer taking ESOMEPRAZOLE MAGNESIUM 40 MG CAPSULE,DELAYED RELEASE >> Amrita Huntley MA, MA 09/28/2017 8:35 AM >> AMRITA HUNTLEY Sep 28, 2017 8:35 AM No longer taking OMEGA-3 FATTY ACIDS-VITAMIN E 1,000 MG CAPSULE >> Amrita Huntley MA, MA 09/28/2017 8:35 AM >> AMRITA HUNTLEY Sep 28, 2017 8:35 AM No longer taking Problem List As Of Date 09/28/2017 Noted Resolved Closed Colles' fracture [S52.539A] INVALID FOR*09/25/2017 More... OBESITY NOS [E66.9] INVALID FOR* Acute nonsuppurative otitis media, unspecified *INVALID FOR*09/25/2017 INFEC OTITIS EXTERNA NOS [H60.399] INVALID FOR* Tobacco use disorder [F17.200] INVALID FOR*09/25/2017 More... ELEV BL PRES W/O HYPERTN [R03.0] INVALID FOR* Traumatic pneumothorax [S27.0XXA] INVALID FOR*09/25/2017 More... PAD (peripheral artery disease) (HCC) [I73.9] INVALID FOR* More... Sleep apnea [G47.30] INVALID FOR* Uncontrolled type 2 diabetes mellitus without c*INVALID FOR* More... Mild intermittent asthma [J45.20] More... Cataract [H26.9] More... Microalbuminuria [R80.9] INVALID FOR* Low HDL (under 40) [E78.6] INVALID FOR* Other instructions from your clinician: Check four times a day before each meal and at bedtime If your blood sugar is: Take Humalog insulin: Less than 150 151-200 2u 201-250 4u 251-300 6u 301-350 8u 351-400 10u 401-450 12u 451-500 14u Above 500 16u and call the office or go to ED See materials provided on insulin injection, management of hypoglycemia and care on needles and pens. Group blood sugars by time for 3 days and call with results. Prescriptions ordered this encounter Disp Refills Start End PEN NEEDLE, DIABETIC 31 GAUGE X / 120 * 5 09/28/2017 10/28/2017 Route: Misc Si Each four times daily. ASPIRIN 81 MG TABLET,DELAYED RELEASE 90 t* 3 09/28/2017 Route: ORAL Sig: Take 1 tablet by mouth once daily. INSULIN LISPRO (U-100) 100 UNIT/ML S* 5 Pen 2 09/28/2017 Sig: As directed for coverage scale Medications Discontinued During This Encounter fesoterodine (TOVIAZ) 4 mg Tb24 03/19/2012 09/28/2017 Class: Historical Med Route: ORAL Sig: Take 1 tablet by mouth twice daily. Disc: Reason for discontinue is not on file. LIRAGLUTIDE (VICTOZA SUBCUTANEOUS) 09/28/2017 Class: Med Update Route: SUBCUTANEOUS Sig: Inject 1 application subcutaneously daily before breakfast. Disc: Reason for discontinue is not on file. multivitamin tablet 0 03/19/2012 09/28/2017 Class: Historical Med Route: ORAL Sig: Take 1 tablet by mouth once daily. Disc: Reason for discontinue is not on file. venlafaxine XR (EFFEXOR XR) 150 mg O* 09/28/2017 Class: Med Update Route: ORAL Sig: Take 150 mg by mouth once daily. Disc: Reason for discontinue is not on file. esomeprazole (NEXIUM) 40 mg ORAL cap* 09/28/2017 Class: Med Update Route: ORAL Sig: Take 40 mg by mouth once daily. Disc: Reason for discontinue is not on file. [place]-3 Fatty Acids-Vitamin E (FISH * 09/28/2017 Class: Med Update Route: ORAL Sig: Take 1 capsule by mouth three times daily. Disc: Reason for discontinue is not on file. insulin needles, DISPOSABLE, (BD INS* 09/25/2017 09/28/2017 Class: Med Update Route: Miscell. (Med.Supl.;Non-Drugs) Si Each twice daily. Disc: Reason for discontinue is not on file. aspirin, enteric coated (ASPIR-81) 8* 09/28/2017 Class: Med Update Route: ORAL Sig: Take 81 mg by mouth once daily. Disc: Reason for discontinue is not on file. Encounter Status:Closed by Yogesh DOCKERY PA-C on 09/28/17 HEMOGLOBIN A1C Collected: 09/25/2017 Status: F Source: [facility] 11:00 [facility] REPOSITORY TYPE CODE TESTS RESULT OUT OF REFERENCE UNITS RANGE LAB HGBA1C 4.3-5.6 % High Hemoglobin A1c 12.1 LAB HBA0 mg/dL Est. Average Glucose 301 Result Comment: eAG: (Estimated average glucose) is a calculated value from HgbA1c and is labor relations representative of the average blood glucose level in the last 2-3 month period. Performed By: #### HBA1C, CMP, LIPB, TSH #### [facility] [address] [place], [place] [address] COMP METABOLIC PANEL Collected: 09/25/2017 Status: F Source: [facility] 11:00 AM [facility] REPOSITORY TYPE CODE TESTS RESULT OUT OF REFERENCE UNITS RANGE LAB TP 6.3-8.0 g/dL Protein, Total 7.4 LAB ALB 3.9-4.9 g/dL Albumin 3.9 LAB CA 8.5-10.2 mg/dL Calcium, Total 8.7 LAB TBIL 0.2-1.3 mg/dL Bilirubin, Total 0.2 LAB ALKP 36-108 U/L Alkaline Phosphatase 101 LAB AST 14-40 U/L AST High 113 LAB GLU 74-99 mg/dL Glucose High 335 Result Comment: The [place] [employer] (ADA) provides guidance for cutoff values for fasting glucose and random glucose. The ADA defines fasting as no caloric intake for at least 8 hours. Fas ting plasma glucose results between 100 to 125 mg/dL indicate increased risk for diabetes (prediabetes). Fasting plasma glucose results greater than or equal to 126 mg/dL meet the criteria for diagnosis of diabetes. In the absence of unequivocal hyperglycemia, results should be confirmed by repeat testing. In a patient with classic symptoms of hyperglycemia or hyperglycemic crisis, random plasma glucose results greater than or equal to 200 mg/dL meet the criteria for diagnosis of diabetes. Reference: Standards of Medical Care in Diabetes 2016, [place] [employer] Association. Diabetes Care. 2016.39(Suppl 1). LAB BUN 9-24 mg/dL BUN 12 LAB CRET 0.73-1.22 mg/dL Low Creatinine 0.54 LAB NA 136-144 mmol/L Low Sodium 133 LAB K 3.7-5.1 mmol/L Potassium 4.4 LAB CL 97-105 mmol/L Low Chloride 93 LAB CO2 22-30 mmol/L CO2 23 LAB AGAP 9-18 mmol/L Anion Gap 17 LAB ALT 10-54 U/L ALT High 124 LAB GFRAA eGFR- Amer. >60 LAB GFRNAA . eGFR-All Other Races >60 Result Comment: eGFR (Estimated GFR) Units of measure: mL/min/1.73 meters squared eGFR is derived from the reexpressed MDRD Study equation using the following parameters: serum creatinine, age, gender and race. The creatinine assay has been calibrated to be traceable to IDMS. An eGFR <60 mL/min/1.73m2 for >3 months is consistent with chronic kidney disease. Refer to KDOQI guidelines for clinical interpretation. In patients with unstable renal function, e.g. those with acute kidney injury, the eGFR may not accurately reflect actual GFR. Performed By: #### HBA1C, CMP, LIPB, TSH #### [facility] [address] [place] [id number] LIPID PANEL, BASIC Collected: 09/25/2017 Status: F Source: [facility] 11:[address] [facility] REPOSITORY TYPE CODE TESTS RESULT OUT OF REFERENCE UNITS RANGE LAB CHOL <200 mg/dL Cholesterol 177 Result Comment: <200 mg/dL, Desirable 200-239 mg/dL, Borderline high >239 mg/dL, High LAB TRIGLY <150 mg/dL Triglyceride High 197 Result Comment: <150 mg/dL, Normal 150-199 mg/dL, Borderline high 200-499 mg/dL, High >499 mg/dL, Very high LAB HDL >39 mg/dL HDL-Cholesterol Low 38 Result Comment: 40-59 mg/dL, Acceptable >59 mg/dL, High: Negative risk factor for coronary heart disease <40 mg/dL, Low: Positive risk factor for coronary heart disease LAB LDL <100 mg/dL LDL-Cholesterol High 100 Result Comment: <100 mg/dL, Optimal 100-129 mg/dL, Near optimal/above optimal 130-159 mg/dL, Borderline high 160-189 mg/dL, High >189 mg/dL, Very high Secondary prevention optimal LDL Cholesterol levels are recommended to be < 70 mg/dL LAB NONHDL <130 mg/dL Non HDL High Cholesterol 139 Result Comment: <130 mg/dL, Optimal 130-159 mg/dL, Near optimal/above optimal 160-189 mg/dL, Borderline high 190-219 mg/dL, High >219 mg/dL, Very high Secondary prevention optimal non HDL Cholesterol levels are recommended to be < 100 mg/dL LAB FT hrs Fasting Time 7 LAB VLDL <30 mg/dL High VLDL Cholesterol 39 LAB TCHDL <5.10 TC:HDL Ratio 4.66 LAB LDLHDL <2.54 High LDL:HDL Ratio 2.63 Result Comment: Reference: 1. National Cholesterol Education Program ATP III Guideline At-A-Glance Quick Desk Reference: National Heart, Lung, and Blood [place]. National Institutes of Health. 2001: NIH Publication No. 01-3305. 2. An International Atherosclerosis Society position paper: global recommendations for the management of dyslipidemia: executive summary, Atherosclerosis. 2014: 232(2):410-413. Performed By: #### HBA1C, CMP, LIPB, TSH #### [facility] [address] [place], [place] [address] TSH Collected: 09/25/2017 Status: F Source: [facility] 11:00 AM [facility] REPOSITORY TYPE CODE TESTS RESULT OUT OF RANGE REFERENCE UNITS LAB TSH 0.400-5.500 uU/mL TSH 2.730 Performed By: #### HBA1C, CMP, LIPB, TSH #### [facility] [address] [place], [place] [address] ALBUMIN/CREAT RATIO Collected: 09/25/2017 Status: F Source: [facility] 11:00 AM [facility] REPOSITORY TYPE CODE TESTS RESULT OUT OF REFERENCE UNITS RANGE LAB UCRR 20-300 mg/dL Creatinine,Ur 106.6 ine,Ran LAB UALBR 0.0-23.0 mg/L High Albumin Urine 138.7 Random LAB UALBCR 0-30 mg/g High Albumin/Creat 130 Ratio Result Comment: 30 to 300 mg/g indicates an increased risk for diabetic nephropathy. Greater than 300 mg/g is consistent with clinical nephropathy. (Am J Kidney Disease 1995, 25:107) Performed By: #### UACR #### [facility] [address] [place] [id number] PROGRESS Observed: 09/25/2017 Status: COMPLETED Source: [facility] 9:34 AM [facility] REPOSITORY HNO ID: [id number] Author: Yogesh Dockery Service: (none) Author Type: Physician Health Service Worker Type: Progress Notes Filed: 09/25/2017 10:52 AM Note Text: 47 year old male here to establish care. Prior PCP: Lynne Stoddard Reason for switch: leaving state Current concerns: none ACTIVE PROBLEM LIST Closed Colles' Fracture Obesity, Unspecified Acute Nonsuppurative Otitis Media, Unspecified Infective Otitis Externa, Unspecified Tobacco Use Disorder Elevated Blood Pressure Reading Without Diagnosis of Hypertension Closed Fracture of Unspecified Bone Traumatic Pneumothorax Without Mention of Open Wound into Thorax Pad (Peripheral Artery Disease) (Hcc) Unspecified Sleep Apnea HISTORIES FAMILY HISTORY Problem Relation Age of Onset - Diabetes Mother - Heart Mother HEART DISEASE - None Father - Allergies Father - None Sister - Cervical Cancer Sister - Diabetes Brother - Breast Cancer Paternal Aunt - Cancer Maternal Aunt Stomache - Cancer Paternal Uncle Bone PAST MEDICAL HISTORY Diagnosis Date - Asthma - Cataract right eye - Closed fracture of navicular (scaphoid) bone of wrist 01/18/05 Wrist fracture-left distal radius - Depression - Diabetes mellitus - Esophagitis, unspecified ESOPHAGITIS - Hyperlipidemia borderline - Measles - Mumps - Peptic ulcer, unspecified site, unspecified as acute or chronic, without mention of hemorrhage, perforation, or obstruction Peptic ulcer disease - Unspecified essential hypertension Essential hypertension PAST SURGICAL HISTORY Procedure Laterality Date - ANKLE SURGERY HX Left 2013 - APPENDECTOMY 1982 - EGD W/O OR W/BRUSH/WASH EGD Social History Marital status: Single Spouse name: Years of education: Number of children: Social History Main Topics Smoking status: Never Smoker Smokeless status: Former User Types: Chew Quit date: 11/15/2009 Alcohol use: No Drug use: No Above problem list and histories reviewed September 25, 2017 and updated as appropriate. Farhad Dockery PA-C REVIEW OF SYMPTOMS: General: denies fatigue, unusual weight loss or gain, fevers, chills. Energy: poor. Sleep: not refreshing but sleeps a lot. Hx Sleep apnea but not on treatment. Snores. Eyes: denies change in vision, glaucoma S/P surgery right cataract: clouded over, has been recommend for laser procedure to clear. No glasses/contacts. EENT: denies recurrent sinus infection, unusual nasal drainage, hoarsemess, sore throat, or recurrent sore in mouth or tongue. Occasional food stuck in throat. Occasional hoarseness. Cardiovascular: denies chest pain , SOB, palpitation, irregular or racing heart beats, orthopnea, leg swelling, history of rheumatic fever or prior heart conditions Respiratory: see Hx. denies unusual cough, SOB, wheezing, history of recurrent bronchitis, pneumonia or tuberculosis. GI: occasional reflux. Bowels: every other, formed, brown. No strain. denies difficulty swallowing, nausea, vomiting, change in appetite. No change in bowel habits. Denies constipation, diarrhea, rectal bleeding or hemorrhoids, incontinence. No history of GERD, PUD, jaundice/hepatitis, GB disease, diverticulosis, colorectal cancer, hernias. Kidney/Bladder: Denies frequency, burning. Nocturia x5, incontinence: some dribbling, was on a pill. No history of kidney stones, recurrent UTI or kidney infection. Erections soft. Not sexually Skin: denies unusual rashes. No history of skin cancer, bleeding/changing moles, or unusual skin lesions. Neurologic: Denies recurrent SHARMA, change in vision, hearing or smell, tremors, unusual weakness, loss of sensation, or difficulty with balance or gait. No history of epilepsy/convulsions, migraine, head/spinal injuries, or stroke/TIA. Psychiatric: Hx depression treated with Effexor: feels he doesn't need. No thought of self injury. denies unusual worry, moodiness, depression, suicidal ideation or unusual disturbance in relationships. No history of psychiatric illness. Endocrine: Type 2 Dm on insulin. denies unusual thirst, hunger, excessive urination, change in skin or hair texture, emotional lability. No history of thryoid, pituitary or hormonal problems. Hematologic: denies unusual bleeding, bruising, or history of anemia or blood transfusion. Infections: denies risk factors for HIV, hepatitis or history of unusual infection. Immunizations are up to date. Musculoskeletal: Body aches all the time. denies unusual stiffness, muscles aches, joint pain, or swelling. Denies recurrent sprain or disruption of joints, debilitating arthritis, gout, or other musculoskeletal disease. No hx back injury, spinal stenosis, radiculopathy. EXAM: BP 112/66 Pulse 80 Resp 16 Ht 180.3 cm (5' 11) Wt (!) 157.9 kg (348 lb) BMI 48.54 kg/m2 General appearance: Pleasant morbidly obese man, in no acute distress. Well nourished. Well groomed. Pleasant spirits. Respirations: regular, unlabored Color: pink to lips and nailbeds Skin: warm, dry, no unusual rashes or lesions Head: Normocephalic Eyes: sclerae and conjunctivae without injection or exudate, PERRLA, EOMI, corneal light reflex symmetric bilaterally. Ears: TM's and ear canals are clear bilaterally with normal landmarks, no swelling or deformity external ear Nose/Sinuses: Nose patent. No turbinate swelling. No active exudate. Maxillary and frontal sinuses nontender to percussion. Oropharynx: Lips, mucosa, and tongue free from lesions. Teeth are in good repair. Gums without inflammation. Oropharynx no exudate or injection. No tonsillar hypertrophy. Neck: Neck supple, no cervical lymphadenopathy; thyroid without mass or tenderness. Carotids 2/4+ without bruits. Chest: normally shaped, equal expansion with breaths. Lungs: Lungs clear to auscultation and percussion. No crackles or wheezes. Heart: RRR without murmur, gallop, or rubs. S1 and S2 normal. Abd soft, nontender, normoactive bowel sounds throughout, no mass, no organomegaly. back FROM, no abnormal curvature. Able to touch toes. Extremities well formed, FROM and strength, no clubbing or cyanosis. Bilateral lower leg edema, stasis changes with pigmentation, varicosities. Neuro grossly intact. Normal gait and balance. Able to squat without difficulty. DTR's 2+/4 symmetric upper and lower bilaterally. Rhomberg is negative. Feet:Shoes and socks removed, No deformities, ulcers. Mild calluses, trace DP distal pulses, fleeting right and sensitive to 10 gm monofilament ASSESSMENT/PLAN: 1. Uncontrolled type 2 diabetes mellitus without complication, with long-term current use of insulin ([facility]) - ICD9: 250.02, V58.67, ICD10: E11.65, Z79.4 (primary diagnosis) [place] to [place] - Continue current medications - Daily Asprin therapy recommended - BP goal of <130/80 - PEN NEEDLE, DIABETIC 31 GAUGE X 5/16 - LIPID PANEL BASIC - HGB A1C - ALBUMIN/CREAT RATIO RND UR - COMP METABOLIC PANEL - LISINOPRIL 5 MG TABLET - [facility] BLD 2. PAD (peripheral artery disease) ([facility]) - ICD9: 443.9, ICD10: I73.9 Asymptomatic. Follow at visits 3. Traumatic pneumothorax, subsequent encounter - ICD9: V58.89, 860.0, ICD10: S27.0XXD No sequellae 4. Mild intermittent asthma without complication - ICD9: 493.90, ICD10: J45.20 Mild intermittent Asthma stable - Avoidance of triggers recommended 6. Cataract of right eye, unspecified cataract type - ICD9: 366.9, ICD10: H26.9 S/p extraction and lens implant with clouding: having laser 7. Low HDL (under 40) - ICD9: 272.5, ICD10: E78.6 - to be determined upon return of lab results - [facility] 8. CARI (obstructive sleep apnea) - ICD9: 327.23, ICD10: G47.33 Diagnosed in past, was on CPAP. Has been several years since last test. - POLYSOMNOGRAM (PSG)/HOME SLEEP APNEA TESTING (HSAT) - [facility] Will call with labs results. Recheck in 3 months Yogesh Dockery PA-C CNOV Observed: 09/25/2017 Status: COMPLETED Source: [facility] 9:00 AM [facility] REPOSITORY Office Visit (FAMPWS) KAREN KIMBROUGHWON Sreedhar ([id number]) 1970 M Date Time Provider Department 09/25/17 9:00 AM Yogesh DOCKERY) FAMPWS During your visit today, we recorded the following information about you: Pulse Respiration Blood pressure Weight 80/minute 16/minute 112/66 157.9 kg Height 1.803 m Yogesh Dockery PA-C 09/25/2017 10:52 AM Signed 47 year old male here to establish care. Prior PCP: Lynne Stoddard Reason for switch: leaving state Current concerns: none ACTIVE PROBLEM LIST Closed Colles' Fracture Obesity, Unspecified Acute Nonsuppurative Otitis Media, Unspecified Infective Otitis Externa, Unspecified Tobacco Use Disorder Elevated Blood Pressure Reading Without Diagnosis of Hypertension Closed Fracture of Unspecified Bone Traumatic Pneumothorax Without Mention of Open Wound into Thorax Pad (Peripheral Artery Disease) (Hcc) Unspecified Sleep Apnea HISTORIES FAMILY HISTORY Problem Relation Age of Onset - Diabetes Mother - Heart Mother HEART DISEASE - None Father - Allergies Father - None Sister - Cervical Cancer Sister - Diabetes Brother - Breast Cancer Paternal Aunt - Cancer Maternal Aunt Stomache - Cancer Paternal Uncle Bone PAST MEDICAL HISTORY Diagnosis Date - Asthma - Cataract right eye - Closed fracture of navicular (scaphoid) bone of wrist 01/18/05 Wrist fracture-left distal radius - Depression - Diabetes mellitus - Esophagitis, unspecified ESOPHAGITIS - Hyperlipidemia borderline - Measles - Mumps - Peptic ulcer, unspecified site, unspecified as acute or chronic, without mention of hemorrhage, perforation, or obstruction Peptic ulcer disease - Unspecified essential hypertension Essential hypertension PAST SURGICAL HISTORY Procedure Laterality Date - ANKLE SURGERY HX Left 2013 - APPENDECTOMY 1982 - EGD W/O OR W/BRUSH/WASH EGD Social History Marital status: Single Spouse name: Years of education: Number of children: Social History Main Topics Smoking status: Never Smoker Smokeless status: Former User Types: Chew Quit date: 11/15/2009 Alcohol use: No Drug use: No Above problem list and histories reviewed September 25, 2017 and updated as appropriate. Farhad Dockery PA-C REVIEW OF SYMPTOMS: General: denies fatigue, unusual weight loss or gain, fevers, chills. Energy: poor. Sleep: not refreshing but sleeps a lot. Hx Sleep apnea but not on treatment. Snores. Eyes: denies change in vision, glaucoma S/P surgery right cataract: clouded over, has been recommend for laser procedure to clear. No glasses/contacts. EENT: denies recurrent sinus infection, unusual nasal drainage, hoarsemess, sore throat, or recurrent sore in mouth or tongue. Occasional food stuck in throat. Occasional hoarseness. Cardiovascular: denies chest pain , SOB, palpitation, irregular or racing heart beats, orthopnea, leg swelling, history of rheumatic fever or prior heart conditions Respiratory: see Hx. denies unusual cough, SOB, wheezing, history of recurrent bronchitis, pneumonia or tuberculosis. GI: occasional reflux. Bowels: every other, formed, brown. No strain. denies difficulty swallowing, nausea, vomiting, change in appetite. No change in bowel habits. Denies constipation, diarrhea, rectal bleeding or hemorrhoids, incontinence. No history of GERD, PUD, jaundice/hepatitis, GB disease, diverticulosis, colorectal cancer, hernias. Kidney/Bladder: Denies frequency, burning. Nocturia x5, incontinence: some dribbling, was on a pill. No history of kidney stones, recurrent UTI or kidney infection. Erections soft. Not sexually Skin: denies unusual rashes. No history of skin cancer, bleeding/changing moles, or unusual skin lesions. Neurologic: Denies recurrent SHARMA, change in vision, hearing or smell, tremors, unusual weakness, loss of sensation, or difficulty with balance or gait. No history of epilepsy/convulsions, migraine, head/spinal injuries, or stroke/TIA. Psychiatric: Hx depression treated with Effexor: feels he doesn't need. No thought of self injury. denies unusual worry, moodiness, depression, suicidal ideation or unusual disturbance in relationships. No history of psychiatric illness. Endocrine: Type 2 Dm on insulin. denies unusual thirst, hunger, excessive urination, change in skin or hair texture, emotional lability. No history of thryoid, pituitary or hormonal problems. Hematologic: denies unusual bleeding, bruising, or history of anemia or blood transfusion. Infections: denies risk factors for HIV, hepatitis or history of unusual infection. Immunizations are up to date. Musculoskeletal: Body aches all the time. denies unusual stiffness, muscles aches, joint pain, or swelling. Denies recurrent sprain or disruption of joints, debilitating arthritis, gout, or other musculoskeletal disease. No hx back injury, spinal stenosis, radiculopathy. EXAM: BP 112/66 Pulse 80 Resp 16 Ht 180.3 cm (5' 11ANDquot;) Wt (!) 157.9 kg (348 lb) BMI 48.54 kg/m2 General appearance: Pleasant morbidly obese man, in no acute distress. Well nourished. Well groomed. Pleasant spirits. Respirations: regular, unlabored Color: pink to lips and nailbeds Skin: warm, dry, no unusual rashes or lesions Head: Normocephalic Eyes: sclerae and conjunctivae without injection or exudate, PERRLA, EOMI, corneal light reflex symmetric bilaterally. Ears: TM's and ear canals are clear bilaterally with normal landmarks, no swelling or deformity external ear Nose/Sinuses: Nose patent. No turbinate swelling. No active exudate. Maxillary and frontal sinuses nontender to percussion. Oropharynx: Lips, mucosa, and tongue free from lesions. Teeth are in good repair. Gums without inflammation. Oropharynx no exudate or injection. No tonsillar hypertrophy. Neck: Neck supple, no cervical lymphadenopathy; thyroid without mass or tenderness. Carotids 2/4+ without bruits. Chest: normally shaped, equal expansion with breaths. Lungs: Lungs clear to auscultation and percussion. No crackles or wheezes. Heart: RRR without murmur, gallop, or rubs. S1 and S2 normal. Abd soft, nontender, normoactive bowel sounds throughout, no mass, no organomegaly. back FROM, no abnormal curvature. Able to touch toes. Extremities well formed, FROM and strength, no clubbing or cyanosis. Bilateral lower leg edema, stasis changes with pigmentation, varicosities. Neuro grossly intact. Normal gait and balance. Able to squat without difficulty. DTR's 2+/4 symmetric upper and lower bilaterally. Rhomberg is negative. Feet:Shoes and socks removed, No deformities, ulcers. Mild calluses, trace DP distal pulses, fleeting right and sensitive to 10 gm monofilament ASSESSMENT/PLAN: 1. Uncontrolled type 2 diabetes mellitus without complication, with long-term current use of insulin (HCC) - ICD9: 250.02, V58.67, ICD10: E11.65, Z79.4 (primary diagnosis) [place] to [place] - Continue current medications - Daily Asprin therapy recommended - BP goal of ANDlt;130/80 - PEN NEEDLE, DIABETIC 31 GAUGE X 5/16ANDquot; - LIPID PANEL BASIC - HGB A1C - ALBUMIN/CREAT RATIO RND UR - COMP METABOLIC PANEL - LISINOPRIL 5 MG TABLET - TSH BLD 2. PAD (peripheral artery disease) ([facility]) - ICD9: 443.9, ICD10: I73.9 Asymptomatic. Follow at visits 3. Traumatic pneumothorax, subsequent encounter - ICD9: V58.89, 860.0, ICD10: S27.0XXD No sequellae 4. Mild intermittent asthma without complication - ICD9: 493.90, ICD10: J45.20 Mild intermittent Asthma stable - Avoidance of triggers recommended 6. Cataract of right eye, unspecified cataract type - ICD9: 366.9, ICD10: H26.9 S/p extraction and lens implant with clouding: having laser 7. Low HDL (under 40) - ICD9: 272.5, ICD10: E78.6 - to be determined upon return of lab results - LIPID PANEL BASIC - TSH BLD 8. CARI (obstructive sleep apnea) - ICD9: 327.23, ICD10: G47.33 Diagnosed in past, was on CPAP. Has been several years since last test. - POLYSOMNOGRAM (PSG)/HOME SLEEP APNEA TESTING (HSAT) - TSH BLD Will call with labs results. Recheck in 3 months M Yesika Dockery PA-C Referring Provider: SELF [200] Allergies As of Date: 09/25/2017 (No Known Allergies) Date Reviewed: 09/25/2017 Reviewed by: Amrita (Sohail) SOHAIL Huntley - Fully Assessed Reason for Visit: Establish Care [42] Cmt: physical Primary Visit Diagnosis:Uncontrolled type 2 diabetes mellitus without complication, with long-term current use of insulin (HCC) [E11.65, Z79.4] Other Visit Diagnoses:PAD (peripheral artery disease) (HCC) [I73.9] Traumatic pneumothorax, subsequent encounter [S27.0XXD] Mild intermittent asthma without complication [J45.20] Cataract of right eye, unspecified cataract type [H26.9] Low HDL (under 40) [E78.6] CARI (obstructive sleep apnea) [G47.33] Order(s):insulin needles, DISPOSABLE, (BD INSULIN PEN NEEDLE UF) 31 gauge x 5/16 ndle1 Each twice daily.Disp: Rfl: LIPID PANEL BASIC [SQLIPB] Order #: [id number] FUTURE HGB A1C [QJZTD8Q] Order #: [id number] FUTURE ALBUMIN/CREAT RATIO RND UR [SQUACR] Order #: [id number] FUTURE COMP METABOLIC PANEL [SQCMP] Order #: [id number] FUTURE lisinopril (ZESTRIL) 5 mg tabletTake 0.5 tablets by mouth once daily.Disp: 45 tabletRfl: 3 POLYSOMNOGRAM (PSG)/HOME SLEEP APNEA TESTING (HSAT) [1177058] Order #: [id number] FUTURE TSH BLD [SQTSH] Order #: [id number] FUTURE metFORMIN ER (FORTAMET) 1,000 mg 24 hr tabletTake 1 tablet by mouth daily with breakfast.Disp: 180 tabletRfl: 3 Prescriptions as of 09/25/2017 Sig: INSULIN GLARGINE (U-100) 100 * Inject 45 Units subcutaneousl* PEN NEEDLE, DIABETIC 31 GAUGE* 1 Each twice daily. LISINOPRIL 5 MG TABLET Take 0.5 tablets by mouth onc* METFORMIN ER 1,000 MG TABLET,* Take 1 tablet by mouth daily * * FESOTERODINE ER 4 MG TABLET,E* Take 1 tablet by mouth twice * * MULTIVITAMIN TABLET Take 1 tablet by mouth once d* * VICTOZA SUBCUTANEOUS Inject 1 application subcutan* * VENLAFAXINE ER 150 MG CAPSULE* Take 150 mg by mouth once patricia* ESOMEPRAZOLE MAGNESIUM 40 MG * Take 40 mg by mouth once angela* * OMEGA-3 FATTY ACIDS-VITAMIN E* Take 1 capsule by mouth three* * ASPIRIN 81 MG TABLET,DELAYED * Take 81 mg by mouth once angela* Problem List As Of Date 09/25/2017 Noted Resolved Closed Colles' fracture [S50.904D] INVALID FOR*09/25/2017 More... OBESITY NOS [E66.9] INVALID FOR* Acute nonsuppurative otitis media, unspecified *INVALID FOR*09/25/2017 INFEC OTITIS EXTERNA NOS [H60.399] INVALID FOR* Tobacco use disorder [F17.200] INVALID FOR*09/25/2017 More... ELEV BL PRES W/O HYPERTN [R03.0] INVALID FOR* Traumatic pneumothorax [S27.0XXA] INVALID FOR*09/25/2017 More... PAD (peripheral artery disease) ([facility]) [I73.9] INVALID FOR* More... Sleep apnea [G47.30] INVALID FOR* Uncontrolled type 2 diabetes mellitus without c*INVALID FOR* More... Mild intermittent asthma [J45.20] More... Cataract [H26.9] More... Prescriptions ordered this encounter Disp Refills Start End PEN NEEDLE, DIABETIC 31 GAUGE X 10/2509/25/2017 Class: Med Update Route: Misc Si Each twice daily. LISINOPRIL 5 MG TABLET 45 t* 3 09/25/2017 Route: ORAL Sig: Take 0.5 tablets by mouth once daily. METFORMIN ER 1,000 MG TABLET,EXTENDE* 180 * 3 09/25/2017 Route: ORAL Sig: Take 1 tablet by mouth daily with breakfast. Medications Discontinued During This Encounter metFORMIN 500 mg tablet 03/19/2012 09/25/2017 Class: Historical Med Route: ORAL Sig: Take 1 tablet by mouth twice daily. Disc: Reason for discontinue is not on file. LISINOPRIL-HYDROCHLOROTHIAZIDE ORAL 09/25/2017 Class: Med Update Route: ORAL Sig: Take 1 tablet by mouth once daily. Disc: Reason for discontinue is not on file. Disposition: Return in about 3 months (around 12/25/2017). Follow-up and Disposition History Recorded Letter Text . [facility] AUTHORIZATION FOR THE RELEASE OF MEDICAL INFORMATION FROM OTHER HEALTHCARE FACILITIES [facility] [address] [place], [place] [address] Name: Shekhar Kimbrough Date of : 1970 [address] [facility] [address] (home) Reason for Disclosure: Continuity of Care. Release Information From: Name of Provider/Facility: [facility] Street: City: State: Zip: Fax: Phone: Release Information To: Office Receiving: Yogesh Dockery PA-C PLEASE FAX TO: [phone] I hereby authorize to release the health information indicated below that is contained in my patient records to the Recipient named above. I understand and acknowledge that this may include treatment for physical and mental illness, alcohol/drug abuse and or HIV/AIDS test results or diagnosis. This authorization does not include permission to release outpatient Psychotherapy Notes* as defined below. The release of Psychotherapy Notes requires a separate authorization. REPORTS REQUESTED: Diabetes Reports: Last Eye Exam This consent is subject to revocation at any time except to the extent the action has been taken thereon. This authorization and consent will in one year from the date of authorization written below. Your health care (or payment for care) will not be affected by whether or not you sign this authorization. Once your health care information is released, re-disclosure of your health care information by the Recipient my no longer be protected by law. Signature of Patient/Legal Guardian Printed Name Date Signed: ____/ / Relationship if not Patient If other than patient?s signature, a copy of the legal papers verifying authority (e.g. Power of Trace Evidence Technician or Certificate) MUST accompany the authorization when presented. Exception: parent if signing for patient under age 18. *Psychotherapy Notes defined as notes that document private, joint, group or family counseling sessions that are from the rest of a patient?s medical record. Encounter Status:Closed by Yogesh DOCKERY PA-C on 09/25/17 ALLERGIES ALLERGIES DATE TYPE / CODE NAME / CODE REACTION SEVERITY SOURCE 06/28/2018 Drug No Known Unknown [facility] Allergy/416 Allergies/U03814 [facility] 027442(SNOM 0388(RXNORM) Repository ED CT) Drug NO KNOWN [facility] Class/11811 ALLERGIES [place] 1003(SNOMED Repository CT) ENCOUNTERS ENCOUNTERS ADMIT/DISCHARGE ACCOUNT ADMITTING ENCOUNTER LOCATION SOURCE NUMBER CLASS 07/04/2018/07/04/[id number] Repository 07/04/2018/07/05/19 [id number] Ambulatory [address] Repository 06/28/2018/06/28/19 [id number] Emergency [place] [address] ing:ED Repository 06/27/2018/06/27/19 [id number] Ambulatory [address] Repository 06/27/2018/06/28/19 [id number] Ambulatory [address] Repository 06/25/2018/06/25/19 [id number] Ambulatory [address] [place] Repository 06/25/2018/06/25/19 [id number] Ambulatory [facility] [place] Repository 04/09/2018/04/10/20 [id number] Ambulatory [facility] [place] Repository 04/05/2018/04/05/20 [id number] Ambulatory [facility] [place] Repository 04/02/2018/04/03/20 [id number] Ambulatory [facility] [place] Repository 03/26/2018/03/26/20 [id number] Ambulatory [facility] [place] Repository 02/26/2018/02/28/20 [id number] Ambulatory [facility] [place] Repository 02/26/2018/02/27/20 [id number] Ambulatory [facility] [place] Repository 01/01/2018/01/02/20 [id number] Ambulatory [facility] [place] Repository 12/28/2017/12/30/19 [id number] Ambulatory [facility] [place] Repository 12/25/2017/12/28/19 [id number] Ambulatory [facility] [place] Repository 12/25/2017/12/26/19 [id number] Ambulatory [facility] [place] Repository 12/04/2017/12/05/19 [id number] Ambulatory [facility] [place] Repository 10/31/2017/11/01/19 [id number] Ambulatory [facility] [place] Repository 10/04/[id number] [facility] ing:SL Repository 10/03/2017/10/05/19 [id number] Ambulatory [facility] [place] Repository 09/28/2017/09/30/19 [id number] Ambulatory [facility] [place] Repository 09/25/2017/09/26/19 [id number] Ambulatory [facility] [place] Repository 09/25/2017/09/27/19 [id number] Ambulatory [facility] [place] Repository PAYERS PAYERS ENCOUNTER GUARANTOR PAYER SUBSCRIBER SOURCE 06/28/2018 EDWARD E Primary EDWON E [place] [id number] 06/13 W Insurance:ANTHEMPolic YOUNGB: [facility]: [id number] [address]Gve: [id number] Repository ve Date:1217-03-88BY () [address], [place] [address]FY: 06/28/2018 Secondary NOT GIVENUNK [place] Insurance:SELF PAY [facility] [address] Number: Effective Repository Date:2018-06-28 10/04/2017 EDWARD E Primary EDWARD E [place] [id number] 06/13 W [facility] Number: [id number] [address]Vbb: [id number] Repository ve Date:7308-33-78CO () [address], [place] [address]AK: 10/04/2017 Secondary NOT GIVENUNK [place] Insurance:SELF PAY [facility] Number: Effective Repository Date:2017-09-29
== END 2018-06-28 18:40 | disposition home or self-care (01) ==
PROVIDERS: Emergency Provider Emergency Medicine; Family Provider Physician Assistant; PCP Physician Assistant
DX: R07.89 Other chest pain (principal); M54.9 Dorsalgia, unspecified; R06.00 Dyspnea, unspecified; W00.0XXA Fall on same level due to ice and snow, initial encounter; Y93.9 Activity, unspecified; Y92.9 Unspecified place or not applicable; E11.22 Type 2 diabetes mellitus with diabetic chronic kidney disease; I12.9 Hypertensive chronic kidney disease with stage 1 through stage 4 chronic kidney disease, or unspecified chronic kidney disease; N18.9 Chronic kidney disease, unspecified; E78.00 Pure hypercholesterolemia, unspecified; M19.90 Unspecified osteoarthritis, unspecified site; H40.9 Unspecified glaucoma; Z79.84 Long term (current) use of oral hypoglycemic drugs; Z79.4 Long term (current) use of insulin; Z79.899 Other long term (current) drug therapy
CPT/HCPCS: 71046; 99282

== ENCOUNTER 2023-07-21 19:03 | Emergency (ER) | payer BC, SELFPAY ==
[2023-07-21 19:05] VITALS: BP 172/95; PULSE 97; RESP 18; TEMP 37.1; O2SAT 97
--- NOTE | 2023-07-21 20:14 | EX.ED.DYSGE1 ---
HPI <ADAM Manning - Last Filed: 07/21/23 22:05> History of Present Illness Chief Complaint: General Illness Narrative Narrative: 53-year-old male with PMH of HTN, HLD, DM2 states since he woke up this morning he just does not feel right. He states he feels dizzy but cannot describe it. He denies feeling like he might pass out or vertigo symptoms. He states nothing he does make his symptoms feel better or worse. He has no headache, chest pain, shortness of breath, or GI symptoms. His blood sugars were running high because he ran out of insulin but he restarted a week ago and today it was 170 at home. He is out of his blood pressure and cholesterol medications. He is supposed to see his primary care doctor in a week. [facility] <ADAM Manning - Last Filed: 07/21/23 22:05> [facility] Medical History (Updated 07/21/23 @ 21:24 by ADAM Manning) Arthritis Asthma BiPAP (biphasic positive airway pressure) dependence Cataracts, bilateral Depression Dietary restriction Easy bruising Fatty liver GERD (gastroesophageal reflux disease) High cholesterol History of pain when walking History of steroid therapy History of ulceration HTN (hypertension) Insulin dependent diabetes mellitus Marijuana use Migraine headache Non-smoker Seasonal allergies Home Medications atorvastatin 40 mg tablet 20 mg PO QDAY 06/29/17 [History Last Taken Unknown] lisinopril 20 mg tablet 40 mg PO QDAY 06/29/17 [History Last Taken Unknown] metformin 500 mg tablet,extended release 24 hr 2,000 mg PO .q am 06/29/17 [History Last Taken Unknown] omeprazole 20 mg tablet,delayed release 20 mg PO PRN PRN Indigestion 06/29/17 [History Last Taken Unknown] bupropion HCl 300 mg 24 hr tablet, extended release 300 mg PO DAILY 01/19/22 [History Last Taken Unknown] dapagliflozin propanediol 10 mg tablet (Farxiga) 10 mg PO DAILY 01/19/22 [History Last Taken Unknown] dulaglutide 4.5 mg/0.5 mL subcutaneous pen injector (Trulicity) 4.5 mg subcut TH 01/19/22 [History Last Taken Unknown] insulin glargine 100 unit/mL subcutaneous cartridge 62 unit subcut BID 01/19/22 [History Last Taken Unknown] insulin lispro 100 unit/mL subcutaneous pen 0 unit subcut TID 01/19/22 [History Last Taken Unknown] atorvastatin 40 mg tablet 40 mg PO DAILY 30 days #30 tabs 07/21/23 [Rx Last Taken Unknown] lisinopril 20 mg tablet 20 mg PO DAILY 30 days #30 tabs 07/21/23 [Rx Last Taken Unknown] Allergy/AdvReac Type Severity Reaction Status Date / Time No Known Allergies Allergy Verified 07/21/23 19:04 Family History (Updated 06/29/17 @ 09:12 by Jaye Ponce) Unknown Asthma Diabetes Heart disease Hypertension CVA (cerebral vascular accident) Surgical History Hx of appendectomy Hx of colonoscopy Status post ORIF of fracture of ankle Social History (Updated 06/29/17 @ 13:43 by Marlena Bryson WEBLOGIC ADMINISTRATOR, WEBLOGIC ADMINISTRATOR-C) Smoking Status: Never smoker second hand exposure: No alcohol intake: never substance use type: does not use ROS <ADAM Manning - Last Filed: 07/21/23 22:05> ROS ED ROS Narrative Constitutional: Negative for fever, chills, malaise. Eyes: Negative for visual change. CVS: Negative for palpitations, chest pain, syncope. Respiratory: Negative for shortness of breath, cough. GI: Negative for abdominal pain, nausea, vomiting, diarrhea, constipation, melena, hematochezia. Neuro: Negative for headache, motor/sensory dysfunction. EXAM <ADAM Manning - Last Filed: 07/21/23 22:05> Physical Exam Narrative Exam Narrative: CONST: Patient sitting in no acute distress. EYES: Normal inspection. NECK: Normal inspection. RESP: No respiratory distress, CTAB. CVS: Regular rate and rhythm, no murmur, no gallop. ABD: Soft and nontender, no guarding or rebound, nondistended. SKIN: Color normal, no rash, warm, dry, intact. EXTREMITIES: Normal appearance, no pedal edema. NEURO: Oriented x4. PSYCH: Normal affect. Const Vital Signs: 07/21/23 19:05 07/21/23 20:26 Temperature 98.7 F Temperature Source Temporal Pulse Rate 97 Respiratory Rate 18 Respiratory Pattern Normal Blood Pressure 172/95 H Blood Pressure Mean 120 Pulse Ox 97 Oxygen Delivery Method Room Air <Dr. Riley Negrete, DO - Last Filed: 07/21/23 22:32> Physical Exam Const Vital Signs: 07/21/23 19:05 07/21/23 20:26 Temperature 98.7 F Temperature Source Temporal Pulse Rate 97 Respiratory Rate 18 Respiratory Pattern Normal Blood Pressure 172/95 H Blood Pressure Mean 120 Pulse Ox 97 Oxygen Delivery Method Room Air MDM <ADAM Manning - Last Filed: 07/21/23 22:05> [facility] Narrative Medical decision making narrative: Patient states he feels weird and dizzy but cannot describe it. He states he just feels blah. He does not have light headed or vertiginous symptoms. He can walk and move his head without symptoms. He has been out of his blood pressure and cholesterol medication but is taking his insulin. He appears well and nontoxic. BP is 172/95 with otherwise normal vital signs. His exam is benign. He is neurologically intact. CBC shows white count of 11.3, normal hemoglobin at 14.0. BMP overall unremarkable. Glucose is 182 with normal CO2 and anion gap. EKG is sinus rhythm and troponin is 15. CXR shows no acute process. He has no headache or vertiginous symptoms and a normal neurological exam so I do not think a CT brain scan is indicated. He was given a dose of lisinopril 20 mg since he has been out of this and I refilled his lisinopril and atorvastatin. He has an appointment with his PCP in 1 week. I discussed if symptoms change or worsen to be reevaluated and he was discharged in stable condition. Broad differential includes ACS, electrolyte abnormality, anemia, arrhythmia among others Lab Data Attestation: I reviewed the patient's lab results. Labs: Laboratory Results - last 24 hr 07/21/23 07/21/23 20:20 21:50 WBC 11.3 H RBC 4.81 Hgb 14.0 Hct 42.6 MCV 88.6 MCH 29.1 MCHC 32.9 RDW Std Deviation 45.7 H RDW Coeff of Tawnya 14.2 Plt Count 310 MPV 9.5 Immature Gran % (Auto) 0.300 Neut % (Auto) 72.8 H Lymph % (Auto) 16.5 L [place] % (Auto) 8.7 Eos % (Auto) 1.3 Baso % (Auto) 0.4 Absolute Neuts (auto) 8.2 H Absolute Lymphs (auto) 1.87 Nucleated RBC % 0 Sodium 141 Potassium 4.2 Chloride 109 H Carbon Dioxide 25.0 Anion Gap 7 BUN 22 H Creatinine 0.94 Est GFR (MDRD) Af Amer 109 Est GFR (MDRD) Non-Af 90 BUN/Creatinine Ratio 23.4 H Glucose 182 H Calcium 9.5 Troponin I High Sens 15 Urine Color Yellow Urine Clarity Clear Urine pH 7.0 Ur Specific [place] 1.010 Urine Protein Negative Urine Glucose (UA) 1000 H Urine Ketones 5 H Urine Occult Blood Negative Urine Nitrite Negative Urine Bilirubin Negative Urine Urobilinogen Normal Ur Leukocyte Esterase Negative Urine RBC 0 SEEN Urine WBC 0 SEEN Ur Squamous Epith Cells 0 SEEN Urine Bacteria 0 SEEN Urine Mucus 0 SEEN Radiography Diagnostic Testing: Clinical Impression(s) from Imaging Studies Chest X-Ray 07/21/23 20:25 IMPRESSION: Mild multilevel atelectasis, otherwise no acute cardiopulmonary disease. Electronically Signed: Iris Espino MD at 20:58 EST , EKG Initial EKG: Attestation: I personally reviewed and interpreted this EKG as follows: Interpretation: Sinus Rhythm and No Acute Injury Pattern Comments: Normal sinus rhythm 82 bpm Left anterior fascicular block No STEMI <Dr. Riley Negrete, DO - Last Filed: 07/21/23 22:32> [facility] Lab Data Labs: Laboratory Results - last 24 hr 07/21/23 07/21/23 20:20 21:50 WBC 11.3 H RBC 4.81 Hgb 14.0 Hct 42.6 MCV 88.6 MCH 29.1 MCHC 32.9 RDW Std Deviation 45.7 H RDW Coeff of [place]wn[place] 14.2 Plt Count 310 MPV 9.5 Immature Gran % (Auto) 0.300 Neut % (Auto) 72.8 H Lymph % (Auto) 16.5 L [place] % (Auto) 8.7 Eos % (Auto) 1.3 Baso % (Auto) 0.4 Absolute Neuts (auto) 8.2 H Absolute Lymphs (auto) 1.87 Nucleated RBC % 0 Sodium 141 Potassium 4.2 Chloride 109 H Carbon Dioxide 25.0 Anion Gap 7 BUN 22 H Creatinine 0.94 Est GFR (MDRD) Af Amer 109 Est GFR (MDRD) Non-Af 90 BUN/Creatinine Ratio 23.4 H Glucose 182 H Calcium 9.5 Troponin I High Sens 15 Urine Color Yellow Urine Clarity Clear Urine pH 7.0 Ur Specific [place] 1.010 Urine Protein Negative Urine Glucose (UA) 1000 H Urine Ketones 5 H Urine Occult Blood Negative Urine Nitrite Negative Urine Bilirubin Negative Urine Urobilinogen Normal Ur Leukocyte Esterase Negative Urine RBC 0 SEEN Urine WBC 0 SEEN Ur Squamous Epith Cells 0 SEEN Urine Bacteria 0 SEEN Urine Mucus 0 SEEN Radiography Diagnostic Testing: Clinical Impression(s) from Imaging Studies Chest X-Ray 07/21/23 20:25 IMPRESSION: Mild multilevel atelectasis, otherwise no acute cardiopulmonary disease. Electronically Signed: Iris Espino MD at 20:58 EST Reading Location ID and State: [address] [place] [address] , Service support , Treatment and Re-Evaluation :: I have personally performed a face to face assessment of the patient and have reviewed the MALAIKA Note. I performed a substantive portion of the visit including all aspects of the following. My lui findings include: History: Patient presents because I do not feel good . Patient states he feels dizzy. Patient is unable to describe his dizziness. Patient states it began today at approximately 3:00 PM. Patient states it has been constant. Patient states nothing makes it worse and nothing makes it better. Patient denies any chest pain. Patient denies any shortness of breath. Patient denies any cough. Patient denies any headache. Patient denies any fevers or chills. Exam: Vital signs are stable except for an elevated blood pressure 172/95. Patient was afebrile. Patient is in no acute distress. Oral mucosa is pink and moist. Neck is supple. Trachea is midline. There is no JVD. Heart was regular rate and rhythm. Lungs are clear and equal bilaterally. Abdomen is soft and obese. Bowel sounds are normal. There is no tenderness. Cranial nerves II through XII are intact. There are no focal motor or sensory deficits noted. Medical Decision Making: Differential diagnosis includes cardiac dysrhythmia, cardiac ischemia, hypertensive urgency, infection, medication noncompliance, and urinary tract infection. EKG will be obtained to assess for cardiac dysrhythmia and cardiac ischemia. Chest x-ray will be obtained to assess for pneumonia and pneumothorax. CBC will be obtained to assess for leukocytosis and anemia. Basic metabolic profile will be obtained to assess for electrolyte abnormality and renal function. High-sensitivity troponin will be obtained to assess for cardiac ischemia. Urinalysis will be obtained to assess for urinary tract infection. CBC was reviewed. There is a slight leukocytosis of 11.3. The remainder is within normal limits. Basic metabolic profile was reviewed. BUN was slightly elevated at 22. Glucose was mildly elevated at 182. The remainder is within normal limits. High-sensitivity troponin was reviewed and was normal at 15. EKG was obtained. On my independent interpretation, it shows normal sinus rhythm with a rate of 82. There is a left anterior fascicular block noted. There are no acute ST or T wave changes noted. Portable 1 view chest x-ray was obtained. On my independent interpretation, lung cheema show atelectasis but no acute infiltrate. There is normal cardiac silhouette. Bony thorax is normal. There is no acute process noted. Radiologist also interpreted the x-ray and agrees. Urinalysis was reviewed. There is no evidence of urinary tract infection or hematuria. Patient was advised of his findings. Patient was instructed to drink plenty of fluids. Patient was instructed to follow-up with his primary care physician in 5 to 7 days. Patient was given a prescription for refill of his lisinopril. Patient understood and was agreeable with the plan. All questions were answered. Discharge Plan Triage Chief Complaint: General Illness ED Midlevel Provider: Harmony Bauer ED Provider: Riley Negrete Dx/Rx/DC Orders Clinical Impression: Malaise, History of hypertension Instructions: ED Dizziness, Uncertain Cause Prescriptions: New lisinopril 20 mg tablet 20 mg PO DAILY 30 Days Qty: 30 0RF atorvastatin 40 mg tablet 40 mg PO DAILY 30 Days Qty: 30 0RF No Action metformin 500 mg tablet extended release 24 hr 2,000 mg PO .q am atorvastatin 40 mg tablet 20 mg PO QDAY omeprazole 20 mg tablet,delayed release (DR/EC) 20 mg PO PRN PRN (Reason: Indigestion) lisinopril 20 mg tablet 40 mg PO QDAY insulin lispro [Humalog Pen] 100 unit/mL Insulin Pen 0 unit SUBCUT TID bupropion HCl 300 mg Tablet Extended Release 24 Hr 300 mg PO DAILY Lantus U-100 Insulin 100 unit/mL Cartridge 62 unit SUBCUT BID Farxiga 10 mg Tablet 10 mg PO DAILY Trulicity 4.5 mg/0.5 mL Pen Injector 4.5 mg SUBCUT TH Primary Care Provider: Yogesh Dockery Referrals: Yogesh Dockrey, PA [Primary Care Provider] - Activity Restrictions/Additional Instructions: I refilled lisinopril and atorvastatin so you can restart these before you see your doctor next week for follow-up. Disposition Disposition: Home, Self Care
--- NOTE | 2023-07-21 20:25 | RAD_ITS ---
STUDY: X-RAY CHEST REASON FOR EXAM: Male, 53 years old. dizzy TECHNIQUE: Single AP portable view of the chest. COMPARISON: None. FINDINGS: The lungs are underexpanded with mild vascular crowding and scattered areas of mild multilobar atelectasis. There is no demonstrated pleural abnormality. There is borderline cardiomegaly. Normal mediastinum and ayesha. Normal visualized pulmonary arteries. Normal visualized aortic arch and descending thoracic aorta. There are diffuse degenerative changes of the visualized thoracic spine. Normal visualized ribs, clavicles, and shoulders. There is no demonstrated abnormality of the visualized soft tissue structures of the upper abdomen. RAD/Chest 1 View (Portable) IMPRESSION: Mild multilevel atelectasis, otherwise no acute cardiopulmonary disease. Electronically Signed: Iris Espino MD at 20:58 EST ,
[2023-07-21 20:29] LABS: Absolute Lymphocyte Count 1.87 X10^3/uL (0.83-4.51); Absolute Neutrophil Count 8.2 X10^3/uL (2.0-7.7); Basophil# 0.05 X10^3/uL; Basophil% 0.4 % (0-1); Eosinophil# 0.15 X10^3/uL; Eosinophils% 1.3 % (0-5); Hematocrit 42.6 % (40-54); Lymphocyte # 1.87 X10^3/ul (0.83-4.51); Lymphocyte % 16.5 % (19-41); Mean Corp Hgb Conc 32.9 g/dL (32-36); Mean Corpuscular Hgb 29.1 pg (27.0-32.0); Mean Corpuscular Volume 88.6 fL (80-94); Mean Platelet Vol. 9.5 fl (6.2-12.0); Monocyte# 0.98 X10^3/uL; Monocyte% 8.7 % (0-10); NRBC Flagged by Analyzer 0 % (0-5); Neutrophil # 8.23 X10^3/uL (2.7-7.7); Neutrophil % 72.8 % (47-70); Platelet Count 310 K/mm3 (150-450); RBC Distribution Width CV 14.2 % (11.6-14.6); RBC Distribution Width SD 45.7 fl (35.1-43.9); Red Blood Count 4.81 M/mm3 (4.6-6.2); White Blood Count 11.3 K/mm3 (4.4-11.0)
--- OUTSIDE RECORDS SUMMARY | 2023-07-21 20:44 | XMS RPT_ITS | CCD ---
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 tablet by mouth before meals and at bedtime. 30min before meals. (Patient not taking: Reported on 06/13/2023) No current facility-administered medications for this visit. ALLERGIES No Known Allergies PAST SURGICAL HISTORY Procedure Laterality Date ANKLE SURGERY HX Left 2013 rupture posterior tibial tendon repaired APPENDECTOMY 1982 ESOPHAGOGASTRODUODENOSCOPY TRANSORAL DIAGNOSTIC EGD Physical Exam: OBJECTIVE (more content not included)... [facility] 06-13-2023 Note HNO ID: [id number] Author: Gill Beltran LPN Service: ? Author Type: LICENSED NURSE Type: Progress Notes Filed: 06/14/2023 7:53 AM Note Text: AMB ROOMING INTAKE FLOWSHEET DATA Risk Screening Do you have concerns about personal safety or safety in the home?: No Pain Pain Level: 10 Pain Location: Heel-Right Description: Throbbing Duration Amount of Time: 6 Duration Units: Months Frequency: Continuous Intervention/Comfort measure: Reposition, Relaxation, Medication Patient presents with: Right Foot - Established Patient, Follow Up, Pain, Numbness Gill Beltran LPN [facility] 05-24-2023 Miscellaneous Notes Patient calling Farhad Dockery increased his dose with his Humalog but the rx was cancelled at the pharmacy. Patient needs new rx sent to [facility] please. Pending rx to file. Please advise Patient has been identified by name and date of : Patient phones for refill(s): Requested Prescriptions Pending Prescriptions Disp Refills insulin lispro (HUMALOG KWIKPEN INSULIN) 100 unit/mL 5 Each 2 Sig: Inject 8 units three times daily before meals plus sliding scale (additional 2 units for every 50 points above glucose 150). Daily Max: 30 units Date of last office visit in primary care: 05/02/2023 Date of next office visit in primary care: Visit date not found Last 2 Encounter Wt Readings: Date: Wt: 05/02/2023 160.1 kg (353 lb) 02/03/2023 162.4 kg (358 lb) Previous labs/tests for medication: Diabetes: Hemoglobin A1C (%) Date Value 05/01/2023 8.5 08/15/2022 8.0 07/03/2021 9.4 12/31/2020 9.0 Please advise. Thank you. Bhargavi Katz LPN. documented in this encounter [facility] 05-02-2023 Note HNO ID: [id number] Author: Yogesh Dockery PA-C Service: ? Author Type: Physician Petroleum Engineering Professor Type: Progress Notes Filed: 05/02/2023 12:37 PM Note Text: 52 year old male with c/o med follow up over due 02/03/2023 visit hurt back loading a cart. Improved since last visit with zanaflex. Says he is going to the bathroom every 20-30 minutes. Only drinks coffee once per week. Drinks a lot of water, 28 oz powerade bottle Good and steady stream, no dribbling Essential Hypertension Current meds: Lisinopril 20 mg daily Patient is compliant with meds No Monitors bp at home: No. If yes, readings: Denies side effects: No. Chest pain: No. Dyspnea: No. Edema: No. Palpitations: No. Syncope: No. Headache: No. Dizziness: No. Last 3 Encounter BP Readings: Date: BP: 03/01/2022 124/78 12/01/2021 131/75 10/26/2021 118/62 Last 2 Encounter Wt Readings: Date: Wt: 03/01/2022 152.9 kg (337 lb) 12/01/2021 154.7 kg (341 lb) Hyperlipidemia, mixed Low hdl (under 40) Hyperlipidemia: Current medication Atorvastatin 20mg daily Taking medication consistently Yes Observing low cholesterol high fiber diet No Muscle aches No Stomach complaints/ diarrhea No Last 2 Lipids: Component Latest Ref Rng AND Units 07/03/2021 08/15/2022 05/01/2023 Cholesterol, Total <200 mg/dL 136 116 111 Triglyceride <150 mg/dL 119 92 114 HDL Cholesterol >39 mg/dL 44 49 41 LDL Cholesterol <100 mg/dL 68 49 47 Non HDL Cholesterol <130 mg/dL 92 67 70 Fasting Time hrs 14 13 3 VLDL Cholesterol <30 mg/dL 24 18 23 TC:HDL Ratio <5.10 3.09 2.37 2.71 LDL:HDL Ratio <2.54 1.55 1.00 1.15 Obstructive sleep apnea syndrome Mild intermittent asthma without complication 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 Interval history: none. Current medications: BPAP Worsening shortness of breath: No. Cough: No. Wheezing: No. Smoking: No. Compliant with medications: n/a. Using rescue inhaler: none. 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 Metformin 4 tablets daily with breakfast Metoclopramide 10 mg 30 min before meals and at bedtime: just as needed- 1/3 months. Taking medication as directed consistently? Yes Medical Issues / Complications: hypertension, hyperlipidemia, peripheral neuropathy and gastroparesis Still having stomach aches: not too bad most of the time No real changes in diet, not as hungry on trulicity. Checking blood sugars at home? before dinner at 7pm = 232, 260, 281 254. Fasting 121, 80 last night Seeing Starr saunders phaitzel, from notes: Watching diet? No Physical Activity: Regular, walks miles at work constantly. No focused exercise Hypoglycemic spells? No Any visual disturbance? No Chest pain? No New numbness, tingling or loss of sensation? No change, chronic Any recent foot problems, sores or rashes? No Any recent or sudden weight loss? No Change in urination? No. If yes: nocturia at least 3 times, and a lot during the day Any recent illness? No Last eye exam: Got glasses in july Last foot exam: Completed today Most recent 05/01/23= 8.5 Hemoglobin A1C (%) Date Value 08/15/2022 8.0 10/20/2021 7.0 07/03/2021 9.4 12/31/2020 9.0 Last 2 Encounter Wt Readings: Date: Wt: 03/01/2022 152.9 kg (337 lb) 12/01/2021 154.7 kg (341 lb) Reaction, adjustment, with depressed mood, prolonged Current medications: Bupropion XL 300 mg daily Mood about the same, dysthymic. Always depressed Worse due to grief and loss of money. Sleeping a lot better off 3rd shift, now on 2nd shift. Obesity, class iii, bmi >= 40 Vitals 12/01/2021 03/01/2022 03/01/2022 08/15/2022 WEIGHT in POUNDS 341 lb 337 lb 361 lb WEIGHT in KILOGRAMS 154.677 kg 152.862 kg 163.749 kg GERD Current medication: Omeprazole 20mg OTC 2 tabs daily AC. Current symptoms: every now and then some heartburn. Last Mg level if on PPI chronically:12/31/2020 = 2.0 WNL . Heartburn is controlled: Yes. Dysphagia: No. Bloody or black stools: No. Bowel changes: none Venous insufficiency Hasn't changed Has scarring on both legs from cellulitis with right worse than left. Doesn't wear compression stockings HISTORIES FAMILY HISTORY Problem Relation Age of Onset Diabetes Mother Heart Mother HEART DISEASE Hypertension Mother Psychiatry Mother depressed Obesity Mother Obesity Father None Father Allergies Father (more content not included)... [facility] 05-02-2023 History of Presen t illness Narrative 52 year old male with c/o med follow up over due 02/03/2023 visit hurt back loading a cart. Improved since last visit with zanaflex. Says he is going to the bathroom every 20-30 minutes. Only drinks coffee once per week. Drinks a lot of water, 28 oz powerade bottle Good and steady stream, no dribbling Essential Hypertension Current meds: Lisinopril 20 mg daily Patient is compliant with meds No Monitors bp at home: No. If yes, readings: Denies side effects: No. Chest pain: No. Dyspnea: No. Edema: No. Palpitations: No. Syncope: No. Headache: No. Dizziness: No. Last 3 Encounter BP Readings: Date: BP: 03/01/2022 124/78 12/01/2021 131/75 10/26/2021 118/62 Last 2 Encounter Wt Readings: Date: Wt: 03/01/2022 152.9 kg (337 lb) 12/01/2021 154.7 kg (341 lb) Hyperlipidemia, mixed Low hdl (under 40) Hyperlipidemia: Current medication Atorvastatin 20mg daily Taking medication consistently Yes Observing low cholesterol high fiber diet No Muscle aches No Stomach complaints/ diarrhea No Last 2 Lipids: Component Latest Ref Rng & Units 07/03/2021 08/15/2022 05/01/2023 Cholesterol, Total <200 mg/dL 136 116 111 Triglyceride <150 mg/dL 119 92 114 HDL Cholesterol >39 mg/dL 44 49 41 LDL Cholesterol <100 mg/dL 68 49 47 Non HDL Cholesterol <130 mg/dL 92 67 70 Fasting Time hrs 14 13 3 VLDL Cholesterol <30 mg/dL 24 18 23 TC:HDL Ratio <5.10 3.09 2.37 2.71 LDL:HDL Ratio <2.54 1.55 1.00 1.15 Obstructive sleep apnea syndrome Mild intermittent asthma without complication 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 Interval history: none. Current medications: BPAP Worsening shortness of breath: No. Cough: No. Wheezing: No. Smoking: No. Compliant with medications: n/a. Using rescue inhaler: none. 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 Metformin 4 tablets daily with breakfast Metoclopramide 10 mg 30 min before meals and at bedtime: just as needed- 1/3 months. Taking medication as directed consistently? Yes Medical Issues / Complications: hypertension, hyperlipidemia, peripheral neuropathy and gastroparesis Still having stomach aches: not too bad most of the time No real changes in diet, not as hungry on trulicity. Checking blood sugars at home? before dinner at 7pm = 232, 260, 281 254. Fasting 121, 80 last night Seeing Starr Carlos chip phamaracist, from notes: Watching diet? No Physical Activity: Regular, walks miles at work constantly. No focused exercise Hypoglycemic spells? No Any visual disturbance? No Chest pain? No New numbness, tingling or loss of sensation? No change, chronic Any recent foot problems, sores or rashes? No Any recent or sudden weight loss? No Change in urination? No. If yes: nocturia at least 3 times, and a lot during the day Any recent illness? No Last eye exam: Got glasses in july Last foot exam: Completed today Most recent 05/01/23= 8.5 Hemoglobin A1C (%) Date Value 08/15/2022 8.0 10/20/2021 7.0 07/03/2021 9.4 12/31/2020 9.0 Last 2 Encounter Wt Readings: Date: Wt: 03/01/2022 152.9 kg (337 lb) 12/01/2021 154.7 kg (341 lb) Reaction, adjustment, with depressed mood, prolonged Current medications: Bupropion XL 300 mg daily Mood about the same, dysthymic. Always depressed Worse due to grief and loss of money. Sleeping a lot better off 3rd shift, now on 2nd shift. Obesity, class iii, bmi >= 40 Vitals 12/01/2021 03/01/2022 03/01/2022 08/15/2022 WEIGHT in POUNDS 341 lb 337 lb 361 lb WEIGHT in KILOGRAMS 154.677 kg 152.862 kg 163.749 kg GERD Current medication: Omeprazole 20mg OTC 2 tabs daily AC. Current symptoms: every now and then some heartburn. Last Mg level if on PPI chronically:12/31/2020 = 2.0 WNL . Heartburn is controlled: Yes. Dysphagia: No. Bloody or black stools: No. Bowel changes: none Venous insufficiency Hasn't changed Has scarring on both legs from cellulitis with right worse than left. Doesn't wear compression stockings HISTORIES FAMILY HISTORY Problem Relation Age of Onset Diabetes Mother Heart Mother HEART DISEASE Hypertension Mother Psychiatry Mother depressed Obesity Mother Obesity Father None Father Allergies Father Diabetes Father Hypertension Father Stroke Father Psychiatry Father depression None Sister Diabetes Sister other (Other) Sister growth in lung, lots of lung problems, pneumonia Diabetes Brother Psychiatry Brother depression Cancer Maternal Aunt Stomache Breast Cancer Paternal Aunt Cancer Paternal Uncle Bone PAST MEDICAL HISTORY Diagnosis Date Acute nonsuppurative otitis media, unspecified 03/07/2007 Cataract right eye, surgery 2009 [facility] Colles' fracture 08/03/20052007 left Closed fracture of navicular (scaphoid) bone of wrist 01/18/05 Wrist fracture-left distal radius Depression in past, was on effexor but stopped years ago. Diabetes mellitus Esophagitis, unspecified ESOPHAGITIS Hyperlipidemia borderline Measles Mild intermittent asthma uses albuterl rarely Mumps PAD (peripheral artery disease) ([facility]) 05/17/2011 05/17/11 [facility] did arterial US right: right PT pulse triphasic with index 1.16, left PT also triphasic with index 1.13 and 1.09, reviewed by RVinny Mariebul surg who felt no treatment necessary. Peptic ulcer, unspecified site, unspecified as acute or chronic, without mention of hemorrhage, perforation, or obstruction Peptic ulcer disease per EGD maybe 2006 Sleep apnea 01/18/2012 [employer] BiPAP 20 cm H2O IPAP/14 cm H2O EPAP Follows with Dr. Stevens Tobacco use disorder 06/01/2007 Quit 2009 chew Traumatic pneumothorax 01/15/2008 Ran over by cow, broke 4 ribs, lung collapsed, unconscious. No chest tube. Was sent to [facility]. No sequellae Unspecified essential hypertension Essential hypertension: controlled without medication PAST SURGICAL HISTORY Procedure Laterality Date ANKLE SURGERY HX Left 2014 rupture posterior tibial tendon repaired APPENDECTOMY 1982 ESOPHAGOGASTRODUODENOSCOPY TRANSORAL DIAGNOSTIC EGD Social History Tobacco Use Smoking status: Never Smokeless tobacco: Former Types: Chew Quit date: 11/15/2009 Substance Use Topics Alcohol use: No Drug use: No ACTIVE PROBLEM LIST Obesity, Unspecified Infective Otitis Externa, Unspecified Elevated Blood Pressure Reading Without Diagnosis of Hypertension Sleep Apnea Controlled Type 2 Diabetes Mellitus With Both Eyes Affected By Moderate Nonproliferative Retinopathy and Macular Edema, Without Long-Term Current Use of Insulin (Hcc) Mild Intermittent Asthma Cataract Microalbuminuria Low Hdl (Under 40) Reaction, Adjustment, With Depressed Mood, Prolonged Obesity, Class III, BMI >= 40 Hyperlipidemia, Mixed Venous Insufficiency Diabetic Gastroparesis (Hcc) Essential Hypertension Current Outpatient Medications Medication Sig Dispense Refill CPAP/BIPAP/OTHER Type .CPAPSettings into a note to see current settings/supplies/DME information. 1 Each 0 lisinopril (ZESTRIL) 20 mg tablet Take 1 tablet by mouth once daily. 90 tablet 1 atorvastatin (LIPITOR) 20 mg tablet Take 1 tablet by mouth daily at bedtime. For cholesterol. 90 tablet 1 buPROPion XL (WELLBUTRIN XL) 300 mg 24 hr tablet Take 1 tablet by mouth once daily. 90 tablet 1 omeprazole (PRILOSEC) 20 mg capsule Take 2 capsules by mouth daily before breakfast. 1/2 hr before meal. 180 capsule 1 metFORMIN ER (GLUCOPHAGE XR) 500 mg 24 hr tablet Take 4 tablets by mouth daily with breakfast. 360 tablet 1 Omeprazole Magnesium (PRILOSEC OTC) 20 mg tablet Take 2 tablets by mouth daily before breakfast. 1/2 hr before meal. 180 tablet 1 dapagliflozin propanediol (FARXIGA) 10 mg tablet Take 1 tablet by mouth daily with breakfast. 90 tablet 3 nabumetone (RELAFEN) 750 mg tablet Take 1 tablet by mouth once daily. 30 tablet 1 tiZANidine (ZANAFLEX) 4 mg tablet Take 1 tablet by mouth every 8 hours as needed (muscle spasms). 30 tablet 0 Lancets lancets Check blood sugar 4 times daily. Diagnosis E11.3313, insulin: yes 200 Each 3 blood sugar diagnostic (BLOOD GLUCOSE TEST) test strip Test blood sugar(s) 4 times daily. Dx: Other DM Code E11.3313 Insulin: Yes 200 Strip 11 insulin glargine (LANTUS SOLOSTAR U-100 INSULIN) 100 unit/mL (3 mL) Inject 61 Units subcutaneously twice daily. 10 Each 5 insulin lispro (HUMALOG KWIKPEN INSULIN) 100 unit/mL Inject 6 units three times daily before meals plus sliding scale (additional 2 units for every 50 points above glucose 150). Daily Max: 30 units 5 Each 2 dulaglutide (TRULICITY) 4.5 mg/0.5 mL pen injector Inject 4.5 mg subcutaneously one time a week. 12 Each 3 polyethylene glycol 3350 (MIRALAX) 17 gram/dose powder (ONE SCOOP) IN 8 OZ OF WATER DAILY UNTIL STOOLS ARE REGULAR UP TO TWO(2) WEEKS 225 g 5 metoclopramide HCl (REGLAN) 10 mg tablet Take 1 tablet by mouth before meals and at bedtime. 30min before meals. 120 tablet 5 Insulin [facility], Disposable, 32 gauge x 5/16 ndle Use one needle per dose. 5 doses per day 200 Each 5 No current facility-administered medications for this visit. Hepatitis B Vaccine(1 of 3 - 3-dose series) Never done Spirometry Never done HIV Screening Never done BP Controlled (<130/80) Never done Colorectal Cancer Screening Never done Diabetic Foot Exam due on 07/23/2022 HbA1C due on 11/15/2022 Influenza Vaccine(1) due on 02/10/2023 Covid-19 Vaccine( season) due on 02/10/2023 EXAM: BP 132/70 Pulse 86 Temp 36.6 C (97.8 F) (Left Tympanic) Resp 22 Wt (!) 160.1 kg (353 lb) SpO2 96% BMI 49.23 kg/m Pleasant obese male in no acute distress. Alert and oriented all spheres. Normal affect and cognition. Speech normal. No deficits to learning or comprehension. Skin warm, dry, pink to lips and nailbeds. Normal turgor. Respirations regular and unlabored. Extrem: no clubbing or cyanosis. Extremities are warm and pink with prompt capillary refill. HEENT: NCAT. No scleral icterus or conjunctival injection. TM's have scarring bilaterally. Nose and oropharynx free from injection or lesion. Oral membranes moist and pink. No cervical lymph nodes. Thyroid non-tender, no masses, or enlargement. Carotids pulses 2+/4+ without bruits. No JVD with HOB at 30 degrees. Chest is normal shape. Lungs are clear to all cheema with good air exchange through out. HRRR without murmur or gallop. No lifts, heaves, or rubs. Extrem: no clubbing, cyanosis, edema. Distal pulses 2+/4, prompt capillary refill. Feet:Shoes and socks removed, No deformities, ulcers, calluses, and normal distal pulses. Toenails are long and right great toe has onychomycosis. Interdigital regions of toes has a white substance bilaterally. ASSESSMENT/PLAN: 1. Essential hypertension - ICD9: 401.9, ICD10: I10 (primary diagnosis) - Controlled - Recommend home blood pressure monitoring, to bring results to next visit - Encouraged sodium restriction, DASH or Mediterranean diet - Recommend regular aerobic exercise - CBC - COMP METABOLIC PANEL 2. Hyperlipidemia, mixed - ICD9: 272.2, ICD10: E78.2 - Controlled - Continue current medications - Counseled on healthy diet and regular exercise - COMP METABOLIC PANEL - LIPID PANEL BASIC 3. Obstructive sleep apnea syndrome - ICD9: 327.23, ICD10: G47.33 - Compliant with BIPAP 4. 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) - ICD9: 250.50, 362.05, 362.07, ICD10: E11.3313 - Continue current medications - INSULIN LISPRO (U100) 100 UNIT/ML SUBCUTANEOUS PEN - CBC - COMP METABOLIC PANEL - LIPID PANEL BASIC - HGB A1C 5. Reaction, adjustment, with depressed mood, prolonged - ICD9: 309.1, ICD10: F43.21 - Stable - Continue bupropion 300 mg XL PO once daily 6. Class 3 severe obesity due to excess calories with serious comorbidity and body mass index (BMI) of 45.0 to 49.9 in adult ([facility]) - ICD9: 278.01, V85.42, ICD10: E66.01, Z68.42 Weight increasing - Behavioral intervention and - Pharmacological intervention 7. Encounter for immunization - ICD9: V03.89, ICD10: Z23 - [facility] COVID-19 VACCINE (2022- [place]) AGE 12+ YR 8. Incomplete emptying of bladder - ICD9: 788.21, ICD10: R33.9 - US PELVIS BLADDER - UA DIP, URINE (POC) 9. Tinea pedis of both feet - ICD9: 110.4, ICD10: B35.3 - Treat with Nizoral twice a day until rash resolves and then another week 10. Long toenail - ICD9: 703.8, ICD10: L60.2 - CONSULT TO PODIATRY 11. Lumbar sprain, initial encounter - ICD9: 847.2, ICD10: S33.5XXA Lumbosacral sprain - Ice for localized tenderness - Warm moist heat for 20 min three times a day - NSAIDS- see orders - Muscle relaxant- see orders - TIZANIDINE 4 MG TABLET 12. Tympanosclerosis of both ears - ICD9: 385.00, ICD10: H74.03 - CONSULT TO ENT 13. Tinnitus of both ears - ICD9: 388.30, ICD10: H93.13 - CONSULT TO ENT 14. Urinary frequency - ICD9: 788.41, ICD10: R35.0 recurrent - US PELVIS BLADDER - UA DIP, URINE (POC) Yogesh Dockery PA-C documented in this encounter [facility] 05-02-2023 Miscellaneous Notes Patient is on his way to appointment with Farhad jiménez discuss then. Monica Sawyer RN Call placed to patient with no answer and mailbox not set up. Will have to try again later. Monica Sawyer RN Increase insulin Lispro coverage to 8u for meals and then continue coverage as is. Check blood sugars fasting a.m. and 2h after evening meal x 3 days and report results to office by phone or MyChart. The following approved medication requests have been transmitted electronically. Requested Prescriptions Signed Prescriptions Disp Refills insulin lispro (HUMALOG KWIKPEN INSULIN) 100 unit/mL 5 Each 2 Sig: Inject 8 units three times daily before meals plus sliding scale (additional 2 units for every 50 points above glucose 150). Daily Max: 30 units Authorizing Provider: Yogesh DOCKERY PA-C documented in this encounter [facility] 03-02-2023 Miscellaneous Notes Spoke with pt and information listed below given. Pt verbalizes understanding. Pt will get fasting lab work done. Pt also plans to keep apt for tomorrow. Dominga Beltrán LPN Please tell him he has to complete outstanding lab this week, has been over a year since kidney functions have been checked. The following approved medication requests have been transmitted electronically. Requested Prescriptions Signed Prescriptions Disp Refills lisinopril (ZESTRIL) 20 mg tablet 90 tablet 1 Sig: Take 1 tablet by mouth once daily. Authorizing Provider: Yogesh DOCKERY atorvastatin (LIPITOR) 20 mg tablet 90 tablet 1 Sig: Take 1 tablet by mouth daily at bedtime. For cholesterol. Authorizing Provider: Yogesh DOCKERY buPROPion XL (WELLBUTRIN XL) 300 mg 24 hr tablet 90 tablet 1 Sig: Take 1 tablet by mouth once daily. Authorizing Provider: Yogesh DOCKERY PA-C Patient has been identified by name and date of : Yes Requested Prescriptions Pending Prescriptions Disp Refills lisinopril (ZESTRIL) 20 mg tablet 90 tablet 1 Sig: Take 1 tablet by mouth once daily. atorvastatin (LIPITOR) 20 mg tablet 90 tablet 1 Sig: Take 1 tablet by mouth daily at bedtime. For cholesterol. buPROPion XL (WELLBUTRIN XL) 300 mg 24 hr tablet 90 tablet 1 Sig: Take 1 tablet by mouth once daily. RX INSTRUCTIONS: Patient aware RX will be sent to pharmacy. No need to notify patient. Addie Florence LPN documented in this encounter [facility] 02-16-2023 Miscellaneous Notes The following approved medication requests have been transmitted electronically. Requested Prescriptions Signed Prescriptions Disp Refills omeprazole (PRILOSEC) 20 mg capsule 180 capsule 1 Sig: Take 2 capsules by mouth daily before breakfast. 1/2 hr before meal. Authorizing Provider: Yogesh DOCKERY PA-C Printed denial and it states coverage is provided when the member has a history of least 30 days two preferred -omeprazole capsules -lansoprazole capsules -pantoprazole capsules Please change and [facility], patient was notified and aware Susy Coats Ma Received denial from insurance for Omeprazole due to being OTC. PA# [id number]. No alternatives given. Tried to inform patient but no answer and no VM set-up to leave message. Cherelle Chicas Prior Authorization has been completed online at [employer] for omeprazole, will await response. [id number] Please keep encounter open until final decision has been received and documented from insurance company. Susy Coats MA documented in this encounter [facility] 02-03-2023 Note HNO ID: [id number] Author: Yogesh Dockery PA-C Service: ? 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 [place] lower back muscle pull. Describes as sudden onset, continuous since occurrence Taking Aristeo's pills, Bath and Body, Aleve,Tylenol without much help. Tried Icy Hot patches but didn't stay on during sleep. Limited to right lower back, no radiation, no new numbness, tingling, loss of strength or LE weakness. Missed last appointment. Lab orders were removed by system. HISTORIES FAMILY HISTORY Problem Relation Age of Onset Diabetes Mother Heart Mother HEART DISEASE Hypertension Mother Psychiatry Mother depressed Obesity Mother Obesity Father None Father Allergies Father Diabetes Father Hypertension Father Stroke Father Psychiatry Father depression None Sister Diabetes Sister other (Other) Sister growth in lung, lots of lung problems, pneumonia Diabetes Brother Psychiatry Brother depression Cancer Maternal Aunt Stomache Breast Cancer Paternal Aunt Cancer Paternal Uncle Bone PAST MEDICAL HISTORY Diagnosis Date Acute nonsuppurative otitis media, unspecified 03/07/2007 Cataract right eye, surgery 2009 [facility] Colles' fracture 08/03/20052007 left Closed fracture of navicular (scaphoid) bone of wrist 01/18/05 Wrist fracture-left distal radius Depression in past, was on effexor but stopped years ago. Diabetes mellitus Esophagitis, unspecified ESOPHAGITIS Hyperlipidemia borderline Measles Mild intermittent asthma uses albuterl rarely Mumps PAD (peripheral artery disease) ([facility]) 05/17/2011 05/17/11 [facility] did arterial US right: right PT pulse triphasic with index 1.16, left PT also triphasic with index 1.13 and 1.09, reviewed by Itzel Hamilton surg who felt no treatment necessary. Peptic ulcer, unspecified site, unspecified as acute or chronic, without mention of hemorrhage, perforation, or obstruction Peptic ulcer disease per EGD maybe 2006 Sleep apnea 01/18/2012 [employer] BiPAP 20 cm H2O IPAP/14 cm H2O EPAP Follows with Dr. Stevens Tobacco use disorder 06/01/2007 Quit 2009 chew Traumatic pneumothorax 01/15/2008 Ran over by cow, broke 4 ribs, lung collapsed, unconscious. No chest tube. Was sent to [facility]. No sequellae Unspecified essential hypertension Essential hypertension: controlled without medication PAST SURGICAL HISTORY Procedure Laterality Date ANKLE SURGERY HX Left 2014 rupture posterior tibial tendon repaired APPENDECTOMY 1983 ESOPHAGOGASTRODUODENOSCOPY TRANSORAL DIAGNOSTIC EGD Social History Tobacco Use Smoking status: Never Smokeless tobacco: Former Types: Chew Quit date: 11/15/2009 Substance Use Topics Alcohol use: No Drug use: No ACTIVE PROBLEM LIST Obesity, Unspecified Infective Otitis Externa, Unspecified Elevated Blood Pressure Reading Without Diagnosis of Hypertension Sleep Apnea 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 Diagnosis E11.3313, insulin: yes 200 Each 3 blood sugar diagnostic (BLOOD GLUCOSE TEST) test strip Test blood sugar(s) 4 times daily. Dx: Other DM Code E11.3313 Insulin: Yes 200 Strip 11 insulin glargine (LANTUS SOLOSTAR U-100 INSULIN) 100 unit/mL (3 mL) Inject 61 Units subcutaneously twice daily. 10 Each 5 lisinopril (ZESTRIL, PRINIVIL) 20 mg tablet Take 1 tablet by mouth once daily. 90 tablet 1 atorvastatin (LIPITOR) 20 mg tablet Take 1 tablet by mouth daily at bedtime. For cholesterol. 90 tablet 1 buPROPion XL (WELLBUTRIN XL) 300 mg 24 hr tablet Take 1 tablet by mouth once daily. 90 tablet 1 insulin lispro (HUMALOG KWIKPEN INSULIN) 100 unit/mL Inject 6 units three times daily before meals plus sliding scale (additional 2 units for every 50 points above glucose 150). Daily Max: 30 units 5 Each 2 metFORMIN ER (GLUCOPHAGE XR) 500 mg 24 hr tablet Take 4 tablets by mouth daily with breakfast. 360 tablet 1 Omeprazole Magnesium (PRILOSEC OTC) 20 mg tablet Take 2 tablets by mouth daily before breakfast. 1/2 hr before meal. 180 tablet 3 dapagliflozin (FARXIGA) 10 mg tablet Take 1 tablet by mouth daily with breakfast. 90 tablet 3 dulaglutide (TRULICITY) 4.5 mg/0.5 mL pen injector Inject 4.5 mg subcutaneously one time a week. 12 Each 3 polyethylene glycol 3350 (more content not included)... [facility] 02-03-2023 Instructions Yogesh Dockery PA-C - 02/03/2023 11:21 AM EDT See instructions for exercise. Consider PT if not improving. Zanaflex is a muscle relaxer which can cause drowsiness and may be habit forming if used regularly for extended periods. You should not drink alcohol, drive, or operate dangerous machinery while taking this medication. 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 [place] lower back muscle pull. Describes as sudden onset, continuous since occurrence Taking Aristeo's pills, Bath and Body, Aleve,Tylenol without much help. Tried Icy Hot patches but didn't stay on during sleep. Limited to right lower back, no radiation, no new numbness, tingling, loss of strength or LE weakness. Missed last appointment. Lab orders were removed by system. HISTORIES FAMILY HISTORY Problem Relation Age of Onset Diabetes Mother Heart Mother HEART DISEASE Hypertension Mother Psychiatry Mother depressed Obesity Mother Obesity Father None Father Allergies Father Diabetes Father Hypertension Father Stroke Father Psychiatry Father depression None Sister Diabetes Sister other (Other) Sister growth in lung, lots of lung problems, pneumonia Diabetes Brother Psychiatry Brother depression Cancer Maternal Aunt Stomache Breast Cancer Paternal Aunt Cancer Paternal Uncle Bone PAST MEDICAL HISTORY Diagnosis Date Acute nonsuppurative otitis media, unspecified 03/07/2007 Cataract right eye, surgery 2009 [facility] Colles' fracture 08/03/20052007 left Closed fracture of navicular (scaphoid) bone of wrist 01/18/05 Wrist fracture-left distal radius Depression in past, was on effexor but stopped years ago. Diabetes mellitus Esophagitis, unspecified ESOPHAGITIS Hyperlipidemia borderline Measles Mild intermittent asthma uses albuterl rarely Mumps PAD (peripheral artery disease) ([facility]) 05/17/2011 05/17/11 [facility] did arterial US right: right PT pulse triphasic with index 1.16, left PT also triphasic with index 1.13 and 1.09, reviewed by Itzel Hamilton surg who felt no treatment necessary. Peptic ulcer, unspecified site, unspecified as acute or chronic, without mention of hemorrhage, perforation, or obstruction Peptic ulcer disease per EGD maybe 2006 Sleep apnea 01/18/2012 [employer] BiPAP 20 cm H2O IPAP/14 cm H2O EPAP Follows with Dr. Sibilia Tobacco use disorder 06/01/2007 Quit 2009 chew Traumatic pneumothorax 01/15/2008 Ran over by cow, broke 4 ribs, lung collapsed, unconscious. No chest tube. Was sent to [facility]. No sequellae Unspecified essential hypertension Essential hypertension: controlled without medication PAST SURGICAL HISTORY Procedure Laterality Date ANKLE SURGERY HX Left 2014 rupture posterior tibial tendon repaired APPENDECTOMY 1982 ESOPHAGOGASTRODUODENOSCOPY TRANSORAL DIAGNOSTIC EGD Social History Tobacco Use Smoking status: Never Smokeless tobacco: Former Types: Chew Quit date: 11/15/2009 Substance Use Topics Alcohol use: No Drug use: No ACTIVE PROBLEM LIST Obesity, Unspecified Infective Otitis Externa, Unspecified Elevated Blood Pressure Reading Without Diagnosis of Hypertension Sleep Apnea 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 Diagnosis E11.3313, insulin: yes 200 Each 3 blood sugar diagnostic (BLOOD GLUCOSE TEST) test strip Test blood sugar(s) 4 times daily. Dx: Other DM Code E11.3313 Insulin: Yes 200 Strip 11 insulin glargine (LANTUS SOLOSTAR U-100 INSULIN) 100 unit/mL (3 mL) Inject 61 Units subcutaneously twice daily. 10 Each 5 lisinopril (ZESTRIL, PRINIVIL) 20 mg tablet Take 1 tablet by mouth once daily. 90 tablet 1 atorvastatin (LIPITOR) 20 mg tablet Take 1 tablet by mouth daily at bedtime. For cholesterol. 90 tablet 1 buPROPion XL (WELLBUTRIN XL) 300 mg 24 hr tablet Take 1 tablet by mouth once daily. 90 tablet 1 insulin lispro (HUMALOG KWIKPEN INSULIN) 100 unit/mL Inject 6 units three times daily before meals plus sliding scale (additional 2 units for every 50 points above glucose 150). Daily Max: 30 units 5 Each 2 metFORMIN ER (GLUCOPHAGE XR) 500 mg 24 hr tablet Take 4 tablets by mouth daily with breakfast. 360 tablet 1 Omeprazole Magnesium (PRILOSEC OTC) 20 mg tablet Take 2 tablets by mouth daily before breakfast. 1/2 hr before meal. 180 tablet 3 dapagliflozin (FARXIGA) 10 mg tablet Take 1 tablet by mouth daily with breakfast. 90 tablet 3 dulaglutide (TRULICITY) 4.5 mg/0.5 mL pen injector Inject 4.5 mg subcutaneously one time a week. 12 Each 3 polyethylene glycol 3350 (MIRALAX) 17 gram/dose powder (ONE SCOOP) IN 8 OZ OF WATER DAILY UNTIL STOOLS ARE REGULAR UP TO TWO(2) WEEKS 225 g 5 metoclopramide HCl (REGLAN) 10 mg tablet Take 1 tablet by mouth before meals and at bedtime. 30min before meals. 120 tablet 5 Insulin [place] [facility], Disposable, 32 gauge x 5/16 ndle Use one needle per dose. 5 doses per day 200 Each 5 No current facility-administered medications for this visit. HEPATITIS B(1 of 3 - 3-dose series) Never done SPIROMETRY Never done HIV SCREENING Never done BP CONTROLLED (<130/80) Never done COLORECTAL CANCER SCREENING Never done COVID-19 VACCINE(4 - BONDS.COM series) due on 07/09/2021 DEPRESSION ASSESSMENT Never done DIABETIC FOOT EXAM due on 07/23/2022 HBA1C due on 11/15/2022 EXAM: BP 134/70 Pulse 90 Resp 20 Wt (!) 162.4 kg (358 lb) SpO2 97% BMI 49.93 kg/m Pleasant morbidly obese adult man in no acute distress. Alert and oriented all spheres. Normal affect and cognition. Speech normal. No deficits to learning or comprehension. Skin warm, dry, pink to lips and nailbeds. Normal turgor. Respirations regular and unlabored. Chest is normal shape. Lungs are clear to all cheema with good air exchange through out. HRRR without murmur or gallop. No lifts, heaves, or rubs. Flattened lumbar curve, mild dorsal kyphosis. Tender right paravertebral trigger points. Extrem: no clubbing or cyanosis. Edema: 1/4+ lower calves. Extremities are warm and pink with prompt capillary refill. Motor 5/5+ lower, DTRs 1-2/4+ knee jerk, Achilles. Distracted SLR negative. Myofascial release to lumbar trigger points with improvement. ASSESSMENT/PLAN: 1. 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 Diabetic gastroparesis ([facility]) - ICD9: 250.60, 536.3, ICD10: E11.43, K31.84 - Controlled - Continue current medications - HGB A1C 3. Essential hypertension - ICD9: 401.9, ICD10: I10 - Controlled - Continue current medications - Recommend home blood pressure monitoring, to bring results to next visit - Encouraged sodium restriction, DASH or Mediterranean diet - Recommend regular aerobic exercise 4. Hyperlipidemia, mixed - ICD9: 272.2, ICD10: E78.2 - Control undetermined, due for labs - Continue current medications - Counseled on healthy diet and regular exercise - COMP METABOLIC PANEL - LIPID PANEL BASIC 5. Low HDL (under 40) - ICD9: 272.5, ICD10: E78.6 - Control undetermined, due for labs - Continue current medications - Counseled on healthy diet and regular exercise - LIPID PANEL BASIC 6. Class 3 severe obesity due to excess calories without serious comorbidity with body mass index (BMI) of 45.0 to 49.9 in adult ([facility]) - ICD9: 278.01, V85.42, ICD10: E66.01, Z68.42 Weight increasing 7. Gastro-esophageal reflux disease without esophagitis - ICD9: 530.81, ICD10: K21.9 - OMEPRAZOLE MAGNESIUM 20 MG TABLET,DELAYED RELEASE - COMP METABOLIC PANEL 8. Lumbar sprain, initial encounter - ICD9: 847.2, ICD10: S33.5XXA Lumbosacral sprain - Ice for localized tenderness - Warm moist heat for 20 min three times a day - NSAIDS- see orders - Muscle relaxant- see orders - PT consult: consider if not improving. - NABUMETONE 750 MG TABLET - TIZANIDINE 4 MG TABLET F/u 4 weeks Yogesh Dockery PA-C documented in this encounter [facility] 08-29-2022 Miscellaneous Notes Fax received from [employer] appeal was denied and farxiga is not covered. Does not look like any other SGLT2 inhibitors are covered with [employer] Susy Coats Ma Writing an appeal and faxed Susy Coats Ma Electronic PA completed for farxiga. This was denied. Denied 08/16/2022 10:52 AM Appeal supported: No Note from payer: Denied request. A notification with additional details has been faxed to your office. Payer: [facility] documented in this encounter [facility] 08-29-2022 Miscellaneous Notes Luciano faxed response that no Pa is needed for trulicity Will fax to [facility] and patient notified Susy Coats Ma Prior Authorization has been completed online at [employer] for Trulicity, will await response. [id number] Please keep encounter open until final decision has been received and documented from insurance company. Susy Coats MA Pt calls to report he received a letter from [employer] stating they will not cover Trulicity. Pt reports he will drop the letter off at the dr's office. PRIOR AUTHORIZATION Medication for Prior Authorization: Trulicity Other formulary meds available : NO-unknown Insurance Company: [employer] phone number: Patient insurance ID number: [id number] Floresllow STUDENT RECORDS COORDINATOR documented in this encounter [facility] 08-25-2022 Note HNO ID: [id number] Author: Noemi Stevenson OD Service: ? Author Type: INSURANCE UNDERWRITER SALES Type: Progress Notes Filed: 08/25/2022 9:40 AM Note Text: (Z96.1) Pseudophakia (primary encounter diagnosis) (H26.491) Right posterior capsular opacification (E11.9) Type 2 diabetes mellitus without retinopathy (HCC) Finalized spec rx Follow-up in 1 year or sooner as needed Noemi Stevenson, [place] August 25, 2022 9:39 AM [facility] 08-25-2022 History of Presen t illness Narrative (Z96.1) Pseudophakia (primary encounter diagnosis) (H26.491) Right posterior capsular opacification (E11.9) Type 2 diabetes mellitus without retinopathy (HCC) Finalized spec rx Follow-up in 1 year or sooner as needed Noemi Stevenson, [place] August 25, 2022 9:39 AM documented in this encounter [facility] 08-24-2022 Miscellaneous Notes Spoke with patient he is not requesting any special glucometer. Pharmacy gave him lancets. Call to pharmacy and insurance only pays for one meter One Touch Verio meter. 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 Pt called and he spoke with [facility] and they are telling him Joi needs more information regarding blood glucose machine. No other information was given to pt. Please contact [facility]. Dominga Beltrán LPN documented in this encounter [facility] 08-19-2022 Note HNO ID: [id number] Author: Debbi Hebert APRN.SENIOR DEVOPS ENGINEER Service: ? Author Type: Nurse Practitioner Type: Progress Notes Filed: 08/19/2022 7:55 PM Note Text: Subjective HPI Shekhar Pittman is a morbidly obese 52 year old male who presents with elevated blood sugar readings. Was 527 at home this evening, 327 at home this morning. His regimen: metformin, lantus 61 units BID and sliding scale Humalong 10 units if over 200 and 6 units with meals. He states he has been having more urinary frequency than normal. Denies fever, chills, cough, congestion. Review of Systems Constitutional: Negative for chills and fever. HENT: Negative for congestion. Respiratory: Negative for cough. Cardiovascular: Negative for chest pain. Genitourinary: Positive for frequency. Negative for dysuria and hematuria. BP 152/98 Pulse 94 Temp 36.7 ?C (98.1 ?F) Resp 20 Wt (!) 162.9 kg (359 lb 3.2 oz) SpO2 95% BMI 50.10 kg/m? PAST MEDICAL HISTORY Diagnosis Date Acute nonsuppurative otitis media, unspecified 03/07/2007 Cataract right eye, surgery 2009 [facility] Colles' fracture 08/03/20052007 left Closed fracture of navicular (scaphoid) bone of wrist 01/18/05 Wrist fracture-left distal radius Depression in past, was on effexor but stopped years ago. Diabetes mellitus Esophagitis, unspecified ESOPHAGITIS Hyperlipidemia borderline Measles Mild intermittent asthma uses albuterl rarely Mumps PAD (peripheral artery disease) ([facility]) 05/17/2011 05/17/11 [facility] did arterial US right: right PT pulse triphasic with index 1.16, left PT also triphasic with index 1.13 and 1.09, reviewed by [facility] surg who felt no treatment necessary. Peptic ulcer, unspecified site, unspecified as acute or chronic, without mention of hemorrhage, perforation, or obstruction Peptic ulcer disease per EGD maybe 2006 Sleep apnea 01/18/2012 [employer] BiPAP 20 cm H2O IPAP/14 cm H2O EPAP Follows with Dr. Stevens Tobacco use disorder 06/01/2007 Quit 2009 chew Traumatic pneumothorax 01/15/2008 Ran over by cow, broke 4 ribs, lung collapsed, unconscious. No chest tube. Was sent to [facility]. No sequellae Unspecified essential hypertension Essential hypertension: controlled without medication PAST SURGICAL HISTORY Procedure Laterality Date ANKLE SURGERY HX Left 2014 rupture posterior tibial tendon repaired APPENDECTOMY 1982 ESOPHAGOGASTRODUODENOSCOPY TRANSORAL DIAGNOSTIC EGD ALLERGIES Patient has no known allergies. MEDICATIONS insulin glargine (LANTUS SOLOSTAR U-100 INSULIN) 100 unit/mL (3 mL) Inject 61 Units subcutaneously twice daily. lisinopril (ZESTRIL, PRINIVIL) 20 mg tablet Take 1 tablet by mouth once daily. atorvastatin (LIPITOR) 20 mg tablet Take 1 tablet by mouth daily at bedtime. For cholesterol. buPROPion XL (WELLBUTRIN XL) 300 mg 24 hr tablet Take 1 tablet by mouth once daily. insulin lispro (HUMALOG KWIKPEN INSULIN) 100 unit/mL Inject 6 units three times daily before meals plus sliding scale (additional 2 units for every 50 points above glucose 150). Daily Max: 30 units metFORMIN ER (GLUCOPHAGE XR) 500 mg 24 hr tablet Take 4 tablets by mouth daily with breakfast. Omeprazole Magnesium (PRILOSEC OTC) 20 mg tablet Take 2 tablets by mouth daily before breakfast. 1/2 hr before meal. dapagliflozin (FARXIGA) 10 mg tablet Take 1 tablet by mouth daily with breakfast. dulaglutide (TRULICITY) 4.5 mg/0.5 mL pen injector Inject 4.5 mg subcutaneously one time a week. polyethylene glycol 3350 (MIRALAX) 17 gram/dose powder (ONE SCOOP) IN 8 OZ OF WATER DAILY UNTIL STOOLS ARE REGULAR UP TO TWO(2) WEEKS metoclopramide HCl (REGLAN) 10 mg tablet Take 1 tablet by mouth before meals and at bedtime. 30min before meals. Insulin [facility], Disposable, 32 gauge x 5/16 ndle Use one needle per dose. 5 doses per day Lancets lancets Check blood sugar 4 times daily diagnosis: e11.65, insulin: yes FAMILY HISTORY Problem Relation Age of Onset Diabetes Mother Heart Mother HEART DISEASE Hypertension Mother Psychiatry Mother depressed Obesity Mother Obesity Father None Father Allergies Father Diabetes Father Hypertension Father Stroke Father Psychiatry Father depression None Sister Diabetes Sister other (Other) Sister growth in lung, lots of lung problems, pneumonia Diabetes Brother Psychiatry Brother depression Cancer Maternal Aunt Stomache Breast Cancer Paternal Aunt Cancer Paternal Uncle Bone Social History Tobacco Use Smoking status: Never Smokeless tobacco: Former Types: Chew Quit date: 11/15/2009 Substance Use Topics Alcohol use: No Drug use: No Objective Physical Exam Vitals and nursing note reviewed. Constitutional: Appearance: He is obese. HENT: Right Ear: Tympanic membrane, ear canal and external ear normal. Left Ear: Tympanic membrane, ear canal and external ear normal. Mouth/Throat: Mouth: Mucous membra (more content not included)... [facility] 08-19-2022 Instructions Debbi Hebert APRN.SENIOR DEVOPS ENGINEER - 08/19/2022 7:55 PM EST ASSESSMENT/PLAN: 1. Elevated blood sugar - ICD9: 790.29, ICD10: R73.9 (primary diagnosis) - GLUCOSE, BLOOD (POC)- 368 in office. - increase fluid intake, follow sliding scale, if rises above 400 ER for IV fluids. - call PCP on Monday for further instructions. 2. Urinary frequency - ICD9: 788.41, ICD10: R35.0 acute - UA normal in office today - UA DIP, URINE (POC) - Follow-up with your PCP in 3-5 days if symptoms have not improved or sooner if symptoms worsen - Discussed red flags and need for immediate medical evaluation if any occur. - Discussed supportive care treatment with fluids, rest and analgesia. - Discussed expected course of illness Debbi Hebert APRN.SENIOR DEVOPS ENGINEER documented in this encounter [facility] 08-19-2022 History of Presen t illness Narrative Subjective HPI Shekhar Pittman is a morbidly obese 52 year old male who presents with elevated blood sugar readings. Was 527 at home this evening, 327 at home this morning. His regimen: metformin, lantus 61 units BID and sliding scale Humalong 10 units if over 200 and 6 units with meals. He states he has been having more urinary frequency than normal. Denies fever, chills, cough, congestion. Review of Systems Constitutional: Negative for chills and fever. HENT: Negative for congestion. Respiratory: Negative for cough. Cardiovascular: Negative for chest pain. Genitourinary: Positive for frequency. Negative for dysuria and hematuria. BP 152/98 Pulse 94 Temp 36.7 C (98.1 F) Resp 20 Wt (!) 162.9 kg (359 lb 3.2 oz) SpO2 95% BMI 50.10 kg/m PAST MEDICAL HISTORY Diagnosis Date Acute nonsuppurative otitis media, unspecified 03/07/2007 Cataract right eye, surgery 2010 [facility] Colles' fracture 08/03/20052007 left Closed fracture of navicular (scaphoid) bone of wrist 01/18/05 Wrist fracture-left distal radius Depression in past, was on effexor but stopped years ago. Diabetes mellitus Esophagitis, unspecified ESOPHAGITIS Hyperlipidemia borderline Measles Mild intermittent asthma uses albuterl rarely Mumps PAD (peripheral artery disease) ([facility]) 05/17/2011 05/17/11 [facility] did arterial US right: right PT pulse triphasic with index 1.16, left PT also triphasic with index 1.13 and 1.09, reviewed by [facility] surg who felt no treatment necessary. Peptic ulcer, unspecified site, unspecified as acute or chronic, without mention of hemorrhage, perforation, or obstruction Peptic ulcer disease per EGD maybe 2006 Sleep apnea 01/18/2012 [employer]co BiPAP 20 cm H2O IPAP/14 cm H2O EPAP Follows with Dr. Stevens Tobacco use disorder 06/01/2007 Quit 2009 chew Traumatic pneumothorax 01/15/2008 Ran over by cow, broke 4 ribs, lung collapsed, unconscious. No chest tube. Was sent to [facility]. No sequellae Unspecified essential hypertension Essential hypertension: controlled without medication PAST SURGICAL HISTORY Procedure Laterality Date ANKLE SURGERY HX Left 2013 rupture posterior tibial tendon repaired APPENDECTOMY 1982 ESOPHAGOGASTRODUODENOSCOPY TRANSORAL DIAGNOSTIC EGD ALLERGIES Patient has no known allergies. MEDICATIONS insulin glargine (LANTUS SOLOSTAR U-100 INSULIN) 100 unit/mL (3 mL) Inject 61 Units subcutaneously twice daily. lisinopril (ZESTRIL, PRINIVIL) 20 mg tablet Take 1 tablet by mouth once daily. atorvastatin (LIPITOR) 20 mg tablet Take 1 tablet by mouth daily at bedtime. For cholesterol. buPROPion XL (WELLBUTRIN XL) 300 mg 24 hr tablet Take 1 tablet by mouth once daily. insulin lispro (HUMALOG KWIKPEN INSULIN) 100 unit/mL Inject 6 units three times daily before meals plus sliding scale (additional 2 units for every 50 points above glucose 150). Daily Max: 30 units metFORMIN ER (GLUCOPHAGE XR) 500 mg 24 hr tablet Take 4 tablets by mouth daily with breakfast. Omeprazole Magnesium (PRILOSEC OTC) 20 mg tablet Take 2 tablets by mouth daily before breakfast. 1/2 hr before meal. dapagliflozin (FARXIGA) 10 mg tablet Take 1 tablet by mouth daily with breakfast. dulaglutide (TRULICITY) 4.5 mg/0.5 mL pen injector Inject 4.5 mg subcutaneously one time a week. polyethylene glycol 3350 (MIRALAX) 17 gram/dose powder (ONE SCOOP) IN 8 OZ OF WATER DAILY UNTIL STOOLS ARE REGULAR UP TO TWO(2) WEEKS metoclopramide HCl (REGLAN) 10 mg tablet Take 1 tablet by mouth before meals and at bedtime. 30min before meals. Insulin [facility], Disposable, 32 gauge x 5/16 ndle Use one needle per dose. 5 doses per day Lancets lancets Check blood sugar 4 times daily diagnosis: e11.65, insulin: yes FAMILY HISTORY Problem Relation Age of Onset Diabetes Mother Heart Mother HEART DISEASE Hypertension Mother Psychiatry Mother depressed Obesity Mother Obesity Father None Father Allergies Father Diabetes Father Hypertension Father Stroke Father Psychiatry Father depression None Sister Diabetes Sister other (Other) Sister growth in lung, lots of lung problems, pneumonia Diabetes Brother Psychiatry Brother depression Cancer Maternal Aunt Stomache Breast Cancer Paternal Aunt Cancer Paternal Uncle Bone Social History Tobacco Use Smoking status: Never Smokeless tobacco: Former Types: Chew Quit date: 11/15/2009 Substance Use Topics Alcohol use: No Drug use: No Objective Physical Exam Vitals and nursing note reviewed. Constitutional: Appearance: He is obese. HENT: Right Ear: Tympanic membrane, ear canal and external ear normal. Left Ear: Tympanic membrane, ear canal and external ear normal. Mouth/Throat: Mouth: Mucous membranes are moist. Pharynx: Oropharynx is clear. No oropharyngeal exudate or posterior oropharyngeal erythema. Cardiovascular: Rate and Rhythm: Normal rate. Pulmonary: Effort: Pulmonary effort is normal. Skin: General: Skin is warm and dry. Findings: No erythema or rash. Neurological: Mental Status: He is alert. ASSESSMENT/PLAN: 1. Elevated blood sugar - ICD9: 790.29, ICD10: R73.9 (primary diagnosis) - GLUCOSE, BLOOD (POC)- 368 in office. - increase fluid intake, follow sliding scale, if rises above 400 ER for IV fluids. - call PCP on Monday for further instructions. 2. Urinary frequency - ICD9: 788.41, ICD10: R35.0 acute - UA normal in office today - UA DIP, URINE (POC) - Follow-up with your PCP in 3-5 days if symptoms have not improved or sooner if symptoms worsen - Discussed red flags and need for immediate medical evaluation if any occur. - Discussed supportive care treatment with fluids, rest and analgesia. - Discussed expected course of illness Debbi Hebert APRN.SENIOR DEVOPS ENGINEER documented in this encounter [facility] 08-16-2022 Note HNO ID: [id number] Author: Mariana Pena MD Service: ? Author Type: Physician Type: Progress Notes Filed: 08/16/2022 2:21 PM Note Text: Assessment and Plan 1. 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 Pseudophakia right eye 3. Right posterior capsular opacification -unclear reason for cataract surgery at such a young age -early visual significance of posterior capsular opacity (PCO) Plan: -Continue blood sugar and blood pressure control -Dr. Stevenson for refraction and continued care -me as needed if posterior capsular opacity (PCO) becomes more significant right eye I have confirmed and edited as necessary the relevant ophthalmic history, ROS, and the neuro exam findings as obtained by others. I have seen and examined Shekhar Pittman. I have discussed the case and the management of this patient's care with the Resident/Fellow, if applicable. I also have reviewed and agree with the assessment and plan as stated above and agree with all of its relevant components. Mariana Pena MD August 16, 2022 2:18 PM [facility] 08-16-2022 History of Presen t illness Narrative Assessment and Plan 1. 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 Pseudophakia right eye 3. Right posterior capsular opacification -unclear reason for cataract surgery at such a young age -early visual significance of posterior capsular opacity (PCO) Plan: -Continue blood sugar and blood pressure control -Dr. Stevenson for refraction and continued care -me as needed if posterior capsular opacity (PCO) becomes more significant right eye I have confirmed and edited as necessary the relevant ophthalmic history, ROS, and the neuro exam findings as obtained by others. I have seen and examined Shekhar Pittman. I have discussed the case and the management of this patient's care with the Resident/Fellow, if applicable. I also have reviewed and agree with the assessment and plan as stated above and agree with all of its relevant components. Mariana Pena MD August 16, 2022 2:18 PM documented in this encounter [facility] 08-15-2022 Note HNO ID: [id number] Author: Yogesh Dockery PA-C Service: ? Author Type: Physician Petroleum Engineering Professor Type: Progress Notes Filed: 08/15/2022 1:33 PM Note Text: 52 year old male with c/o here for follow up. Lost father March 18, 2022. 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 Having issues with jaw pain and muscle twitches/ tics Elevated blood pressure reading without diagnosis of hypertension Current meds: Lisinopril 20 mg daily Patient is compliant with meds No Monitors bp at home: No. If yes, readings: Denies side effects: No. Chest pain: No. Dyspnea: No. Edema: No. Palpitations: No. Syncope: No. Headache: No. Dizziness: No. Last 3 Encounter BP Readings: Date: BP: 03/01/2022 124/78 12/01/2021 131/75 10/26/2021 118/62 Last 2 Encounter Wt Readings: Date: Wt: 03/01/2022 152.9 kg (337 lb) 12/01/2021 154.7 kg (341 lb) Hyperlipidemia, mixed Low hdl (under 40) Hyperlipidemia: Current medication Atorvastatin 20mg daily Taking medication consistently Yes Observing low cholesterol high fiber diet No Muscle aches No Stomach complaints/ diarrhea No Last 2 Lipids: Component Latest Ref Rng AND Units 12/31/2020 07/03/2021 Cholesterol, Total <200 mg/dL 136 Triglyceride <150 mg/dL 119 HDL Cholesterol >39 mg/dL 44 LDL Cholesterol <100 mg/dL 68 Non HDL Cholesterol <130 mg/dL 92 Fasting Time hrs 14 VLDL Cholesterol <30 mg/dL 24 TC:HDL Ratio <5.10 3.09 LDL:HDL Ratio <2.54 1.55 Total Cholesterol, Nonfasting <200 mg/dL 123 Triglycerides, Nonfasting <150 mg/dL 96 HDL Cholesterol, Nonfasting >39 mg/dL 47 LDL Cholesterol, Nonfasting <100 mg/dL 57 Non HDL Cholesterol, Nonfasting <130 mg/dL 76 VLDL Cholesterol, Nonfasting <30 mg/dL 19 Total Chol/HDL Ratio, Nonfasting <5.10 mg/dL 2.62 LDL/HDL Ratio, Nonfasting <2.54 mg/dL 1.21 Obstructive sleep apnea syndrome Mild intermittent asthma without complication 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 Interval history: none. Current medications: none Worsening shortness of breath: No. Cough: No. Wheezing: No. Smoking: No. Compliant with medications: n/a. Using rescue inhaler: none. Hyperlipidemia, mixed Low hdl (under 40) Current medication Atorvastatin 20 mg daily at bedtime Taking medication consistently Yes Observing low cholesterol high fiber diet some Muscle aches No Stomach complaints/ diarrhea No Component Latest Ref Rng AND Units 12/31/2020 07/03/2021 Cholesterol, Total <200 mg/dL 136 Triglyceride <150 mg/dL 119 HDL Cholesterol >39 mg/dL 44 LDL Cholesterol <100 mg/dL 68 Non HDL Cholesterol <130 mg/dL 92 Fasting Time hrs 14 VLDL Cholesterol <30 mg/dL 24 TC:HDL Ratio <5.10 3.09 LDL:HDL Ratio <2.54 1.55 Total Cholesterol, Nonfasting <200 mg/dL 123 Triglycerides, Nonfasting <150 mg/dL 96 HDL Cholesterol, Nonfasting >39 mg/dL 47 LDL Cholesterol, Nonfasting <100 mg/dL 57 Non HDL Cholesterol, Nonfasting <130 mg/dL 76 VLDL Cholesterol, Nonfasting <30 mg/dL 19 Total Chol/HDL Ratio, Nonfasting <5.10 mg/dL 2.62 LDL/HDL Ratio, Nonfasting <2.54 mg/dL 1.21 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 Metformin 4 tablets daily with breakfast Metoclopramide 10 mg 30 min before meals and at bedtime: just as needed- once in last three months. Taking medication as directed consistently? Yes Medical Issues / Complications: hypertension, hyperlipidemia, peripheral neuropathy and gastroparesis Still having stomach aches: not too bad most of the time No real changes in diet, not as hungry on trulicity. Checking blood sugars at home? Monday 112 prior to lunch, 223 this morning. Highest 326 a week ago, felt bad Seeing Starr saunders phamaracist, from notes: Watching diet? No Physical Activity: Regular Hypoglycemic spells? No Any visual disturbance? No Chest pain? No New numbness, tingling or loss of sensation? No change, chronic Any recent foot problems, sores or rashes? No Any recent or sudden weight loss? No Change in urination? No. If yes: nocturia 1-2 Any recent illness? No Last eye exam: up to date. Last foot exam: up to date. Hemoglobin A1C (%) Date Value 10/20/2021 7.0 07/03/2021 9.4 12/31/2020 9.0 ) Last 2 Encounter Wt Readings: Date: Wt: 03/01/2022 152.9 kg (337 lb) 12/01/2021 154.7 kg (341 lb) Reaction, adjustment, with depressed mood, prolonged Current medications: Bupropion XL (more content not included)... [facility] 05-24-2022 Miscellaneous Notes Pt calling for refill. States he hasn't had lantus since last 05/19/22. JACK: 03/01/22 NOV: None scheduled Last Refill: 09/16/21 #10 pens 5 refills Mily Bhardwaj LPN documented in this encounter [facility] 05-12-2022 Miscellaneous Notes Patient last visit with PCP 10/26/21 Follow up appointment scheduled none Susy Coats Ma Patient has been identified by name and date of : Yes Patient phones for refill(s): Requested Prescriptions Pending Prescriptions Disp Refills lisinopril (ZESTRIL, PRINIVIL) 20 mg tablet 90 tablet 1 Sig: Take 1 tablet by mouth once daily. atorvastatin (LIPITOR) 20 mg tablet 90 tablet 1 Sig: Take 1 tablet by mouth daily at bedtime. For cholesterol. Date of last office visit in primary care: 03/01/22 Last 2 Encounter Wt Readings: Date: Wt: 03/01/2022 152.9 kg (337 lb) 12/01/2021 154.7 kg (341 lb) Previous labs/tests for medication: Not applicable Please advise. Thank you. Mary Beth Ingram documented in this encounter [facility] 03-23-2022 Miscellaneous Notes Patient has been identified by name and date of : Yes Patient phones for refill(s): Requested Prescriptions Pending Prescriptions Disp Refills dulaglutide (TRULICITY) 4.5 mg/0.5 mL pen injector 4 Each 5 Sig: Inject 4.5 mg subcutaneously one time a week. Date of last office visit in primary care: 03/01/22, NOV: not scheduled Last 2 Encounter Wt Readings: Date: Wt: 03/01/2022 152.9 kg (337 lb) 12/01/2021 154.7 kg (341 lb) Previous labs/tests for medication: Diabetes: Hemoglobin A1C (%) Date Value 10/20/2021 7.0 07/03/2021 9.4 12/31/2020 9.0 Please advise. Thank you. Yessica Vo RN documented in this encounter [facility] 03-01-2022 History of Presen t illness Narrative Chief Complaint Patient presents with: Ear Problem: Right ear and jaw pain. Started last night HPI Shekhar Pittman is a 51 year old male who presents here today for Above Complaints.. Patient states he started noticing right jaw/ear pain last night after sleep. Woke up with the pain. He works 3rd shift at [employer]. Slight headache now. No fevers No sinus symptoms No popping. No cough. Past medical history, appointments, medications, allergies reviewed. Previous Medical History PAST MEDICAL HISTORY Diagnosis Date Acute nonsuppurative otitis media, unspecified 03/07/2007 Cataract right eye, surgery 2009 [facility] Colles' fracture 08/03/20052007 left Closed fracture of navicular (scaphoid) bone of wrist 01/18/05 Wrist fracture-left distal radius Depression in past, was on effexor but stopped years ago. Diabetes mellitus Esophagitis, unspecified ESOPHAGITIS Hyperlipidemia borderline Measles Mild intermittent asthma uses albuterl rarely Mumps PAD (peripheral artery disease) ([facility]) 05/17/2011 05/17/11 [facility] did arterial US right: right PT pulse triphasic with index 1.16, left PT also triphasic with index 1.13 and 1.09, reviewed by RVinny Mariebul surg who felt no treatment necessary. Peptic ulcer, unspecified site, unspecified as acute or chronic, without mention of hemorrhage, perforation, or obstruction Peptic ulcer disease per EGD maybe 2006 Sleep apnea 01/18/2012 [employer] BiPAP 20 cm H2O IPAP/14 cm H2O EPAP Follows with Dr. Stevens Tobacco use disorder 06/01/2007 Quit 2009 chew Traumatic pneumothorax 01/15/2008 Ran over by cow, broke 4 ribs, lung collapsed, unconscious. No chest tube. Was sent to [facility]. No sequellae Unspecified essential hypertension Essential hypertension: controlled without medication Previous Surgical History PAST SURGICAL HISTORY Procedure Laterality Date ANKLE SURGERY HX Left 2014 rupture posterior tibial tendon repaired APPENDECTOMY 1982 ESOPHAGOGASTRODUODENOSCOPY TRANSORAL DIAGNOSTIC EGD Family History FAMILY HISTORY Problem Relation Age of Onset Diabetes Mother Heart Mother HEART DISEASE Hypertension Mother Psychiatry Mother depressed Obesity Mother Obesity Father None Father Allergies Father Diabetes Father Hypertension Father Stroke Father Psychiatry Father depression None Sister Diabetes Sister other (Other) Sister growth in lung, lots of lung problems, pneumonia Diabetes Brother Psychiatry Brother depression Cancer Maternal Aunt Stomache Breast Cancer Paternal Aunt Cancer Paternal Uncle Bone Patient Allergies ALLERGIES No Known Allergies Current Medications Current Outpatient Medications on File Prior to Visit Medication Sig buPROPion XL (WELLBUTRIN XL) 300 mg 24 hr tablet Take 1 tablet by mouth once daily. metoclopramide HCl (REGLAN) 10 mg tablet Take 1 tablet by mouth before meals and at bedtime. 30min before meals. insulin lispro (HUMALOG KWIKPEN INSULIN) 100 unit/mL Inject 6 units three times daily before meals plus sliding scale (additional 2 units for every 50 points above glucose 150). Daily Max: 30 units dulaglutide (TRULICITY) 4.5 mg/0.5 mL pen injector Inject 4.5 mg subcutaneously one time a week. insulin glargine (LANTUS SOLOSTAR U-100 INSULIN) 100 unit/mL (3 mL) Inject 61 Units subcutaneously twice daily. dapagliflozin (FARXIGA) 10 mg tablet Take 1 tablet by mouth daily with breakfast. metFORMIN ER (GLUCOPHAGE XR) 500 mg 24 hr tablet Take 4 tablets by mouth daily with breakfast. atorvastatin (LIPITOR) 20 mg tablet Take 1 tablet by mouth daily at bedtime. For cholesterol. lisinopril (ZESTRIL, PRINIVIL) 20 mg tablet Take 1 tablet by mouth once daily. Omeprazole Magnesium (PRILOSEC OTC) 20 mg tablet Take 2 tablets by mouth daily before breakfast. 1/2 hr before meal. Insulin [facility], Disposable, 32 gauge x 5/16 ndle Use one needle per dose. 5 doses per day Lancets lancets Check blood sugar 4 times daily diagnosis: e11.65, insulin: yes COMPOUNDED PRESCRIPTION Knee high compression stockings 30-40mmHg 2 pairs: apply daily on waking. I87.2 Venous insufficiency No current facility-administered medications on file prior to visit. Social History Social History Tobacco Use Smoking status: Never Smokeless tobacco: Former Types: Chew Quit date: 11/15/2009 Substance Use Topics Alcohol use: No Drug use: No Review of Symptoms REVIEW OF SYSTEMS See hpi EXAM: BP 124/78 (BP Site: Left Arm, BP Position: Sitting, BP Cuff Size: Large Adult) Pulse 72 Temp 36.4 C (97.6 F) Resp 18 Wt (!) 152.9 kg (337 lb) BMI 47.00 kg/m General Appearance: Well appearing, alert, in no acute distress, well-hydrated, well nourished.. Ears: External ears normal, canals clear, TMs pearly zeng. Head: tender to palp of right TMJ with worsening symptoms when opening jaw. Health Maintenance List HEPATITIS B(1 of 3 - 3-dose series) Never done SPIROMETRY Never done BP CONTROLLED (<130/80) Never done PNEUMOCOCCAL(2 - PCV) due on 04/12/2012 INFLUENZA(1) due on 02/10/2022 COVID-19 VACCINE(4 - Booster for Pfizer series) due on 06/29/2022 COLORECTAL CANCER SCREENING due on 10/26/2022 HIV SCREENING due on 10/26/2022 SHINGRIX VACCINE(1 of 2) due on 10/26/2022 HBA1C due on 04/22/2022 URINE ALBUMIN:CREATININE RATIO due on 07/03/2022 LDL CHOLESTEROL due on 07/03/2022 DIABETIC FOOT EXAM due on 07/23/2022 DILATED RETINAL EXAM due on 07/31/2022 ANNUAL PCP TEAM CHRONIC DISEASE VISIT due on 10/26/2022 DEPRESSION SCREENING due on 10/26/2022 DTAP,TDAP,TD(3 - Td or Tdap) due on 11/19/2023 HEPATITIS C SCREENING Completed Data reviewed ASSESSMENT/PLAN: 1. TMJ dysfunction - ICD9: 524.60, ICD10: M26.609 Start naproxen BID If this continues, may need to consider seeing dentist Stephanie Yee PA-C documented in this encounter [facility] 02-21-2022 Miscellaneous Notes JACK 10/26/21 NOV no upcoming appt Patient has been identified by name and date of : Yes Requested Prescriptions Pending Prescriptions Disp Refills buPROPion XL (WELLBUTRIN XL) 300 mg 24 hr tablet 90 tablet 1 Sig: Take 1 tablet by mouth once daily. metoclopramide HCl (REGLAN) 10 mg tablet 120 tablet 5 Sig: Take 1 tablet by mouth before meals and at bedtime. 30min before meals. RX INSTRUCTIONS: Patient aware RX will be sent to pharmacy. No need to notify patient. Kelli Ramey Pss documented in this encounter [facility] 12-01-2021 History of Presen t illness Narrative HISTORY AND PHYSICAL Shekhar Pittman 1970 REFERRING PHYSICIAN: Yogesh Dockery PA-C CHIEF COMPLAINT: Consult (Colonoscopy) HPI: The patient is a 51 year old male referred for endoscopy. Edabigail notes no colon complaints. Patient denies any change in bowel habits, weight changes, blood in stools, black tarry stools or abdominal pain. Denies family history of colon issues. The patient notes occasional acid reflux. Shekhar has not undergone prior colonoscopy. Patient's past medical history is significant for diabetes, asthma, hyperlipidemia, obstructive sleep apnea, obesity, depression. He follows with Farhad Dockery PA-C in primary care for his chronic medical conditions. Patient denies chest pain, shortness of breath or recent hospitalizations. Denies problems with sedation in the past. PAST MEDICAL HISTORY Diagnosis Date Acute nonsuppurative otitis media, unspecified 03/07/2007 Cataract right eye, surgery 2009 [facility] Colles' fracture 08/03/20052007 left Closed fracture of navicular (scaphoid) bone of wrist 01/18/05 Wrist fracture-left distal radius Depression in past, was on effexor but stopped years ago. Diabetes mellitus Esophagitis, unspecified ESOPHAGITIS Hyperlipidemia borderline Measles Mild intermittent asthma uses albuterl rarely Mumps PAD (peripheral artery disease) ([facility]) 05/17/2011 05/17/11 [facility] did arterial US right: right PT pulse triphasic with index 1.16, left PT also triphasic with index 1.13 and 1.09, reviewed by RVinny Mariebul surg who felt no treatment necessary. Peptic ulcer, unspecified site, unspecified as acute or chronic, without mention of hemorrhage, perforation, or obstruction Peptic ulcer disease per EGD maybe 2006 Sleep apnea 01/18/2012 [employer] BiPAP 20 cm H2O IPAP/14 cm H2O EPAP Follows with Dr. Stevens Tobacco use disorder 06/01/2007 Quit 2009 chew Traumatic pneumothorax 01/15/2008 Ran over by cow, broke 4 ribs, lung collapsed, unconscious. No chest tube. Was sent to [facility]. No sequellae Unspecified essential hypertension Essential hypertension: controlled without medication PAST SURGICAL HISTORY Procedure Laterality Date ANKLE SURGERY HX Left 2014 rupture posterior tibial tendon repaired APPENDECTOMY 1982 ESOPHAGOGASTRODUODENOSCOPY TRANSORAL DIAGNOSTIC EGD Current Outpatient Medications Medication Sig insulin lispro (HUMALOG KWIKPEN INSULIN) 100 unit/mL Inject 6 units three times daily before meals plus sliding scale (additional 2 units for every 50 points above glucose 150). Daily Max: 30 units dulaglutide (TRULICITY) 4.5 mg/0.5 mL pen injector Inject 4.5 mg subcutaneously one time a week. insulin glargine (LANTUS SOLOSTAR U-100 INSULIN) 100 unit/mL (3 mL) Inject 61 Units subcutaneously twice daily. dapagliflozin (FARXIGA) 10 mg tablet Take 1 tablet by mouth daily with breakfast. metFORMIN ER (GLUCOPHAGE XR) 500 mg 24 hr tablet Take 4 tablets by mouth daily with breakfast. metoclopramide HCl (REGLAN) 10 mg tablet Take 1 tablet by mouth before meals and at bedtime. 30min before meals. atorvastatin (LIPITOR) 20 mg tablet Take 1 tablet by mouth daily at bedtime. For cholesterol. lisinopril (ZESTRIL, PRINIVIL) 20 mg tablet Take 1 tablet by mouth once daily. buPROPion XL (WELLBUTRIN XL) 300 mg 24 hr tablet Take 1 tablet by mouth once daily. Omeprazole Magnesium (PRILOSEC OTC) 20 mg tablet Take 2 tablets by mouth daily before breakfast. 1/2 hr before meal. Insulin [facility], Disposable, 32 gauge x 5/16 ndle Use one needle per dose. 5 doses per day COMPOUNDED PRESCRIPTION Knee high compression stockings 30-40mmHg 2 pairs: apply daily on waking. I87.2 Venous insufficiency Lancets lancets Check blood sugar 4 times daily diagnosis: e11.65, insulin: yes No current facility-administered medications for this visit. ALLERGIES: Patient has no known allergies. PERSONAL HISTORY: Social History Tobacco Use Smoking status: Never Smoker Smokeless tobacco: Former User Types: Chew Substance Use Topics Alcohol use: No Drug use: No FAMILY HISTORY: FAMILY HISTORY Problem Relation Age of Onset Diabetes Mother Heart Mother HEART DISEASE Hypertension Mother Psychiatry Mother depressed Obesity Mother Obesity Father None Father Allergies Father Diabetes Father Hypertension Father Stroke Father Psychiatry Father depression None Sister Diabetes Sister other (Other) Sister growth in lung, lots of lung problems, pneumonia Diabetes Brother Psychiatry Brother depression Cancer Maternal Aunt Stomache Breast Cancer Paternal Aunt Cancer Paternal Uncle Bone REVIEW OF SYMPTOMS: The review of systems data was entered by the nurse and reviewed by nj Nursing Notes: Kristy Carrasco 12/01/2021 8:06 AM Signed REVIEW OF SYSTEMS: General: The patient denies fatigue, denies weight loss, denies weight gain, denies feeling hot, and denies feelings of cold. Eyes: The patient denies glaucoma, denies eye injury/surgery, does not wear glasses or contacts. Ear/Nose/Throat: The patient denies allergies, denies hayfever, denies ear infections, and denies bloody noses. Cardiovascular: The patient denies chest pain, denies heart disease, NOTES high blood pressure,denies cardiac stent, denies prior heart attack, denies irregular heart beat, NOTES high cholesterol, denies poor circulation, denies heart failure, other cardiac issues, denies claudication, denies cold feet, denies peripheral arterial stent. Respiratory: The patient denies tuberculosis, denies pneumonia, denies frequent cough, denies pulmonary embolism, denies shortness of breath, and denies coughing up blood. Gastrointestinal: The patient denies difficulty swallowing, NOTES acid reflux, denies ulcers, denies vomiting, denies jaundice/hepatitis, denies gallbladder problems, denies black or tarry stools, denies hemorrhoids, denies bleeding from rectum, denies diverticulitis, denies constipation, denies diarrhea, denies loss of stool control, and denies hernias. Kidney/Bladder: The patient denies kidney stones, denies urine infections, and denies bloody urine. Skin: The patient denies a history of skin cancer, denies bleeding/changing moles, and denies a history of skin rash. Neurologic: The patient denies a history of epilepsy/convulsions, NOTES headaches, denies head/spinal injuries, and denies stroke/TIA. Psychiatric: The patient denies psychiatric medications, NOTES depression, and denies voices, denies substance abuse. Endocrine: The patient denies thyroid disorders, NOTES diabetes, and denies hormonal problems. Hematologic: The patient NOTES a history of bruising, NOTES bleeding, and denies anemia, denies blood clots. Infections: The patient NOTES a history of measles and mumps, denies rheumatic fever, and denies sexually transmitted diseases. Musculoskeletal: The patient denies back pain/injury, denies back problems, denies sciatica, denies knee/foot trouble, NOTES arthritis, or denies gout. When was patient's last Mammogram screening? N/A Last Colonoscopy: Unknown Kristy Carrasco I have confirmed and edited as necessary, the PFSH and ROS obtained by others. Tara Wills PA-C PHYSICAL EXAMINATION: General: The patient is 51 year old male, well nourished, well hydrated in no acute distress. The patient is oriented to time, place, and person. VITALS: Blood pressure 131/75, pulse 104, temperature (!) 35.9 C (96.6 F), height 180.3 cm (5' 11 ), weight (!) 154.7 kg (341 lb), SpO2 95 %. Body mass index is 47.56 kg/m . HEENT: Normal cephalic, ataumatic, pupils are equally round, sclera are anicteric, mucous membranes are moist, oropharynx is clear. Neck has no masses, asymmetry or lymphadenopathy. Respiratory: Clear to auscultation and percussion. Normal respiratory excursion and pattern. Cardiac: Examination is regular rate and rhythm. Normal S1/S2 Abdominal exam: Soft, nontender, with no palpable masses. No hepatosplenomegaly. No palpable hernias. Extremities: no clubbing, cyanosis or edema. No adenopathy. LABORATORY VALUES: As Noted RADIOLOGIC STUDIES: As Noted Assessment IMPRESSION: encounter for screening colonoscopy PLAN: I have reviewed my findings with the surgeon. Will plan for lower endoscopy. We discussed the risks and benefits of the planned endoscopy. I have informed the patient that complications can occur including failure to complete the endoscopy and perforation. The patient had the opportunity to ask questions concerning the planned endoscopy. My staff has also explained the procedure to the patient in understandable terms and has given the patient printed material concerning the procedure. The patient freely consents to surgery. The patient was offered a surgery/procedure at a [facility] facility. I have counseled the patient regarding the risk of exposure to and/or potential harm posed by the COVID-19 virus with having a surgery/procedure at this time versus the risk of delaying the surgery/procedure. It is not possible to know either the risk of delaying the surgery or procedure or chance of getting an infection with perfect accuracy, but a joint decision was made between the patient and myself to proceed at this time with endoscopy. I plan to use Golytely bowel preparation Patient instructed to contact PCP for instructions regarding diabetic medication, which may require adjustment during bowel preparation and/or day of procedure We will plan for Monitored Anesthetic Care. Diagnoses: (Z12.11) Screening for colon cancer Consultation requested by Farhad Dockery PA-C for an opinion regarding colonoscopy. My final recommendations will be communicated back to the requesting physician by way of shared Medical record or letter to requesting physician via US mail. Tara Wills PA-C documented in this encounter [facility] 12-01-2021 Nurse Note REVIEW OF SYSTEMS: General: The patient denies fatigue, denies weight loss, denies weight gain, denies feeling hot, and denies feelings of cold. Eyes: The patient denies glaucoma, denies eye injury/surgery, does not wear glasses or contacts. Ear/Nose/Throat: The patient denies allergies, denies hayfever, denies ear infections, and denies bloody noses. Cardiovascular: The patient denies chest pain, denies heart disease, NOTES high blood pressure,denies cardiac stent, denies prior heart attack, denies irregular heart beat, NOTES high cholesterol, denies poor circulation, denies heart failure, other cardiac issues, denies claudication, denies cold feet, denies peripheral arterial stent. Respiratory: The patient denies tuberculosis, denies pneumonia, denies frequent cough, denies pulmonary embolism, denies shortness of breath, and denies coughing up blood. Gastrointestinal: The patient denies difficulty swallowing, NOTES acid reflux, denies ulcers, denies vomiting, denies jaundice/hepatitis, denies gallbladder problems, denies black or tarry stools, denies hemorrhoids, denies bleeding from rectum, denies diverticulitis, denies constipation, denies diarrhea, denies loss of stool control, and denies hernias. Kidney/Bladder: The patient denies kidney stones, denies urine infections, and denies bloody urine. Skin: The patient denies a history of skin cancer, denies bleeding/changing moles, and denies a history of skin rash. Neurologic: The patient denies a history of epilepsy/convulsions, NOTES headaches, denies head/spinal injuries, and denies stroke/TIA. Psychiatric: The patient denies psychiatric medications, NOTES depression, and denies voices, denies substance abuse. Endocrine: The patient denies thyroid disorders, NOTES diabetes, and denies hormonal problems. Hematologic: The patient NOTES a history of bruising, NOTES bleeding, and denies anemia, denies blood clots. Infections: The patient NOTES a history of measles and mumps, denies rheumatic fever, and denies sexually transmitted diseases. Musculoskeletal: The patient denies back pain/injury, denies back problems, denies sciatica, denies knee/foot trouble, NOTES arthritis, or denies gout. When was patient's last Mammogram screening? N/A Last Colonoscopy: Unknown Kristy Carrasco documented in this encounter [facility] 11-09-2021 Instructions Kori Looney - 11/09/2021 8:57 AM EDT Images from the original note were not included. What is Plantar Fasciitis? Plantar fasciitis is the most common cause of heel pain. The pain is caused by inflammation of the plantar fascia. If you strain your plantar fascia, it becomes weak, swollen and irritated (inflamed). The resulting pain may be isolated in the heel or may appear at different points on the bottom of the foot, from time to time; it may occur in one foot or both. Some think that plantar fasciitis pain is caused by irritation of nerves from tissue swelling or inflammation, but it is debatable. Plantar fasciitis is common in middle-aged people; it also occurs in younger people who are on their feet a lot, such as athletes or soldiers. The plantar fascia is a strong band of connective tissue that extends from the base of the toes, along the bottom of the foot, to the bottom of the heel (calcaneous bone); it acts like a bowstring to maintain the arch of the foot. What are heel spurs? The inflammatory reaction of the heel bone may produce spike-like projections of new bone, called heel spurs. The spurs sometimes show on X-rays. They neither cause the initial pain nor do they cause the initial problem. However, later, having to walk on spurs may cause sharp pain. What causes plantar fasciitis? Plantar fasciitis is caused by straining the ligament that supports your arch. Repeated strain can cause tiny tears in the ligament. These lead to pain and swelling. During walking, the plantar fascia experiences tension up to twice the body weight with each step. While this is normal, those who spend much time on their feet, such as nurses, crepe box tender/waiters, and mail carriers, often experience plantar fasciitis. Athletes involved in tennis or other racquet sports, race walking, jogging or running also show a higher incidence of plantar fasciitis than do those participating in other activities. Thus, it's clear that plantar fasciitis is predominantly an overuse injury. In fact, any activity that results in prolonged tension and stress on the plantar fascia may cause plantar fasciitis. It is possible that changes in footwear may play a role in causing plantar fasciitis, no matter what activity is occurring. Those who are overweight are prone to plantar fasciitis. This is true even for sedentary people who get little physical activity. Abnormalities of the foot and ankle joints may predispose some individuals to development of plantar fasciitis (specifically, over pronation of the subtalar joint). Contributing Factors * Flat feet * Toe running, hill running * Sudden weight increase * High-arched, rigid feet * Soft terrain, e.g. running on sand * Obesity * Pronated feet (rolled inward) * Sudden increase in activity * Family tendency * Poor shoe support * Worn out or poorly fitted shoes * Increasing age * Walking, standing or running for long periods of time, especially on hard surfaces. How is the Injury Treated? Rest Your Feet: Limit, or if possible, stop activities that are causing your heel pain. Try to avoid running or walking on hard surfaces, such as concrete. Use pain as your guide. If your foot is too painful, rest it. Ice: Ice the sore area for 30 to 60 minutes, several times a day, to reduce inflammation and relieve pain. Apply a plastic bag of crushed ice (or a bag of frozen peas) over a towel. Ice the sore area for 15 minutes after activity/exercise. Application of heat is not generally recommended, as heat expands the bone and connective tissue, perhaps exerting greater pressure on nerves and thereby increasing pain. If heat is used, follow it with ice. Medication: If your condition developed recently, anti-inflammatory/analgesic medication, combined with heel pads (see below) may be all that is necessary to relieve pain and to reduce inflammation. If no pain relief has occurred after 2-3 weeks, however, your doctor may inject either cortisone or local anesthetic directly into the tender area. Exercises: Do simple exercises, such as calf stretches and towel stretches (see below) several times a day, especially when you first get up in the morning. These can help your ligament become more flexible and strengthen the muscles that support your arch. Shoes: Poorly fitting shoes can cause plantar fasciitis. The best type of shoe to wear is a good walking or running shoe with good shock absorption and excellent arch support. You should choose the one that fits the best. [place] with your athletic shoes to find a pair that is comfortable and causes fewer symptoms. Put your shoes on as soon as you get out of bed; going barefoot or wearing slippers may make your pain worse. Good brands include (but are not limited to): New Balance, Asics, Saucony, SAS and Merrel s. Taping: Your doctor may tape your foot to maintain the arch. This takes some of the tension off the plantar fascia. Weight Loss: If your weight is putting extra stress on your feet, your doctor may encourage you to try a weight-loss program. Orthotics: An orthotic insole is a molded piece of rubber, plastic, or other material that you insert into your shoe. It corrects the alignment of your foot and cushions your foot from excessive pounding. These may be prescription or non-prescription. Prescription orthotics are custom-fitted and may fit better and control pain better, but are very expensive. Night Splints: A night splint holds the foot with the toes pointed up and the ankle at a 90-degree angle. This position applies a constant, gentle stretch to the plantar fascia. Corticosteroid Shots: Steroids may be injected into the tender area to reduce inflammation. REHAB Exercises to stretch the plantar fascia, the calf muscles, and the Achilles tendon. Tightness of the muscles of the calves may contribute to plantar fasciitis, so stretching the calf muscles is important to rehabilitation, as is stretching of the plantar fascia itself. Plantar fascial stretches Assisted Dorsiflexion/Plantar Fascia Stretch: Sit on the floor or ground, barefoot, with both legs outstretched. Use a towel or elastic band and wrap it around the ball (and not the toes) of the affected foot. Use the towel or elastic band to provide resistance to upward movement of the forefoot. Pull foot upward (toward your body) with the help of the elastic band or towel, and then return to the starting position. Ten repetitions are recommended. Perform the sequence at least three times a day. Alternate Plantar Fascia Stretch: Sit upright in a chair, barefoot. Place the ankle of the affected foot on your opposite knee. Using the same hand as the affected foot, reach across and grab the toes. Flex the ankle toward and pull the toes toward the nolan. To test the stretch, place the thumb of your hand on the bottom of the foot. You should be able to feel the cord-like plantar fascia, running the length of the foot. Hold the stretch for a count of 10, then relax. Repeat 10 times. Do the sequence at least three times a day. Achilles/Calf Stretches Strengthening the muscles of the calves may contribute to successful rehabilitation of plantar fasciitis, as well as prevent reoccurrence. The exercises below will help strengthen the calf muscles. Calf and Achilles Tendon Stretch (Gastrocnemius Stretch): Face a wall, standing an arm's length away. Place one foot back. Place both hands on the wall. Bend the elbows and knee of your forward leg, keeping the heel of the backward foot on the floor and keeping your body straight (aligned), until your forehead nearly touches the wall, or until significant stretch is felt in the muscles of the calf of the backward leg. Hold this position for 10 to 15 seconds. Extend elbows (straighten your arms and stand upright again) and maintain this position for 10 seconds. Repeat this cycle 15 to 20 times. Switch legs and repeat the exercise. STEROID INJECTION You have been injected with a corticosteroid and local anesthesia today. This should provide relief of symptoms for the next 8 hours or so. After this time frame you will likely experience an increase in pain symptoms again until the effects of the steroid start to work, which should occur within 24-48 hours. Approximately 2% of individuals may experience a post injection flare or severe worsening of symptoms following injection. If this occurs ice the area and take Tylenol or Aleve for pain. In some very rare instances skin depigmentation and joint infection may occur. Joint infection is a concern if you experience any of the following: - pain for more than 48 hours after the injection - pain develops more than 2 days after the injection - the area becomes red, hot or swollen - you develop a fever following the injection Corticosteroid injections can also rarely interfere with the healing process and weaken tendons, sometimes causing tendons to rupture. Repeated injections of steroids can also damage joint cartilage. For these reasons, there are limits to how many times and how frequently corticosteroid injections can be used in the same area. If anything seems unusual or out of the ordinary please contact our office as soon as possible for further instruction. Diabetes Foot Care Instructions When you have diabetes, proper foot care is very important. Poor foot care may lead to amputation of a foot or leg. As a person with diabetes, you are more vulnerable to foot problems, because diabetes can damage your nerves and reduce blood flow to your feet. Here are some diabetes foot care tips to follow: Wash and Dry Your Feet Daily Use mild soaps Use warm water Pat your skin dry; do not rub. Thoroughly dry your feet. After washing, use lotion on your feet to prevent cracking. Do not put lotion between your toes. Examine Your Feet Each Day Check the tops and bottoms of your feet. Have someone else look at your feet if you cannot see them. Check for dry, cracked skin. Look for blisters, cuts, scratches, or other sores. Check for redness, increased warmth, or tenderness when touching any area of your feet. Check for ingrown toenails, corns, and calluses. If you get a blister or sore from your shoes, do not pop it. Apply a bandage and wear a different pair of shoes. Take Care of Your Toenails Cut toenails after bathing, when they are soft. Cut toenails straight across and smooth with a nail file. Avoid cutting into the corners of toes. Do not cut cuticles. If you have neuropathy (or decreased sensation in your feet) a service attendant cafeteria should always cut your toenails. Be Careful When Exercising Walk and exercise in comfortable shoes. Do not exercise when you have open sores on your feet. Protect Your Feet With Shoes and Socks Never go barefoot. Always protect your feet by wearing shoes or hard-soled slippers or footwear. Avoid shoes with high heels and pointed toes. Avoid shoes that expose your toes or heels (such as open-toed shoes or sandals). These types of shoes increase your risk for injury and potential infections. Try on new footwear with the type of socks you usually wear. Do not wear new shoes for more than an hour at a time. Change your socks daily. Look and feel inside your shoes before putting them on to make sure there are no foreign objects or rough areas. Avoid tight socks. Wear natural-fiber socks (cotton, wool, or a cotton-wool blend). Wear special shoes if your health care provider recommends them. Wear shoes/boots that will protect your feet from various weather conditions (cold, moisture, etc.). Make sure your shoes fit properly. If you have neuropathy (nerve damage), you may not notice that your shoes are too tight. Perform the footwear test described below. Footwear Test Use this simple test to see if your shoes fit correctly: Stand on a piece of paper. (Make sure you are standing and not sitting, because your foot changes shape when you stand.) Trace the outline of your foot. Trace the outline of your shoe. Compare the tracings: Is the shoe too narrow? Is your foot crammed into the shoe? The shoe should be at least 1/2 inch longer than your longest toe and as wide as your foot. Proper Shoe Choices The following types of shoes are best for people with diabetes Closed toes and heels Leather uppers without a seam inside At least 1/2 inch extra space at the end of your longest toe Inside of shoe should be soft with no rough areas Outer sole should be made of stiff material Shoes should be at least as wide as your feet Tips for Foot Care in Diabetes Don't wait to treat a minor foot problem if you have diabetes. Follow your health care provider's guidelines and first aid guidelines. Report foot injuries and infections to your health care provider immediately. Check water temperature with your elbow, not your foot. Do not use a heating pad on your feet. Do not cross your legs. Do not self-treat your corns, calluses, or other foot problems. Go to your health care provider or service attendant cafeteria to treat these conditions. documented in this encounter [facility] 11-09-2021 History of Presen t illness Narrative Consultation requested by Dr. Dockery for an opinion regarding right heel pain. My final recommendations will be communicated back to the requesting physician by way of shared Medical record or letter to requesting physician via [place] mail. Initial Podiatric Office Visit: Chief Complaint: This 51 year old male who presents with chief complaint:right heel pain HPI Patient presents to clinic for evaluation of right foot. Patient has pain in the right heel that has been present for 4-5 months. Patient states the pain is most severe when he is at work on concrete. Patient works at [employer] and is on his feet for extended duration. Patient states the pain in the heel is present in the AM when he wakes up but is not as bad as it is when he is standing on his foot for long duration. Patient states the pain during the weekends is not as bad as he is off. Patient has tried otc inserts which has not really helped. He currently has 4 pairs of otc inserts insets. Patient does take tylenol for the pain which does help. Patient has not tried anything else for the pain Patient is diabetic and his last a1c was 7.0. PAIN EVALUATION 11/09/2021 0830 Pain Level: 8 Pain Location: Heel-Right Description: Sharp;Stabbing Duration Amount of Time: 4 Duration Units: Months Frequency: Continuous Hemoglobin A1C (%) Date Value 10/20/2021 7.0 07/03/2021 9.4 12/31/2020 9.0 09/24/2020 8.5 06/24/2020 10.7 01/13/2020 9.7 PCP: Yogesh Dockery PA-C PAST MEDICAL HISTORY Diagnosis Date Acute nonsuppurative otitis media, unspecified 03/07/2007 Cataract right eye, surgery 2010 [facility] Colles' fracture 08/03/20052007 left Closed fracture of navicular (scaphoid) bone of wrist 01/18/05 Wrist fracture-left distal radius Depression in past, was on effexor but stopped years ago. Diabetes mellitus Esophagitis, unspecified ESOPHAGITIS Hyperlipidemia borderline Measles Mild intermittent asthma uses albuterl rarely Mumps PAD (peripheral artery disease) ([facility]) 05/17/2011 05/17/11 [facility] did arterial US right: right PT pulse triphasic with index 1.16, left PT also triphasic with index 1.13 and 1.09, reviewed by [facility] surg who felt no treatment necessary. Peptic ulcer, unspecified site, unspecified as acute or chronic, without mention of hemorrhage, perforation, or obstruction Peptic ulcer disease per EGD maybe 2006 Sleep apnea 01/18/2012 [employer] BiPAP 20 cm H2O IPAP/14 cm H2O EPAP Follows with Dr. Stevens Tobacco use disorder 06/01/2007 Quit 2009 chew Traumatic pneumothorax 01/15/2008 Ran over by cow, broke 4 ribs, lung collapsed, unconscious. No chest tube. Was sent to [facility]. No sequellae Unspecified essential hypertension Essential hypertension: controlled without medication Current Outpatient Medications Medication Sig insulin lispro (HUMALOG KWIKPEN INSULIN) 100 unit/mL Inject 6 units three times daily before meals plus sliding scale (additional 2 units for every 50 points above glucose 150). Daily Max: 30 units dulaglutide (TRULICITY) 4.5 mg/0.5 mL pen injector Inject 4.5 mg subcutaneously one time a week. insulin glargine (LANTUS SOLOSTAR U-100 INSULIN) 100 unit/mL (3 mL) Inject 61 Units subcutaneously twice daily. dapagliflozin (FARXIGA) 10 mg tablet Take 1 tablet by mouth daily with breakfast. metFORMIN ER (GLUCOPHAGE XR) 500 mg 24 hr tablet Take 4 tablets by mouth daily with breakfast. metoclopramide HCl (REGLAN) 10 mg tablet Take 1 tablet by mouth before meals and at bedtime. 30min before meals. atorvastatin (LIPITOR) 20 mg tablet Take 1 tablet by mouth daily at bedtime. For cholesterol. lisinopril (ZESTRIL, PRINIVIL) 20 mg tablet Take 1 tablet by mouth once daily. buPROPion XL (WELLBUTRIN XL) 300 mg 24 hr tablet Take 1 tablet by mouth once daily. Omeprazole Magnesium (PRILOSEC OTC) 20 mg tablet Take 2 tablets by mouth daily before breakfast. 1/2 hr before meal. Insulin [facility], Disposable, 32 gauge x 5/16 ndle Use one needle per dose. 5 doses per day COMPOUNDED PRESCRIPTION Knee high compression stockings 30-40mmHg 2 pairs: apply daily on waking. I87.2 Venous insufficiency Lancets lancets Check blood sugar 4 times daily diagnosis: e11.65, insulin: yes No current facility-administered medications for this visit. ALLERGIES No Known Allergies PAST SURGICAL HISTORY Procedure Laterality Date ANKLE SURGERY HX Left 2014 rupture posterior tibial tendon repaired APPENDECTOMY 1982 ESOPHAGOGASTRODUODENOSCOPY TRANSORAL DIAGNOSTIC EGD FAMILY HISTORY Problem Relation Age of Onset Diabetes Mother Heart Mother HEART DISEASE Hypertension Mother Psychiatry Mother depressed Obesity Mother Obesity Father None Father Allergies Father Diabetes Father Hypertension Father Stroke Father Psychiatry Father depression None Sister Diabetes Sister other (Other) Sister growth in lung, lots of lung problems, pneumonia Diabetes Brother Psychiatry Brother depression Cancer Maternal Aunt Stomache Breast Cancer Paternal Aunt Cancer Paternal Uncle Bone Social History Tobacco Use Smoking status: Never Smoker Smokeless tobacco: Former User Types: Chew Substance Use Topics Alcohol use: No Drug use: No REVIEW OF SYSTEMS GENERAL: Negative for Malaise, significant weight loss, fever RESPIRATORY: Negative for cough, wheezing and shortness of breath CARDIOVASCULAR: Negative for chest pain, leg swelling and palpitations GI: Negative for abdominal discomfort, blood in stools or black stools and change in bowel habits : Negative for dysuria, frequency and incontinence MUSCULOSKELETAL: Negative for joint pain or swelling, back pain, and muscle pain. SKIN: Negative for lesions, rash, and itching. HEMATOLOGY/LYMPHOLOGY Negative for prolonged bleeding, bruising easily, and swollen nodes. ENDOCRINE: Negative for cold or heat intolerance, polyuria, polydipsia and goiter. NEURO: negative Physical Exam: Constitutional: Pt is a well developed 51 year old male who is alert, oriented and cooperative Eyes: Following during examination. No redness or drainage. Respiratory: RR normal and nonlabored. Even breathing. No evidence of distress or shortness of breath. Psychology: Patient is engaged during conversation. Normal affect and mood. Does not appear depressed or anxious during encounter. Vascular: Dorsalis pedis and posterior tibial pulses palpable as b/l Capillary Fill time < 5 seconds to digits 1-5 b/l Skin temperature warm to warm proximal to distal b/l Hair growth present to digits Neurological: intact light touch/epicritic sensation Vibratory sensation is intact B/l - tinel to b/l feet intact protective sensation no significant neurological deficits Dermatological: Nails 1-5 right and 1-4 left appear normal. Left 5th toenail is elongated. Webspaces clean and dry 1-4 b/l. Slight maceration is noted to left 4th itnerspace with peeling skin. No ulceration or callus noted. Skin appears well hydrated and supple. good color, texture, turgor. No open lesions present. No callosities present. Musculoskeletal/Orthopaedic: Patient has pain to palpation of right plantar medial calcaneal tubercle Foot type is neutral structurally AJ ROM is full with knee extended and flexed 1st MPJ is full when loaded and no pain or crepitus are noted with ROM. MTJ, STJ are full and free of pain and crepitus. +5/5 muscle strength dorsiflexion, plantarflexion, inversion, eversion b/l Radiographs: 3 views right foot reviewed November 09, 2021: I have personally reviewed and interpreted these XR myself: Plantar heel spur right foot ASSESSMENT: (M72.2) Plantar fasciitis of right foot (primary encounter diagnosis) (M79.671) Pain of right heel (E11.9, Z79.4) Type 2 diabetes mellitus without complication, with long-term current use of insulin ([facility]) PLAN: 1. Initial Office Visit - A thorough review of the patient's PMH and Podiatric physical exam was completed. 2. Patient advised to perform stretching excercises, icing, and to make appropriate shoe gear changes to include wearing athletic-type shoes with supportive insoles. No barefoot walking. Patient also given written instructions on how to correctly perform the stretching of the achilles tendon/calf stretches, and the heel spur/plantar fasciitis regimen. 3. Patient advised to seek wide, deep toe box, accomodative, comfortable, lace-up, athletic/walking type footwear that includes motion control characteristics for support and cushion that need to be worn at all times when weight-bearing. Shoes should be tested for torsional stability as well as proper bending at the toebox rather than at the midfoot. Good quality shoes such as, but not limited to, New Balance or Asics are examples of more proper foot gear. 4. Patient recommended to get powerstep insoles for proper support of the arch in order to alleviate the tension and stress on the plantar fascia associated with normal daily walking. Patient advised that these modalities used in conjunction with stretching and icing are able to alleviate most symptoms from this condition. Recommend only using one pair of inserts 5. Discussed injection today. Patient elected to receive Patient elected to proceed with an injection to the heel today. The risks, benefits, potential complications, personnel present, and alternatives to this were discsussed. Pt elected to proceed. all questions were answered. no guarantees were given. A timeout was performed. patient properly identified. procedure site marked. Under aseptic technique an injection was performed to the heel using a mixture of cc of 0.5 % Marcaine plain, of kenalog and cc of dexamethazone 6. If pain fails to improve, consider therapy referral 7. Recommend guaze between toes if moisture develops. Also use of betadine 8. One nail debrided today. In order to perform a complete physical exam, one nail slant back was performed. This incidental service is integral to the evaluation and management visit in order to appropriately manage and treat the patient (for their complaint or for this visit). 9. Diabetic foot exam performed. Podiatry [address] [facility] [address] Dept: [phone] Dept documented in this encounter [facility] 10-28-2021 History of Presen t illness Narrative Primary Care Pharmacy Visit CC (Reason for Consult): Diabetes Goal: A1c < 7% Collaborating Provider: Farhad Dockery Pa-C Last Provider Visit: 10/26/21 Shekhar Pittman is a 51 year old male presenting for follow up visit by telephone. Patient consents to pharmacy collaborative practice agreement. Patient is presenting today for f/up pharmacotherapy management appointment for diabetes. At PharmD visit on 09/09/21, Farxiga increased to 10mg daily. At last PharmD visit on 10/07, base dose of Humalog was increased, dietary modifications encouraged, and CMP ordered due to elevated LFTs (discussed with PCP). At last PCP appt, no med changes made. Subjective: HPI: Patient forgot about appointment today. Did appt over the phone, had ~15 mins. States other than last night my sugars have been doing great. States last night his BG was >300 mg/dL, not sure why, he took a shot of Humalog of 15 units and BG only dropped to 235 mg/dL after several hours. Then took another shot of 10 units and sugar still didn't come down. Denies any feelings of lows. States he didn't eat or drink anything unusual. Patient very happy with reduction in A1c. Has also lost 14 lbs which he is very happy about. Has lost 30 lbs in 3 months. He feels good, has more energy. I told my mom I feel great. Not needing to wake up to urinate, getting more sleep. States he is having problems with his heal, feels exercise is not likely to happen right now. Thinks he might have bone spurs. Talked with PCP about this. Seeing service attendant cafeteria on November 09, hopefully will get if figured out. Current DM Medications: Metformin ER 500mg tabs - 2000mg daily Dapagliflozin (Farxiga) 10mg daily Dulaglutide (Trulicity) 4.5mg weekly on Insulin glargine (Lantus) 61 units BID Insulin lispro (Humalog) 6 units + SSI TIDAC (2 units for every 50>150, max daily dose 30 units) Past DM medications: Victoza Current HTN Medications: Lisinopril 20mg daily GLYCEMIC CONTROL: Glucometer present at visit: Yes SMBG s: checking BG 1-2x/daily, patient works 3rd shift. FBG ~ 7:00-8:00 pm, before lunch is ~ 2:00-3:00 am; *patient doesn't know how to find the averages; having issues getting his readings from meter; other readings: 109, 140, 112, 151; BG right now 109 mg/dL Date Fasting 7-8 PM 2 hr PP Before Lunch 2-3 AM 2 hr PP Before Dinner 2 hr PP Bedtime 10/28 308 235 10/27 211 189 10/26 192 182 Hypoglycemia: none Preventative Medications: On IVETH/ARB: Yes On Statin: Yes DIET/EXERCISE/SOCIAL Hx: Less hungry, eating less No change to physical activity - I sleep and work , works 10 PM to 7 AM MEDICATIONS: Pill bottles are not present Adherence: denies missed doses Pharmacy: [facility] [place] Rx coverage: Devin WILKES Affordability: not addressed Diabetes supplies: [employer] System: keeps in original bottles ACTIVE PROBLEM LIST Obesity, Unspecified Infective Otitis Externa, Unspecified Elevated Blood Pressure Reading Without Diagnosis of Hypertension Sleep Apnea 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) Mild Intermittent Asthma Cataract Microalbuminuria Low Hdl (Under 40) Reaction, Adjustment, With Depressed Mood, Prolonged Obesity, Class III, BMI >= 40 Hyperlipidemia, Mixed Venous Insufficiency Diabetic Gastroparesis ([facility]) PAST MEDICAL HISTORY Diagnosis Date Acute nonsuppurative otitis media, unspecified 03/07/2007 Cataract right eye, surgery 2009 [facility] Colles' fracture 08/03/20052007 left Closed fracture of navicular (scaphoid) bone of wrist 01/18/05 Wrist fracture-left distal radius Depression in past, was on effexor but stopped years ago. Diabetes mellitus Esophagitis, unspecified ESOPHAGITIS Hyperlipidemia borderline Measles Mild intermittent asthma uses albuterl rarely Mumps PAD (peripheral artery disease) ([facility]) 05/17/2011 05/17/11 [facility] did arterial US right: right PT pulse triphasic with index 1.16, left PT also triphasic with index 1.13 and 1.09, reviewed by RVinny Mariebul surg who felt no treatment necessary. Peptic ulcer, unspecified site, unspecified as acute or chronic, without mention of hemorrhage, perforation, or obstruction Peptic ulcer disease per EGD maybe 2006 Sleep apnea 01/18/2012 [employer] BiPAP 20 cm H2O IPAP/14 cm H2O EPAP Follows with Dr. Stevens Tobacco use disorder 06/01/2007 Quit 2009 chew Traumatic pneumothorax 01/15/2008 Ran over by cow, broke 4 ribs, lung collapsed, unconscious. No chest tube. Was sent to [facility]. No sequellae Unspecified essential hypertension Essential hypertension: controlled without medication Past medical, family and social history reviewed and updated. ALLERGIES No Known Allergies Medication List Medication Directions Comments Action/Plan atorvastatin (LIPITOR) 20 mg tablet Take 1 tablet by mouth daily at bedtime. For cholesterol. buPROPion XL (WELLBUTRIN XL) 300 mg 24 hr tablet Take 1 tablet by mouth once daily. COMPOUNDED PRESCRIPTION Knee high compression stockings 30-40mmHg 2 pairs: apply daily on waking. I87.2 Venous insufficiency dapagliflozin (FARXIGA) 10 mg tablet Take 1 tablet by mouth daily with breakfast. dulaglutide (TRULICITY) 4.5 mg/0.5 mL pen injector Inject 4.5 mg subcutaneously one time a week. insulin glargine (LANTUS SOLOSTAR U-100 INSULIN) 100 unit/mL (3 mL) Inject 61 Units subcutaneously twice daily. insulin lispro (HUMALOG KWIKPEN INSULIN) 100 unit/mL Inject 6 units three times daily before meals plus sliding scale (additional 2 units for every 50 points above glucose 150). Daily Max: 30 units Insulin [facility], Disposable, 32 gauge x 5/16 ndle Use one needle per dose. 5 doses per day Lancets lancets Check blood sugar 4 times daily diagnosis: e11.65, insulin: yes lisinopril (ZESTRIL, PRINIVIL) 20 mg tablet Take 1 tablet by mouth once daily. metFORMIN ER (GLUCOPHAGE XR) 500 mg 24 hr tablet Take 4 tablets by mouth daily with breakfast. metoclopramide HCl (REGLAN) 10 mg tablet Take 1 tablet by mouth before meals and at bedtime. 30min before meals. Omeprazole Magnesium (PRILOSEC OTC) 20 mg tablet Take 2 tablets by mouth daily before breakfast. 1/2 hr before meal. Objective: Exam: Last 3 Encounter BP Readings: Date: BP: 10/26/2021 118/62 09/09/2021 140/70 07/23/2021 130/72 Wt: 156 kg (344 lb) BMI: 50.80 kg/(m^2) LABS: Reviewed Lab Results Component Value Date HBA1C 7.0 10/20/2021 HBA1C 9.4 07/03/2021 HBA1C 9.0 12/31/2020 HBA1C 8.5 09/24/2020 CMP: Glucose 103 10/20/2021 BUN 13 07/03/2021 Creatinine 0.84 10/20/2021 Sodium 138 07/03/2021 Potassium 4.4 10/20/2021 Chloride 102 07/03/2021 CO2 24 10/20/2021 Protein, Total 7.9 10/20/2021 Albumin 4.6 10/20/2021 Calcium 9.2 07/03/2021 Alkaline Phosphatase 101 10/20/2021 Bilirubin, Total 0.3 10/20/2021 AST 29 10/20/2021 ALT 40 10/20/2021 Estimated Creatinine Clearance: 156 mL/min (based on SCr of 0.84 mg/dL). Lab Results Component Value Date CHOL 136 07/03/2021 LDL 68 07/03/2021 HDL 44 07/03/2021 TG 119 07/03/2021 The 10-year ASCVD risk score (Marcial JERNIGAN JrVinny, et al., 2013) is: 4.5% Values used to calculate the score: Age: 51 years Sex: Male Is Non- : No Diabetic: Yes Tobacco smoker: No Systolic Blood Pressure: 118 mmHg Is BP treated: Yes HDL Cholesterol: 44 mg/dL Total Cholesterol: 136 mg/dL Albumin/Creat Ratio (mg/g) Date Value 07/03/2021 51 (H) PHARMACOTHERAPY ASSESSMENT/PLAN: 1. 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) - ICD9: 250.50, 362.05, 362.07, ICD10: E11.3313 A1c goal < 7%; borderline control with great improvement (last A1c 9.4-->7%); minimal SMBGs to review - last night was elevated for some reason but other reported BGs were within a fair range; patient did inappropriately dose extra Humalog insulin last night putting him at risk for insulin stacking though fortunately did not have any issues with hypoglycemia; patient is working to eat smaller portion sizes; he has lost 30 lbs in 3 months; he is feeling better, sleeping better, and has more energy; I feel great ; patient still not doing any physical activity though is limited because of possible bone spurs in heal; will not make any med changes today but will f/up in 3 mo after next A1c and PCP visit; renal fxn and LFTs sufficient for use CONTINUE metformin ER 2000mg daily, Farxiga 10mg daily, Trulicity 4.5mg weekly, Lantus 61 units BID, and Humalog 6 units + SSI TIDAC Counseled on risk of hypoglycemia with insulin stacking; advised against injecting mealtime insulin within 4 hours of each other Educated on signs/sx of low BG and management Applauded on improved A1c and weight loss Stressed importance of weight loss; encouraged increased physical activity; suggested walking but can't because of foot pain; advised to try floor or chair exercises daily to help with weight loss Advised to contact PharmD over the summer if starts experiencing hypoglycemia ACEi/ARB for renal protection: yes Statin: yes HbA1c: due 01/20 Patient is scheduled to see PCP on 01/27. Patient to have PharmD f/u on 02/17. Patient verbalized understanding of instructions. Starr Cook PharmD, [facility] Primary Care Clinical Pharmacist Dolores Brown [facility] The majority of the pharmacy visit (> 50%) was spent counseling and/or coordinating care for the patient. interaction: telephonic time was 15 minutes. documented in this encounter [facility] 10-26-2021 History of Presen t illness Narrative 51 year old male with c/o here for follow up: denies current concerns 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, without long-term current use of insulin ([facility]) (primary encounter diagnosis) Diabetic gastroparesis associated with type 2 diabetes mellitus ([facility]) Microalbuminuria Current medications: Insulin lispro 6 units 3 times daily before meals plus sliding scale: only rarely needed Dulaglutide 4.5 mg subcu weekly Insulin Lantus 61 units subcu twice daily Dapagliflozin 10 mg with breakfast Metformin 4 tablets daily with breakfast Metoclopramide 10 mg 30 min before meals and at bedtime Taking medication as directed consistently? Yes Medical Issues / Complications: hypertension, hyperlipidemia, peripheral neuropathy and gastroparesis Still having stomach aches: not too bad most of the time No real changes in diet, not as hungry on trulicity. Checking blood sugars at home? Monday 112 prior to lunch, 223 this morning. Seeing Starr Cook clinical phamaracist, from notes: GLYCEMIC CONTROL: Glucometer present at visit: Yes SMBG s: checking BG 1-2x/daily, patient works 3rd shift. FBG ~ 7:00-8:00 pm, before lunch is ~ 2:00-3:00 am. 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 Watching diet? No Physical Activity: Regular Hypoglycemic spells? No Any visual disturbance? No Chest pain? No New numbness, tingling or loss of sensation? No change, chronic Any recent foot problems, sores or rashes? No Any recent or sudden weight loss? No Change in urination? No. If yes: Any recent illness? No Last eye exam: up to date. Last foot exam: up to date. HBA1C: Hemoglobin A1C (%) Date Value 10/20/2021 7.0 07/03/2021 9.4 12/31/2020 9.0 ) CMP: Glucose 103 10/20/2021 BUN 13 07/03/2021 Creatinine 0.84 10/20/2021 Sodium 138 07/03/2021 Potassium 4.4 10/20/2021 Chloride 102 07/03/2021 CO2 24 10/20/2021 Protein, Total 7.9 10/20/2021 Albumin 4.6 10/20/2021 Calcium 9.2 07/03/2021 Alkaline Phosphatase 101 10/20/2021 Bilirubin, Total 0.3 10/20/2021 AST 29 10/20/2021 ALT 40 10/20/2021 Last 2 Encounter Wt Readings: Date: Wt: 09/09/2021 162.4 kg (358 lb) 07/23/2021 169.6 kg (374 lb) Component Latest Ref Rng & Units 06/26/2020 Creatinine, Ur Random (UCRR) 20 - 300 mg/dL 92.5 Albumin, Urine Random mg/L 106.8 Albumin/Creat Ratio <30 mg/g 115 (H) Hyperlipidemia, mixed Low hdl (under 40) Hyperlipidemia: Current medication Atorvastatin 20 mg daily at bedtime Taking medication consistently Yes Observing low cholesterol high fiber diet some Muscle aches No Stomach complaints/ diarrhea No Last 2 Lipids: Component Latest Ref Rng & Units 12/31/2020 07/03/2021 Cholesterol, Total <200 mg/dL 136 Triglyceride <150 mg/dL 119 HDL Cholesterol >39 mg/dL 44 LDL Cholesterol <100 mg/dL 68 Non HDL Cholesterol <130 mg/dL 92 Fasting Time hrs 14 VLDL Cholesterol <30 mg/dL 24 TC:HDL Ratio <5.10 3.09 LDL:HDL Ratio <2.54 1.55 Total Cholesterol, Nonfasting <200 mg/dL 123 Triglycerides, Nonfasting <150 mg/dL 96 HDL Cholesterol, Nonfasting >39 mg/dL 47 LDL Cholesterol, Nonfasting <100 mg/dL 57 Non HDL Cholesterol, Nonfasting <130 mg/dL 76 VLDL Cholesterol, Nonfasting <30 mg/dL 19 Total Chol/HDL Ratio, Nonfasting <5.10 mg/dL 2.62 LDL/HDL Ratio, Nonfasting <2.54 mg/dL 1.21 Elevated blood pressure reading without diagnosis of hypertension Current meds: Lisinopril 20 mg daily Patient is compliant with meds No Monitors bp at home: No. If yes, readings: Denies side effects: No. Chest pain: No. Dyspnea: No. Edema: No. Palpitations: No. Syncope: No. Headache: No. Dizziness: No. Last 3 Encounter BP Readings: Date: BP: 09/09/2021 140/70 07/23/2021 130/72 12/31/2020 126/68 Last 2 Encounter Wt Readings: Date: Wt: 09/09/2021 162.4 kg (358 lb) 07/23/2021 169.6 kg (374 lb) Reaction, adjustment, with depressed mood, prolonged Current medications: Bupropion XL 300 mg daily Doing well overall PHQ-9 10/03/2017 07/17/2018 10/26/2021 Score 16 15 6 Obesity, class iii, bmi >= 40 Obstructive sleep apnea syndrome BiPap compliant Mild intermittent asthma without complication No issues. Current medication: Omeprazole 20mg OTC daily AC. Current symptoms: every now and then some heartburn. Last Mg level if on PPI chronically: no. Heartburn is controlled: Yes. Dysphagia: No. Bloody or black stools: No. Bowel changes: No. HISTORIES FAMILY HISTORY Problem Relation Age of Onset Diabetes Mother Heart Mother HEART DISEASE Hypertension Mother Psychiatry Mother depressed Obesity Mother Obesity Father None Father Allergies Father Diabetes Father Hypertension Father Stroke Father Psychiatry Father depression None Sister Diabetes Sister other (Other) Sister growth in lung, lots of lung problems, pneumonia Diabetes Brother Psychiatry Brother depression Cancer Maternal Aunt Stomache Breast Cancer Paternal Aunt Cancer Paternal Uncle Bone PAST MEDICAL HISTORY Diagnosis Date Acute nonsuppurative otitis media, unspecified 03/07/2007 Cataract right eye, surgery 2010 [facility] Colles' fracture 08/03/20052007 left Closed fracture of navicular (scaphoid) bone of wrist 01/18/05 Wrist fracture-left distal radius Depression in past, was on effexor but stopped years ago. Diabetes mellitus Esophagitis, unspecified ESOPHAGITIS Hyperlipidemia borderline Measles Mild intermittent asthma uses albuterl rarely Mumps PAD (peripheral artery disease) ([facility]) 05/17/2011 05/17/11 [facility] did arterial US right: right PT pulse triphasic with index 1.16, left PT also triphasic with index 1.13 and 1.09, reviewed by Itzel Hamilton surg who felt no treatment necessary. Peptic ulcer, unspecified site, unspecified as acute or chronic, without mention of hemorrhage, perforation, or obstruction Peptic ulcer disease per EGD maybe 2006 Sleep apnea 01/18/2012 [employer] BiPAP 20 cm H2O IPAP/14 cm H2O EPAP Follows with Dr. Stevens Tobacco use disorder 06/01/2007 Quit 2009 chew Traumatic pneumothorax 01/15/2008 Ran over by cow, broke 4 ribs, lung collapsed, unconscious. No chest tube. Was sent to [facility]. No sequellae Unspecified essential hypertension Essential hypertension: controlled without medication PAST SURGICAL HISTORY Procedure Laterality Date ANKLE SURGERY HX Left 2014 rupture posterior tibial tendon repaired APPENDECTOMY 1982 ESOPHAGOGASTRODUODENOSCOPY TRANSORAL DIAGNOSTIC EGD Social History Tobacco Use Smoking status: Never Smoker Smokeless tobacco: Former User Types: Chew Substance Use Topics Alcohol use: No Drug use: No ACTIVE PROBLEM LIST Obesity, Unspecified Infective Otitis Externa, Unspecified Elevated Blood Pressure Reading Without Diagnosis of Hypertension Sleep Apnea 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) Mild Intermittent Asthma Cataract Microalbuminuria Low Hdl (Under 40) Reaction, Adjustment, With Depressed Mood, Prolonged Obesity, Class III, BMI >= 40 Hyperlipidemia, Mixed Venous Insufficiency Diabetic Gastroparesis ([facility]) Current Outpatient Medications Medication Sig Dispense Refill insulin lispro (HUMALOG KWIKPEN INSULIN) 100 unit/mL Inject 6 units three times daily before meals plus sliding scale (additional 2 units for every 50 points above glucose 150). Daily Max: 30 units 5 Pen 2 dulaglutide (TRULICITY) 4.5 mg/0.5 mL pen injector Inject 4.5 mg subcutaneously one time a week. 4 Each 5 insulin glargine (LANTUS SOLOSTAR U-100 INSULIN) 100 unit/mL (3 mL) Inject 61 Units subcutaneously twice daily. 10 Pen 5 dapagliflozin (FARXIGA) 10 mg tablet Take 1 tablet by mouth daily with breakfast. 90 tablet 3 metFORMIN ER (GLUCOPHAGE XR) 500 mg 24 hr tablet Take 4 tablets by mouth daily with breakfast. 360 tablet 3 metoclopramide HCl (REGLAN) 10 mg tablet Take 1 tablet by mouth before meals and at bedtime. 30min before meals. 120 tablet 5 atorvastatin (LIPITOR) 20 mg tablet Take 1 tablet by mouth daily at bedtime. For cholesterol. 90 tablet 1 lisinopril (ZESTRIL, PRINIVIL) 20 mg tablet Take 1 tablet by mouth once daily. 90 tablet 1 buPROPion XL (WELLBUTRIN XL) 300 mg 24 hr tablet Take 1 tablet by mouth once daily. 90 tablet 1 Omeprazole Magnesium (PRILOSEC OTC) 20 mg tablet Take 2 tablets by mouth daily before breakfast. 1/2 hr before meal. Insulin [facility], Disposable, 32 gauge x 5/16 ndle Use one needle per dose. 5 doses per day 200 Each 5 COMPOUNDED PRESCRIPTION Knee high compression stockings 30-40mmHg 2 pairs: apply daily on waking. I87.2 Venous insufficiency 1 Each 3 Lancets lancets Check blood sugar 4 times daily diagnosis: e11.65, insulin: yes 200 Each 3 No current facility-administered medications for this visit. SPIROMETRY Never done HIV SCREENING Never done BP CONTROLLED (<130/80) Never done COLORECTAL CANCER SCREENING Never done SHINGRIX VACCINE(1 of 2) Never done EXAM: BP 118/62 Pulse 81 Resp 20 Wt (!) 156 kg (344 lb) SpO2 95% BMI 50.80 kg/m Pleasant obese man in no acute distress. Alert and oriented all spheres. Normal affect and cognition. Speech normal. No deficits to learning or comprehension. Skin warm, dry, pink to lips and nailbeds. Normal turgor. Respirations regular and unlabored. HEENT: NCAT. No scleral icterus or conjunctival injection. TM's clear. Nose and oropharynx free from injection or lesion. Oral membranes moist and pink. No cervical lymph nodes. Thyroid non-tender, no masses, or enlargement. Carotids pulses 2+/4+ without bruits. No JVD with HOB at 30 degrees. Chest is normal shape. Lungs are clear to all cheema with good air exchange through out. HRRR without murmur or gallop. No lifts, heaves, or rubs. Abdomen: active bowel sounds throughout, soft, nontender, no masses or organomegaly. No CVAT. Extrem: no clubbing or cyanosis. Edema: none- tight from obesity. Extremities are warm and pink with prompt capillary refill. Tender right heel plantar and posterior. Pain with left little toe lateral. ASSESSMENT/PLAN: 1. 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) - ICD9: 250.50, 362.05, 362.07, ICD10: E11.3313 (primary diagnosis) - HGB A1C - CBC - MAGNESIUM BLD - PHOSPHORUS INORGANIC 2. Diabetic gastroparesis associated with type 2 diabetes mellitus (HCC) - ICD9: 250.60, 536.3, ICD10: E11.43, K31.84 Controlled. - Continue current medications - HGB A1C - CBC - MAGNESIUM BLD - PHOSPHORUS INORGANIC 3. Microalbuminuria - ICD9: 791.0, ICD10: R80.9 improving 4. Hyperlipidemia, mixed - ICD9: 272.2, ICD10: E78.2 - suboptimal control - Continue current medication. - Encouraged following a low fat, low cholesterol diet. - Discussed the benefits of regular aerobic exercise and weight loss. 5. Low HDL (under 40) - ICD9: 272.5, ICD10: E78.6 - suboptimal control - Encouraged following a low fat, low cholesterol diet. - Discussed the benefits of regular aerobic exercise and weight loss. 6. Elevated blood pressure reading without diagnosis of hypertension - ICD9: 796.2, ICD10: R03.0 - Encouraged dietary sodium restriction/DASH diet - Recommended regular aerobic exercise. - Recommend home blood pressure monitoring, to bring results in on next visit - Goal of BP <130/80 7. Reaction, adjustment, with depressed mood, prolonged - ICD9: 309.1, ICD10: F43.21 Controlled on medication 8. Obesity, Class III, BMI >= 40 - ICD9: 278.01, ICD10: E66.01 Weight decreasing - Behavioral intervention and - Pharmacological intervention 9. Obstructive sleep apnea syndrome - ICD9: 327.23, ICD10: G47.33 BiPap compliant 10. Mild intermittent asthma without complication - ICD9: 493.90, ICD10: J45.20 Mild intermittent Asthma stable - Avoidance of triggers recommended 11. Pain of right heel - ICD9: 729.5, ICD10: M79.671 - CONSULT TO PODIATRY - XR FOOT GENERAL 3V AP/LAT/OBL RIGHT 12. Pain of fifth toe - ICD9: 729.5, ICD10: M79.676 - XR TOE AP/LAT/OBL LEFT will call with xr results 13. Diabetic gastroparesis (HCC) - ICD9: 250.60, 536.3, ICD10: E11.43, K31.84 improved control - Continue current medications 14. Gastro-esophageal reflux disease without esophagitis - ICD9: 530.81, ICD10: K21.9 - Discussed lifestyle modifications including losing weight, limiting caffeine, no meals three hours before sleep and head of bed elevation - MAGNESIUM BLD Yogesh Dockery PA-C documented in this encounter [facility] 10-07-2021 History of Presen t illness Narrative The patient's case was discussed with the registered pharmacy technician who interviewed the patient. Mobley elements of history confirmed during office visit. The progress note reflects my input and comments. Starr Cook, Bev, BCPS Primary Care Clinical Pharmacist Dolores Brown [facility] Primary Care Pharmacy Visit CC (Reason for Consult): Diabetes Goal: A1c < 7% Collaborating Provider: Farhad Dockery Pa-C Last Provider Visit: 07/23/2021 Shekhar Pittman is a 51 year old male presenting for follow up visit in person. Patient consents to pharmacy collaborative practice agreement. . Patient is presenting today for f/up pharmacotherapy management appointment for diabetes. At last PCP appt, patient reported plan for bariatric surgery. Patient was referred to PharmD for DM mngt. At last PharmD visit on 09/09/21, Farxiga increased to 10 mg daily, metformin Trulicity, Lantus, and Humalog doses were all continued. Subjective: HPI: Patient endorses feeling better since last PharmD visit, not experiencing hyperglycemia sx as much as before, decreased sweating. 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 Patient reports having to get a new glucometer, has [employer], his previous meter had stopped working. Patient endorses tolerating Farxiga well, still urinating frequently but patient did realize that he has been able to sleep through the night more often without having to wake up to go to the bathroom. Patient denies having any issues tolerating Trulicity or metformin, no GI sx. Patient frustrated with the cost of the medications, states that the pharmacy would not honor the vouchers given by PharmD from last visit. Last refill of Trulicity cost patient $76. Patient endorses that all of his medications are costing more now than they previously had been. Patient changed to using a mail order pharmacy, which is supposed to be cheaper for him. Estimated costs for each for 90 day supply through mail order is, Lantus $50, Humalog $35, Trulicity $49. Patient concerned about having enough refrigerated storage space for all of the medications, thinking about buying a larger mini-fridge for storage. Patient states he needs to reach out to [facility] about requirements for scheduling surgery. He was asked to call by PCP's office. Patient also wanting to reach out to PCP's office for continued ear ache pain, despite ear bud tip being removed from ear at last PCP visit. Patient denies fever or drainage from ear. 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 FBG ~ 7:00-8:00 pm, before lunch is ~ 2:00-3:00 am. From glucometer: 7-day avg 206 mg/dL, 14-day avg 201 mg/dL, 30-day avg 178 mg/dL Date Fasting 7:00-8:00pm 2 hr PP Before Lunch 2:00-3:00am 2 hr PP Before Dinner 2 hr PP Bedtime 10/06 161 10/05 268 10/04 182 196 10/03 122 257 10/02 177 197 10/01 168 09/30 194 09/29 199 Hypoglycemia: denies Preventative Medications: On IVETH/ARB: Yes On Statin: Yes ROS: Patient denies CP, SOB, SHARMA, blurred vision, dizziness or lightheadedness Patient denies symptoms of hypoglycemia (sweating, anxiety, palpitations, hunger, and tremor) Patient reports symptoms of hyperglycemia (polyuria, polydipsia, polyphagia) Patient denies potential medication adverse effects DIET/EXERCISE/SOCIAL Hx: Not changed since last visit, patient reports trying to cut down on amount of food intake, but admits that this is challenging because he is a big eater, and always has been MEDICATIONS: Pill bottles are not present Adherence: denies missed doses Pharmacy: [facility] coverage: [facility] Affordability: Trulicity is expensive at $80/month; paying $35/month with Lantus coupon; states Humalog is affordable; he can't recall cost of Farxiga -- changed to mail order pharmacy, supposed to be cheaper Diabetes supplies: [employer] System: keeps in original bottles ACTIVE PROBLEM LIST Obesity, Unspecified Infective Otitis Externa, Unspecified Elevated Blood Pressure Reading Without Diagnosis of Hypertension Sleep Apnea Controlled Type 2 Diabetes Mellitus With Both Eyes Affected By Moderate Nonproliferative Retinopathy and Macular Edema, Without Long-Term Current Use of Insulin (Hcc) Mild Intermittent Asthma Cataract Microalbuminuria Low Hdl (Under 40) Reaction, Adjustment, With Depressed Mood, Prolonged Obesity, Class III, BMI >= 40 Hyperlipidemia, Mixed Venous Insufficiency Diabetic Gastroparesis (Hcc) PAST MEDICAL HISTORY Diagnosis Date Acute nonsuppurative otitis media, unspecified 03/07/2007 Cataract right eye, surgery 2010 [facility] Colles' fracture 08/03/20052007 left Closed fracture of navicular (scaphoid) bone of wrist 01/18/05 Wrist fracture-left distal radius Depression in past, was on effexor but stopped years ago. Diabetes mellitus Esophagitis, unspecified ESOPHAGITIS Hyperlipidemia borderline Measles Mild intermittent asthma uses albuterl rarely Mumps PAD (peripheral artery disease) ([facility]) 05/17/2011 05/17/11 [facility] did arterial US right: right PT pulse triphasic with index 1.16, left PT also triphasic with index 1.13 and 1.09, reviewed by Itzel Hamilton surg who felt no treatment necessary. Peptic ulcer, unspecified site, unspecified as acute or chronic, without mention of hemorrhage, perforation, or obstruction Peptic ulcer disease per EGD maybe 2006 Sleep apnea 01/18/2012 [facility] BiPAP 20 cm H2O IPAP/14 cm H2O EPAP Follows with Dr. Stevens Tobacco use disorder 06/01/2007 Quit 2009 chew Traumatic pneumothorax 01/15/2008 Ran over by cow, broke 4 ribs, lung collapsed, unconscious. No chest tube. Was sent to [facility]. No sequellae Unspecified essential hypertension Essential hypertension: controlled without medication Past medical, family and social history reviewed and updated. ALLERGIES No Known Allergies Medication List Medication Directions Comments Action/Plan atorvastatin (LIPITOR) 20 mg tablet Take 1 tablet by mouth daily at bedtime. For cholesterol. Blood-Glucose Meter,Continuous (DEXCOM G6 BLOOD BANK SUPERVISOR) misc Use to check blood sugars as directed. Insulin-dependent T2DM. E11.3313 Blood-Glucose Sensor (DEXCOM G6 SENSOR) gilbert Use to check blood sugars as directed. Replace every 10 days. Insulin-dependent T2DM. E11.3313 Blood-Glucose Transmitter (DEXCOM G6 TRANSMITTER) gilbert Use with Dexcom to check sugars as directed. Replace every 90 days. Insulin-dependent T2DM. E11.3313 buPROPion XL (WELLBUTRIN XL) 300 mg 24 hr tablet Take 1 tablet by mouth once daily. COMPOUNDED PRESCRIPTION Knee high compression stockings 30-40mmHg 2 pairs: apply daily on waking. I87.2 Venous insufficiency dapagliflozin (FARXIGA) 10 mg tablet Take 1 tablet by mouth daily with breakfast. dulaglutide (TRULICITY) 4.5 mg/0.5 mL pen injector Inject 4.5 mg subcutaneously one time a week. insulin glargine (LANTUS SOLOSTAR U-100 INSULIN) 100 unit/mL (3 mL) Inject 61 Units subcutaneously twice daily. insulin lispro (HUMALOG KWIKPEN INSULIN) 100 unit/mL Inject 4 units three times daily before meals plus sliding scale (additional 2 units for every 50 points above glucose 150). Daily Max: 30 units Insulin [facility], Disposable, 32 gauge x 5/16 ndle Use one needle per dose. 5 doses per day Lancets lancets Check blood sugar 4 times daily diagnosis: e11.65, insulin: yes lisinopril (ZESTRIL, PRINIVIL) 20 mg tablet Take 1 tablet by mouth once daily. metFORMIN ER (GLUCOPHAGE XR) 500 mg 24 hr tablet Take 4 tablets by mouth daily with breakfast. metoclopramide HCl (REGLAN) 10 mg tablet Take 1 tablet by mouth before meals and at bedtime. 30min before meals. Omeprazole Magnesium (PRILOSEC OTC) 20 mg tablet Take 2 tablets by mouth daily before breakfast. 1/2 hr before meal. Objective: Last 3 Encounter BP Readings: Date: BP: 09/09/2021 140/70 07/23/2021 130/72 12/31/2020 126/68 Wt: 162.4 kg (358 lb) BMI: 52.87 kg/(m^2) LABS: Reviewed Lab Results Component Value Date HBA1C 9.4 07/03/2021 HBA1C 9.0 12/31/2020 HBA1C 8.5 09/24/2020 CMP: Glucose 114 07/03/2021 BUN 13 07/03/2021 Creatinine 0.60 07/03/2021 Sodium 138 07/03/2021 Potassium 4.3 07/03/2021 Chloride 102 07/03/2021 CO2 25 07/03/2021 Protein, Total 7.6 07/03/2021 Albumin 4.3 07/03/2021 Calcium 9.2 07/03/2021 Alkaline Phosphatase 88 07/03/2021 Bilirubin, Total 0.4 07/03/2021 AST 55 07/03/2021 ALT 68 07/03/2021 Estimated Creatinine Clearance: 223.8 mL/min (A) (based on SCr of 0.6 mg/dL (L)). Lab Results Component Value Date CHOL 136 07/03/2021 LDL 68 07/03/2021 HDL 44 07/03/2021 TG 119 07/03/2021 The 10-year ASCVD risk score (Marcial JERNIGAN Jr., et al., 2013) is: 6% Values used to calculate the score: Age: 51 years Sex: Male Is Non- : No Diabetic: Yes Tobacco smoker: No Systolic Blood Pressure: 140 mmHg Is BP treated: Yes HDL Cholesterol: 44 mg/dL Total Cholesterol: 136 mg/dL Albumin/Creat Ratio (mg/g) Date Value 07/03/2021 51 (H) PHARMACOTHERAPY ASSESSMENT/PLAN: 1. 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) - ICD9: 250.50, 362.05, 362.07, ICD10: E11.3313 A1c goal < 7%; uncontrolled (last A1c 9.4%); SMBG above goal on current regimen; denies s/sx hypoglycemia; reports s/sx hyperglycemia - sweating, urinary frequency although improving; patient tolerating increased dose of Farxiga, no UTI or yeast infection; cost continues to be a large concern for patient; cost seems to be lower for patient to utilize mail order pharmacy which patient is doing now; 90 day supplies would be more affordable than what patient is currently paying; CGM not covered by patient's insurance and is cost prohibitive at this time; patient denies any missed doses of other medications; patient not using sliding scale in addition to Humalog 4 units with meals; patient on a lower dose of Humalog in comparison to current Lantus dose, based on SMBG patient would benefit from higher Humalog doses before meals to decrease BG; renal fxn sufficient for use, LFTs slightly elevated above ULN but have been stable. INCREASE Humalog to 6 units + SSl TIDAC Counseled patient on importance of utilizing SSl to adequately control BG based on food patient is about to consume and avoid large spikes in BG post-meals Patient verbalized appropriate SSl schedule, 2 units for every 50>150, max daily dose 30 units CONTINUE Lantus 61 units BID, Trulicity 4.5 mg weekly, Farxiga 10 mg daily, metformin ER 2000 mg daily Encouraged patient to work on limiting portion sizes of meals and to avoid over-eating Patient to have lab work completed prior to next PCP f/up visit Patient to reach out to PCP's office to about ear pain and get contact information for [facility] to continue process for scheduling bariatric surgery ACEi/ARB for renal protection: yes, Scr and K sufficient for use Statin: yes, elevated but stable HbA1c/BMP: due now - already ordered Patient is scheduled to see PCP on 10/26/21. Patient to have PharmD f/u on 10/28/21 at 9:00 am for an in-person visit. Patient verbalized understanding of instructions. Masha Brody PharmD PGY1 Certified Physician Assistant The majority of the pharmacy visit (> 50%) was spent counseling and/or coordinating care for the patient. interaction: face to face time was 26 minutes. documented in this encounter [facility] 10-07-2021 Instructions Masha Brody RPh - 10/07/2021 9:00 AM EDT INCREASE Humalog to 6 units with meals PLUS sliding scale (2 units for every 50>150, max daily dose 30 units) Continue metformin, Farxiga, Trulicity, and Lantus. Continue to check blood sugars at least twice daily, and bring meter to next follow-up. Next follow-up visit will be October at 9:00 am for an in-office visit. documented in this encounter [facility] 09-15-2021 Miscellaneous Notes Pt returned call & prescription info was added to his chart. He will be using [facility] mail order pharmacy. Info added to his pharmacy. Mily Bhardwaj LPN Patient has been identified by name and date of : Yes Patient phones for refill(s): Pending Prescriptions Disp Refills INSULIN LISPRO (U-100) 100 UNIT/ML SUBCUTANEOUS PEN 5 Pen 2 Sig: Inject 4 units three times daily before meals plus sliding scale (additional 2 units for every 50 points above glucose 150). Daily Max: 30 units CONY: No DULAGLUTIDE 4.5 MG/0.5 ML SUBCUTANEOUS PEN INJECTOR 4 Each 5 Sig: Inject 4.5 mg subcutaneously one time a week. CONY: No LANTUS SOLOSTAR U-100 INSULIN 100 UNIT/ML (3 ML) SUBCUTANEOUS PEN 10 Pen 5 Sig: Inject 61 Units subcutaneously twice daily. CONY: No Date of last office visit in primary care: 09/09/2021 Last 2 Encounter Wt Readings: Date: Wt: 09/09/2021 162.4 kg (358 lb) 07/23/2021 169.6 kg (374 lb) Previous labs/tests for medication: Diabetes: Hemoglobin A1C (%) Date Value 07/03/2021 9.4 12/31/2020 9.0 Please advise. Thank you. Bhargavi Katz LPN Patient was asking that the rx [facility], was not coming up in the computer. He is going to get more information and call office back where to send rx to. documented in this encounter [facility] 09-09-2021 Instructions Yogesh Dockery PA-C - 09/09/2021 10:44 AM EDT If any pain or discharge from the ear, let me know. documented in this encounter [facility] 09-09-2021 History of Presen t illness Narrative 51 year old male with c/o right ear ache over last week. After exam patient admits ear bud tip stuck in ear: thought he had gotten it out. HISTORIES FAMILY HISTORY Problem Relation Age of Onset Diabetes Mother Heart Mother HEART DISEASE Hypertension Mother Psychiatry Mother depressed Obesity Mother Obesity Father None Father Allergies Father Diabetes Father Hypertension Father Stroke Father Psychiatry Father depression None Sister Diabetes Sister other (Other) Sister growth in lung, lots of lung problems, pneumonia Diabetes Brother Psychiatry Brother depression Cancer Maternal Aunt [place] Breast Cancer Paternal Aunt Cancer Paternal Uncle Bone PAST MEDICAL HISTORY Diagnosis Date Acute nonsuppurative otitis media, unspecified 03/07/2007 Cataract right eye, surgery 2009 [facility] Colles' fracture 08/03/20052007 left Closed fracture of navicular (scaphoid) bone of wrist 01/18/05 Wrist fracture-left distal radius Depression in past, was on effexor but stopped years ago. Diabetes mellitus Esophagitis, unspecified ESOPHAGITIS Hyperlipidemia borderline Measles Mild intermittent asthma uses albuterl rarely Mumps PAD (peripheral artery disease) ([facility]) 05/17/2011 05/17/11 [facility] did arterial US right: right PT pulse triphasic with index 1.16, left PT also triphasic with index 1.13 and 1.09, reviewed by It[facility] Hamilton surg who felt no treatment necessary. Peptic ulcer, unspecified site, unspecified as acute or chronic, without mention of hemorrhage, perforation, or obstruction Peptic ulcer disease per EGD maybe 2006 Sleep apnea 01/18/2012 [facility] BiPAP 20 cm H2O IPAP/14 cm H2O EPAP Follows with Dr. Stevens Tobacco use disorder 06/01/2007 Quit 2009 chew Traumatic pneumothorax 01/15/2008 Ran over by cow, broke 4 ribs, lung collapsed, unconscious. No chest tube. Was sent to [facility]. No sequellae Unspecified essential hypertension Essential hypertension: controlled without medication PAST SURGICAL HISTORY Procedure Laterality Date ANKLE SURGERY HX Left 2014 rupture posterior tibial tendon repaired APPENDECTOMY 1982 ESOPHAGOGASTRODUODENOSCOPY TRANSORAL DIAGNOSTIC EGD Social History Tobacco Use Smoking status: Never Smoker Smokeless tobacco: Former User Types: Chew Substance Use Topics Alcohol use: No Drug use: No ACTIVE PROBLEM LIST Obesity, Unspecified Infective Otitis Externa, Unspecified Elevated Blood Pressure Reading Without Diagnosis of Hypertension Sleep Apnea 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) Mild Intermittent Asthma Cataract Microalbuminuria Low Hdl (Under 40) Reaction, Adjustment, With Depressed Mood, Prolonged Obesity, Class III, BMI >= 40 Hyperlipidemia, Mixed Venous Insufficiency Diabetic Gastroparesis ([facility]) Current Outpatient Medications Medication Sig Dispense Refill dapagliflozin (FARXIGA) 10 mg tablet Take 1 tablet by mouth daily with breakfast. 90 tablet 3 Blood-Glucose Transmitter (DEXCOM G6 TRANSMITTER) gilbert Use with Dexcom to check sugars as directed. Replace every 90 days. Insulin-dependent T2DM. E11.3313 1 Each 3 Blood-Glucose Meter,Continuous (DEXCOM G6 BLOOD BANK SUPERVISOR) misc Use to check blood sugars as directed. Insulin-dependent T2DM. E11.3313 1 Each 0 Blood-Glucose Sensor (DEXCOM G6 SENSOR) gilbert Use to check blood sugars as directed. Replace every 10 days. Insulin-dependent T2DM. E11.3313 3 Each 5 metFORMIN ER (GLUCOPHAGE XR) 500 mg 24 hr tablet Take 4 tablets by mouth daily with breakfast. 360 tablet 3 metoclopramide HCl (REGLAN) 10 mg tablet Take 1 tablet by mouth before meals and at bedtime. 30min before meals. 120 tablet 5 atorvastatin (LIPITOR) 20 mg tablet Take 1 tablet by mouth daily at bedtime. For cholesterol. 90 tablet 1 lisinopril (ZESTRIL, PRINIVIL) 20 mg tablet Take 1 tablet by mouth once daily. 90 tablet 1 dulaglutide (TRULICITY) 4.5 mg/0.5 mL pen injector Inject 4.5 mg subcutaneously one time a week. 4 Each 5 buPROPion XL (WELLBUTRIN XL) 300 mg 24 hr tablet Take 1 tablet by mouth once daily. 90 tablet 1 insulin lispro (HUMALOG KWIKPEN INSULIN) 100 unit/mL Inject 4 units three times daily before meals plus sliding scale (additional 2 units for every 50 points above glucose 150). Daily Max: 30 units 5 Pen 2 Omeprazole Magnesium (PRILOSEC OTC) 20 mg tablet Take 2 tablets by mouth daily before breakfast. 1/2 hr before meal. insulin glargine (LANTUS SOLOSTAR U-100 INSULIN) 100 unit/mL (3 mL) Inject 61 Units subcutaneously twice daily. 10 Pen 5 omeprazole (PRILOSEC) 20 mg capsule Take 1 capsule by mouth daily before breakfast. 1/2 hr before meal. 90 capsule 1 Insulin [facility], Disposable, 32 gauge x 5/16 ndle Use one needle per dose. 5 doses per day 200 Each 5 COMPOUNDED PRESCRIPTION Knee high compression stockings 30-40mmHg 2 pairs: apply daily on waking. I87.2 Venous insufficiency 1 Each 3 Lancets lancets Check blood sugar 4 times daily diagnosis: e11.65, insulin: yes 200 Each 3 No current facility-administered medications for this visit. SPIROMETRY Never done HEPATITIS C SCREENING Never done HIV SCREENING Never done BP CONTROLLED (<130/80) Never done COLORECTAL CANCER SCREENING Never done SHINGRIX VACCINE(1 of 2) Never done EXAM: BP 140/70 Pulse 76 Temp 37 C (98.6 F) (Tympanic) Resp 24 Wt (!) 162.4 kg (358 lb) SpO2 94% BMI 52.87 kg/m Pleasant adult man in no acute distress. Alert and oriented all spheres. Normal affect and cognition. Speech normal. No deficits to learning or comprehension. Skin warm, dry, pink to lips and nailbeds. Normal turgor. Respirations regular and unlabored. Extrem: no clubbing or cyanosis. Edema: none. Extremities are warm and pink with prompt capillary refill. Ear exam on right shows shiny dark object full impacted. Object removed was black rubber ear-bud tip. No inflammation or abnormality with TM or canal. ASSESSMENT/PLAN: 1. Foreign body of right ear, initial encounter - ICD9: 931, E915, ICD10: T16.1XXA Follow up prn Yogesh Dockery PA-C documented in this encounter [facility] 09-09-2021 History of Presen t illness Narrative Primary Care Pharmacy Visit CC (Reason for Consult): Diabetes Goal: A1c < 7% Collaborating Provider: Farhad Dockery Pa-C Last Provider Visit: 07/23/21 Shekhar Pittman is a 51 year old male presenting for initial visit: This initial consult was conducted in person with the patient where the consult agreement was explained. The patient may decline or cancel the agreement at any time. After consideration, the patient consented to the pharmacy consult agreement and agreed to allow medications be collaboratively managed by a pharmacist.. Patient is presenting today for initial pharmacotherapy management appointment for diabetes. At last PCP appt, patient reported plan for bariatric surgery. Patient was referred to PharmD for DM mngt. Subjective: HPI: Works 3rd shift. Usually sleeps 11 AM - 8 PM. Used to work with PharmD but hasn't been seen since June 2020, lost to f/up. Farxiga was started at this time. Patient reports he had been off Trulicity for about 2 months because of cost issues but restarted about 2 weeks. Copay was $25/month but now it is $80/month. States the voucher must have . Reports having underlying stomach issues that were a problem even when off of Trulicity. No new issues since restarting medication. Feels his sugars are much improved over the past couple of weeks. No change to appetite. Has not noticed any weight loss. Not checking sugars. I hate pricking my fingers. I know when it is high. He sweats a lot and he feels miserable, checked BGs and the were >450 mg/dL (this was prior to restarting Trulicity). Gets up to urinate 4-5 times while he is sleeping. This has improved a lot since starting Trulicity, now waking up 2-3x/night. Feels tired all of the time. Doing a program at [facility] called [facility]. States it is some sort of weight loss program, he thinks it may lead to surgery. He gave paperwork to PCP to fill out. Current DM Medications: Metformin ER 500mg tabs - 2000mg daily Dapagliflozin (Farxiga) 5mg daily Dulaglutide (Trulicity) 4.5mg weekly Insulin glargine (Lantus) 61 units BID Insulin lispro (Humalog) 4 units + SSI TIDAC (2 units for every 50>150, max daily dose 30 units) (has been taking 4 units but will take 10 units if BG >200 mg/dL; states usually giving 10 units, usually 2-3 injections/day) Past DM medications: Liraglutide (Victoza) Current HTN Medications: Lisinopril 20mg daily GLYCEMIC CONTROL: Glucometer present at visit: No SMBG s: checked last night before lunch at work (around 2 AM), was 165 mg/dL; the night before BG was 187 mg/dL Hypoglycemia: none Preventative Medications: On IVETH/ARB: Yes On Statin: Yes ROS: Patient denies CP, SOB, SHARMA, blurred vision, dizziness or lightheadedness Patient denies symptoms of hypoglycemia (sweating, anxiety, palpitations, hunger, and tremor) Patient denies symptoms of hyperglycemia (polyuria, polydipsia, polyphagia) Patient denies potential medication adverse effects DIET/EXERCISE/SOCIAL Hx: Gets home from work around 7 AM Eats cottage cheese and a sandwich before going to bed Sleep 11 AM to 8 PM Can of soup for supper At work (around 12 AM) eats a deli sandwich and at lunch eats Mom's meals (prepared foods - pasta and meatballs with side of green beans) Snacks: peanut butter filled pretzels (a couple of handfuls per day; 1 container lasts ~1 weeks); sugar-free wafers Beverages: water Exercise: walks a lot at work (at [facility]), no other intentional exercise Tobacco: none MEDICATIONS: Pill bottles are not present Adherence: denies missed doses Pharmacy: [facility] in [place] Rx coverage: Devin WILKES Affordability: Trulicity is expensive at $80/month; paying $35/month with Lantus coupon; states Humalog is affordable; he can't recall cost of Farxiga Diabetes supplies: not addressed Organization System: keeps in original bottles ACTIVE PROBLEM LIST Obesity, Unspecified Infective Otitis Externa, Unspecified Elevated Blood Pressure Reading Without Diagnosis of Hypertension Sleep Apnea 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) Mild Intermittent Asthma Cataract Microalbuminuria Low Hdl (Under 40) Reaction, Adjustment, With Depressed Mood, Prolonged Obesity, Class III, BMI >= 40 Hyperlipidemia, Mixed Venous Insufficiency Diabetic Gastroparesis ([facility]) PAST MEDICAL HISTORY Diagnosis Date Acute nonsuppurative otitis media, unspecified 03/07/2007 Cataract right eye, surgery 2009 [facility]osed Colles' fracture 08/03/20052007 left Closed fracture of navicular (scaphoid) bone of wrist 01/18/05 Wrist fracture-left distal radius Depression in past, was on effexor but stopped years ago. Diabetes mellitus Esophagitis, unspecified ESOPHAGITIS Hyperlipidemia borderline Measles Mild intermittent asthma uses albuterl rarely Mumps PAD (peripheral artery disease) ([facility]) 05/17/2011 05/17/11 [facility] did arterial US right: right PT pulse triphasic with index 1.16, left PT also triphasic with index 1.13 and 1.09, reviewed by Itzel Hamilton surg who felt no treatment necessary. Peptic ulcer, unspecified site, unspecified as acute or chronic, without mention of hemorrhage, perforation, or obstruction Peptic ulcer disease per EGD maybe 2006 Sleep apnea 01/18/2012 [employer] BiPAP 20 cm H2O IPAP/14 cm H2O EPAP Follows with Dr. Stevens Tobacco use disorder 06/01/2007 Quit 2009 chew Traumatic pneumothorax 01/15/2008 Ran over by cow, broke 4 ribs, lung collapsed, unconscious. No chest tube. Was sent to [facility]. No sequellae Unspecified essential hypertension Essential hypertension: controlled without medication Past medical, family and social history reviewed and updated. ALLERGIES No Known Allergies Medication List Medication Directions Comments Action/Plan atorvastatin (LIPITOR) 20 mg tablet Take 1 tablet by mouth daily at bedtime. For cholesterol. taking buPROPion XL (WELLBUTRIN XL) 300 mg 24 hr tablet Take 1 tablet by mouth once daily. taking COMPOUNDED PRESCRIPTION Knee high compression stockings 30-40mmHg 2 pairs: apply daily on waking. I87.2 Venous insufficiency Never received dapagliflozin (FARXIGA) 5 mg tablet Take 1 tablet by mouth daily with breakfast. taking dulaglutide (TRULICITY) 4.5 mg/0.5 mL pen injector Inject 4.5 mg subcutaneously one time a week. taking insulin glargine (LANTUS SOLOSTAR U-100 INSULIN) 100 unit/mL (3 mL) Inject 61 Units subcutaneously twice daily. taking insulin lispro (HUMALOG KWIKPEN INSULIN) 100 unit/mL Inject 4 units three times daily before meals plus sliding scale (additional 2 units for every 50 points above glucose 150). Daily Max: 30 units taking Insulin [place], Disposable, 32 gauge x 5/16 ndle Use one needle per dose. 5 doses per day supplies Lancets lancets Check blood sugar 4 times daily diagnosis: e11.65, insulin: yes supplies lisinopril (ZESTRIL, PRINIVIL) 20 mg tablet Take 1 tablet by mouth once daily. taking metFORMIN ER (GLUCOPHAGE XR) 500 mg 24 hr tablet Take 4 tablets by mouth daily with breakfast. taking metoclopramide HCl (REGLAN) 10 mg tablet Take 1 tablet by mouth before meals and at bedtime. 30min before meals. taking omeprazole (PRILOSEC) 20 mg capsule Take 1 capsule by mouth daily before breakfast. 1/2 hr before meal. Taking OTC Removed from med list Omeprazole Magnesium (PRILOSEC OTC) 20 mg tablet Take 2 tablets by mouth daily before breakfast. 1/2 hr before meal. Taking 1 tablet daily Rx meds not listed in EPIC: none OTCs: none Herbals: none Objective: Exam: Last 3 Encounter BP Readings: Date: BP: 07/23/2021 130/72 12/31/2020 126/68 11/05/2020 95/41 Wt: 169.6 kg (374 lb) BMI: 55.23 kg/(m^2) LABS: Reviewed Lab Results Component Value Date HBA1C 9.4 07/03/2021 HBA1C 9.0 12/31/2020 HBA1C 8.5 09/24/2020 CMP: Glucose 114 07/03/2021 BUN 13 07/03/2021 Creatinine 0.60 07/03/2021 Sodium 138 07/03/2021 Potassium 4.3 07/03/2021 Chloride 102 07/03/2021 CO2 25 07/03/2021 Protein, Total 7.6 07/03/2021 Albumin 4.3 07/03/2021 Calcium 9.2 07/03/2021 Alkaline Phosphatase 88 07/03/2021 Bilirubin, Total 0.4 07/03/2021 AST 55 07/03/2021 ALT 68 07/03/2021 Estimated Creatinine Clearance: 229.8 mL/min (A) (based on SCr of 0.6 mg/dL (L)). Lab Results Component Value Date CHOL 136 07/03/2021 LDL 68 07/03/2021 HDL 44 07/03/2021 TG 119 07/03/2021 The 10-year ASCVD risk score (Marcial RERE Jr., et al., 2013) is: 5.3% Values used to calculate the score: Age: 51 years Sex: Male Is Non- : No Diabetic: Yes Tobacco smoker: No Systolic Blood Pressure: 130 mmHg Is BP treated: Yes HDL Cholesterol: 44 mg/dL Total Cholesterol: 136 mg/dL Albumin/Creat Ratio (mg/g) Date Value 07/03/2021 51 (H) PHARMACOTHERAPY ASSESSMENT/PLAN: 1. 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, without long-term current use of insulin (HCC) - ICD9: 250.50, 362.05, 362.07, ICD10: E11.3313 (primary diagnosis) A1c goal < 7%; uncontrolled (last A1c 9.4%); patient rarely checking SMBGs; last 2 PPG checks this week were 160-180 mg/dL; patient was off Trulicity x 2 mo d/t cost but recently restarted medication and having more energy and less frequency of urination; has underlying GI issues and gastroparesis though denies any GI changes since restarting Trulicity; patient not using appropriate dose of Humalog, he was counseled on appropriate dosing; will increase Farxiga today and f/up in 1 mo; diet is not very good but patient not willing to change diet at this time; no intentional exercise, encouraged him to start walking or doing an exercise routine; patient doesn't like fingersticks so will see if CGM covered by insurance INCREASE Farxiga to 10mg daily - discussed possible ADEs of infxn and increased urination CONTINUE metformin ER 1000mg BID, Trulicity 4.5mg weekly, Lantus 61 units BID, and Humalog 4 units + SSI TIDAC Diabetic Education given re: signs of high blood sugar, signs and symptoms and management of hypoglycemia (handouts provided), diabetic diet with basic carbohydrate counting, need for aerobic exercise with goal 30 mins/day, 5x/week, and timing for home glucose monitoring with a review of target ranges Ordered [employer] system to see if covered by insurance - contact PharmD if covered Check BGs at least twice daily HbA1c: due 10/01 2. Medication management - ICD9: V58.69, ICD10: Z79.899 Reviewed all medications, indications, dosing, frequency, administration with patient. Medication list updated as described above. Cost burden: patient stopped Trulicity for several months d/t cost (was getting for $25/mo then coupon and costs $80/mo). He is taking med again. States other meds are reasonably affordable. PharmD printed out copay cards for Trulicity (should get for $25/mo), Farxiga ($0/mo), and Lantus ($0/mo) Advised patient to contact office any time when meds are not affordable Vaccination: Patient was wondering if he should get second COVID booster. PharmD discussed FDA approval for patients >50 yo, though discussed majority of evidence is for patients with immunocompromised conditions and/or >65 yo. Advised to discuss with PCP at upcoming appt later today since PCP has better understanding of patient's risk level. Patient is scheduled to see PCP today for ear infection. Patient to have PharmD f/u on 10/07. Patient verbalized understanding of instructions. Starr Cook PharmD, [facility] Primary Care Clinical Pharmacist Dolores Brown [facility] The majority of the pharmacy visit (> 50%) was spent counseling and/or coordinating care for the patient. interaction: face to face time was 58 minutes. documented in this encounter [facility] 09-09-2021 Instructions Starr Cook RPh - 09/09/2021 9:00 AM EDT INCREASE Farxiga to 10mg daily. CONTINUE all of your other medications. Please check your sugars at least twice daily and bring your glucometer with you to next PharmD visit. Let PharmD know about status of Dexcom (continuous glucose monitor). documented in this encounter [facility] 09-03-2021 Miscellaneous Notes Last refill transmission failed. Pt is almost out of medication. Patient has been identified by name and date of : Yes Patient phones for refill(s): Pending Prescriptions Disp Refills METFORMIN ER 500 MG TABLET,EXTENDED RELEASE 24 HR 360 tablet 3 Sig: Take 4 tablets by mouth daily with breakfast. CONY: No Date of last office visit in primary care: 07/23/21 Future visit: 10/26/21 Last 2 Encounter Wt Readings: Date: Wt: 07/23/2021 169.6 kg (374 lb) 12/31/2020 165.1 kg (364 lb) Previous labs/tests for medication: Diabetes: Hemoglobin A1C (%) Date Value 07/03/2021 9.4 12/31/2020 9.0 Please advise. Thank you. Tara Mckeon RN documented in this encounter [facility] documented as of this encounter (statuses as of 09/03/2021) [facility]12-[facility]-2011 History of Past illness Narrative* Problem Noted Date Resolved Date PAD (peripheral artery disease) 05/17/2011 08/06/2018 Overview: 05/17/11 [facility] did arterial US right: right PT pulse triphasic with index 1.16, left PT also triphasic with index 1.13 and 1.09, reviewed by R. Cebul surg who felt no treatment necessary. Traumatic pneumothorax 01/15/2008 8 Overview: Ran over by cow, broke 4 ribs, lung collapsed, unconscious. No chest tube. Was sent to [facility]. No sequellae Tobacco use disorder 06/01/2007 09/25/2017 Overview: Quit 2009 chew Acute nonsuppurative otitis media, unspecified 0 03/07/2007 09/25/2017 Closed Colles' fracture 08/03/2005 09/26/19 18 Overview: 2007 left documented as of this encounter (statuses as of 09/09/2021) [facility] History of Past illness Narrative* Problem Noted Date Resolved Date PAD (peripheral artery disease) 05/17/2011 08/06/2018 Overview: 05/17/11 [facility] did arterial US right: right PT pulse triphasic with index 1.16, left PT also triphasic with index 1.13 and 1.09, reviewed by R. Cebul surg who felt no treatment necessary. Traumatic pneumothorax 01/15/2008 8 Overview: Ran over by cow, broke 4 ribs, lung collapsed, unconscious. No chest tube. Was sent to [facility]. No sequellae Tobacco use disorder 06/01/2007 09/25/2017 Overview: Quit 2009 chew Acute nonsuppurative otitis media, unspecified 0 03/07/2007 09/25/2017 Closed Colles' fracture 08/03/2005 09/26/19 18 Overview: 2007 left documented as of this encounter (statuses as of 09/09/2021) [facility] History of Past illness Narrative* Problem Noted Date Resolved Date PAD (peripheral artery disease) 05/17/2011 08/06/2018 Overview: 05/17/11 [facility] did arterial US right: right PT pulse triphasic with index 1.16, left PT also triphasic with index 1.13 and 1.09, reviewed by R. Cebul surg who felt no treatment necessary. Traumatic pneumothorax 01/15/2008 8 Overview: Ran over by cow, broke 4 ribs, lung collapsed, unconscious. No chest tube. Was sent to [facility]. No sequellae Tobacco use disorder 06/01/2007 09/25/2017 Overview: Quit 2010 chew Acute nonsuppurative otitis media, unspecified 0 03/07/2007 09/25/2017 Closed Colles' fracture 08/03/2005 09/26/19 18 Overview: 2007 left documented as of this encounter (statuses as of 09/16/2021) [facility] History of Past illness Narrative* Problem Noted Date Resolved Date PAD (peripheral artery disease) 05/17/2011 08/06/2018 Overview: 05/17/11 [facility] did arterial US right: right PT pulse triphasic with index 1.16, left PT also triphasic with index 1.13 and 1.09, reviewed by R. Cebul surg who felt no treatment necessary. Traumatic pneumothorax 01/15/2008 8 Overview: Ran over by cow, broke 4 ribs, lung collapsed, unconscious. No chest tube. Was sent to [facility]. No sequellae Tobacco use disorder 06/01/2007 09/25/2017 Overview: Quit 2010 chew Acute nonsuppurative otitis media, unspecified 0 03/07/2007 09/25/2017 Closed Colles' fracture 08/03/2005 09/26/19 18 Overview: 2007 left documented as of this encounter (statuses as of 10/07/2021) [facility] History of Past illness Narrative* Problem Noted Date Resolved Date PAD (peripheral artery disease) 05/17/2011 08/06/2018 Overview: 05/17/11 [facility] did arterial US right: right PT pulse triphasic with index 1.16, left PT also triphasic with index 1.13 and 1.09, reviewed by R. Cebul surg who felt no treatment necessary. Traumatic pneumothorax 01/15/2008 8 Overview: Ran over by cow, broke 4 ribs, lung collapsed, unconscious. No chest tube. Was sent to [facility]. No sequellae Tobacco use disorder 06/01/2007 09/25/2017 Overview: Quit 2009 chew Acute nonsuppurative otitis media, unspecified 0 03/07/2007 09/25/2017 Closed Colles' fracture 08/03/2005 09/26/19 18 Overview: 2007 left documented as of this encounter (statuses as of 10/26/2021) [facility] History of Past illness Narrative* Problem Noted Date Resolved Date PAD (peripheral artery disease) 05/17/2011 08/06/2018 Overview: 05/17/11 [facility] did arterial US right: right PT pulse triphasic with index 1.16, left PT also triphasic with index 1.13 and 1.09, reviewed by R. Cebul surg who felt no treatment necessary. Traumatic pneumothorax 01/15/2008 8 Overview: Ran over by cow, broke 4 ribs, lung collapsed, unconscious. No chest tube. Was sent to [facility]. No sequellae Tobacco use disorder 06/01/2007 09/25/2017 Overview: Quit 2009 chew Acute nonsuppurative otitis media, unspecified 0 03/07/2007 09/25/2017 Closed Colles' fracture 08/03/2005 09/26/19 18 Overview: 2007 left documented as of this encounter (statuses as of 10/28/2021) [facility] History of Past illness Narrative* Problem Noted Date Resolved Date PAD (peripheral artery disease) 05/17/2011 08/06/2018 Overview: 05/17/11 [facility] did arterial US right: right PT pulse triphasic with index 1.16, left PT also triphasic with index 1.13 and 1.09, reviewed by R. Cebul surg who felt no treatment necessary. Traumatic pneumothorax 01/15/2008 8 Overview: Ran over by cow, broke 4 ribs, lung collapsed, unconscious. No chest tube. Was sent to [facility]. No sequellae Tobacco use disorder 06/01/2007 09/25/2017 Overview: Quit 2009 chew Acute nonsuppurative otitis media, unspecified 0 03/07/2007 09/25/2017 Closed Colles' fracture 08/03/2005 09/26/19 18 Overview: 2007 left documented as of this encounter (statuses as of 11/09/2021) [facility] History of Past illness Narrative* Problem Noted Date Resolved Date PAD (peripheral artery disease) 05/17/2011 08/06/2018 Overview: 05/17/11 [facility] did arterial US right: right PT pulse triphasic with index 1.16, left PT also triphasic with index 1.13 and 1.09, reviewed by R. Cebul surg who felt no treatment necessary. Traumatic pneumothorax 01/15/2008 8 Overview: Ran over by cow, broke 4 ribs, lung collapsed, unconscious. No chest tube. Was sent to [facility]. No sequellae Tobacco use disorder 06/01/2007 09/25/2017 Overview: Quit 2009 chew Acute nonsuppurative otitis media, unspecified 0 03/07/2007 09/25/2017 Closed Colles' fracture 08/03/2005 09/26/19 18 Overview: 2007 left documented as of this encounter (statuses as of 12/02/2021) [facility] History of Past illness Narrative* Problem Noted Date Resolved Date PAD (peripheral artery disease) 05/17/2011 08/06/2018 Overview: 05/17/11 [facility] did arterial US right: right PT pulse triphasic with index 1.16, left PT also triphasic with index 1.13 and 1.09, reviewed by R. Cebul surg who felt no treatment necessary. Traumatic pneumothorax 01/15/2008 8 Overview: Ran over by cow, broke 4 ribs, lung collapsed, unconscious. No chest tube. Was sent to [facility]. No sequellae Tobacco use disorder 06/01/2007 09/25/2017 Overview: Quit 2009 chew Acute nonsuppurative otitis media, unspecified 0 03/07/2007 09/25/2017 Closed Colles' fracture 08/03/2005 09/26/19 18 Overview: 2007 left documented as of this encounter (statuses as of 02/21/2022) [facility] History of Past illness Narrative* Problem Noted Date Resolved Date PAD (peripheral artery disease) 05/17/2011 08/06/2018 Overview: 05/17/11 [facility] did arterial US right: right PT pulse triphasic with index 1.16, left PT also triphasic with index 1.13 and 1.09, reviewed by R. Cebul surg who felt no treatment necessary. Traumatic pneumothorax 01/15/2008 8 Overview: Ran over by cow, broke 4 ribs, lung collapsed, unconscious. No chest tube. Was sent to [facility]. No sequellae Tobacco use disorder 06/01/2007 09/25/2017 Overview: Quit 2009 chew Acute nonsuppurative otitis media, unspecified 0 03/07/2007 09/25/2017 Closed Colles' fracture 08/03/2005 09/26/19 18 Overview: 2007 left documented as of this encounter (statuses as of 03/01/2022) [facility] History of Past illness Narrative* Problem Noted Date Resolved Date PAD (peripheral artery disease) 05/17/2011 08/06/2018 Overview: 05/17/11 [facility] did arterial US right: right PT pulse triphasic with index 1.16, left PT also triphasic with index 1.13 and 1.09, reviewed by Itzel Hamilton surg who felt no treatment necessary. Traumatic pneumothorax 01/15/2008 8 Overview: Ran over by cow, broke 4 ribs, lung collapsed, unconscious. No chest tube. Was sent to [facility]. No sequellae Tobacco use disorder 06/01/2007 09/25/2017 Overview: Quit 2009 chew Acute nonsuppurative otitis media, unspecified 0 03/07/2007 09/25/2017 Closed Colles' fracture 08/03/2005 09/26/19 18 Overview: 2007 left documented as of this encounter (statuses as of 03/25/2022) [facility] History of Past illness Narrative* Problem Noted Date Resolved Date PAD (peripheral artery disease) 05/17/2011 08/06/2018 Overview: 05/17/11 [facility] did arterial US right: right PT pulse triphasic with index 1.16, left PT also triphasic with index 1.13 and 1.09, reviewed by Itzel Olivol surg who felt no treatment necessary. Traumatic pneumothorax 01/15/2008 8 Overview: Ran over by cow, broke 4 ribs, lung collapsed, unconscious. No chest tube. Was sent to [facility]. No sequellae Tobacco use disorder 06/01/2007 09/25/2017 Overview: Quit 2010 chew Acute nonsuppurative otitis media, unspecified 0 03/07/2007 09/25/2017 Closed Colles' fracture 08/03/2005 09/26/19 18 Overview: 2007 left documented as of this encounter (statuses as of 05/12/2022) [facility] History of Past illness Narrative* Problem Noted Date Resolved Date PAD (peripheral artery disease) 05/17/2011 08/06/2018 Overview: 05/17/11 [facility] did arterial US right: right PT pulse triphasic with index 1.16, left PT also triphasic with index 1.13 and 1.09, reviewed by R. Cebul surg who felt no treatment necessary. Traumatic pneumothorax 01/15/2008 8 Overview: Ran over by cow, broke 4 ribs, lung collapsed, unconscious. No chest tube. Was sent to [facility]. No sequellae Tobacco use disorder 06/01/2007 09/25/2017 Overview: Quit 2009 chew Acute nonsuppurative otitis media, unspecified 0 03/07/2007 09/25/2017 Closed Colles' fracture 08/03/2005 09/26/19 18 Overview: 2007 left documented as of this encounter (statuses as of 05/24/2022) [facility]12-06-2011 History of Past illness Narrative* Problem Noted Date Resolved Date PAD (peripheral artery disease) 05/17/2011 08/06/2018 Overview: 05/17/11 [facility] did arterial US right: right PT pulse triphasic with index 1.16, left PT also triphasic with index 1.13 and 1.09, reviewed by R. Cebul surg who felt no treatment necessary. Traumatic pneumothorax 01/15/2008 8 Overview: Ran over by cow, broke 4 ribs, lung collapsed, unconscious. No chest tube. Was sent to [facility]. No sequellae Tobacco use disorder 06/01/2007 09/25/2017 Overview: Quit 2010 chew Acute nonsuppurative otitis media, unspecified 0 03/07/2007 09/25/2017 Closed Colles' fracture 08/03/2005 09/26/19 18 Overview: 2007 left documented as of this encounter (statuses as of 08/16/2022) [facility] History of Past illness Narrative* Problem Noted Date Resolved Date PAD (peripheral artery disease) 05/17/2011 08/06/2018 Overview: 05/17/11 [facility] did arterial US right: right PT pulse triphasic with index 1.16, left PT also triphasic with index 1.13 and 1.09, reviewed by R. Cebul surg who felt no treatment necessary. Traumatic pneumothorax 01/15/2008 8 Overview: Ran over by cow, broke 4 ribs, lung collapsed, unconscious. No chest tube. Was sent to [facility]. No sequellae Tobacco use disorder 06/01/2007 09/25/2017 Overview: Quit 2009 chew Acute nonsuppurative otitis media, unspecified 0 03/07/2007 09/25/2017 Closed Colles' fracture 08/03/2005 09/26/19 18 Overview: 2007 left documented as of this encounter (statuses as of 08/20/2022) [facility] History of Past illness Narrative* Problem Noted Date Resolved Date PAD (peripheral artery disease) 05/17/2011 08/06/2018 Overview: 05/17/11 [facility] did arterial US right: right PT pulse triphasic with index 1.16, left PT also triphasic with index 1.13 and 1.09, reviewed by R. Cebul surg who felt no treatment necessary. Traumatic pneumothorax 01/15/2008 8 Overview: Ran over by cow, broke 4 ribs, lung collapsed, unconscious. No chest tube. Was sent to [facility]. No sequellae Tobacco use disorder 06/01/2007 09/25/2017 Overview: Quit 2009 chew Acute nonsuppurative otitis media, unspecified 0 03/07/2007 09/25/2017 Closed Colles' fracture 08/03/2005 09/26/19 18 Overview: 2007 left documented as of this encounter (statuses as of 08/25/2022) [facility] History of Past illness Narrative* Problem Noted Date Resolved Date PAD (peripheral artery disease) 05/17/2011 08/06/2018 Overview: 05/17/11 [facility] did arterial US right: right PT pulse triphasic with index 1.16, left PT also triphasic with index 1.13 and 1.09, reviewed by R. Cebul surg who felt no treatment necessary. Traumatic pneumothorax 01/15/2008 8 Overview: Ran over by cow, broke 4 ribs, lung collapsed, unconscious. No chest tube. Was sent to [facility]. No sequellae Tobacco use disorder 06/01/2007 09/25/2017 Overview: Quit 2009 chew Acute nonsuppurative otitis media, unspecified 0 03/07/2007 09/25/2017 Closed Colles' fracture 08/03/2005 09/26/19 18 Overview: 2007 left documented as of this encounter (statuses as of 08/25/2022) [facility] History of Past illness Narrative* Problem Noted Date Resolved Date PAD (peripheral artery disease) 05/17/2011 08/06/2018 Overview: 05/17/11 [facility] did arterial US right: right PT pulse triphasic with index 1.16, left PT also triphasic with index 1.13 and 1.09, reviewed by R. Cebul surg who felt no treatment necessary. Traumatic pneumothorax 01/15/2008 8 Overview: Ran over by cow, broke 4 ribs, lung collapsed, unconscious. No chest tube. Was sent to [facility]. No sequellae Tobacco use disorder 06/01/2007 09/25/2017 Overview: Quit 2009 chew Acute nonsuppurative otitis media, unspecified 0 03/07/2007 09/25/2017 Closed Colles' fracture 08/03/2005 09/26/19 18 Overview: 2007 left documented as of this encounter (statuses as of 08/29/2022) [facility] History of Past illness Narrative* Problem Noted Date Resolved Date PAD (peripheral artery disease) 05/17/2011 08/06/2018 Overview: 05/17/11 [facility] did arterial US right: right PT pulse triphasic with index 1.16, left PT also triphasic with index 1.13 and 1.09, reviewed by R. Cebul surg who felt no treatment necessary. Traumatic pneumothorax 01/15/2008 8 Overview: Ran over by cow, broke 4 ribs, lung collapsed, unconscious. No chest tube. Was sent to [facility]. No sequellae Tobacco use disorder 06/01/2007 09/25/2017 Overview: Quit 2009 chew Acute nonsuppurative otitis media, unspecified 0 03/07/2007 09/25/2017 Closed Colles' fracture 08/03/2005 09/26/19 18 Overview: 2007 left documented as of this encounter (statuses as of 09/07/2022) [facility] History of Past illness Narrative* Problem Noted Date Diagnosed Date Resolved Date PAD (peripheral artery disease) 05/17/2011 08/06/2018 Overview: 05/17/11 [facility] did arterial US right: right PT pulse triphasic with index 1.16, left PT also triphasic with index 1.13 and 1.09, reviewed by R. Cebul surg who felt no treatment necessary. Traumatic pneumothorax 01/15/200809/25 Overview: Ran over by cow, broke 4 ribs, lung collapsed, unconscious. No chest tube. Was sent to [facility]. No sequellae Tobacco use disorder 06/01/2007 018 Overview: Quit 2009 chew Acute nonsuppurative otitis media, unspecified 03/07/2007 09/25/2017 Closed Colles' fracture 08/03/200509/10 Overview: 2007 left documented as of this encounter (statuses as of 02/03/2023) [facility] History of Past illness Narrative* Problem Noted Date Diagnosed Date Resolved Date PAD (peripheral artery disease) 05/17/2011 08/06/2018 Overview: 05/17/11 [facility] did arterial US right: right PT pulse triphasic with index 1.16, left PT also triphasic with index 1.13 and 1.09, reviewed by R. Cebul surg who felt no treatment necessary. Traumatic pneumothorax 01/15/200809/25 Overview: Ran over by cow, broke 4 ribs, lung collapsed, unconscious. No chest tube. Was sent to [facility]. No sequellae Tobacco use disorder 06/01/2007 018 Overview: Quit 2009 chew Acute nonsuppurative otitis media, unspecified 03/07/2007 09/25/2017 Closed Colles' fracture 08/03/200509/10 Overview: 2007 left documented as of this encounter (statuses as of 03/02/2023) [facility] History of Past illness Narrative* Problem Noted Date Diagnosed Date Resolved Date PAD (peripheral artery disease) 05/17/2011 08/06/2018 Overview: 05/17/11 [facility] did arterial US right: right PT pulse triphasic with index 1.16, left PT also triphasic with index 1.13 and 1.09, reviewed by R. Cebul surg who felt no treatment necessary. Traumatic pneumothorax 01/15/200809/25 Overview: Ran over by cow, broke 4 ribs, lung collapsed, unconscious. No chest tube. Was sent to [facility]. No sequellae Tobacco use disorder 06/01/2007 018 Overview: Quit 2009 chew Acute nonsuppurative otitis media, unspecified 03/07/2007 09/25/2017 Closed Colles' fracture 08/03/200509/10 Overview: 2007 left documented as of this encounter (statuses as of 03/18/2023) [facility] History of Past illness Narrative* Problem Noted Date Diagnosed Date Resolved Date PAD (peripheral artery disease) 05/17/2011 08/06/2018 Overview: 05/17/11 [facility] did arterial US right: right PT pulse triphasic with index 1.16, left PT also triphasic with index 1.13 and 1.09, reviewed by R. Cebul surg who felt no treatment necessary. Traumatic pneumothorax 01/15/200809/25 Overview: Ran over by cow, broke 4 ribs, lung collapsed, unconscious. No chest tube. Was sent to [facility]. No sequellae Tobacco use disorder 06/01/2007 018 Overview: Quit 2009 chew Acute nonsuppurative otitis media, unspecified 03/07/2007 09/25/2017 Closed Colles' fracture 08/03/200509/10 Overview: 2007 left documented as of this encounter (statuses as of 05/02/2023) [facility] History of Past illness Narrative* Problem Noted Date Diagnosed Date Resolved Date PAD (peripheral artery disease) 05/17/2011 08/06/2018 Overview: 05/17/11 [facility] did arterial US right: right PT pulse triphasic with index 1.16, left PT also triphasic with index 1.13 and 1.09, reviewed by R. Cebul surg who felt no treatment necessary. Traumatic pneumothorax 01/15/200809/25 Overview: Ran over by cow, broke 4 ribs, lung collapsed, unconscious. No chest tube. Was sent to [facility]. No sequellae Tobacco use disorder 06/01/2007 018 Overview: Quit 2009 chew Acute nonsuppurative otitis media, unspecified 03/07/2007 09/25/2017 Closed Colles' fracture 08/03/200509/10 Overview: 2007 left documented as of this encounter (statuses as of 05/02/2023) [facility] History of Past illness Narrative* Problem Noted Date Diagnosed Date Resolved Date PAD (peripheral artery disease) 05/17/2011 08/06/2018 Overview: 05/17/11 [facility] did arterial US right: right PT pulse triphasic with index 1.16, left PT also triphasic with index 1.13 and 1.09, reviewed by R. Cebul surg who felt no treatment necessary. Traumatic pneumothorax 01/15/200809/25 Overview: Ran over by cow, broke 4 ribs, lung collapsed, unconscious. No chest tube. Was sent to [facility]. 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, without long-term current use of insulin (HCC)- Primary Diabetic gastroparesis associated with type 2 diabetes mellitus (HCC) Type II or unspecified type diabetes mellitus with neurological manifestations, not stated as uncontrolled Microalbuminuria Proteinuria Hyperlipidemia, mixed Mixed hyperlipidemia Low HDL (under 40) Lipoprotein deficiencies Elevated blood pressure reading without diagnosis of hypertension Reaction, adjustment, with depressed mood, prolonged Prolonged depressive reaction as adjustment reaction Obesity, Class III, BMI >= 40 Morbid obesity Obstructive sleep apnea syndrome Obstructive sleep apnea (adult) (pediatric) Mild intermittent asthma without complication Unspecified asthma Pain of right heel Pain in limb Pain of fifth toe Diabetic gastroparesis (HCC) Type II or unspecified type diabetes mellitus with neurological manifestations, not stated as uncontrolled Gastro-esophageal reflux disease without esophagitis Esophageal reflux documented in this encounter [facility] note* Diagnosis 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)- Primary documented in this encounter [facility] note* Diagnosis Plantar fasciitis of right foot- Primary Plantar fascial fibromatosis Pain of right heel Pain in limb Type 2 diabetes mellitus without complication, with long-term current use of insulin ([facility]) [facility] Diagnosis Screening for colon cancer Special screening for malignant neoplasms, colon [facility] Diagnosis Reaction, adjustment, with depressed mood, prolonged Prolonged depressive reaction as adjustment reaction Diabetic gastroparesis associated with type 2 diabetes mellitus (HCC) Type II or unspecified type diabetes mellitus with neurological manifestations, not stated as uncontrolled [facility]* Diagnosis TMJ dysfunction- Primary Temporomandibular joint disorders, unspecified [facility]* Diagnosis 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) Medication management Encounter for long-term (current) use of other medications Elevated blood pressure reading without diagnosis of hypertension documented [facility]* Diagnosis Type 2 diabetes mellitus without retinopathy (HCC)- Primary Type II or unspecified type diabetes mellitus without mention of complication, not stated as uncontrolled Pseudophakia Lens replaced by other means Right posterior capsular opacification After-cataract, unspecified [facility]* Diagnosis Elevated blood sugar- Primary Other abnormal glucose Urinary frequency [facility]* Diagnosis Pseudophakia- Primary Lens replaced by other means Right posterior capsular opacification After-cataract, unspecified Type 2 diabetes mellitus without retinopathy (HCC) Type II or unspecified type diabetes mellitus without mention of complication, not stated as uncontrolled documented in this encounter [facility] note* Diagnosis 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)- Primary Diabetic gastroparesis (HCC) Type II or unspecified type diabetes mellitus with neurological manifestations, not stated as uncontrolled Essential hypertension Unspecified essential hypertension Hyperlipidemia, mixed Mixed hyperlipidemia Low HDL (under 40) Lipoprotein deficiencies Class 3 severe obesity due to excess calories without serious comorbidity with body mass index (BMI) of 45.0 to 49.9 in adult (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, without long-term current use of insulin (HCC) Medication management Encounter for long-term (current) use of other medications Elevated blood pressure reading without diagnosis of hypertension Reaction, adjustment, with depressed mood, prolonged Prolonged depressive reaction as adjustment reaction [facility]* Diagnosis 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) Reaction, adjustment, with depressed mood, prolonged Prolonged depressive reaction as adjustment reaction Class 3 severe obesity due to excess calories with serious comorbidity and body mass index (BMI) of 45.0 to 49.9 in adult (HCC) Encounter for immunization Need for other specified prophylactic vaccination against single bacterial disease Incomplete emptying of bladder Incomplete bladder emptying Tinea pedis of both feet Long toenail Other specified disease of nail Lumbar sprain, initial encounter Tympanosclerosis of both ears Tympanosclerosis, unspecified as to involvement Tinnitus of both ears Unspecified tinnitus Urinary frequency documented in this encounter [facility] note* Diagnosis 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) documented in this encounter [facility] for referral (narrative)* Diagnostic Procedure Only (Routine) - Closed Specialty Diagnoses / Procedures Referred By Contac t Referred To Contact XR IMAGING Diagnoses Pain of fifth toe Procedures XR TOE AP/LAT/OBL LEFT RADEX TOE MINIMUM 2 VIEWS Yogesh Dockery PA-C [address] [place] [address] Xr Imaging Referral ID Status Reason Start Date Expiration Date V isits Requested Visits Authorized [id number] Closed Auto-Generate d Referral 10/26/2021 11/25/2022 1 1 * Diagnostic Procedure Only (Routine) - Closed Specialty Diagnoses / Procedures Referred By Nora horowitz Referred To Contact XR IMAGING Diagnoses Pain of right heel Procedures XR FOOT GENERAL 3V AP/LAT/OBL RIGHT RADEX FOOT COMPLETE MINIMUM 3 VIEWS Yogesh Dockery PA-C [address] [place] [address] Xr Imaging Referral ID Status Reason Start Date Expiration Date V isits Requested Visits Authorized [id number] Closed Auto-Generate d Referral 10/26/2021 11/25/2022 1 1 * Consult, Test, Treat (Routine) - Authorized Specialty Diagnoses / Procedures Referred By Nora horowitz Referred To Contact Podiatry Diagnoses Pain of right heel Procedures CONSULT TO PODIATRY OFFICE/OUTPATIENT [facility] 60-74 MINUTES Yogesh Dockery PA-C [address] [place] [address] Referral ID Status Reason Start Date Expiration Date Visits Requested Visits Authorized [id number] Authorized PCP Requested Referral 10/26/2021 10/26/2022 1 1 [facility] Medications Administered Section Inactive Administered Medications - up to 3 most recent administrations Medication Order MAR Action Action Date Dose Rate Site bupivacaine (PF) 0.5 % (5 mg/mL) 2.5 mg injection 2.5 mg (0.5 mL), INTRA-ARTICULAR, ONCE, 1 dose, On Mon11/09/21 at 1230 Given 11/09/2021 12:22 PM EDT 2.5 mg Foot , Right dexAMETHasone sodium phosphate 2 mg injection (DECADRON) 2 mg, INTRA-ARTICULAR, ONCE, 1 dose, On Mon11/09/21 at 1230 Given 11/09/2021 12:23 PM EDT 2 mg F oot, Right triamcinolone acetonide 5 mg injection (KeNALog 10) 5 mg, INTRA-ARTICULAR, ONCE, 1 dose, On Mon11/09/21 at 1230 Given 11/09/2021 12:23 PM EDT 5 mg F oot, Right Active Administered Medications - up to 3 most recent administrations Medication Order MAR Action Action Date Dose Rate Site PHENYLephrine 2.5 % 1 Drop (AK-DILATE, TIFFANIE-SYNEPHRINE) 1 Drop, BOTH EYES, DIRECTED, Starting on Mon08/16/22 at 1400, Until Mon08/17/22 at 015, Administer for dilation PROTECT FROM LIGHT Given 08/16/2022 2:00 PM EST 1 Drop proparacaine 0.5 % 1 Drop (ALCAINE) 1 Drop, BOTH EYES, DIRECTED, Starting on Mon08/16/22 at 1400, Until Mon08/17/22 at 015, Administer for pneumo tonometry, tonopen tonometry, or pachymetry. In the event of a proparacaine shortage, administer tetracaine 0.5% ophthalmic drops 1 drop in the left eye as directed for pneumo tonometry, tonopen tonometry, or pachymetry Given 08/16/2022 2:00 PM EST 1 Drop tropicamide 1 % 1 Drop (MYDRIACYL) 1 Drop, BOTH EYES, DIRECTED, Starting on Mon08/16/22 at 1400, Until Mon08/17/22 at 0159, Administer for dilation Given 08/16/2022 2:00 PM EST 1 Drop Reason for Referral Specialty Diagnoses / Procedures Referred By Nora horowitz Referred To Contact Ent - Otolaryngology Diagnoses Tympanosclerosis of both ears Tinnitus of both ears Procedures CONSULT TO ENT OFFICE/OUTPATIENT [facility] MDM 60-74 MINUTES Yogesh Dockery PA-C [address] [place] [address] Referral ID Status Reason Start Date Expiration Date Visits Requested Visits Authorized [id number] Pending Review PCP Requested Referral 3 05/01/2024 1 1 Specialty Diagnoses / Procedures Referred By Nora horowitz Referred To Contact US IMAGING Diagnoses Incomplete emptying of bladder Procedures US PELVIS BLADDER US PELVIC NONOBSTETRIC IMAGE DCMTN LIMITED/F/U Yogesh Dockery PA-C [address] [place] [address] [place] [address] Referral ID Status Reason Start Date Expiration Date Visits Requested Visits Authorized [id number] Authorized Auto-Generat ed Referral 3 05/31/2024 1 1 Specialty Diagnoses / Procedures Referred By Contac t Referred To Contact Podiatry Diagnoses Long toenail Procedures CONSULT TO PODIATRY OFFICE/OUTPATIENT [facility] H[facility] MDM 60-74 MINUTES Yogesh Dockery PA-C [address] [place] [address] Referral ID Status Reason Start Date Expiration Date Visits Requested Visits Authorized [id number] Pending Review PCP Requested Referral 3 05/01/2024 1 1 Summary Purpose Family History No Family History Records Found Advance Directives No Advanced Directives Records Found Additional Source Comments Source Comments (unrecognize d section and content) In the event this informatio n is protected by the Federal Confidentiality of Alcohol and Drug Abuse Patient Records regulations: The Federal rules restrict any use of the information to criminally investigate or prosecute any alcohol or drug abuse patient.[facility] event this information is protected by the Federal Confidentiality of Alcohol and Drug Abuse Patient Records regulations: The Federal rules restrict any use of the information to criminally investigate or prosecute any alcohol or drug abuse patient.[facility] the event this information is protected by the Federal Confidentiality of Alcohol and Drug Abuse Patient Records regulations: The Federal rules restrict any use of the information to criminally investigate or prosecute any alcohol or drug abuse patient.[facility] the event this information is protected by the Federal Confidentiality of Alcohol and Drug Abuse Patient Records regulations: The Federal rules restrict any use of the information to criminally investigate or prosecute any alcohol or drug abuse patient.[facility] the event this information is protected by the Federal Confidentiality of Alcohol and Drug Abuse Patient Records regulations: The Federal rules restrict any use of the information to criminally investigate or prosecute any alcohol or drug abuse patient.[facility] HospitalIn the event this information is protected by the Federal Confidentiality of Alcohol and Drug Abuse Patient Records regulations: The Federal rules restrict any use of the information to criminally investigate or prosecute any alcohol or drug abuse patient.[facility] HospitalIn the event this information is protected by the Federal Confidentiality of Alcohol and Drug Abuse Patient Records regulations: The Federal rules restrict any use of the information to criminally investigate or prosecute any alcohol or drug abuse patient.[facility]In the event this information is protected by the Federal Confidentiality of Alcohol and Drug Abuse Patient Records regulations: The Federal rules restrict any use of the information to criminally investigate or prosecute any alcohol or drug abuse patient.[facility] HospitalIn the event this information is protected by the Federal Confidentiality of Alcohol and Drug Abuse Patient Records regulations: The Federal rules restrict any use of the information to criminally investigate or prosecute any alcohol or drug abuse patient.[facility] HospitalIn the event this information is protected by the Federal Confidentiality of Alcohol and Drug Abuse Patient Records regulations: The Federal rules restrict any use of the information to criminally investigate or prosecute any alcohol or drug abuse patient.[facility] HospitalIn the event this information is protected by the Federal Confidentiality of Alcohol and Drug Abuse Patient Records regulations: The Federal rules restrict any use of the information to criminally investigate or prosecute any alcohol or drug abuse patient.[facility] the event this information is protected by the Federal Confidentiality of Alcohol and Drug Abuse Patient Records regulations: The Federal rules restrict any use of the information to criminally investigate or prosecute any alcohol or drug abuse patient.[facility] HospitalIn the event this information is protected by the Federal Confidentiality of Alcohol and Drug Abuse Patient Records regulations: The Federal rules restrict any use of the information to criminally investigate or prosecute any alcohol or drug abuse patient.[facility] HospitalIn the event this information is protected by the Federal Confidentiality of Alcohol and Drug Abuse Patient Records regulations: The Federal rules restrict any use of the information to criminally investigate or prosecute any alcohol or drug abuse patient.[facility] HospitalIn the event this information is protected by the Federal Confidentiality of Alcohol and Drug Abuse Patient Records regulations: The Federal rules restrict any use of the information to criminally investigate or prosecute any alcohol or drug abuse patient.[facility] HospitalIn the event this information is protected by the Federal Confidentiality of Alcohol and Drug Abuse Patient Records regulations: The Federal rules restrict any use of the information to criminally investigate or prosecute any alcohol or drug abuse patient.[facility] HospitalIn the event this information is protected by the Federal Confidentiality of Alcohol and Drug Abuse Patient Records regulations: The Federal rules restrict any use of the information to criminally investigate or prosecute any alcohol or drug abuse patient.[facility] HospitalIn the event this information is protected by the Federal Confidentiality of Alcohol and Drug Abuse Patient Records regulations: The Federal rules restrict any use of the information to criminally investigate or prosecute any alcohol or drug abuse patient.[facility] HospitalIn the event this information is protected by the Federal Confidentiality of Alcohol and Drug Abuse Patient Records regulations: The Federal rules restrict any use of the information to criminally investigate or prosecute any alcohol or drug abuse patient.[facility] HospitalIn the event this information is protected by the Federal Confidentiality of Alcohol and Drug Abuse Patient Records regulations: The Federal rules restrict any use of the information to criminally investigate or prosecute any alcohol or drug abuse patient.[facility] HospitalIn the event this information is protected by the Federal Confidentiality of Alcohol and Drug Abuse Patient Records regulations: The Federal rules restrict any use of the information to criminally investigate or prosecute any alcohol or drug abuse patient.[facility] HospitalIn the event this information is protected by the Federal Confidentiality of Alcohol and Drug Abuse Patient Records regulations: The Federal rules restrict any use of the information to criminally investigate or prosecute any alcohol or drug abuse patient.[facility] HospitalIn the event this information is protected by the Federal Confidentiality of Alcohol and Drug Abuse Patient Records regulations: The Federal rules restrict any use of the information to criminally investigate or prosecute any alcohol or drug abuse patient.[facility] HospitalIn the event this information is protected by the Federal Confidentiality of Alcohol and Drug Abuse Patient Records regulations: The Federal rules restrict any use of the information to criminally investigate or prosecute any alcohol or drug abuse patient.[facility] HospitalIn the event this information is protected by the Federal Confidentiality of Alcohol and Drug Abuse Patient Records regulations: The Federal rules restrict any use of the information to criminally investigate or prosecute any alcohol or drug abuse patient.[facility] HospitalIn the event this information is protected by the Federal Confidentiality of Alcohol and Drug Abuse Patient Records regulations: The Federal rules restrict any use of the information to criminally investigate or prosecute any alcohol or drug abuse patient.[facility] Reason for Visit (unrecogniz ed section and content) Reason Comments Diabetes Reason Comments Ear Pain right, 1 week Reason Onset Date Comments Refill Request 09/15/2021 Reason Comments Diabetes 3 month f/u Reason Comments Pain Specialty Diagnoses / Procedures Referred By Contac t Referred To Contact Podiatry Diagnoses Pain of right heel Procedures CONSULT TO PODIATRY OFFICE/OUTPATIENT [facility] 60-74 MINUTES Yogesh Dockery PA-C [address] [id number] Referral ID Status Reason Start Date Expiration Date V isits Requested Visits Authorized [id number] Closed PCP Requested Referral 10/26/2021 10/26/2022 1 1 Reason Comments Consult Colonoscopy Specialty Diagnoses / Procedures Referred By Contac t Referred To Contact General Surgery Diagnoses Screening for colon cancer Procedures CONSULT TO GENERAL SURGERY OFFICE/OUTPATIENT [facility] 60-74 MINUTES Yogesh Dockery PA-C [address] [place] [address] Referral ID Status Reason Start Date Expiration Date V isits Requested Visits Authorized [id number] Closed PCP Requested Referral 07/23/2021 07/23/2022 1 1 Reason Onset Date Comments Refill Request 02/21/2022 Reason Comments Ear Problem Right ear and jaw pa in. 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, without long-term current use of insulin (HCC) Procedures CONSULT TO OPHTHALMOLOGY OFFICE/OUTPATIENT [facility] 60-74 MINUTES Yogesh Dockery PA-C [address] [place] [address] Referral ID Status Reason Start Date Expiration Date Visits Requested Visits Authorized [id number] Pending Review PCP Requested Referral 08/15/2022 08/15/2023 1 1 Reason Comments Blood Sugar Elevation Concerns for gluco se reading at 527 Reason Comments blood gucose machine problem Reason Comments Refraction Difficulty Reading Both Eyes Small print Diabetes Blood sugar: 200A1c: 8.0 Reason Comments Insurance Authorization Reason Comments Insurance Authorization Farxiga and trul icity Reason Comments Back Pain Lower back pain inju red 2 weeks ago, not worker's comp Specialty Diagnoses / Procedures Referred By Nora horowitz Referred To Contact Family Medicine / FAMILY MEDICINE Diagnoses hurt back f1grfok ago Procedures 4C EST Self Yogesh Dockery PA-C [address] [place] [address] Referral ID Status Reason Start Date Expiration Date V isits Requested Visits Authorized [id number] Closed Patient Cleared - INN Insurance Found 02/03/2023 05/03/2023 1 1 Reason Onset Date Comments Refill Request 03/01/2023 Reason Comments Insurance Authorization Omeprazole Denie d Reason Comments Follow Up 2 month Reason Onset Date Comments Refill Request 05/24/2023 Care Teams (unrecognized sec tion and content) Job Captain Relationship Specialty Start Date End Date Yogesh Dockery PA-C [address] [place], [place] [id number] PCP - General Family Practice 09/25/17 [facility] [address] [place] [address] Pharmacist Pharmacy 04/05/18 Job Captain Relationship Specialty Start Date End Date Yogesh Dockery PA-C [address] [place], [place] [id number] PCP - General Family Practice 09/25/17 [facility] [address] [place] [address] Pharmacist Pharmacy 04/05/18 Job Captain Relationship Specialty Start Date End Date Yogesh Dockery PA-C [address] [place] [address] PCP - General Family Practice 09/25/17 Starr Cook, [facility] [address] [place] [address] Pharmacist Pharmacy 04/05/18 Job Captain Relationship Specialty Start Date End Date Yogesh Dockery PA-C [address] [place] [address] PCP - General Family Practice 09/25/17 Starr Cook, [facility] [address] [place] [address] Pharmacist Pharmacy 04/05/18 Job Captain Relationship Specialty Start Date End Date Yogesh Dockery PA-C [address] [place] [address] PCP - General Family Practice 09/25/17 Starr Cook, [facility] [address] [place] [address] Pharmacist Pharmacy 04/05/18 Job Captain Relationship Specialty Start Date End Date Yogesh Dockery PA-C [address] [place] [address] PCP - General Family Practice 09/25/17 Starr Cook, [facility] [address] [place] [address] Pharmacist Pharmacy 04/05/18 Job Captain Relationship Specialty Start Date End Date Yogesh Dockery PA-C [address] [place] [address] PCP - General Family Practice 09/25/17 Starr Cook, [facility] [address] [place] [address] Pharmacist Pharmacy 04/05/18 Job Captain Relationship Specialty Start Date End Date Yogesh Dockery PA-C [address] [place] [address] PCP - General Family Medicine 09/25/17 Starr Cook, [facility] [address] [place] [address] Pharmacist Pharmacy 04/05/18 Job Captain Relationship Specialty Start Date End Date Yogesh Dockery PA-C [address] [place] [address] PCP - General Family Medicine 09/25/17 Joey, Starr, [facility] [address] [place] [address] Pharmacist Pharmacy 04/05/18 Job Captain Relationship Specialty Start Date End Date Yogesh Dockery PA-C [address] [place] [address] PCP - General Family Medicine 09/25/17 Joey Starr, [facility] [address] [place] [address] Pharmacist Pharmacy 04/05/18 Job Captain Relationship Specialty Start Date End Date Yogesh Dockery PA-C [address] [place] [address] PCP - General Family Medicine 09/25/17 Carlos Starr, [facility] [address] [place] [address] Pharmacist Pharmacy 04/05/18 Job Captain Relationship Specialty Start Date End Date Yogesh Dockery PA-C [address] [place] [address] PCP - General Family Medicine 09/25/17 JoeySharonStarr, [facility] [address] [place] [address] Pharmacist Pharmacy 04/05/18 Job Captain Relationship Specialty Start Date End Date Yogesh Dockery PA-C [address] [place] [address] PCP - General Family Medicine 09/25/17 Carlos Starr, [facility] [address] [place] [address] Pharmacist Pharmacy 04/05/18 Job Captain Relationship Specialty Start Date End Date Yogesh Dockery PA-C [address] [place] [address] PCP - General Family Medicine 09/25/17 Carlos Starr, [facility] [address] [place] [address] Pharmacist Pharmacy 04/05/18 Job Captain Relationship Specialty Start Date End Date Yogesh Dockery PA-C [address] [place] [address] PCP - General Family Medicine 09/25/17 Carlos Starr, [facility] [address] [place] [address] Pharmacist Pharmacy 04/05/18 Job Captain Relationship Specialty Start Date End Date Yogesh Dockery PA-C [address] [place] [address] PCP - General Family Medicine 09/25/17 Carlos Starr, [facility] [address] [place] [address] Pharmacist Pharmacy 04/05/18 Job Captain Relationship Specialty Start Date End Date Yogesh Dockery PA-C [address] [place] [address] PCP - General Family Medicine 09/25/17 Starr Cook, [facility] [address] [place] [address] Pharmacist Pharmacy 04/05/18 Job Captain Relationship Specialty Start Date End Date Yogesh Dockery PA-C [address] [place] [address] PCP - General Family Medicine 09/25/17 Starr Cook, [facility] [address] [place] [address] Pharmacist Pharmacy 04/05/18 Job Captain Relationship Specialty Start Date End Date Yogesh Dockery PA-C [address] [place] [address] PCP - General Family Medicine 09/25/17 CarlosStarr, [facility] [address] [place] [address] Pharmacist Pharmacy 04/05/18 Job Captain Relationship Specialty Start Date End Date Yogesh Dockery PA-C [address] [place] [address] PCP - General Family Medicine 09/25/17 Starr Cook, [facility] [address] [place] [address] Pharmacist Pharmacy 04/05/18 Job Captain Relationship Specialty Start Date End Date Yogesh Dockery PA-C [address] [place] [address] PCP - General Family Medicine 09/25/17 Starr Cook, [facility] [address] [place] [address] Pharmacist Pharmacy 10/25/18 Job Captain Relationship Specialty Start Date End Date Yogesh Dockery PA-C [address] [place] [address] PCP - General Family Medicine 09/25/17 Starr Cook, [facility] [address] [place] [address] Pharmacist Pharmacy 04/05/18 (unrecognized sect ion and content) No Status Records Found INFORMATION SOURCE (unrecogn ized section and content) FOR RECORDS PERTAINING TO PATIENTS WHO ARE OR HAVE BEEN ENROLLED IN A CHEMICAL DEPENDENCY/SUBSTANCEABUSE PROGRAM, SOME INFORMATION MAY BE OMITTED. This clinical summary was aggregated from multiple sources. Caution should be exercised in using it in the provision of clinical care. This summary normalizes information from multiple sources, and as a consequence, information in this document may materially change the coding, format and clinical context of patient data. In addition, data may be omitted in some cases. CLINICAL DECISIONS SHOULD BE BASED ON THE PRIMARY CLINICAL RECORDS. [employer] provides no warranty or guarantee of the accuracy or completeness of information in this document.
[2023-07-21] MEDS: Lisinopril 20 MG Tablet PO (20:46)
[2023-07-21 20:49] LABS: Anion Gap 7 (5-15); BUN 22 mg/dL (7-18); BUN/Creat Ratio 23.4 RATIO (10-20); Calcium,Total 9.5 mg/dL (8.5-10.1); Chloride 109 mmol/L (98-107); Creatinine, Serum 0.94 mg/dL (0.70-1.30); EST Glomerular Filtration Rate 90 mL/min (>60); Est Glom Filt Rate - Afr Amer 109 mL/min (>60); Glucose 182 mg/dL (74-106); Potassium 4.2 mmol/L (3.5-5.1); Sodium Level 141 mmol/L (136-145); Troponin-I HS 15 pg/mL (3.0-78.0)
[2023-07-21 21:17] VITALS: BMI 49.8
[2023-07-21 21:53] LABS: Bacteria 0 SEEN /hpf (None Seen); Mucous, Urine 0 SEEN /hpf (<or=2+); Red Blood Cells-Urine 0 SEEN /hpf (0-5); Squamous Epithelial Cells - UA 0 SEEN /hpf (0-5); White Blood Cells 0 SEEN /hpf (0-5)
[2023-07-21 22:09] LABS: Color, Urine Yellow (Yellow); Glucose, Dipstick 1000 mg/dl (Normal); Ketone-Dipstick 5 mg/dl (Negative); Leukocyte Esterase-Dipstick Negative /ul (Negative); Nitrite-Dipstick Negative (Negative); Occult Blood-Urine Negative /ul (Negative); Protein-Dipstick Negative (Negative); Urine Bilirubin Dipstick Negative (Negative); Urine Clarity Clear (Clear); Urine Urobilinogen Normal (Normal)
[2023-07-21 22:38] VITALS: BP 121/79; PULSE 81
== END 2023-07-21 22:39 | disposition home or self-care (01) ==
PROVIDERS: Physician Assistant; Emergency Provider Emergency Medicine; PCP Physician Assistant; Visit Provider Emergency Medicine
DX: R53.81 Other malaise (principal); Z79.4 Long term (current) use of insulin; E11.9 Type 2 diabetes mellitus without complications; I10 Essential (primary) hypertension; E78.00 Pure hypercholesterolemia, unspecified; K21.9 Gastro-esophageal reflux disease without esophagitis; Z79.899 Other long term (current) drug therapy; F32.A Depression, unspecified; Z79.85 Long-term (current) use of injectable non-insulin antidiabetic drugs; Z90.49 Acquired absence of other specified parts of digestive tract
CPT/HCPCS: 71045; 80048; 81001; 84484; 85025; 93005; 99282; A4216

== ENCOUNTER 2023-08-15 05:33 | Emergency (ER) | payer BC, SELFPAY ==
[2023-08-15 05:34] VITALS: BP 165/94; PULSE 89; RESP 17; TEMP 36.9; O2SAT 98; BMI 48.6
--- OUTSIDE RECORDS SUMMARY | 2023-08-15 05:54 | XMS RPT_ITS | CCD ---
Author Name Unknown Address [address] [place] [address] Organization [facility] Care Team Providers Care Credit Counselor Name Role Phone Yogesh Dockery PA-C Primary Care Provider [facility], Starr Unavailable [facility], Keti Unavailable Yogesh Dockery PA-C Primary Care Provider [facility], [place]arr Unavailable Yogesh Dockery PA-C Primary Care Provider [facility], [place]arr Unavailable Yogesh Dockery PA-C Primary Care Provider [facility], [place]arr Unavailable KORI LOONEY Referring Unavailable Yogesh DOCKERY Primary Care Unavailable KORI LOONEY Attending Unavailable Yogesh DOCKERY Referring Unavailable DOCKERYYogesh Primary Care Unavailable Yogesh DOCKERY Attending Unavailable DOCKERYYogesh Primary Care Unavailable DOCKERYYogesh Referring Unavailable DOCKERYYogesh Primary Care Unavailable DOCKERYYogesh Attending Unavailable DOCKERY M ELBERT Primary Care Unavailable DOCKERY M ELBERT Primary Care Unavailable NOEMI STEVENSON Attending Unavailable Yogesh DOCKERY Primary Care Unavailable DOCKERYYogesh Primary Care Unavailable DOCKERY, Yogesh [place]ES Referring Unavailable MARIANA PENA Attending Unavailable Yogesh DOCKERY Primary Care Unavailable DOCKERY M ELBERT Referring Unavailable DOCKERY, M ELBERT Primary Care Unavailable Yogesh DOCKERY Attending Unavailable Yogesh DOCKERY Attending Unavailable DOCKERY M ELBERT Primary Care Unavailable Medications Current Medications Medication Drug Class(es) Dates Sig (Normalized) Sig (Original) CPAP/BIPAP/OTHER (6 sources) Start: 04-21-2023 End: 09-02-2050 CPAP/BIPAP/OTHER Indications: [...] joint disorder, unspecified side] Episodic Esophageal disorders (4 sources) Gastroesophageal reflux disease without esophagitis; Translations: [Gastro-esophageal reflux disease without esophagitis] Onset: 02-03-2023 Chronic Essential hypertension (18 sources) Essential hypertension; Translations: [Essential (primary) hypertension] Onset: 08-14-2022 08-14-2022 Chronic Mycoses (1 source) Tinea pedis; Translations: [Tinea pedis] 05-02-2023 Episodic Other aftercare (5 sources) Patient encounter status; Translations: [Other mcfp (current) drug therapy] Episodic Other connective tissue [...] (BMI) of 45.0 to 49.9 in adult ([facility])] Onset: 03-07-2007 Chronic Other nutritional; endocrine; and [...] Vital Sign Value Performing Clinician Gayla noriega 07-28-2023 10:46-0500 Body temperature 97 [degF] NA Dockery PA-C Work Phone: [facility] 07-28-2023 10:46-0500 Body weight 159.21 kg NA Dockery PA-C Work Phone: [facility] 07-28-2023 10:46-0500 Diastolic blood pressure 60 mm[Hg] NA Dockery PA-C Work Phone: [facility] 07-28-2023 10:46-0500 Heart rate 80 /min NA Dockery PA-C Work Phone: [facility] 07-28-2023 10:46-0500 Respiratory rate 24 /min NA Dockery PA-C Work Phone: [facility] 07-28-2023 10:46-0500 Systolic blood pressure 116 mm[Hg] NA Dockery PA-C Work Phone: [facility] 05-02-2023 09:45-0500 Body temperature 97.81 [degF] NA Dockery PA-C Work Phone: [facility] 05-02-2023 09:45-0500 Body weight 160.12 kg NA Dockery PA-C Work Phone: [facility] 05-02-2023 09:45-0500 Diastolic blood pressure 70 mm[Hg] NA Dockery PA-C Work Phone: [facility] 05-02-2023 09:45-0500 Heart rate 86 /min NA Dockery PA-C Work Phone: [facility] 05-02-2023 09:45-0500 Respiratory rate 22 /min NA Dockery PA-C Work Phone: [facility] 05-02-2023 09:45-0500 SaO2% (BldA) [Mass fraction] 96 % NA Dockery PA-C Work Phone: [facility] 05-02-2023 09:45-0500 Systolic blood pressure 132 mm[Hg] NA Dockery PA-C Work Phone: [facility] 02-03-2023 10:57-0400 Body weight 162.39 kg NA Dockery PA-C Work Phone: [facility] 02-03-2023 10:57-0400 Diastolic blood pressure 70 mm[Hg] NA Dockery PA-C Work Phone: [facility] 02-03-2023 10:57-0400 Heart rate 90 /min NA Dockery PA-C Work Phone: [facility] 02-03-2023 10:57-0400 Respiratory rate 20 /min NA Dockery PA-C Work Phone: [facility] 02-03-2023 10:57-0400 SaO2% (BldA) [Mass fraction] 97 % NA Dockery PA-C Work Phone: [facility] 02-03-2023 10:57-0400 Systolic blood pressure 134 mm[Hg] NA Dockery PA-C Work Phone: [facility] 08-19-2022 19:16-0500 Body temperature 98.1 [degF] Debbi Praisler-Wood DJ INSTRUCTOR.[employer] Work Phone: [facility] 08-19-2022 19:16-0500 Body weight 162.93 kg Debbi Praisler-Wood DJ INSTRUCTOR.[employer] Work Phone: [facility] 08-19-2022 19:16-0500 Diastolic blood pressure 98 mm[Hg] Debbi Praisler-Wood DJ INSTRUCTOR.[employer] Work Phone: [facility] 08-19-2022 19:16-0500 Heart rate 94 /min Debbi Praisler-Wood DJ INSTRUCTOR.[employer] Work Phone: [facility] 08-19-2022 19:16-0500 Respiratory rate 20 /min Debbi Praisler-Miguel Angel DJ INSTRUCTOR.[employer] Work Phone: [facility] 08-19-2022 19:16-0500 SaO2% (BldA) [Mass fraction] 95 % Debbipayal Chin-Miguel Angel DJ INSTRUCTOR.[employer] Work Phone: [facility] 08-19-2022 19:16-0500 Systolic blood pressure 152 mm[Hg] Debbi Chin-Miguel Angel DJ INSTRUCTOR.[employer]OTHER Work Phone: [facility] 03-01-2022 10:23-0400 Body temperature 97.59 [degF] Stephanie Yee PA-C Work Phone: [facility] 03-01-2022 10:23-0400 Body weight 152.86 kg Stephanie Yee PA-C Work Phone: [facility] 03-01-2022 10:23-0400 Diastolic blood pressure 78 mm[Hg] Stephanie Yee PA-C Work Phone: [facility] 03-01-2022 10:23-0400 Heart rate 72 /min Stephanie Yee PA-C Work Phone: [facility] 03-01-2022 10:23-0400 Respiratory rate 18 /min Stephanie Yee PA-C Work Phone: [facility] 03-01-2022 10:23-0400 Systolic blood pressure 124 mm[Hg] Stephanie Yee PA-C Work Phone: [facility] 12-01-2021 08:02-0400 Body height 180.3 cm Tara Engelhard PA-C Work Phone: [facility] 12-01-2021 08:02-0400 Body temperature 96.6 [degF] Tara Johann PA-C Work Phone: [facility] 12-01-2021 08:02-0400 Body weight 154.68 kg Tara Engelhard PA-C Work Phone: [facility] 12-01-2021 08:02-0400 Diastolic blood pressure 75 mm[Hg] Tara Engelhard PA-C Work Phone: [facility] 12-01-2021 08:02-0400 Heart rate 104 /min Tara Johann PA-C Work Phone: [facility] 12-01-2021 08:02-0400 SaO2% (BldA) [Mass fraction] 95 % Tara Johann PA-C Work Phone: [facility] 12-01-2021 08:02-0400 Systolic blood pressure 131 mm[Hg] Tara Johann PA-C Work Phone: [facility] 10-26-2021 08:45-0400 Body weight 156.04 kg NA Dockery PA-C Work Phone: [facility] 10-26-2021 08:45-0400 Diastolic blood pressure 62 mm[Hg] NA Dockery PA-C Work Phone: [facility] 10-26-2021 08:45-0400 Heart rate 81 /min NA Dockery PA-C Work Phone: [facility] 10-26-2021 08:45-0400 Respiratory rate 20 /min NA Dockery PA-C Work Phone: [facility] 10-26-2021 08:45-0400 SaO2% (BldA) [Mass fraction] 95 % NA Dockery PA-C Work Phone: [facility] 10-26-2021 08:45-0400 Systolic blood pressure 118 mm[Hg] NA Dockery PA-C Work Phone: [facility] 09-09-2021 10:33-0400 Body temperature 98.6 [degF] NA Dockery PA-C Work Phone: [facility] 09-09-2021 10:33-0400 Body weight 162.39 kg NA Dockery PA-C Work Phone: [facility] 09-09-2021 10:33-0400 Diastolic blood pressure 70 mm[Hg] NA Dockery PA-C Work Phone: [facility] 09-09-2021 10:33-0400 Heart rate 76 /min NA Dockery PA-C Work Phone: [facility] 09-09-2021 10:33-0400 Respiratory rate 24 /min NA Dockery PA-C Work Phone: [facility] 09-09-2021 10:33-0400 SaO2% (BldA) [Mass fraction] 94 % NA Dockery PA-C Work Phone: [facility] 09-09-2021 10:33-0400 Systolic blood pressure 140 mm[Hg] NA Dockery PA-C Work Phone: [facility] Encounters Encounter Date Encounter Type Care Provider Facility Start: 08-14-2023 End: 08-14-2023 ambulatory Nurse Intm/Famp Triage [facility] Work Phone: Nurse Phone Triage Procedures Date Procedure Procedure Detail Performing Clinician Start: 05-02-2023 Urnls dip stick/tabl et rgnt auto w/o microscopy M Elbert Sarkis [facility] Work Phone: Start: 05-02-2023 PFIZER-BIONTChipX COVI D-19 VACCINE (2022- SEASON) AGE 12+ YR M Elbert Arizace [facility] Work Phone: Start: 08-19-2022 Urnls dip stick/tabl et rgnt auto w/o microscopy Debbi Hebert APRN.[employer] Work Phone: Start: 08-19-2022 Gluc bld gluc mntr d ev cleared fda spec home use [facility] Provider Start: 10-26-2021 Adult depression screening assessment NA Dockery PA-C Work Phone: Start: 07-23-2021 Adult depression screening assessment NA Dockery PA-C Work Phone: Plan of Treatment Date Care Activity Detail Author Start: 07-28-2024 Annual PCP Team Chronic Disease Visit Annual PCP Team Chronic Disease Visit [facility] Start: 07-28-2024 BP Controlled (<130/80) BP Controlled (<130/80) [facility] Start: 05-02-2024 3 comp foot exam completed Diabetic Foot Exam [facility] Start: 05-02-2024 Annual PCP Team Chronic Disease Visit Annual PCP Team Chronic Disease Visit [facility] Start: 05-02-2024 Diabetic foot examination Diabetic Foot Exam [facility] Start: 05-01-2024 Hepatitis B surface antibody level LDL Cholesterol [facility] Start: 02-04-2024 ANNUAL PCP TEAM CHRONIC DISEASE VISIT ANNUAL PCP TEAM CHRONIC DISEASE VISIT [facility] Start: 11-19-2023 Urine microalbumin profile [facility] Start: 08-17-2023 Glaucoma screening Dilated Retinal Exam [facility] Start: 08-17-2023 Hepatitis C antibody, confirmatory test DILATED RETINAL EXAM [facility] Start: 08-16-2023 ANNUAL PCP TEAM CHRONIC DISEASE VISIT ANNUAL PCP TEAM CHRONIC DISEASE VISIT [facility] Start: 08-16-2023 BP CONTROLLED (<130/80) BP CONTROLLED (<130/80) [facility] Start: 08-16-2023 Hepatitis B screening URINE ALBUMIN:CREATININE RATIO [facility] Start: 08-16-2023 Hepatitis B surface antibody level LDL CHOLESTEROL [facility] Start: 08-01-2023 End: 10-31-2023 Hemoglobin A1c in Blood HGB A1C Lab Routine Uncontrolled type 2 diabetes mellitus with hyperglycemia (HCC) Expected: 08/01/2023, Expires: 10/31/2023 [facility] Work Phone: Immunizations Immunization Date Immunization Notes Care Provider Heri ocampo 05-02-2023 COVID-19 vaccine, ag e 12+ yr, season (PFIZER-BIONTChipX) LYN Dockery PA-C Work Phone: [facility] 03-20-2023 Seasonal, quadrivale nt, recombinant, injectable influenza vaccine, preservative free LYN Dockery PA-C Work Phone: [facility] 08-15-2022 pneumococcal (PCV20) vaccine, 20 valent (PREVNAR 20) Mariana Pena MD Work Phone: [facility] 08-15-2022 zoster vaccine recombinant Mariana Pena MD Work Phone: [facility] 06-06-2022 zoster vaccine recombinant Mariana Pena MD Work Phone: [facility] 04-19-2022 Seasonal, quadrivale nt, recombinant, injectable influenza vaccine, preservative free Mariana Pena MD Work Phone: [facility] 04-19-2022 influenza virus vacc ine, unspecified formulation NA Dockery PA-C Work Phone: [facility] 07-23-2021 influenza, injectabl e, quadrivalent, contains preservative NA Dockery PA-C Work Phone: [facility] 09-24-2020 COVID-19 vaccine, ag e 12+ yr (PFIZER-BIONTECH - [facility] TOP) NA Dockery PA-C Work Phone: [facility] 09-03-2020 COVID-19 vaccine, ag e 12+ yr (PFIZER-BIONTECH - PURPLE TOP) NA Dockery PA-C Work Phone: [facility] 06-26-2020 influenza, injectabl e, quadrivalent, contains preservative NA Dockery PA-C Work Phone: [facility] 11-18-2013 pneumococcal vaccine , unspecified formulation NA Dockery PA-C Work Phone: [facility] Work Phone: 11-18-2013 tetanus toxoid, redu chasity diphtheria toxoid, and acellular pertussis vaccine, adsorbed NA Dockery PA-C Work Phone: [facility] Work Phone: 04-12-2011 pneumococcal polysaccharide vaccine, 23 valent NA Dockery PA-C Work Phone: [facility] 03-12-2011 influenza virus vacc ine, unspecified formulation NA Dockery PA-C Work Phone: [facility] 03-18-2008 influenza virus vacc ine, unspecified formulation NA Dockery PA-C Work Phone: [facility] 06-01-2007 tetanus toxoid, redu chasity diphtheria toxoid, and acellular pertussis vaccine, adsorbed NA Dockery PA-C Work Phone: [facility] Work Phone: Payers Date Payer Category Payer Unknown [id number] 2022 Unknown [id number] 2022 Medicaid [id number] 2022 Medicaid [id number] 2022 Medicaid [id number] 2019 Unknown [employer] PPO OOS [id number] 2019-Present [phone] [address] [place] [address] PPO [id number] 2005 Unknown [id number] Social History Date Type Detail Facility Start: 05-17-2011 End: 03-01-2022 Tobacco smoking status NHIS Never smoked tobacco [facility] Start: 05-17-2011 End: 03-01-2022 Tobacco use and exposure Former smokeless tobacco user [facility] End: 11-15-2009 History of tobacco use Chews Tobacco [facility] Start: 07-23-2021 End: 07-28-2023 Alcohol intake Current non-drinker of alcohol (finding) [facility] Start: 1970 Sex Assigned At Not on file [facility] Start: 08-09-2021 End: 03-01-2022 Exposure to SARS-CoV-2 (event) Not sure [facility] Start: 11-04-2022 End: 02-03-2023 History of Social function [facility] Work Phone: Start: 11-04-2022 End: 02-03-2023 Tobacco use panel [facility] Work Phone: Adult Depression Screening Assessment 1 [facility] Work Phone: Medical Equipment Procedure Code Equipment Code Equipment Origin al Text Equipment Identifier Dates Start: 01-01-2018 Clinical Notes 05-17-2011 to 08-14-2023 Telephone Encounter - Jean Pierre So LPN - 08/14/2023 2:53 PM ESTTelephone Encounter - Harmony Romero Ma - 08/14/2023 12:46 PM ESTTelephone Encounter - Dinorah Crane - 08/14/2023 12:35 PM EST Note Date & Type Note Facility 08-14-2023 Miscellaneous Notes OV scheduled. Jean Pierre oS LPN Triage appt scheduled Shekhar is calling M Elbert Dockery PA-C today to request Chest Congestion medication. He believes he may be coming down with pneumonia. He states [facility] in [place] is his pharmacy. Patient has been identified by name and birthdate. Duration of symptoms: N/A Person calling: self Call patient at: at home [phone] (home) [phone] (cell) Was an appointment scheduled: No Closing statement: Dinorah Vicente documented in this encounter [facility] 08-14-2023 Miscellaneous Notes Triage Protocol Recommended: See provider within 4 hours today. Patient declining appointment today, reports he has to work 2nd shift and requesting appt for tomorrow 08/14. Appt made for tomorrow however pt advised to call if sx's worsened. Pt voiced understanding. (Intermittent mild wheezing at times) Reason for Disposition Wheezing is present Answer Assessment - Initial Assessment Questions Patient reports last he had the stomach flu with upset stomach and diarrhea. Reports on Monday he began to cough, have sinus congestion and pressure and mild wheezing at times. Pt has concern for possible pneumonia. Asking if PCP would order him treatment without evaluation. Appt advised. 1. ONSET: Friday 08/11 2. SEVERITY: frequent 3. SPUTUM: yes 4. HEMOPTYSIS: no 5. DIFFICULTY BREATHING:no 6. FEVER:has not checked but states has been feeling warm 7. CARDIAC HISTORY: see history 8. LUNG HISTORY:see history 9. PE RISK FACTORS: see history 10. OTHER SYMPTOMS: -mild occ cough, coughing up phlegm at times -occ wheeze-mild -denies chest pain -denies SOB at rest -moderate sinus pressure -nasal congestion -mild body aches -reports decreased appetite -drinking fluids -no change in bladder or bowels 11. : - 12. TRAVEL: no Protocols used: Cough - Acute [id number] documented in this encounter [facility] 07-28-2023 Note HNO ID: [id number] Author: Yogesh DOCKERY PA-C Service: ? Author Type: Physician Ward Attendant Type: Progress Notes Filed: 07/31/2023 18:45 Note Text: 53 year old male with c/o her for follow up Got job back at [employer], fired for not wearing a walkie Didn't tell [employer], was cut off of benefits Was out of metformin and insulin for a couple weeks. 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 Metformin 4 tablets daily with breakfast Metoclopramide 10 mg 30 min before meals and at bedtime: just as needed- 1/3 months. Was off insulin a couple weeks r/t lack of insurance. Taking medication as directed consistently? Yes Medical Issues / Complications: hypertension, hyperlipidemia, peripheral neuropathy and gastroparesis Still having stomach aches: not too bad most of the time No real changes in diet, not as hungry on Trulicity even at peak dose Tired of being groggy and fat. Checking blood sugars at home? This morning 114, forgot notebook and meter for appt Not currently not seeing pharmacy Watching diet? No but wants to change Physical Activity: Regular, walks miles at work [...] in july Last foot exam: Completed today Hemoglobin A1C (%) Date Value 05/01/2023 8.5 08/15/2022 8.0 07/03/2021 9.4 12/31/2020 9.0 ) Component Latest Ref Rng AND Units 07/03/2021 08/15/2022 Creatinine, Ur Random (UCRR) 20.0 - 300.0 mg/dL 95.2 111.4 Albumin, Urine Random mg/L 48.9 22.1 Albumin/Creat Ratio <30 mg/g 51 (H) 20 Last 3 Encounter BP Readings: Date: BP: 07/28/2023 116/60 05/02/2023 132/70 02/03/2023 134/70 Last 2 Encounter Wt Readings: Date: Wt: 07/28/2023 159.2 kg (351 lb) 05/02/2023 160.1 kg (353 lb) 10lb loss over last year Last Monday went to [facility] ED HISTORIES FAMILY HISTORY Problem Relation Age of [...] unspecified 03/07/2007 Cataract right eye, surgery 2010 [facility]' fracture 08/03/20052007 left Closed fracture of navicular (scaphoid) bone of wrist 01/18/05 Wrist fracture-left distal radius Depression in past, was on effexor but stopped years ago. Diabetes mellitus Esophagitis, unspecified ESOPHAGITIS Hyperlipidemia borderline Measles Mild intermittent asthma uses albuterl rarely Mumps PAD (peripheral artery disease) ([facility]) 05/17/2011 05/17/11 [facility] did arterial US right: right PT pulse [...] unconscious. No chest tube. Was sent to [facility]. No sequellae Unspecified essential hypertension Essential hypertension: controlled without medication PAST SURGICAL HISTORY Procedure Laterality Date ANKLE SURGERY HX Left 2013 rupture posterior tibial tendon repaired APPENDECTOMY 1982 ESOPHAGOGASTRODUODENOSCOPY TRANSORAL DIAGNOSTIC EGD Social History Tobacco Use Smoking status: Never Smokeless tobacco: Former Types: Chew Quit date: 11/15/2009 Substance Use Topics Alcohol use: No Drug use (more content not included)... [facility] 07-28-2023 History of Presen t illness Narrative 53 year old male with c/o her for follow up Got job back at [employer], fired for not wearing a walkie Didn't tell [employer], was cut off of benefits Was out of metformin and insulin for a couple weeks. 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 Metformin 4 tablets daily with breakfast Metoclopramide 10 mg 30 min before meals and at bedtime: just as needed- 1/3 months. Was off insulin a couple weeks r/t lack of insurance. Taking medication as directed consistently? Yes Medical Issues / Complications: hypertension, hyperlipidemia, peripheral neuropathy and gastroparesis Still having stomach aches: not too bad most of the time No real changes in diet, not as hungry on Trulicity even at peak dose Tired of being groggy and fat. Checking blood sugars at home? This morning 114, forgot notebook and meter for appt Not currently not seeing pharmacy Watching diet? No but wants to change Physical Activity: Regular, walks miles at work [...] in july Last foot exam: Completed today Hemoglobin A1C (%) Date Value 05/01/2023 8.5 08/15/2022 8.0 07/03/2021 9.4 12/31/2020 9.0 ) Component Latest Ref Rng & Units 07/03/2021 08/15/2022 Creatinine, Ur Random (UCRR) 20.0 - 300.0 mg/dL 95.2 111.4 Albumin, Urine Random mg/L 48.9 22.1 Albumin/Creat Ratio <30 mg/g 51 (H) 20 Last 3 Encounter BP Readings: Date: BP: 07/28/2023 116/60 05/02/2023 132/70 02/03/2023 134/70 Last 2 Encounter Wt Readings: Date: Wt: 07/28/2023 159.2 kg (351 lb) 05/02/2023 160.1 kg (353 lb) 10lb loss over last year Last Monday went to [facility] ED HISTORIES FAMILY HISTORY Problem Relation Age of [...] albuterl rarely Mumps PAD (peripheral artery disease) ([facility]) 05/17/2011 05/17/11 [facility] did arterial US right: right PT pulse [...] unconscious. No chest tube. Was sent to [facility]. No sequellae Unspecified essential hypertension Essential hypertension: [...] Hyperlipidemia, Mixed Venous Insufficiency Diabetic Gastroparesis (Hcc) (Hcc) Essential Hypertension Current Outpatient Medications Medication Sig Dispense Refill dulaglutide (TRULICITY) 4.5 mg/0.5 mL pen injector Inject 4.5 mg subcutaneously one time a week. 12 Each 3 insulin glargine (LANTUS SOLOSTAR U-100 INSULIN) 100 unit/mL (3 mL) Inject 61 Units subcutaneously two times a day. 10 Each 5 insulin lispro (HUMALOG KWIKPEN INSULIN) 100 unit/mL Inject 8 units three times daily before meals plus sliding scale (additional 2 units for every 50 points above glucose 150). Daily Max: 30 units 5 Each 2 tiZANidine (ZANAFLEX) 4 mg tablet Take 1 tablet by mouth every 8 hours as needed (muscle spasms). 30 tablet 0 CPAP/BIPAP/OTHER Type .CPAPSettings into a note to [...] by mouth once daily. 30 tablet 1 Lancets lancets Check blood sugar 4 times daily. Diagnosis E11.3313, insulin: yes 200 Each 3 blood sugar diagnostic (BLOOD GLUCOSE TEST) test strip Test blood sugar(s) 4 times daily. Dx: Other DM Code E11.3313 Insulin: Yes 200 Strip 11 polyethylene glycol 3350 (MIRALAX) 17 gram/dose powder (ONE SCOOP) IN 8 OZ OF WATER DAILY UNTIL STOOLS ARE REGULAR UP TO TWO(2) WEEKS 225 g 5 metoclopramide HCl (REGLAN) 10 mg tablet Take 1 tablet by mouth before meals and at bedtime. 30min before meals. (Patient not taking: Reported on 06/13/2023) 120 tablet 5 Insulin Grant, Disposable, 32 gauge x 5/16 ndle Use one needle per dose. 5 doses per day 200 Each 5 No current facility-administered medications for this visit. Hepatitis B Vaccine(1 of 3 - 3-dose series) Never done Spirometry Never done HIV Screening Never done BP Controlled (<130/80) Never done Colorectal Cancer Screening Never done Depression Assessment due on 06/12/2023 Urine Albumin:Creatinine Ratio due on 08/16/2023 Dilated Retinal Exam due on 08/17/2023 EXAM: BP 116/60 Pulse 80 Temp 36.1 C (97 F) (Left Tympanic) Resp 24 Wt (!) 159.2 kg (351 lb) BMI 48.95 kg/m Pleasant morbidly obese adult male in no acute distress. Alert [...] No lifts, heaves, or rubs. Extrem: no clubbing or cyanosis. Edema: 0-1?4+ pitting bilaterally. Extremities are warm and pink with prompt capillary refill. ASSESSMENT/PLAN: 1. 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 Gastro-esophageal reflux disease without esophagitis - ICD9: 530.81, ICD10: K21.9 - Discussed lifestyle modifications including losing weight, limiting caffeine, no meals three hours before sleep, and head of bed elevation - OMEPRAZOLE MAGNESIUM 20 MG TABLET,DELAYED RELEASE 3. Uncontrolled type 2 diabetes mellitus with hyperglycemia (HCC) - ICD9: 250.02, ICD10: E11.65 - Uncontrolled - Continue current medications - HGB A1C - BASIC METABOLIC PNL - CONSULT TO PHARMACY Some of this note may have been copied and pasted for the purpose of history context and comparison and has been adjusted for changes in prior data. Yogesh Dockery PA-C documented in this encounter [facility] 06-13-2023 Note HNO ID: [id number] Author: Karissa Lozano RT(R) Service: ? Author Type: Technologist Type: Progress Notes Filed: 06/13/2023 4:42 PM Note Text: Radiology Service Progress Note PATIENT NAME: Shekhar Kimbrough DATE OF SERVICE: June 13, 2023 TIME: [...] RT Isabel(R) June 13, 2023 4:41 PM [facility] 06-13-2023 Note HNO ID: [id number] Author: Kori Looney Service: ? Author Type: [...] Patient currently treats with icing, inserts from [facility]. He states the pain is 6/10. Last A1c was 8.5 in april PAIN EVALUATION 06/13/2023 1513 Pain Level: 10 Pain Location: Heel-Right Description: Throbbing Duration Amount of Time: 6 Duration Units: Months Frequency: Continuous Intervention/Comfort measure: Reposition;Relaxation;Medication Hemoglobin A1C Date Value Ref Range Status 05/01/2023 8.5 (H) 4.3 - 5.6 % Final Comment: [place] Diabetes [employer] guidelines indicate that patients with [...] albuterl rarely Mumps PAD (peripheral artery disease) ([facility]) 05/17/2011 05/17/11 [facility] did arterial US right: right PT pulse [...] unconscious. No chest tube. Was sent to [facility]. No sequellae Unspecified essential hypertension Essential hypertension: [...] ARE REGULAR UP TO TWO(2) WEEKS Insulin Grant, Disposable, 32 gauge x 5/16 ndle Use [...] Physical Exam: OBJECTIVE (more content not included)... [facility] 06-13-2023 Note HNO ID: [id number] Author: Gill Beltran LPN Service: ? Author [...] Follow Up, Pain, Numbness Gill Beltran LPN [facility] 05-24-2023 Miscellaneous Notes Patient calling Farhad Dockery increased his dose with his Humalog but the rx was cancelled at the pharmacy. Patient needs new rx sent to [facility] please. Pending rx to file. Please advise [...] Bhargavi Katz LPN. documented in this encounter [facility] 05-02-2023 Note HNO ID: [id number] Author: Yogesh Dockery PA-C Service: ? Author Type: Physician Ward Attendant Type: Progress Notes Filed: 05/02/2023 12:37 PM [...] apnea syndrome Mild intermittent asthma without complication Berry Picker: none. Interval history: none. Current medications: BPAP [...] 121, 80 last night Seeing Starr saunders phamaracist, from notes: Watching [...] Father Allergies Father (more content not included)... [facility] 05-02-2023 History of Presen t illness [...] apnea syndrome Mild intermittent asthma without complication Berry Picker: none. Interval history: none. Current medications: BPAP Worsening shortness of breath: No. Cough: No. Wheezing: No. Smoking: No. Compliant with medications: n/a. Using rescue inhaler: none. 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, without long-term current use of insulin ([facility]) (primary encounter diagnosis) Diabetic gastroparesis associated with type 2 diabetes mellitus ([facility]) Microalbuminuria Current medications: Insulin Lantus 61u SC [...] 121, 80 last night Seeing Starr saunders phamaracist, from notes: Watching [...] albuterl rarely Mumps PAD (peripheral artery disease) ([facility]) 05/17/2011 05/17/11 [facility] did arterial US right: right PT pulse triphasic with index 1.16, left PT also triphasic with index 1.13 and 1.09, reviewed by Itzel Hamilton surg who felt no treatment necessary. Peptic ulcer, unspecified site, unspecified as acute or chronic, without mention of hemorrhage, perforation, or obstruction Peptic ulcer disease per EGD 2006 Sleep apnea 01/18/2012 [employer] BiPAP 20 cm H2O IPAP/14 cm H2O EPAP Follows with Dr. Stevens Tobacco use disorder 06/01/2007 Quit 2009 chew Traumatic pneumothorax 01/15/2008 Ran over by cow, broke 4 ribs, lung collapsed, unconscious. No chest tube. Was sent to [facility]. No sequellae Unspecified essential hypertension Essential hypertension: [...] 30min before meals. 120 tablet 5 Insulin Grant, Disposable, 32 gauge x 5/16 ndle Use [...] 11/15/2022 Influenza Vaccine(1) due on 02/10/2023 Covid-19 Vaccine() due on 02/10/2023 EXAM: BP 132/70 Pulse [...] of 45.0 to 49.9 in adult (HCC) - ICD9: 278.01, V85.42, ICD10: E66.01, Z68.42 Weight increasing - Behavioral intervention and - Pharmacological intervention 7. Encounter for immunization - ICD9: V03.89, ICD10: Z23 - [employer] COVID-19 VACCINE (2022- SEASON) AGE 12+ YR [...] Yogesh Dockery PA-C documented in this encounter [facility] 05-02-2023 Miscellaneous Notes Patient is on his way to appointment with Farhad will discuss then. Monica Sawyer RN Call placed [...] Yogesh DOCKERY PA-C documented in this encounter [facility] 03-02-2023 Miscellaneous Notes Spoke with pt [...] Addie Florence LPN documented in this encounter [facility] 02-16-2023 Miscellaneous Notes The following approved [...] for Omeprazole due to being OTC. PA# [id number]. No alternatives given. Tried to inform patient but no answer and no VM set-up to leave message. Cherelle Chicas Prior Authorization has been completed online at [employer] for omeprazole, will await response. [id number] Please keep encounter open until final decision has been received and documented from insurance company. Susy Coats MA documented in this encounter [facility] 02-03-2023 Note HNO ID: [id number] Author: Yogesh Dockery PA-C Service: ? 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 Loraine lower back muscle pull. Describes as sudden [...] unspecified 03/07/2007 Cataract right eye, surgery 2010 [facility] Colles' fracture 08/03/20052007 left Closed fracture of navicular (scaphoid) bone of wrist 01/18/05 Wrist fracture-left distal radius Depression in past, was on effexor but stopped years ago. Diabetes mellitus Esophagitis, unspecified ESOPHAGITIS Hyperlipidemia borderline Measles Mild intermittent asthma uses albuterl rarely Mumps PAD (peripheral artery disease) ([facility]) 05/17/2011 05/17/11 [facility] did arterial US right: right PT pulse [...] unconscious. No chest tube. Was sent to [facility]. No sequellae Unspecified essential hypertension Essential hypertension: [...] polyethylene glycol 3350 (more content not included)... [facility] 02-03-2023 Instructions Yogesh Dockery PA-C - 02/03/2023 11:21 AM EDT See instructions for exercise. Consider PT if not improving. Zanaflex is a muscle relaxer which can cause drowsiness and may be habit forming if used regularly for extended periods. You should not drink alcohol, drive, or operate dangerous machinery while taking this medication. 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 Loraine lower back muscle pull. Describes as sudden [...] albuterl rarely Mumps PAD (peripheral artery disease) ([facility]) 05/17/2011 05/17/11 [facility] did arterial US right: right PT pulse [...] unconscious. No chest tube. Was sent to [facility]. No sequellae Unspecified essential hypertension Essential hypertension: [...] Edema, Without Long-Term Current Use of Insulin ([facility]) Mild Intermittent Asthma Cataract Microalbuminuria Low [...] 30min before meals. 120 tablet 5 Insulin Grant, Disposable, 32 gauge x 5/16 ndle Use one needle per dose. 5 doses per day 200 Each 5 No current facility-administered medications for this visit. HEPATITIS B(1 of 3 - 3-dose series) Never done SPIROMETRY Never done HIV SCREENING Never done BP CONTROLLED (<130/80) Never done COLORECTAL CANCER SCREENING Never done COVID-19 VACCINE(4 - Pfizer series) due on 07/09/2021 DEPRESSION ASSESSMENT Never [...] - LIPID PANEL BASIC 2. Diabetic gastroparesis (HCC) - ICD9: 250.60, 536.3, [...] of 45.0 to 49.9 in adult (HCC) - ICD9: 278.01, V85.42, ICD10: E66.01, Z68.42 [...] Yogesh Dockery PA-C documented in this encounter [facility] 08-29-2022 Miscellaneous Notes Fax received from [employer] appeal was denied and farxiga is not [...] been faxed to your office. Payer: [facility] documented in this encounter [facility] 08-29-2022 Miscellaneous Notes Luciano faxed response that no Pa is needed for trulicity Will fax to [employer] and patient notified Susy Coats Ma Prior Authorization has been completed online at [employer] for Trulicity, will await response. [id number] Please keep encounter open until final decision has been received and documented from insurance company. Susy Coats MA Pt calls to report he received a letter from [employer] stating they will not cover Trulicity. Pt reports he will drop the letter off at the dr's office. PRIOR AUTHORIZATION Medication for Prior Authorization: Trulicity Other formulary meds available : NO-unknown Insurance Company: [employer] phone number: Patient insurance ID number: Zaira Taylor LPN documented in this encounter [facility] 08-25-2022 Note HNO ID: [id number] Author: Noemi Stevenson, [place] Service: ? Author Type: REPLACER Type: Progress Notes Filed: 08/25/2022 9:40 AM Note Text: (Z96.1) Pseudophakia (primary encounter diagnosis) (H26.491) Right posterior capsular opacification (E11.9) Type 2 diabetes mellitus without retinopathy (HCC) Finalized spec rx Follow-up in 1 year or sooner as needed Noemi Stevenson, OD August 25, 2022 9:39 AM [facility] 08-25-2022 History of Presen t illness Narrative (Z96.1) Pseudophakia (primary encounter diagnosis) (H26.491) Right posterior capsular opacification (E11.9) Type 2 diabetes mellitus without retinopathy (HCC) Finalized spec rx Follow-up in 1 year or sooner as needed Noemi Stevenson, [place] August 25, 2022 9:39 AM documented in this encounter [facility] 08-24-2022 Miscellaneous Notes Spoke with patient he is not requesting any special glucometer. Pharmacy gave him lancets. Call to pharmacy and insurance only pays for one meter One Touch Verio meter. 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 Pt called and he spoke with [employer] and they are telling him Joi needs more information regarding blood glucose machine. No other information was given to pt. Please contact [employer]. Dominga Beltrán LPN documented in this encounter [facility] 08-19-2022 Note HNO ID: [id number] Author: Debbi Hebert APRN.[employer]AR[employer] Service: ? Author Type: Nurse Practitioner Type: Progress Notes Filed: 08/19/2022 7:55 PM Note Text: Subjective HPI Shekhar Kimbrough is a morbidly obese 52 year old [...] unspecified 03/07/2007 Cataract right eye, surgery 2009 [facility] Colles' fracture 08/03/20052007 left Closed fracture of navicular (scaphoid) bone of wrist 01/18/05 Wrist fracture-left distal radius Depression in past, was on effexor but stopped years ago. Diabetes mellitus Esophagitis, unspecified ESOPHAGITIS Hyperlipidemia borderline Measles Mild intermittent asthma uses albuterl rarely Mumps PAD (peripheral artery disease) ([facility]) 05/17/2011 05/17/11 [facility] did arterial US right: right PT pulse triphasic with index 1.16, left PT also triphasic with index 1.13 and 1.09, reviewed by RVinny Mariebusuni surg who felt no treatment necessary. Peptic [...] unconscious. No chest tube. Was sent to [facility]. No sequellae Unspecified essential hypertension Essential hypertension: [...] and at bedtime. 30min before meals. Insulin Grant, Disposable, 32 gauge x 5/16 ndle Use [...] Mouth: Mucous membra (more content not included)... [facility] 08-19-2022 Instructions Debbi Hebert APRN.[facility] - 08/19/2022 7:55 PM EST ASSESSMENT/PLAN: 1. [...] Discussed expected course of illness Debbi Hebert APRN.[employer]OTHER documented in this encounter [facility] 08-19-2022 History of Presen t illness Narrative Subjective HPI Shekhar Kimbrough is a morbidly obese 52 year old [...] albuterl rarely Mumps PAD (peripheral artery disease) ([facility]) 05/17/2011 05/17/11 [facility] did arterial US right: right PT pulse [...] unconscious. No chest tube. Was sent to [facility]. No sequellae Unspecified essential hypertension Essential hypertension: [...] and at bedtime. 30min before meals. Insulin Grant, Disposable, 32 gauge x 5/16 ndle Use [...] Discussed expected course of illness Debbi Hebert APRN.BRADY documented in this encounter [facility] 08-16-2022 Note HNO ID: [id number] Author: Mariana Pena MD Service: ? Author [...] others. I have seen and examined Shekhar Kimbrough. I have discussed the case and the management of this patient's care with the Resident/Fellow, if applicable. I also have reviewed and agree with the assessment and plan as stated above and agree with all of its relevant components. Mariana Pena MD August 16, 2022 2:18 PM [facility] 08-16-2022 History of Presen t illness [...] others. I have seen and examined Shekhar Kimbrough. I have discussed the case and the management of this patient's care with the Resident/Fellow, if applicable. I also have reviewed and agree with the assessment and plan as stated above and agree with all of its relevant components. Mariana Pena MD August 16, 2022 2:18 PM documented in this encounter [facility] 08-15-2022 Note HNO ID: [id number] Author: Yogesh Dockery PA-C Service: ? Author Type: Physician Ward Attendant Type: Progress Notes Filed: 08/15/2022 1:33 PM Note Text: 52 year old male with c/o here for follow up. Lost father March 18, 2022. 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 Interval history: none. Current medications: none [...] edema, without long-term current use of insulin ([facility]) (primary encounter diagnosis) Diabetic gastroparesis associated with type 2 diabetes mellitus ([facility]) Microalbuminuria Current medications: Insulin Lantus 61u SC [...] medications: Bupropion XL (more content not included)... [facility] 05-24-2022 Miscellaneous Notes Pt calling for refill. States he hasn't had lantus since last 05/19/22. JACK: 03/01/22 NOV: None scheduled Last Refill: 09/16/21 #10 pens 5 refills Mily Bhardwaj LPN documented in this encounter [facility] 05-12-2022 Miscellaneous Notes Patient last visit [...] Mary Beth Ingram documented in this encounter [facility] 03-23-2022 Miscellaneous Notes Patient has been [...] Yessica Vo RN documented in this encounter [facility] 03-01-2022 History of Presen t illness Narrative Chief Complaint Patient presents with: Ear Problem: Right ear and jaw pain. Started last night HPI Shekhar Kimbrough is a 51 year old male who presents here today for Above Complaints.. Patient states he started noticing right jaw/ear pain last night after sleep. Woke up with the pain. He works 3rd shift at [employer]. Slight headache now. No fevers No sinus symptoms No popping. No cough. Past medical history, appointments, medications, allergies reviewed. Previous Medical History PAST MEDICAL HISTORY Diagnosis Date Acute nonsuppurative otitis media, unspecified 03/07/2007 Cataract right eye, surgery 2010 [facility] Colles' fracture 08/03/20052007 left Closed fracture of navicular (scaphoid) bone of wrist 01/18/05 Wrist fracture-left distal radius Depression in past, was on effexor but stopped years ago. Diabetes mellitus Esophagitis, unspecified ESOPHAGITIS Hyperlipidemia borderline Measles Mild intermittent asthma uses albuterl rarely Mumps PAD (peripheral artery disease) ([facility]) 05/17/2011 05/17/11 [facility] did arterial US right: right PT pulse [...] unconscious. No chest tube. Was sent to [facility]. No sequellae Unspecified essential hypertension Essential hypertension: [...] before breakfast. 1/2 hr before meal. Insulin Grant, Disposable, 32 gauge x 5/16 ndle Use [...] Stephanie Yee PA-C documented in this encounter [facility] 02-21-2022 Miscellaneous Notes JACK 10/26/21 NOV [...] Kelli Ramey Pss documented in this encounter [facility] 12-01-2021 History of Presen t illness Narrative HISTORY AND PHYSICAL Shekhar Eli Luis E 1970 REFERRING PHYSICIAN: Yogesh Dockery PA-C CHIEF [...] albuterl rarely Mumps PAD (peripheral artery disease) ([facility]) 05/17/2011 05/17/11 [facility] did arterial US right: right PT pulse [...] unconscious. No chest tube. Was sent to [facility]. No sequellae Unspecified essential hypertension Essential hypertension: [...] before breakfast. 1/2 hr before meal. Insulin Grant, Disposable, 32 gauge x 5/16 ndle Use [...] entered by the nurse and reviewed by vt Nursing Notes: Kristy Carrasco 12/01/2021 8:06 AM [...] patient was offered a surgery/procedure at a [facility] facility. I have counseled the patient [...] Tara Wills PA-C documented in this encounter [facility] 12-01-2021 Nurse Note REVIEW OF SYSTEMS: [...] Mammogram screening? N/A Last Colonoscopy: Unknown Kristy Carracso documented in this encounter [facility] 11-09-2021 Instructions Kori Looney - 11/09/2021 [...] time on their feet, such as nurses, street superintendent/waiters, and mail carriers, often experience plantar fasciitis. [...] choose the one that fits the best. Spelter with your athletic shoes to find a [...] (or decreased sensation in your feet) a team otr truck driver should always cut your toenails. Be Careful [...] Go to your health care provider or team otr truck driver to treat these conditions. documented in this encounter [facility] 11-09-2021 History of Presen t illness [...] at work on concrete. Patient works at [employer] and is on his feet for extended [...] PAD (peripheral artery disease) (HCC) 05/17/2011 05/17/11 [facility] did arterial US right: right PT pulse [...] unconscious. No chest tube. Was sent to [facility]. No sequellae Unspecified essential hypertension Essential hypertension: [...] before breakfast. 1/2 hr before meal. Insulin Grant, Disposable, 32 gauge x 5/16 ndle Use [...] with long-term current use of insulin ([facility]) PLAN: 1. Initial Office Visit - A [...] foot exam performed. Podiatry [address] [facility] [address] Dept: [phone] Dept documented in this encounter [facility] 10-28-2021 History of Presen t illness Narrative Primary Care Pharmacy Visit CC (Reason for Consult): Diabetes Goal: A1c < 7% Collaborating Provider: Farhad Dockery Pa-C Last Provider Visit: 10/26/21 Shekhar Kimbrough is a 51 year old male presenting [...] spurs. Talked with PCP about this. Seeing team otr truck driver on November 09, hopefully will get if [...] Adherence: denies missed doses Pharmacy: [facility] coverage: Devin WILKES Affordability: not addressed Diabetes supplies: [employer] System: keeps in original bottles ACTIVE [...] unspecified 03/07/2007 Cataract right eye, surgery 2010 [facility] Colles' fracture 08/03/20052007 left Closed fracture of navicular (scaphoid) bone of wrist 01/18/05 Wrist fracture-left distal radius Depression in past, was on effexor but stopped years ago. Diabetes mellitus Esophagitis, unspecified ESOPHAGITIS Hyperlipidemia borderline Measles Mild intermittent asthma uses albuterl rarely Mumps PAD (peripheral artery disease) (HCC) 05/17/2011 05/17/11 [facility] did arterial US right: right PT pulse [...] unconscious. No chest tube. Was sent to [facility]. No sequellae Unspecified essential hypertension Essential hypertension: [...] glucose 150). Daily Max: 30 units Insulin Grant, Disposable, 32 gauge x 5/16 ndle Use [...] 119 07/03/2021 The 10-year ASCVD risk score (Vanderbilt RERE Jr., et al., 2013) is: 4.5% Values used [...] without long-term current use of insulin ([facility]) - ICD9: 250.50, 362.05, 362.07, ICD10: E11.3313 [...] verbalized understanding of instructions. Starr Cook PharmD, [facility] Primary Care Clinical Pharmacist Dolores Brown [facility] The majority of the pharmacy visit (> 50%) was spent counseling and/or coordinating care for the patient. interaction: telephonic time was 15 minutes. documented in this encounter [facility] 10-26-2021 History of Presen t illness [...] to lunch, 223 this morning. Seeing Starr saunders phamaracist, from notes: GLYCEMIC CONTROL: Glucometer present [...] unspecified 03/07/2007 Cataract right eye, surgery 2009 [facility] Colles' fracture 08/03/20052007 left Closed fracture of navicular (scaphoid) bone of wrist 01/18/05 Wrist fracture-left distal radius Depression in past, was on effexor but stopped years ago. Diabetes mellitus Esophagitis, unspecified ESOPHAGITIS Hyperlipidemia borderline Measles Mild intermittent asthma uses albuterl rarely Mumps PAD (peripheral artery disease) ([facility]) 05/17/2011 05/17/11 [facility] did arterial US right: right PT pulse [...] unconscious. No chest tube. Was sent to [facility]. No sequellae Unspecified essential hypertension Essential hypertension: [...] Hyperlipidemia, Mixed Venous Insufficiency Diabetic Gastroparesis (Hcc) Current Outpatient Medications Medication Sig Dispense Refill [...] before breakfast. 1/2 hr before meal. Insulin Grant, Disposable, 32 gauge x 5/16 ndle Use [...] without long-term current use of insulin ([facility]) - ICD9: 250.50, 362.05, 362.07, ICD10: E11.3313 [...] Yogesh Dockery PA-C documented in this encounter [facility] 10-07-2021 History of Presen t illness Narrative The patient's case was discussed with the accredited pharmacy technician who interviewed the patient. Mobley elements of history confirmed during office visit. The progress note reflects my input and comments. Starr Cook PharmD, [facility] Primary Care Clinical Pharmacist Dolores Brown [facility] Primary Care Pharmacy Visit CC (Reason for Consult): Diabetes Goal: A1c < 7% Collaborating Provider: Farhad Dockery Pa-C Last Provider Visit: 07/23/2021 Shekhar Kimbrough is a 51 year old male presenting for follow up visit in person. Patient consents to pharmacy collaborative practice agreement. . Patient is presenting today for f/up pharmacotherapy management appointment for diabetes. At last PCP appt, patient reported plan for bariatric surgery. Patient was referred to [facility] for DM mngt. At last PharmD visit on 09/09/21, Farxiga increased to 10 mg daily, metformin Trulicity, Lantus, and Humalog doses were all continued. Subjective: HPI: Patient endorses feeling better since last PharmD visit, not experiencing hyperglycemia sx as much as before, decreased sweating. 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 Patient reports having to get a new [...] Adherence: denies missed doses Pharmacy: [facility] [place] Rx coverage: Devin [facility] Affordability: Trulicity is expensive at $80/month; paying $35/month with Lantus coupon; states Humalog is affordable; he can't recall cost of Farxiga -- changed to mail order pharmacy, supposed to be cheaper Diabetes supplies: Virtual Web System: keeps in original bottles ACTIVE PROBLEM LIST Obesity, Unspecified Infective Otitis Externa, Unspecified Elevated Blood Pressure Reading Without Diagnosis of Hypertension Sleep Apnea Controlled Type 2 Diabetes Mellitus With Both Eyes Affected By Moderate Nonproliferative Retinopathy and Macular Edema, Without Long-Term Current Use of Insulin ([facility]) Mild Intermittent Asthma Cataract Microalbuminuria Low Hdl (Under 40) Reaction, Adjustment, With Depressed Mood, Prolonged Obesity, Class III, BMI >= 40 Hyperlipidemia, Mixed Venous Insufficiency Diabetic Gastroparesis ([facility]) PAST MEDICAL HISTORY Diagnosis Date Acute nonsuppurative otitis media, unspecified 03/07/2007 Cataract right eye, surgery 2009 [facility] Closed Colles' fracture 08/03/20052007 left Closed fracture of navicular (scaphoid) bone of wrist 01/18/05 Wrist fracture-left distal radius Depression in past, was on effexor but stopped years ago. Diabetes mellitus Esophagitis, unspecified ESOPHAGITIS Hyperlipidemia borderline Measles Mild intermittent asthma uses albuterl rarely Mumps PAD (peripheral artery disease) ([facility]) 05/17/2011 05/17/11 [facility] did arterial US right: right PT pulse [...] unconscious. No chest tube. Was sent to [facility]. No sequellae Unspecified essential hypertension Essential hypertension: controlled without medication Past medical, family and social history reviewed and updated. ALLERGIES No Known Allergies Medication List Medication Directions Comments Action/Plan atorvastatin (LIPITOR) 20 mg tablet Take 1 tablet by mouth daily at bedtime. For cholesterol. Blood-Glucose Meter,Continuous (DEXCOM G6 PHOTOENGRAVING PHOTOGRAPHER) [facility] Use to check blood sugars as directed. [...] glucose 150). Daily Max: 30 units Insulin Grant, Disposable, 32 gauge x 5/16 ndle Use [...] 119 07/03/2021 The 10-year ASCVD risk score (Marcialrachel JERNIGAN Jr., et al., 2013) is: 6% [...] without long-term current use of insulin ([facility]) - ICD9: 250.50, 362.05, 362.07, ICD10: E11.3313 [...] understanding of instructions. Masha Brody PharmD PGY1 C Software Developer The majority of the pharmacy visit (> 50%) was spent counseling and/or coordinating care for the patient. interaction: face to face time was 26 minutes. documented in this encounter [facility] 10-07-2021 Instructions Masha Brody RPh - [...] an in-office visit. documented in this encounter [facility] 09-15-2021 Miscellaneous Notes Pt returned call & prescription info was added to his chart. He will be using [email or web address] mail order pharmacy. Info added to his [...] rx [facility] [employer], was not coming up in the computer. He is going to get more information and call office back where to send rx to. documented in this encounter [facility] 09-09-2021 Instructions Yogesh Dockery PA-C - 09/09/2021 10:44 AM EDT If any pain or discharge from the ear, let me know. documented in this encounter [facility] 09-09-2021 History of Presen t illness [...] albuterl rarely Mumps PAD (peripheral artery disease) ([facility]) 05/17/2011 05/17/11 [facility] did arterial US right: right PT pulse [...] unconscious. No chest tube. Was sent to [facility]. No sequellae Unspecified essential hypertension Essential hypertension: [...] Hyperlipidemia, Mixed Venous Insufficiency Diabetic Gastroparesis (Hcc) Current Outpatient Medications Medication Sig Dispense Refill dapagliflozin (FARXIGA) 10 mg tablet Take 1 tablet by mouth daily with breakfast. 90 tablet 3 Blood-Glucose Transmitter (DEXCOM G6 TRANSMITTER) gilebrt Use with Dexcom to check sugars as directed. Replace every 90 days. Insulin-dependent T2DM. E11.3313 1 Each 3 Blood-Glucose Meter,Continuous (DEXCOM G6 PHOTOENGRAVING PHOTOGRAPHER) misc Use to check blood sugars as [...] hr before meal. 90 capsule 1 Insulin Grant, Disposable, 32 gauge x 5/16 ndle Use [...] Yogesh Dockery PA-C documented in this encounter [facility] 09-09-2021 History of Presen t illness Narrative Primary Care Pharmacy Visit CC (Reason for Consult): Diabetes Goal: A1c < 7% Collaborating Provider: aFrhad Dockery Pa-C Last Provider Visit: 07/23/21 Shekhar Kimbrough is a 51 year old male presenting [...] of the time. Doing a program at [facility] called [place]. States it is some [...] Exercise: walks a lot at work (at [employer]), no other intentional exercise Tobacco: none MEDICATIONS: Pill bottles are not present Adherence: denies missed doses Pharmacy: [facility] [place] [facility] coverage: Devin [place] Affordability: Trulicity is [...] Edema, Without Long-Term Current Use of Insulin ([facility]) Mild Intermittent Asthma Cataract Microalbuminuria Low Hdl (Under 40) Reaction, Adjustment, With Depressed Mood, Prolonged Obesity, Class III, BMI >= 40 Hyperlipidemia, Mixed Venous Insufficiency Diabetic Gastroparesis ([facility]) PAST MEDICAL HISTORY Diagnosis Date Acute nonsuppurative otitis media, unspecified 03/07/2007 Cataract right eye, surgery 2009 [facility] Closed Colles' fracture 08/03/20052007 left Closed fracture of navicular (scaphoid) bone of wrist 01/18/05 Wrist fracture-left distal radius Depression in past, was on effexor but stopped years ago. Diabetes mellitus Esophagitis, unspecified ESOPHAGITIS Hyperlipidemia borderline Measles Mild intermittent asthma uses albuterl rarely Mumps PAD (peripheral artery disease) ([facility]) 05/17/2011 05/17/11 [facility] did arterial US right: right PT pulse [...] unconscious. No chest tube. Was sent to [facility]. No sequellae Unspecified essential hypertension Essential hypertension: [...] 150). Daily Max: 30 units taking Insulin Grant, Disposable, 32 gauge x 5/16 ndle Use [...] (Marcial JERNIGAN Jr., et al., 2013) is: 5.3% Values [...] with a review of target ranges Ordered Dexcom G6 system to see if covered by insurance [...] verbalized understanding of instructions. Starr Cook PharmD, [facility] Primary Care Clinical Pharmacist Dolores Brown [facility] The majority of the pharmacy visit (> 50%) was spent counseling and/or coordinating care for the patient. interaction: face to face time was 58 minutes. documented in this encounter [facility] 09-09-2021 Instructions Starr Cook RPh - 09/09/2021 9:00 AM EDT INCREASE Farxiga to 10mg daily. CONTINUE all of your other medications. Please check your sugars at least twice daily and bring your glucometer with you to next PharmD visit. Let PharmD know about status of Dexcom (continuous glucose monitor). documented in this encounter [facility] 09-03-2021 Miscellaneous Notes Last refill transmission [...] Tara Mckeon RN documented in this encounter [facility] documented as of this encounter (statuses as of 09/03/2021) [facility]12-[facility]-2011 History of Past illness Narrative* Problem Noted Date Resolved Date PAD (peripheral artery disease) 05/17/2011 08/06/2018 Overview: 05/17/11 [facility] did arterial US right: right PT pulse triphasic with index 1.16, left PT also triphasic with index 1.13 and 1.09, reviewed by RVinny Mariebul surg who felt no treatment necessary. Traumatic pneumothorax 01/15/2008 8 Overview: Ran over by cow, broke 4 ribs, lung collapsed, unconscious. No chest tube. Was sent to [facility]. No sequellae Tobacco use disorder 06/01/2007 09/25/2017 Overview: Quit 2009 chew Acute nonsuppurative otitis media, unspecified 0 03/07/2007 09/25/2017 Closed Colles' fracture 08/03/2005 09/26/19 18 Overview: 2007 left documented as of this encounter (statuses as of 09/09/2021) [facility] History of Past illness Narrative* Problem Noted Date Resolved Date PAD (peripheral artery disease) 05/17/2011 08/06/2018 Overview: 05/17/11 [facility] did arterial US right: right PT pulse triphasic with index 1.16, left PT also triphasic with index 1.13 and 1.09, reviewed by R. Cebul surg who felt no treatment necessary. Traumatic pneumothorax 01/15/2008 8 Overview: Ran over by cow, broke 4 ribs, lung collapsed, unconscious. No chest tube. Was sent to [facility]. No sequellae Tobacco use disorder 06/01/2007 09/25/2017 Overview: Quit 2009 chew Acute nonsuppurative otitis media, unspecified 0 03/07/2007 09/25/2017 Closed Colles' fracture 08/03/2005 09/26/19 18 Overview: 2007 left documented as of this encounter (statuses as of 09/09/2021) [facility] History of Past illness Narrative* Problem Noted Date Resolved Date PAD (peripheral artery disease) 05/17/2011 08/06/2018 Overview: 05/17/11 [facility] did arterial US right: right PT pulse triphasic with index 1.16, left PT also triphasic with index 1.13 and 1.09, reviewed by R. Cebul surg who felt no treatment necessary. Traumatic pneumothorax 01/15/2008 8 Overview: Ran over by cow, broke 4 ribs, lung collapsed, unconscious. No chest tube. Was sent to [facility]. No sequellae Tobacco use disorder 06/01/2007 09/25/2017 Overview: Quit 2010 chew Acute nonsuppurative otitis media, unspecified 0 03/07/2007 09/25/2017 Closed Colles' fracture 08/03/2005 09/26/19 18 Overview: 2007 left documented as of this encounter (statuses as of 09/16/2021) [facility] History of Past illness Narrative* Problem Noted Date Resolved Date PAD (peripheral artery disease) 05/17/2011 08/06/2018 Overview: 05/17/11 [facility] did arterial US right: right PT pulse [...] of this encounter (statuses as of 10/07/2021) [facility] History of Past illness Narrative* Problem Noted Date Resolved Date PAD (peripheral artery disease) 05/17/2011 08/06/2018 Overview: 05/17/11 [facility] did arterial US right: right PT pulse [...] of this encounter (statuses as of 10/26/2021) [facility] History of Past illness Narrative* Problem Noted Date Resolved Date PAD (peripheral artery disease) 05/17/2011 08/06/2018 Overview: 05/17/11 [facility] did arterial US right: right PT pulse triphasic with index 1.16, left PT also triphasic with index 1.13 and 1.09, reviewed by R. Cebul surg who felt no treatment necessary. Traumatic pneumothorax 01/15/2008 8 Overview: Ran over by cow, broke 4 ribs, lung collapsed, unconscious. No chest tube. Was sent to [facility]. No sequellae Tobacco use disorder 06/01/2007 09/25/2017 Overview: Quit 2009 chew Acute nonsuppurative otitis media, unspecified 0 03/07/2007 09/25/2017 Closed Colles' fracture 08/03/2005 09/26/19 18 Overview: 2007 left documented as of this encounter (statuses as of 10/28/2021) [facility] History of Past illness Narrative* Problem Noted Date Resolved Date PAD (peripheral artery disease) 05/17/2011 08/06/2018 Overview: 05/17/11 [facility] did arterial US right: right PT pulse triphasic with index 1.16, left PT also triphasic with index 1.13 and 1.09, reviewed by R. Cebul surg who felt no treatment necessary. Traumatic pneumothorax 01/15/2008 8 Overview: Ran over by cow, broke 4 ribs, lung collapsed, unconscious. No chest tube. Was sent to [facility]. No sequellae Tobacco use disorder 06/01/2007 09/25/2017 Overview: Quit 2009 chew Acute nonsuppurative otitis media, unspecified 0 03/07/2007 09/25/2017 Closed Colles' fracture 08/03/2005 09/26/19 18 Overview: 2007 left documented as of this encounter (statuses as of 11/09/2021) [facility] History of Past illness Narrative* Problem Noted Date Resolved Date PAD (peripheral artery disease) 05/17/2011 08/06/2018 Overview: 05/17/11 [facility] did arterial US right: right PT pulse triphasic with index 1.16, left PT also triphasic with index 1.13 and 1.09, reviewed by R. Cebul surg who felt no treatment necessary. Traumatic pneumothorax 01/15/2008 8 Overview: Ran over by cow, broke 4 ribs, lung collapsed, unconscious. No chest tube. Was sent to [facility]. No sequellae Tobacco use disorder 06/01/2007 09/25/2017 Overview: Quit 2009 chew Acute nonsuppurative otitis media, unspecified 0 03/07/2007 09/25/2017 Closed Colles' fracture 08/03/2005 09/26/19 18 Overview: 2007 left documented as of this encounter (statuses as of 12/02/2021) [facility] History of Past illness Narrative* Problem Noted Date Resolved Date PAD (peripheral artery disease) 05/17/2011 08/06/2018 Overview: 05/17/11 [facility] did arterial US right: right PT pulse triphasic with index 1.16, left PT also triphasic with index 1.13 and 1.09, reviewed by R. Cebul surg who felt no treatment necessary. Traumatic pneumothorax 01/15/2008 8 Overview: Ran over by cow, broke 4 ribs, lung collapsed, unconscious. No chest tube. Was sent to [facility]. No sequellae Tobacco use disorder 06/01/2007 09/25/2017 Overview: Quit 2009 chew Acute nonsuppurative otitis media, unspecified 0 03/07/2007 09/25/2017 Closed Colles' fracture 08/03/2005 09/26/19 18 Overview: 2007 left documented as of this encounter (statuses as of 02/21/2022) [facility] History of Past illness Narrative* Problem Noted Date Resolved Date PAD (peripheral artery disease) 05/17/2011 08/06/2018 Overview: 05/17/11 [facility] did arterial US right: right PT pulse triphasic with index 1.16, left PT also triphasic with index 1.13 and 1.09, reviewed by R. Cebul surg who felt no treatment necessary. Traumatic pneumothorax 01/15/2008 8 Overview: Ran over by cow, broke 4 ribs, lung collapsed, unconscious. No chest tube. Was sent to [facility]. No sequellae Tobacco use disorder 06/01/2007 09/25/2017 Overview: Quit 2009 chew Acute nonsuppurative otitis media, unspecified 0 03/07/2007 09/25/2017 Closed Colles' fracture 08/03/2005 09/26/19 18 Overview: 2007 left documented as of this encounter (statuses as of 03/01/2022) [facility] History of Past illness Narrative* Problem Noted Date Resolved Date PAD (peripheral artery disease) 05/17/2011 08/06/2018 Overview: 05/17/11 [facility] did arterial US right: right PT pulse triphasic with index 1.16, left PT also triphasic with index 1.13 and 1.09, reviewed by R. Cebul surg who felt no treatment necessary. Traumatic pneumothorax 01/15/2008 8 Overview: Ran over by cow, broke 4 ribs, lung collapsed, unconscious. No chest tube. Was sent to [facility]. No sequellae Tobacco use disorder 06/01/2007 09/25/2017 Overview: Quit 2009 chew Acute nonsuppurative otitis media, unspecified 0 03/07/2007 09/25/2017 Closed Colles' fracture 08/03/2005 09/26/19 18 Overview: 2007 left documented as of this encounter (statuses as of 03/25/2022) [facility] History of Past illness Narrative* Problem Noted Date Resolved Date PAD (peripheral artery disease) 05/17/2011 08/06/2018 Overview: 05/17/11 [facility] did arterial US right: right PT pulse triphasic with index 1.16, left PT also triphasic with index 1.13 and 1.09, reviewed by R. Cebul surg who felt no treatment necessary. Traumatic pneumothorax 01/15/2008 8 Overview: Ran over by cow, broke 4 ribs, lung collapsed, unconscious. No chest tube. Was sent to [facility]. No sequellae Tobacco use disorder 06/01/2007 09/25/2017 Overview: Quit 2009 chew Acute nonsuppurative otitis media, unspecified 0 03/07/2007 09/25/2017 Closed Colles' fracture 08/03/2005 09/26/19 18 Overview: 2007 left documented as of this encounter (statuses as of 05/12/2022) [facility] History of Past illness Narrative* Problem Noted Date Resolved Date PAD (peripheral artery disease) 05/17/2011 08/06/2018 Overview: 05/17/11 [facility] did arterial US right: right PT pulse triphasic with index 1.16, left PT also triphasic with index 1.13 and 1.09, reviewed by R. Cebul surg who felt no treatment necessary. Traumatic pneumothorax 01/15/2008 8 Overview: Ran over by cow, broke 4 ribs, lung collapsed, unconscious. No chest tube. Was sent to [facility]. No sequellae Tobacco use disorder 06/01/2007 09/25/2017 Overview: Quit 2009 chew Acute nonsuppurative otitis media, unspecified 0 03/07/2007 09/25/2017 Closed Colles' fracture 08/03/2005 09/26/19 18 Overview: 2007 left documented as of this encounter (statuses as of 05/24/2022) [facility] History of Past illness Narrative* Problem Noted Date Resolved Date PAD (peripheral artery disease) 05/17/2011 08/06/2018 Overview: 05/17/11 [facility] did arterial US right: right PT pulse triphasic with index 1.16, left PT also triphasic with index 1.13 and 1.09, reviewed by R. Cebul surg who felt no treatment necessary. Traumatic pneumothorax 01/15/2008 8 Overview: Ran over by cow, broke 4 ribs, lung collapsed, unconscious. No chest tube. Was sent to [facility]. No sequellae Tobacco use disorder 06/01/2007 09/25/2017 Overview: Quit 2009 chew Acute nonsuppurative otitis media, unspecified 0 03/07/2007 09/25/2017 Closed Colles' fracture 08/03/2005 09/26/19 18 Overview: 2007 left documented as of this encounter (statuses as of 08/16/2022) [facility] History of Past illness Narrative* Problem Noted Date Resolved Date PAD (peripheral artery disease) 05/17/2011 08/06/2018 Overview: 05/17/11 [facility] did arterial US right: right PT pulse triphasic with index 1.16, left PT also triphasic with index 1.13 and 1.09, reviewed by R. Cebul surg who felt no treatment necessary. Traumatic pneumothorax 01/15/2008 8 Overview: Ran over by cow, broke 4 ribs, lung collapsed, unconscious. No chest tube. Was sent to [facility]. No sequellae Tobacco use disorder 06/01/2007 09/25/2017 Overview: Quit 2009 chew Acute nonsuppurative otitis media, unspecified 0 03/07/2007 09/25/2017 Closed Colles' fracture 08/03/2005 09/26/19 18 Overview: 2007 left documented as of this encounter (statuses as of 08/20/2022) [facility] History of Past illness Narrative* Problem Noted Date Resolved Date PAD (peripheral artery disease) 05/17/2011 08/06/2018 Overview: 05/17/11 [facility] did arterial US right: right PT pulse triphasic with index 1.16, left PT also triphasic with index 1.13 and 1.09, reviewed by R. Cebul surg who felt no treatment necessary. Traumatic pneumothorax 01/15/2008 8 Overview: Ran over by cow, broke 4 ribs, lung collapsed, unconscious. No chest tube. Was sent to [facility]. No sequellae Tobacco use disorder 06/01/2007 09/25/2017 Overview: Quit 2009 chew Acute nonsuppurative otitis media, unspecified 0 03/07/2007 09/25/2017 Closed Colles' fracture 08/03/2005 09/26/19 18 Overview: 2007 left documented as of this encounter (statuses as of 08/25/2022) [facility] History of Past illness Narrative* Problem Noted Date Resolved Date PAD (peripheral artery disease) 05/17/2011 08/06/2018 Overview: 05/17/11 [facility] did arterial US right: right PT pulse triphasic with index 1.16, left PT also triphasic with index 1.13 and 1.09, reviewed by R. Cebul surg who felt no treatment necessary. Traumatic pneumothorax 01/15/2008 8 Overview: Ran over by cow, broke 4 ribs, lung collapsed, unconscious. No chest tube. Was sent to [facility]. No sequellae Tobacco use disorder 06/01/2007 09/25/2017 Overview: Quit 2009 chew Acute nonsuppurative otitis media, unspecified 0 03/07/2007 09/25/2017 Closed Colles' fracture 08/03/2005 09/26/19 18 Overview: 2007 left documented as of this encounter (statuses as of 08/25/2022) [facility] History of Past illness Narrative* Problem Noted Date Resolved Date PAD (peripheral artery disease) 05/17/2011 08/06/2018 Overview: 05/17/11 [facility] did arterial US right: right PT pulse triphasic with index 1.16, left PT also triphasic with index 1.13 and 1.09, reviewed by R. Cebul surg who felt no treatment necessary. Traumatic pneumothorax 01/15/2008 8 Overview: Ran over by cow, broke 4 ribs, lung collapsed, unconscious. No chest tube. Was sent to [facility]. No sequellae Tobacco use disorder 06/01/2007 09/25/2017 Overview: Quit 2009 chew Acute nonsuppurative otitis media, unspecified 0 03/07/2007 09/25/2017 Closed Colles' fracture 08/03/2005 09/26/19 18 Overview: 2007 left documented as of this encounter (statuses as of 08/29/2022) [facility] [facility] History of Past illness Narrative* Problem Noted Date Resolved Date PAD (peripheral artery disease) 05/17/2011 08/06/2018 Overview: 05/17/11 [facility] did arterial US right: right PT pulse triphasic with index 1.16, left PT also triphasic with index 1.13 and 1.09, reviewed by R. Cebul surg who felt no treatment necessary. Traumatic pneumothorax 01/15/2008 8 Overview: Ran over by cow, broke 4 ribs, lung collapsed, unconscious. No chest tube. Was sent to [facility]. No sequellae Tobacco use disorder 06/01/2007 09/25/2017 Overview: Quit 2009 chew Acute nonsuppurative otitis media, unspecified 0 03/07/2007 09/25/2017 Closed Colles' fracture 08/03/2005 09/26/19 18 Overview: 2007 left documented as of this encounter (statuses as of 09/07/2022) [facility]12-06-2011 History of Past illness Narrative* Problem Noted Date Diagnosed Date Resolved Date PAD (peripheral artery disease) 05/17/2011 08/06/2018 Overview: 05/17/11 [facility] did arterial US right: right PT pulse triphasic with index 1.16, left PT also triphasic with index 1.13 and 1.09, reviewed by R. Cebul surg who felt no treatment necessary. Traumatic pneumothorax 01/15/200809/25 Overview: Ran over by cow, broke 4 ribs, lung collapsed, unconscious. No chest tube. Was sent to [facility]. No sequellae Tobacco use disorder 06/01/2007 018 Overview: Quit 2009 chew Acute nonsuppurative otitis media, unspecified 03/07/2007 09/25/2017 Closed Colles' fracture 08/03/200509/10 Overview: 2007 left documented as of this encounter (statuses as of 02/03/2023) [facility]12-06-[facility] History of Past illness Narrative* Problem Noted Date Diagnosed Date Resolved Date PAD (peripheral artery disease) 05/17/2011 08/06/2018 Overview: 05/17/11 [facility] did arterial US right: right PT pulse triphasic with index 1.16, left PT also triphasic with index 1.13 and 1.09, reviewed by R. Cebul surg who felt no treatment necessary. Traumatic pneumothorax 01/15/200809/25 Overview: Ran over by cow, broke 4 ribs, lung collapsed, unconscious. No chest tube. Was sent to [facility]. No sequellae Tobacco use disorder 06/01/2007 018 Overview: Quit 2009 chew Acute nonsuppurative otitis media, unspecified 03/07/2007 09/25/2017 Closed Colles' fracture 08/03/200509/10 Overview: 2007 left documented as of this encounter (statuses as of 03/02/2023) [facility]12-06-[facility] History of Past illness Narrative* Problem Noted Date Diagnosed Date Resolved Date PAD (peripheral artery disease) 05/17/2011 08/06/2018 Overview: 05/17/11 [facility] did arterial US right: right PT pulse triphasic with index 1.16, left PT also triphasic with index 1.13 and 1.09, reviewed by R. Cebul surg who felt no treatment necessary. Traumatic pneumothorax 01/15/200809/25 Overview: Ran over by cow, broke 4 ribs, lung collapsed, unconscious. No chest tube. Was sent to [facility]. No sequellae Tobacco use disorder 06/01/2007 018 Overview: Quit 2009 chew Acute nonsuppurative otitis media, unspecified 03/07/2007 09/25/2017 Closed Colles' fracture 08/03/200509/10 Overview: 2007 left documented as of this encounter (statuses as of 03/18/2023) [facility]12-06-[facility] History of Past illness Narrative* Problem Noted Date Diagnosed Date Resolved Date PAD (peripheral artery disease) 05/17/2011 08/06/2018 Overview: 05/17/11 [facility] did arterial US right: right PT pulse triphasic with index 1.16, left PT also triphasic with index 1.13 and 1.09, reviewed by R. Cebul surg who felt no treatment necessary. Traumatic pneumothorax 01/15/200809/25 Overview: Ran over by cow, broke 4 ribs, lung collapsed, unconscious. No chest tube. Was sent to [facility]. No sequellae Tobacco use disorder 06/01/2007 018 Overview: Quit 2009 chew Acute nonsuppurative otitis media, unspecified 03/07/2007 09/25/2017 Closed Colles' fracture 08/03/200509/10 Overview: 2007 left documented as of this encounter (statuses as of 05/02/2023) [facility]12-06-[facility] History of Past illness Narrative* Problem Noted Date Diagnosed Date Resolved Date PAD (peripheral artery disease) 05/17/2011 08/06/2018 Overview: 05/17/11 [facility] did arterial US right: right PT pulse [...] of this encounter (statuses as of 05/02/2023) [facility]12-06-2011 History of Past illness Narrative* Problem Noted Date Diagnosed Date Resolved Date PAD (peripheral artery disease) 05/17/2011 08/06/2018 Overview: 05/17/11 [facility] did arterial US right: right PT pulse triphasic with index 1.16, left PT also triphasic with index 1.13 and 1.09, reviewed by R. Cebul surg who felt no treatment necessary. Traumatic pneumothorax 01/15/200809/25 Overview: Ran over by cow, broke 4 ribs, lung collapsed, unconscious. No chest tube. Was sent to [facility]. No sequellae Tobacco use disorder 06/01/2007 018 Overview: Quit 2009 chew Acute nonsuppurative otitis media, unspecified 03/07/2007 09/25/2017 Closed Colles' fracture 08/03/200509/10 Overview: 2007 left documented as of this encounter (statuses as of 05/25/2023) [facility]12-06-2011 History of Past illness Narrative* Problem Noted Date Diagnosed Date Resolved Date PAD (peripheral artery disease) 05/17/2011 08/06/2018 Overview: 05/17/11 [facility] did arterial US right: right PT pulse [...] as of this encounter (statuses as of 07/31/2023) [facility]12-06-2011 History of Past illness Narrative* Problem Noted Date Diagnosed Date Resolved Date PAD (peripheral artery disease) 05/17/2011 08/06/2018 Overview: 05/17/11 [facility] did arterial US right: right PT pulse triphasic with index 1.16, left PT also triphasic with index 1.13 and 1.09, reviewed by R. Cebul surg who felt no treatment necessary. Traumatic pneumothorax 01/15/200809/25 Overview: Ran over by cow, broke 4 ribs, lung collapsed, unconscious. No chest tube. Was sent to [facility]. No sequellae Tobacco use disorder 06/01/2007 018 Overview: Quit 2009 chew Acute nonsuppurative otitis media, unspecified 03/07/2007 09/25/2017 Closed Colles' fracture 08/03/200509/10 Overview: 2007 left documented as of this encounter (statuses as of 08/14/2023) [facility]12-06-2011 History of Past illness Narrative* Problem Noted Date Diagnosed Date Resolved Date PAD (peripheral artery disease) 05/17/2011 08/06/2018 Overview: 05/17/11 [facility] did arterial US right: right PT pulse triphasic with index 1.16, left PT also triphasic with index 1.13 and 1.09, reviewed by R. Cebul surg who felt no treatment necessary. Traumatic pneumothorax 01/15/200809/25 Overview: Ran over by cow, broke 4 ribs, lung collapsed, unconscious. No chest tube. Was sent to [facility]. 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 note* Diagnosis Foreign body of right ear, initial encounter- Primary documented in this encounter 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, without long-term current use of insulin (HCC)- Primary [facility] Diagnosis Plantar fasciitis of right foot- Primary Plantar fascial fibromatosis Pain of right heel Pain in limb Type 2 diabetes mellitus without complication, with long-term current use of insulin (HCC) [facility]* Diagnosis Screening for colon cancer Special screening for malignant neoplasms, colon [facility] Diagnosis Reaction, adjustment, with depressed mood, prolonged Prolonged depressive reaction as adjustment reaction Diabetic gastroparesis associated with type 2 diabetes mellitus (HCC) Type II or unspecified type diabetes mellitus with neurological manifestations, not stated as uncontrolled [facility] Diagnosis TMJ dysfunction- Primary Temporomandibular joint disorders, unspecified [facility] Diagnosis 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, without long-term current use of insulin (HCC) Medication management Encounter for long-term (current) use of other medications Elevated blood pressure reading without diagnosis of hypertension [facility]* Diagnosis Type 2 diabetes mellitus without retinopathy (HCC)- Primary Type II or unspecified type diabetes mellitus without mention of complication, not stated as uncontrolled Pseudophakia Lens replaced by other means Right posterior capsular opacification After-cataract, unspecified [facility] Diagnosis Elevated blood sugar- Primary Other abnormal glucose Urinary frequency [facility] Diagnosis Pseudophakia- Primary Lens replaced by other means Right posterior capsular opacification After-cataract, unspecified Type 2 diabetes mellitus without retinopathy (HCC) Type II or unspecified type diabetes mellitus without mention of complication, not stated as uncontrolled [facility] Diagnosis 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, without long-term current use of insulin (HCC)- Primary Diabetic gastroparesis (HCC) Type II or unspecified type diabetes mellitus with neurological manifestations, not stated as uncontrolled Essential hypertension Unspecified essential hypertension Hyperlipidemia, mixed Mixed hyperlipidemia Low HDL (under 40) Lipoprotein deficiencies Class 3 severe obesity due to excess calories without serious comorbidity with body mass index (BMI) of 45.0 to 49.9 in adult ([facility]) Gastro-esophageal reflux disease without esophagitis Esophageal reflux Lumbar sprain, initial encounter [facility] Diagnosis 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, without long-term current use of insulin ([facility]) Reaction, adjustment, with depressed mood, prolonged Prolonged depressive reaction as adjustment reaction Class 3 severe obesity due to excess calories with serious comorbidity and body mass index (BMI) of 45.0 to 49.9 in adult ([facility]) Encounter for immunization Need for other specified prophylactic vaccination against single bacterial disease Incomplete emptying of bladder Incomplete bladder emptying Tinea pedis of both feet Long toenail Other specified disease of nail Lumbar sprain, initial encounter Tympanosclerosis of both ears Tympanosclerosis, unspecified as to involvement Tinnitus of both ears Unspecified tinnitus Urinary frequency [facility] Diagnosis 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, without long-term current use of insulin ([facility]) [facility] Diagnosis 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 for referral (narrative)* Diagnostic Procedure Only (Routine) - Closed Specialty Diagnoses / Procedures Referred By Contac t Referred To Contact XR IMAGING Diagnoses Pain of fifth toe Procedures XR TOE AP/LAT/OBL LEFT RADEX TOE MINIMUM 2 VIEWS Yogesh Dockery PA-C [address] [place] [address] Xr Imaging Referral ID Status Reason Start Date Expiration Date V isits Requested Visits Authorized [id number] Closed Auto-Generate d Referral 10/26/2021 11/25/2022 1 1 * Diagnostic Procedure Only (Routine) - Closed Specialty Diagnoses / Procedures Referred By Contac t Referred To Contact XR IMAGING Diagnoses Pain of right heel Procedures XR FOOT GENERAL 3V AP/LAT/OBL RIGHT RADEX FOOT COMPLETE MINIMUM 3 VIEWS Yogesh Dockery PA-C [address] [place] [address] Xr Imaging Referral ID Status Reason Start Date Expiration Date V isits Requested Visits Authorized [id number] Closed Auto-Generate d Referral 10/26/2021 11/25/2022 1 1 * Consult, Test, Treat (Routine) - Authorized Specialty Diagnoses / Procedures Referred By Contac t Referred To Contact Podiatry Diagnoses Pain of right heel Procedures CONSULT TO PODIATRY OFFICE/OUTPATIENT [facility] 60-74 MINUTES Yogesh Dockery PA-C [address] [place] [address] Referral ID Status Reason Start Date Expiration Date Visits Requested Visits Authorized [id number] Authorized PCP Requested Referral 10/26/2021 10/26/2022 1 1 [facility] Medications Administered Section Inactive Administered Medications - up to 3 most recent administrations Medication Order MAR Action Action Date Dose Rate Site bupivacaine (PF) 0.5 % (5 mg/mL) 2.5 mg injection 2.5 mg (0.5 mL), INTRA-ARTICULAR, ONCE, 1 dose, On 11/09/21 at 1230 Given 11/09/2021 12:22 PM EDT [...] Until Mon08/17/22 at 0159, Administer for dilation PROTECT FROM LIGHT Given 08/16/2022 2:00 PM EST 1 Drop proparacaine 0.5 % 1 Drop (ALCAINE) 1 Drop, BOTH EYES, DIRECTED, Starting on Mon08/16/22 at 1400, Until Mon08/17/22 at 0159, Administer for pneumo tonometry, tonopen tonometry, or [...] both ears Procedures CONSULT TO ENT OFFICE/OUTPATIENT [facility] 60-74 MINUTES Yogesh Dockery PA-C [address] [place] [address] Referral ID Status Reason Start Date Expiration Date Visits Requested Visits Authorized [id number] Pending Review PCP Requested Referral 3 05/01/2024 1 1 Specialty Diagnoses / Procedures Referred By Contac t Referred To Contact US IMAGING Diagnoses Incomplete emptying of bladder Procedures US PELVIS BLADDER US PELVIC NONOBSTETRIC IMAGE DCMTN LIMITED/F/U Yogesh Dockery PA-C [address] [place] [address] [place] [address] Referral ID Status Reason Start Date Expiration Date Visits Requested Visits Authorized [id number] Authorized Auto-Generat ed Referral 3 05/31/2024 1 1 Specialty Diagnoses / Procedures Referred By Contac t Referred To Contact Podiatry Diagnoses Long toenail Procedures CONSULT TO PODIATRY OFFICE/OUTPATIENT NEW HIGH MDM 60-74 MINUTES Yogesh Dockery PA-C [address] [place] [address] Referral ID Status Reason Start Date Expiration Date Visits Requested Visits Authorized [id number] Pending Review PCP Requested Referral 3 05/01/2024 [...] or prosecute any alcohol or drug abuse patient.[facility] the event this information is protected by the Federal Confidentiality of Alcohol and Drug Abuse Patient Records regulations: The Federal rules restrict any use of the information to criminally investigate or prosecute any alcohol or drug abuse patient.[facility] Hospital[facility] the event this information is protected by the Federal Confidentiality of Alcohol and Drug Abuse Patient Records regulations: The Federal rules restrict any use of the information to criminally investigate or prosecute any alcohol or drug abuse patient.[facility] Hospital[facility] the event this information is protected by the Federal Confidentiality of Alcohol and Drug Abuse Patient Records regulations: The Federal rules restrict any use of the information to criminally investigate or prosecute any alcohol or drug abuse patient.[facility] HospitalIn the event this information is protected by the Federal Confidentiality of Alcohol and Drug Abuse Patient Records regulations: The Federal rules restrict any use of the information to criminally investigate or prosecute any alcohol or drug abuse patient.[facility] HospitalIn the event this information is protected by the Federal Confidentiality of Alcohol and Drug Abuse Patient Records regulations: The Federal rules restrict any use of the information to criminally investigate or prosecute any alcohol or drug abuse patient.[facility] HospitalIn the event this information is protected by the Federal Confidentiality of Alcohol and Drug Abuse Patient Records regulations: The Federal rules restrict any use of the information to criminally investigate or prosecute any alcohol or drug abuse patient.[facility] HospitalIn the event this information is protected by the Federal Confidentiality of Alcohol and Drug Abuse Patient Records regulations: The Federal rules restrict any use of the information to criminally investigate or prosecute any alcohol or drug abuse patient.[facility] HospitalIn the event this information is protected by the Federal Confidentiality of Alcohol and Drug Abuse Patient Records regulations: The Federal rules restrict any use of the information to criminally investigate or prosecute any alcohol or drug abuse patient.[facility] HospitalIn the event this information is protected by the Federal Confidentiality of Alcohol and Drug Abuse Patient Records regulations: The Federal rules restrict any use of the information to criminally investigate or prosecute any alcohol or drug abuse patient.[facility] HospitalIn the event this information is protected by the Federal Confidentiality of Alcohol and Drug Abuse Patient Records regulations: The Federal rules restrict any use of the information to criminally investigate or prosecute any alcohol or drug abuse patient.[facility] HospitalIn the event this information is protected by the Federal Confidentiality of Alcohol and Drug Abuse Patient Records regulations: The Federal rules restrict any use of the information to criminally investigate or prosecute any alcohol or drug abuse patient.[facility] HospitalIn the event this information is protected by the Federal Confidentiality of Alcohol and Drug Abuse Patient Records regulations: The Federal rules restrict any use of the information to criminally investigate or prosecute any alcohol or drug abuse patient.[facility] HospitalIn the event this information is protected by the Federal Confidentiality of Alcohol and Drug Abuse Patient Records regulations: The Federal rules restrict any use of the information to criminally investigate or prosecute any alcohol or drug abuse patient.[facility] HospitalIn the event this information is protected by the Federal Confidentiality of Alcohol and Drug Abuse Patient Records regulations: The Federal rules restrict any use of the information to criminally investigate or prosecute any alcohol or drug abuse patient.[facility] HospitalIn the event this information is protected by the Federal Confidentiality of Alcohol and Drug Abuse Patient Records regulations: The Federal rules restrict any use of the information to criminally investigate or prosecute any alcohol or drug abuse patient.[facility] HospitalIn the event this information is protected by the Federal Confidentiality of Alcohol and Drug Abuse Patient Records regulations: The Federal rules restrict any use of the information to criminally investigate or prosecute any alcohol or drug abuse patient.[facility] HospitalIn the event this information is protected by the Federal Confidentiality of Alcohol and Drug Abuse Patient Records regulations: The Federal rules restrict any use of the information to criminally investigate or prosecute any alcohol or drug abuse patient.[facility] HospitalIn the event this information is protected by the Federal Confidentiality of Alcohol and Drug Abuse Patient Records regulations: The Federal rules restrict any use of the information to criminally investigate or prosecute any alcohol or drug abuse patient.[facility] HospitalIn the event this information is protected by the Federal Confidentiality of Alcohol and Drug Abuse Patient Records regulations: The Federal rules restrict any use of the information to criminally investigate or prosecute any alcohol or drug abuse patient.[facility] HospitalIn the event this information is protected by the Federal Confidentiality of Alcohol and Drug Abuse Patient Records regulations: The Federal rules restrict any use of the information to criminally investigate or prosecute any alcohol or drug abuse patient.[facility] HospitalIn the event this information is protected by the Federal Confidentiality of Alcohol and Drug Abuse Patient Records regulations: The Federal rules restrict any use of the information to criminally investigate or prosecute any alcohol or drug abuse patient.[facility] Hospital[facility] the event this information is protected by the Federal Confidentiality of Alcohol and Drug Abuse Patient Records regulations: The Federal rules restrict any use of the information to criminally investigate or prosecute any alcohol or drug abuse patient.[facility] the event this information is protected by the Federal Confidentiality of Alcohol and Drug Abuse Patient Records regulations: The Federal rules restrict any use of the information to criminally investigate or prosecute any alcohol or drug abuse patient.[facility] Hospital[facility] the event this information is protected by the Federal Confidentiality of Alcohol and Drug Abuse Patient Records regulations: The Federal rules restrict any use of the information to criminally investigate or prosecute any alcohol or drug abuse patient.[facility] HospitalIn the event this information is protected by the Federal Confidentiality of Alcohol and Drug Abuse Patient Records regulations: The Federal rules restrict any use of the information to criminally investigate or prosecute any alcohol or drug abuse patient.[facility] HospitalIn the event this information is protected by the Federal Confidentiality of Alcohol and Drug Abuse Patient Records regulations: The Federal rules restrict any use of the information to criminally investigate or prosecute any alcohol or drug abuse patient.[facility] HospitalIn the event this information is protected by the Federal Confidentiality of Alcohol and Drug Abuse Patient Records regulations: The Federal rules restrict any use of the information to criminally investigate or prosecute any alcohol or drug abuse patient.[facility] HospitalIn the event this information is protected by the Federal Confidentiality of Alcohol and Drug Abuse Patient Records regulations: The Federal rules restrict any use of the information to criminally investigate or prosecute any alcohol or drug abuse patient.[facility] Reason for Visit (unrecogniz ed section and content) Reason Comments Diabetes Reason Comments Ear Pain right, 1 week Reason Onset Date Comments Refill Request 09/15/2021 Reason Comments Diabetes 3 month f/u Reason Comments Pain Specialty Diagnoses / Procedures Referred By Contac t Referred To Contact Podiatry Diagnoses Pain of right heel Procedures CONSULT TO PODIATRY OFFICE/OUTPATIENT [facility] 60-74 MINUTES Yogesh Dockery PA-C [address] [id number] Referral ID Status Reason Start Date Expiration Date V isits Requested Visits Authorized [id number] Closed PCP Requested Referral 10/26/2021 10/26/2022 1 1 Reason Comments Consult Colonoscopy Specialty Diagnoses / Procedures Referred By Contac t Referred To Contact General Surgery Diagnoses Screening for colon cancer Procedures CONSULT TO GENERAL SURGERY OFFICE/OUTPATIENT [facility] 60-74 MINUTES Yogesh Dockery PA-C [address] [place] [address] Referral ID Status Reason Start Date Expiration Date V isits Requested Visits Authorized [id number] Closed PCP Requested Referral 07/23/2021 07/23/2022 1 [...] insulin (HCC) Procedures CONSULT TO OPHTHALMOLOGY OFFICE/OUTPATIENT [facility] 60-74 MINUTES Yogesh Dockery PA-C [address] [place] [address] Referral ID Status Reason Start Date Expiration Date Visits Requested Visits Authorized [id number] Pending Review PCP Requested Referral 08/15/2022 08/15/2023 [...] Specialty Diagnoses / Procedures Referred By Nora t Referred To Contact Family Medicine / FAMILY MEDICINE Diagnoses hurt back [id number] ago Procedures 4C EST Self Yogesh Dockery PA-C [address] [place] [address] Referral ID Status Reason Start Date Expiration Date V isits Requested Visits Authorized [id number] Closed Patient Cleared - INN Insurance Found 02/03/2023 05/03/2023 1 1 Reason Onset Date Comments Refill Request 03/01/2023 Reason Comments Insurance Authorization Omeprazole Denie d Reason Comments Follow Up 2 month Reason Onset Date Comments Refill Request 05/24/2023 Reason Comments Cough sinus congestion Reason Onset Date Comments Chest Congestion 08/14/2023 Care Teams (unrecognized sec tion and content) Credit Counselor Relationship Specialty Start Date End Date Yogesh Dockery PA-C [address] [place] [address] PCP - General Family Practice 09/25/[facility] [address] [place] [address] Pharmacist Pharmacy 04/05/18 Credit Counselor Relationship Specialty Start Date End Date Yogesh Dockery PA-C [address] [place], [place] [id number] PCP - General Family Practice 09/25/17 [facility] [address] [place] [address] Pharmacist Pharmacy 04/05/18 Credit Counselor Relationship Specialty Start Date End Date Yogesh Dockery PA-C [address] [place] [address] PCP - General Family Practice 09/25/17 Starr Cook, [facility] [address] [place] [address] Pharmacist Pharmacy 04/05/18 Credit Counselor Relationship Specialty Start Date End Date Yogesh Dockery PA-C [address] [place] [address] PCP - General Family Practice 09/25/17 Starr Cook, [facility] [address] [place] [address] Pharmacist Pharmacy 04/05/18 Credit Counselor Relationship Specialty Start Date End Date Yogesh Dockery PA-C [address] [place] [address] PCP - General Family Practice 09/25/17 Starr Cook, [facility] [address] [place] [address] Pharmacist Pharmacy 04/05/18 Credit Counselor Relationship Specialty Start Date End Date Yogesh Dockery PA-C [address] [place] [address] PCP - General Family Practice 09/25/17 Starr Cook, [facility] [address] [place] [address] Pharmacist Pharmacy 04/05/18 Credit Counselor Relationship Specialty Start Date End Date Yogesh Dockery PA-C [address] [place] [address] PCP - General Family Practice 09/25/17 Starr Cook, [facility] [address] [place] [address] Pharmacist Pharmacy 04/05/18 Credit Counselor Relationship Specialty Start Date End Date Yogesh Dockery PA-C [address] [place] [address] PCP - General Family Medicine 09/25/17 Joey, Starr, [facility] [address] [place] [address] Pharmacist Pharmacy 04/05/18 Credit Counselor Relationship Specialty Start Date End Date Yogesh Dockery PA-C [address] [place] [address] PCP - General Family Medicine 09/25/17 [place], Starr, [facility] [address] [place] [address] Pharmacist Pharmacy 04/05/18 Credit Counselor Relationship Specialty Start Date End Date Yogesh Dockery PA-C [address] [place] [address] PCP - General Family Medicine 09/25/17 Joey, Starr, [facility] [address] [place] [address] Pharmacist Pharmacy 04/05/18 Credit Counselor Relationship Specialty Start Date End Date Yogesh Dockery PA-C [address] [place] [address] PCP - General Family Medicine 09/25/17 [place], Starr, [facility] [address] [place] [address] Pharmacist Pharmacy 04/05/18 Credit Counselor Relationship Specialty Start Date End Date Yogesh Dockery PA-C [address] [place] [address] PCP - General Family Medicine 09/25/17 Starr Cook, [facility] [address] [place] [address] Pharmacist Pharmacy 04/05/18 Credit Counselor Relationship Specialty Start Date End Date Yogesh Dockery PA-C [address] [place] [address] PCP - General Family Medicine 09/25/17 [place] Starr, [facility] [address] [place] [address] Pharmacist Pharmacy 04/05/18 Credit Counselor Relationship Specialty Start Date End Date Yogesh Dockery PA-C [address] [place] [address] PCP - General Family Medicine 09/25/17 Joey, Starr, [facility] [address] [place] [address] Pharmacist Pharmacy 04/05/18 Credit Counselor Relationship Specialty Start Date End Date Yogesh Dockery PA-C [address] [place] [address] PCP - General Family Medicine 09/25/17 Joey, Starr, [facility] [address] [place] [address] Pharmacist Pharmacy 04/05/18 Credit Counselor Relationship Specialty Start Date End Date Yogesh Dockery PA-C [address] [place] [address] PCP - General Family Medicine 09/25/17 Joey, Starr, [facility] [address] [place] [address] Pharmacist Pharmacy 04/05/18 Credit Counselor Relationship Specialty Start Date End Date Yogesh Dockery PA-C [address] [place] [address] PCP - General Family Medicine 09/25/17 MeadowbrookStarr, [facility] [address] [place] [address] Pharmacist Pharmacy 04/05/18 Credit Counselor Relationship Specialty Start Date End Date Yogesh Dockery PA-C [address] [place] [address] PCP - General Family Medicine 09/25/17 MeadowbrookStarr, [facility] [address] [facility] [place] [address] Pharmacist Pharmacy 04/05/18 Credit Counselor Relationship Specialty Start Date End Date Yogesh Dockery PA-C [address] [place] [address] PCP - General Family Medicine 09/25/17 MeadowbrookStarr, [facility] [address] [place] [address] Pharmacist Pharmacy 04/05/18 Credit Counselor Relationship Specialty Start Date End Date Yogesh Dockery PA-C [address] [place] [address] PCP - General Family Medicine 09/25/17 MeadowbrookStarr, [facility] [address] [place] [address] Pharmacist Pharmacy 04/05/18 Credit Counselor Relationship Specialty Start Date End Date Yogesh Dockery PA-C [address] [place] [address] PCP - General Family Medicine 09/25/17 Meadow[place]Starr, [facility] [address] [place] [address] Pharmacist Pharmacy 04/05/18 Credit Counselor Relationship Specialty Start Date End Date Yogesh Dockery PA-C [address] [place] [address] PCP - General [facility] 09/25/17 MeadowbrookStarr, [facility] [address] [place] [address] Pharmacist Pharmacy 04/05/18 Credit Counselor Relationship Specialty Start Date End Date Yogesh Dockery PA-C [address] [place] [address] PCP - General [facility] 09/25/17 [place]Starr, [facility] [address] [place] [address] Pharmacist Pharmacy 04/05/18 Credit Counselor Relationship Specialty Start Date End Date Yogesh Dockery PA-C [address] [place] [address] PCP - General [facility] 09/25/17 MeadowbrookStarr, [facility] [address] [place] [address] Pharmacist Pharmacy 04/05/18 (unrecognized sect ion and [...] BE BASED ON THE PRIMARY CLINICAL RECORDS. [employer] [facility]. provides no warranty or guarantee of the accuracy or completeness of information in this document.
--- NOTE | 2023-08-15 06:13 | EDS_ITS ---
HPI HPI - URI History of Present Illness Chief Complaint: Cold Sx Informant: patient Onset/Context/Timing Onset: Days (4-5) Context: Gradual Onset Timing: Continuous Quality: Pressure Location: Left frontal Worsened by: - (Nothing) Relieved by: - (Nothing) Associated Symptoms Associated Symptoms: Positive for Nasal Congestion, Headache, Sinus Pressure, Myalgias, Diarrhea and Productive Cough; Negative for Nausea, Vomiting, Shortness of Breath, Chest Pain, Nonproductive cough or Hemoptysis Narrative Narrative: Patient presents with upper respiratory congestion that has been getting worse over the last 4 to 5 days. Patient admits to nasal congestion and sinus pressure. Patient states he has a headache behind his left eye. Patient admits to some generalized bodyaches. Patient states he is coughing up some green sputum. Patient denies any fevers or chills. Patient also admits to some matting and crusting of his eyes. Patient admits to some redness of his eyes. Patient states that people at work have told him that they thought he had pinkeye. Patient denies any visual changes. ROS ROS ED Constitutional Constitutional ED: Denies chills or fever(s) Eyes Eyes: Reports discharge from eye(s) and erythema; Denies blurry vision or change in vision ENT ENT ED: Reports discharge from eye(s); Denies rhinorrhea or sore throat Cardiovascular Cardiovascular: Denies chest pain or palpitations Respiratory/Chest Respiratory/Chest: Reports cough and sputum; Denies dyspnea Gastrointestinal Gastrointestinal: Denies nausea or vomiting Genitourinary Genitourinary ED: Reports urinary frequency; Denies dysuria or hematuria Musculoskeletal Musculoskeletal: Reports myalgias; Denies back pain or neck pain Integumentary Denies abscess or rash Neurologic Neurologic: Reports headache(s); Denies weakness Allergic/Immunologic Allergic/Immunologic ED: Denies mouth swelling or urticaria [facility] Medical History Arthritis Asthma BiPAP (biphasic positive airway pressure) dependence Cataracts, bilateral Depression Dietary restriction Easy bruising Fatty liver GERD (gastroesophageal reflux disease) High cholesterol History of pain when walking History of steroid therapy History of ulceration HTN (hypertension) Insulin dependent diabetes mellitus Marijuana use Migraine headache Non-smoker Seasonal allergies Home Medications atorvastatin 40 mg tablet 20 mg PO QDAY 06/29/17 [History Last Taken Unknown] lisinopril 20 mg tablet 40 mg PO QDAY 06/29/17 [History Last Taken Unknown] metformin 500 mg tablet,extended release 24 hr 2,000 mg PO .q am 06/29/17 [History Last Taken Unknown] omeprazole 20 mg tablet,delayed release 20 mg PO PRN PRN Indigestion 06/29/17 [History Last Taken Unknown] bupropion HCl 300 mg 24 hr tablet, extended release 300 mg PO DAILY 01/19/22 [History Last Taken Unknown] dapagliflozin propanediol 10 mg tablet (Zariga) 10 mg PO DAILY 01/19/22 [History Last Taken Unknown] insulin glargine 100 unit/mL subcutaneous cartridge 62 unit subcut BID 01/19/22 [History Last Taken Unknown] insulin lispro 100 unit/mL subcutaneous pen 0 unit subcut TID 01/19/22 [History Last Taken Unknown] atorvastatin 40 mg tablet 40 mg PO DAILY 30 days #30 tabs 07/21/23 [Rx Last Taken Unknown] lisinopril 20 mg tablet 20 mg PO DAILY 30 days #30 tabs 07/21/23 [Rx Last Taken Unknown] azithromycin 250 mg tablet 250 mg PO DAILY #4 TABLETS 08/15/23 [Rx Last Taken Unknown] Allergy/AdvReac Type Severity Reaction Status Date / Time No Known Allergies Allergy Verified 08/15/23 05:38 Family History (Updated 06/29/17 @ 09:12 by Jaye Ponce) Unknown Asthma Diabetes Heart disease Hypertension CVA (cerebral vascular accident) Surgical History Hx of appendectomy Hx of colonoscopy Status post ORIF of fracture of ankle Social History Smoking Status: Never smoker second hand exposure: No alcohol intake: never substance use type: does not use EXAM Physical Exam Const Vital Signs: 08/15/23 05:34 08/15/23 05:37 Temperature 98.5 F Temperature Source Oral Pulse Rate 89 Respiratory Rate 17 Respiratory Effort Normal Non-Labored Respiratory Pattern Normal Blood Pressure 165/94 H Blood Pressure Mean 117 Pulse Ox 98 Oxygen Delivery Method Room Air Positive well nourished and well developed General Appearance ED: well developed and NAD HEENT Reports moist mucous membranes Face and Sinus: sinus tenderness Positive for frontal and maxillary Eyes PERRL and EOMs intact bilaterally Eyes Narrative: Conjunctiva was injected bilaterally. There is watery discharge bilaterally. Neck supple and no JVD Resp normal respiratory effort and clear to auscultation bilaterally Cardio Rate: regular rate Rhythm: regular rhythm GI non-tender and non-distended Palpation: soft Extremity normal to inspection and full ROM Neuro oriented x3, CN's II-XII intact bilaterally and no sensory deficits noted Sensorium / Orientation: alert Motor Exam: strength 5/5 throughout Psych mental status grossly normal MDM MDM MDM Narrative Medical decision making narrative: Differential diagnosis includes viral upper respiratory infection, viral conjunctivitis, bacterial conjunctivitis, pneumonia, and sinusitis. CT scan of the brain will be obtained to assess for headache and sinusitis. COVID-19, influenza, and RSV PCR will be obtained to assess for viral upper respiratory infection. Chest x-ray will be obtained to assess for pneumonia. Lab Data Lab results narrative: COVID-19 PCR was reviewed and was negative. Influenza PCR was reviewed and was negative for influenza A and influenza B. RSV PCR was reviewed and was negative. Radiography Diagnostic Testing: Clinical Impression(s) from Imaging Studies Brain CT 08/15/23 06:27 IMPRESSION: undefined Chest X-Ray 08/15/23 06:28 IMPRESSION: Atelectasis is in the lung bases bilaterally. Superimposed mild infection is difficult to exclude. Electronically Signed: Yunior Smith MD at 7:04 EST , CT scan of the brain was obtained. There is no acute intracranial abnormality. There is some paranasal sinus thickening. This was interpreted by the radiologist and was also independently reviewed by myself. Portable 1 view chest x-ray was obtained. On my independent interpretation, lung cheema show atelectasis in the lung bases bilaterally. There could be superimposed infection as well. There is normal cardiac silhouette. Bony thorax is normal. There is no acute process noted. Radiologist also interpreted the x-ray and agrees. Treatment and Re-Evaluation Narrative: Patient was given erythromycin ophthalmic ointment. Patient was advised of his findings. Patient was given a prescription for Zithromax to cover possible pneumonia and sinusitis. Patient was instructed to wash his hands anytime he touches his eyes especially after he puts the ointment in his eyes. Patient was instructed to follow-up with his primary care physician in 3 to 5 days for reevaluation. Patient understood and was agreeable with the plan. All questions were answered. Discharge Plan Triage Chief Complaint: Cold Sx ED Provider: Riley Negrete Dx/Rx/DC Orders Clinical Impression: Diabetes mellitus, Conjunctivitis, Sinusitis Instructions: ED Conjunctivitis, Bacterial, ED Pneumonia (Adult), ED Sinusitis (Antibiotic Treatment) Prescriptions: New azithromycin [azithromycin] 250 mg tablet 250 mg PO DAILY Qty: 4 0RF No Action metformin 500 mg tablet extended release 24 hr 2,000 mg PO .q am atorvastatin 40 mg tablet 20 mg PO QDAY omeprazole 20 mg tablet,delayed release (DR/EC) 20 mg PO PRN PRN (Reason: Indigestion) lisinopril 20 mg tablet 40 mg PO QDAY insulin lispro [Humalog Pen] 100 unit/mL Insulin Pen 0 unit SUBCUT TID bupropion HCl 300 mg Tablet Extended Release 24 Hr 300 mg PO DAILY Lantus U-100 Insulin 100 unit/mL Cartridge 62 unit SUBCUT BID dapagliflozin propanediol [Farxiga] 10 mg Tablet 10 mg PO DAILY lisinopril 20 mg tablet 20 mg PO DAILY 30 Days Qty: 30 0RF atorvastatin 40 mg tablet 40 mg PO DAILY 30 Days Qty: 30 0RF Primary Care Provider: Yogesh Dockery Referrals: Yogesh Dockery PA [Primary Care Provider] - 3-5 Days Activity Restrictions/Additional Instructions: Apply the ophthalmic ointment to both eyes every 4 hours while you are awake. Wash your hands anytime you touch your eyes including when you put the ointment in your eyes. Disposition Disposition: Home, Self Care
--- NOTE | 2023-08-15 06:27 | CT_ITS ---
EXAM: CT brain without contrast HISTORY: Headache TECHNIQUE: No intravenous contrast. A radiation dose optimization technique was used for this scan. COMPARISON: Head CT January 11, 2008. LIMITATIONS: None. BRAIN: Normal stratton/white matter differentiation. VENTRICLES: No hydrocephalus. EXTRA-AXIAL SPACES: No acute hemorrhage. CALVARIUM/SKULL BASE: No acute fracture. Trace fluid in the left mastoid air cells. FACE/SINUSES: Fluid and mucosal thickening in the sphenoid, bilateral maxillary and bilateral ethmoid sinuses. SOFT TISSUES: Normal. OTHER: None. CONCLUSION: No acute intracranial abnormality. Paranasal sinus disease. Electronically Signed: Yunior Smith MD at 7:13 EST , CT/Brain/Head without Contrast IMPRESSION: undefined
--- NOTE | 2023-08-15 06:28 | RAD_ITS ---
INDICATION: Cough EXAMINATION: Frontal and lateral views of the chest. COMPARISON: Chest x-ray July 21, 2023. FINDINGS: Frontal and lateral views of the chest were obtained. The cardiac silhouette is borderline enlarged. Atelectasis is in the lung bases bilaterally. No pleural effusion or pneumothorax. RAD/Chest PA and Lateral IMPRESSION: Atelectasis is in the lung bases bilaterally. Superimposed mild infection is difficult to exclude. Electronically Signed: Yunior Smith MD at 7:04 EST ,
[2023-08-15] MEDS: Erythromycin Base 1 OPTH.TUBE 1 APPLIC EACH EYE (06:42)
[2023-08-15] MEDS: Azithromycin 250 MG Tablet 500 MG PO (07:48)
[2023-08-15 07:50] VITALS: BP 142/76; PULSE 78; RESP 20; TEMP 36.4; O2SAT 96
== END 2023-08-15 07:51 | disposition home or self-care (01) ==
PROVIDERS: Emergency Provider Emergency Medicine; PCP Physician Assistant; Visit Provider Emergency Medicine
DX: J32.9 Chronic sinusitis, unspecified (principal); E11.9 Type 2 diabetes mellitus without complications; Z79.4 Long term (current) use of insulin; H10.9 Unspecified conjunctivitis; E78.00 Pure hypercholesterolemia, unspecified; I10 Essential (primary) hypertension; Z79.899 Other long term (current) drug therapy; Z79.84 Long term (current) use of oral hypoglycemic drugs; K21.9 Gastro-esophageal reflux disease without esophagitis; F32.A Depression, unspecified; Z90.49 Acquired absence of other specified parts of digestive tract
CPT/HCPCS: 70450; 71046; 87631; 99282; J7030

== ENCOUNTER → 2024-02-13 | Outpatient (CLI) | payer OTHER, SELFPAY ==
[2024-02-13 11:04] LABS: Absolute Lymphocyte Count 1.73 X10^3/uL (0.83-4.51); Absolute Neutrophil Count 5.7 X10^3/uL (2.0-7.7); Basophil# 0.04 X10^3/uL; Basophil% 0.5 % (0-1); Eosinophils% 2.4 % (0-5); Hematocrit 44.9 % (40-54); Hemoglobin 14.5 g/dL (13.0-16.5); Lymphocyte # 1.73 X10^3/ul (0.83-4.51); Lymphocyte % 20.4 % (19-41); Mean Corp Hgb Conc 32.3 g/dL (32-36); Mean Corpuscular Hgb 28.3 pg (27.0-32.0); Mean Corpuscular Volume 87.7 fL (80-94); Mean Platelet Vol. 10.2 fl (6.2-12.0); Monocyte% 9.4 % (0-10); NRBC Flagged by Analyzer 0 % (0-5); Neutrophil % 67.1 % (47-70); Platelet Count 293 K/mm3 (150-450); RBC Distribution Width CV 13.6 % (11.6-14.6); RBC Distribution Width SD 43.8 fl (35.1-43.9); Red Blood Count 5.12 M/mm3 (4.6-6.2); White Blood Count 8.5 K/mm3 (4.4-11.0)
[2024-02-13 11:29] LABS: Vitamin B12 562 pg/mL (211-911)
[2024-02-13 11:59] LABS: Hemoglobin A1c 7.6 % (3.8-5.6)
[2024-02-13 12:01] LABS: ALB/GLOB Ratio 0.9 RATIO (0.9-2.4); AST(SGOT) 28 U/L (15-37); Alanine Aminotransfer ALT/SGPT 48 U/L (16-61); Albumin, Serum 3.8 g/dL (3.2-5.0); Alkaline Phosphatase 92 U/L (45-117); Anion Gap 8 (5-15); BUN 15 mg/dL (7-18); BUN/Creat Ratio 17.4 RATIO (10-20); Calcium,Total 8.9 mg/dL (8.5-10.1); Chloride 102 mmol/L (98-107); Cholesterol 109 mg/dL (200); Creatinine, Serum 0.86 mg/dL (0.70-1.30); EST Glomerular Filtration Rate 99 mL/min (>60); Est Glom Filt Rate - Afr Amer 120 mL/min (>60); Globulin 4.1 g/dL (2.2-4.2); Glucose 138 mg/dL (74-106); High Density Lipoprotein 43 mg/dL; Magnesium 2.1 mg/dL (1.6-2.6); PSA,Total - Annual Screen 0.94 ng/mL (0.00-4.00); Potassium 4.9 mmol/L (3.5-5.1); Protein, Total 7.9 g/dL (6.4-8.2); Sodium Level 132 mmol/L (136-145); T4 Free Direct 0.97 ng/dL (0.76-1.46); Triglycerides 115 mg/dL; Very Low Density Lipoprotein 23 mg/dL (5-40)
== END | disposition home or self-care (01) ==
LOC: LAB 10:09
PROVIDERS: PCP Clinical Nurse Specialist Adult Health; Referring Provider Clinical Nurse Specialist Adult Health; Visit Provider Clinical Nurse Specialist Adult Health
DX: E11.3313 Type 2 diabetes mellitus with moderate nonproliferative diabetic retinopathy with macular edema, bilateral (principal); E66.01 Morbid (severe) obesity due to excess calories; Z68.42 Body mass index [BMI] 45.0-49.9, adult; E11.43 Type 2 diabetes mellitus with diabetic autonomic (poly)neuropathy; K31.84 Gastroparesis; I87.2 Venous insufficiency (chronic) (peripheral); I10 Essential (primary) hypertension; J45.20 Mild intermittent asthma, uncomplicated
CPT/HCPCS: 36415; 80053; 80061; 82533; 82607; 83036; 83735; 84153; 84439; 84443; 85025; G0103

== ENCOUNTER 2024-03-07 01:04 | Emergency (ER) | payer OTHER, SELFPAY ==
[2024-03-07] VITALS (9 sets, daily range): BP systolic 106–143; BP diastolic 55–82; PULSE 74–102; RESP 16–24; TEMP 36.7–36.9; O2SAT 94–97; BMI 47.1
--- NOTE | 2024-03-07 01:29 | EKG12_ITS ---
Test Reason : DYSRHYTHMIA Blood Pressure : / mmHG Vent. Rate : 086 BPM Atrial Rate : 086 BPM P-R Int : 158 ms QRS Dur : 096 ms QT Int : 358 ms P-R-T Axes : 020 -47 008 degrees QTc Int : 428 ms Sinus rhythm with occasional Premature ventricular complexes Left anterior fascicular block Abnormal ECG Confirmed by Rik Chavez ([id number]), editor trade journal JOSE FRANCISCO ROJAS ([id number]) on 03/08/2024 9:22:30 AM Referred By: Confirmed By:Rik Chavez
[2024-03-07 01:36] LABS: Absolute Lymphocyte Count 1.76 X10^3/uL (0.83-4.51); Absolute Neutrophil Count 10.3 X10^3/uL (2.0-7.7); Basophil# 0.06 X10^3/uL; Basophil% 0.5 % (0-1); Eosinophil# 0.12 X10^3/uL; Eosinophils% 0.9 % (0-5); Hematocrit 45.6 % (40-54); Lymphocyte # 1.76 X10^3/ul (0.83-4.51); Lymphocyte % 13.3 % (19-41); Mean Corp Hgb Conc 32.9 g/dL (32-36); Mean Corpuscular Hgb 28.8 pg (27.0-32.0); Mean Corpuscular Volume 87.5 fL (80-94); Mean Platelet Vol. 9.9 fl (6.2-12.0); Monocyte# 0.94 X10^3/uL; Monocyte% 7.1 % (0-10); NRBC Flagged by Analyzer 0 % (0-5); Neutrophil # 10.27 X10^3/uL (2.7-7.7); Neutrophil % 77.9 % (47-70); Platelet Count 352 K/mm3 (150-450); RBC Distribution Width CV 13.7 % (11.6-14.6); RBC Distribution Width SD 43.7 fl (35.1-43.9); Red Blood Count 5.21 M/mm3 (4.6-6.2); White Blood Count 13.2 K/mm3 (4.4-11.0)
[2024-03-07] MEDS: 0.9% Normal Saline (1000mL) 1,000 ML 999 ML IV (01:39)
[2024-03-07 01:50] LABS: Anion Gap 7 (5-15); BUN 14 mg/dL (7-18); BUN/Creat Ratio 14.2 RATIO (10-20); Calcium,Total 9.5 mg/dL (8.5-10.1); Chloride 104 mmol/L (98-107); Creatinine, Serum 0.98 mg/dL (0.70-1.30); EST Glomerular Filtration Rate 85 mL/min (>60); Est Glom Filt Rate - Afr Amer 102 mL/min (>60); Estimated Creatinine Clearance 132.87 ml/min; Glucose 178 mg/dL (74-106); Magnesium 1.8 mg/dL (1.6-2.6); Sodium Level 137 mmol/L (136-145)
--- NOTE | 2024-03-07 02:14 | EX.ED.DYSGE1 ---
HPI History of Present Illness Chief Complaint: Dizziness Informant: patient Narrative Narrative: Patient is a 53-year-old male with past medical history of hypertension as well as insulin-dependent type 2 diabetes. He states that he had the other day off and he was so fatigued that he just laid in bed all day. He states that this evening he was at work and fatigue persisted and this made him also feel lightheaded and secondary to this he presents for evaluation. He states there is no real associated fevers or chills sore throat congestion or cough. He denies any abdominal pain diarrhea or dysuria. He reports that he lives at home alone and has no sick contacts. As he is unsure of what is causing his persistent fatigue and unwell sensation he presents for evaluation [facility] Medical History Depression Marijuana use History of steroid therapy Insulin dependent diabetes mellitus Fatty liver High cholesterol Easy bruising Migraine headache Dietary restriction History of ulceration Non-smoker BiPAP (biphasic positive airway pressure) dependence History of pain when walking GERD (gastroesophageal reflux disease) HTN (hypertension) Cataracts, bilateral Asthma Arthritis Seasonal allergies Home Medications ?Medication ?Instructions ?Recorded ?Last Taken ?Type lisinopril 20 mg tablet 40 mg PO QDAY 06/29/17 Unknown History metformin 500 mg tablet,extended 2,000 mg PO DAILY 06/29/17 Unknown History release 24 hr bupropion HCl 300 mg 24 hr tablet, 300 mg PO DAILY 01/19/22 Unknown History extended release dapagliflozin propanediol 10 mg 10 mg PO DAILY 01/19/22 Unknown History tablet (Farxiga) insulin lispro 100 unit/mL 8 unit subcut TID 01/19/22 Unknown History subcutaneous pen atorvastatin 20 mg tablet 20 mg PO QHS cholesterol 03/07/24 Unknown History insulin glargine 100 unit/mL (3 61 unit subcut BID 03/07/24 Unknown History mL) subcutaneous pen (Lantus Solostar U-100 Insulin) metoclopramide HCl 10 mg tablet 10 mg PO 4X/DAY 03/07/24 Unknown History omeprazole 40 mg capsule,delayed 40 mg PO DAILY 03/07/24 Unknown History release semaglutide 0.25 mg or 0.5 mg (2 See Rx Instructions subcut QWEEK 03/07/24 Unknown History mg/3 mL) subcutaneous pen injector (Ozempic) tizanidine 4 mg tablet 4 mg PO TID 03/07/24 Unknown History Allergy/AdvReac Type Severity Reaction Status Date / Time No Known Allergies Allergy Verified 03/07/24 01:05 Family History (Updated 06/29/17 @ 09:12 by Jaye Ponce) Unknown Asthma Diabetes Heart disease Hypertension CVA (cerebral vascular accident) Surgical History Hx of appendectomy Hx of colonoscopy Status post ORIF of fracture of ankle Social History Smoking Status: Never smoker second hand exposure: No alcohol intake: never substance use type: does not use ROS ROS ED Constitutional Constitutional ED: Reports other Details: Positive fatigue ; Denies chills or fever(s) Eyes Eyes: Denies blurry vision or change in vision ENT ENT ED: Denies ear pain, rhinorrhea or sore throat Cardiovascular Cardiovascular: Denies chest pain Respiratory/Chest Respiratory/Chest: Denies cough or dyspnea Gastrointestinal Gastrointestinal: Denies abdominal pain, diarrhea, nausea or vomiting Genitourinary Genitourinary ED: Denies dysuria, hematuria or urinary frequency Musculoskeletal Musculoskeletal: Denies myalgias Integumentary Denies rash Neurologic Neurologic: Reports weakness; Denies headache(s) or paresthesias Hematologic/Lymphatic Hematologic/Lymphatic: Denies easy bleeding or easy bruising EXAM Physical Exam Const Vital Signs: 03/07/24 01:05 03/07/24 01:13 03/07/24 01:17 Temperature 98.4 F Temperature Source Oral Pulse Rate 102 H 96 Respiratory Rate 18 23 H Respiratory Effort Normal Blood Pressure 143/81 H Blood Pressure Mean 101 Pulse Ox 97 97 Oxygen Delivery Method Room Air 03/07/24 01:30 03/07/24 01:45 03/07/24 02:00 Temperature Temperature Source Pulse Rate 90 88 81 Respiratory Rate 24 H 19 H 16 Respiratory Effort Blood Pressure 109/68 109/63 110/63 Blood Pressure Mean 79 78 76 Pulse Ox 95 94 95 Oxygen Delivery Method 03/07/24 02:15 03/07/24 02:30 03/07/24 02:45 Temperature Temperature Source Pulse Rate 90 78 75 Respiratory Rate 18 23 H 19 H Respiratory Effort Blood Pressure 113/60 133/82 H 111/58 L Blood Pressure Mean 77 98 74 Pulse Ox 95 95 94 Oxygen Delivery Method Positive well nourished, well developed and obese General Appearance ED: well developed; Negative for pallor Nutritional Appearance: obese HEENT Reports dry mucous membranes HEENT Narrative: Mucous membranes are slightly dry and tacky No tongue or lip swelling no oral lesions no airway edema or compromise There is mild cobblestoning the posterior pharynx without secondary findings to suggest infection Bilateral TMs are retracted but show no secondary changes to suggest infection Mouth ED: Yes dry mucous membranes Mouth: dry mucous membranes Eyes PERRL and EOMs intact bilaterally General Eye ED: Negative for scleral icterus Neck supple Neck Narrative: No nuchal rigidity or meningeal signs Resp normal respiratory effort and clear to auscultation bilaterally Resp Narrative: No nasal flaring retractions tachypnea or accessory muscle use Cardio regular rate and regular rhythm GI normal to inspection, nondistended, normoactive bowel sounds, non-tender, non-distended and no masses Auscultation: normoactive bowel sounds Palpation: soft Extremity normal to inspection Neuro oriented x3, CN's II-XII intact bilaterally and no sensory deficits noted Neuro Narrative: No nystagmus noted Negative Hallpike Milvia exam Sensorium / Orientation: alert Motor Exam: strength 5/5 throughout Psych mental status grossly normal Skin no rashes or lesions noted Skin Narrative: Skin turgor slightly increased General Skin Exam: Negative for jaundice or pallor MDM MDM MDM Narrative Medical decision making narrative: Patient presented to the ER afebrile and reported generalized feeling of fatigue and unwell. He reported dizziness but when questioned this was more of a lightheaded sensation and not vertiginous in nature. With concern that his symptoms were related to potential viral infection such as COVID versus influenza versus RSV. As he is a diabetic there is also concern for DKA or HHS. Secondary to his basic blood work is obtained and does show a leukocytosis at 13.2 however this could be inflammatory or infectious in nature. I discussed with patient potential chest x-ray but he is not coughing nor short of breath and his lung sounds are clear and therefore does not clinically correlate that there is a missed pneumonia and we elected not to perform a chest x-ray. However as he is diabetic and is on Farxiga there is concern that he may have a UTI so urine sample was ordered. UA revealed glucose but no signs of infection. Labs revealed no signs of DKA and his serum osmolality is normal at 289 going against HHS. Viral swab was negative for COVID flu and RSV. After patient was hydrated he reported feeling better and his vitals improved as well. Therefore at this time I do feel his symptoms are related to mild dehydration and a viral syndrome based on his mild leukocytosis and feeling of unwell without signs of sepsis or DKA or HHS or acute kidney injury there is no need for further workup and he is otherwise safe for discharge History & Record Review Discussion w/independent historian: Patient Lab Data Attestation: I reviewed the patient's lab results. Labs: Laboratory Results - last 24 hr 03/07/24 03/07/24 01:16 02:25 WBC 13.2 H RBC 5.21 Hgb 15.0 Hct 45.6 MCV 87.5 MCH 28.8 MCHC 32.9 RDW Std Deviation 43.7 RDW Coeff of [place] 13.7 Plt Count 352 MPV 9.9 Immature Gran % (Auto) 0.300 Neut % (Auto) 77.9 H Lymph % (Auto) 13.3 L [place] % (Auto) 7.1 Eos % (Auto) 0.9 Baso % (Auto) 0.5 Absolute Neuts (auto) 10.3 H Absolute Lymphs (auto) 1.76 Nucleated RBC % 0 Sodium 137 Potassium 4.0 Chloride 104 Carbon Dioxide 26.0 Anion Gap 7 BUN 14 Creatinine 0.98 Estim Creat Clear Calc 132.87 Est GFR (MDRD) Af Amer 102 Est GFR (MDRD) Non-Af 85 BUN/Creatinine Ratio 14.2 Glucose 178 H Calcium 9.5 Magnesium 1.8 Urine Color Yellow Urine Clarity Clear Urine pH 6.0 Ur Specific [place] 1.010 Urine Protein Negative Urine Glucose (UA) 1000 H Urine Ketones 5 H Urine Occult Blood Negative Urine Nitrite Negative Urine Bilirubin Negative Urine Urobilinogen Normal Ur Leukocyte Esterase Negative Urine RBC 0 SEEN Urine WBC 0 SEEN Ur Squamous Epith Cells 0 SEEN Urine Bacteria 0 SEEN Urine Mucus 0 SEEN Discharge Plan Triage Chief Complaint: Dizziness ED Provider: Ernesto Campos Dx/Rx/DC Orders Clinical Impression: Dehydration, Viral syndrome, Hypertension, essential, Type 2 diabetes mellitus, with long-term current use of insulin Instructions: Dehydration, ED Viral Syndrome (Adult) Prescriptions: No Action metformin 500 mg tablet extended release 24 hr 2,000 mg PO DAILY lisinopril 20 mg tablet 40 mg PO QDAY insulin lispro 100 unit/mL Insulin Pen 8 unit SUBCUT TID Rx Instructions: TAKE WITH MEALS IF BLOOD SUGAR OVER 200 AT MEAL TIMES TAKE AN ADDITIONAL 8 UNITS bupropion HCl 300 mg Tablet Extended Release 24 Hr 300 mg PO DAILY dapagliflozin propanediol [Farxiga] 10 mg Tablet 10 mg PO DAILY atorvastatin 20 mg tablet 20 mg PO QHS Ozempic 0.25 mg or 0.5 mg (2 mg/3 mL) pen injector See Rx Instructions subcut QWEEK Rx Instructions: 0.25-0.5 MG subcutaneously every week; tizanidine 4 mg tablet 4 mg PO TID omeprazole 40 mg capsule,delayed release(DR/EC) 40 mg PO DAILY metoclopramide HCl 10 mg tablet 10 mg PO 4X/DAY insulin glargine [Lantus Solostar U-100 Insulin] 100 unit/mL (3 mL) insulin pen 61 unit subcut BID Primary Care Provider: Dolly England Referrals: Dolly England, [employer] [Primary Care Provider] - Activity Restrictions/Additional Instructions: Please keep yourself well-hydrated and continue all your medications as directed by your family doctor. Return to the ER should you have any further concerns Print Language: Kazakh Disposition Disposition: Home, Self Care
[2024-03-07 02:40] LABS: Bacteria 0 SEEN /hpf (None Seen); Mucous, Urine 0 SEEN /hpf (<or=2+); Red Blood Cells-Urine 0 SEEN /hpf (0-5); Squamous Epithelial Cells - UA 0 SEEN /hpf (0-5); White Blood Cells 0 SEEN /hpf (0-5)
[2024-03-07 02:42] LABS: Color, Urine Yellow (Yellow); Glucose, Dipstick 1000 mg/dl (Normal); Ketone-Dipstick 5 mg/dl (Negative); Leukocyte Esterase-Dipstick Negative /ul (Negative); Nitrite-Dipstick Negative (Negative); Occult Blood-Urine Negative /ul (Negative); Protein-Dipstick Negative (Negative); Urine Bilirubin Dipstick Negative (Negative); Urine Clarity Clear (Clear); Urine Urobilinogen Normal (Normal)
== END 2024-03-07 04:01 | disposition home or self-care (01) ==
PROVIDERS: Emergency Provider Emergency Medicine; PCP Clinical Nurse Specialist Adult Health; Visit Provider Emergency Medicine
DX: E86.0 Dehydration (principal); Z79.4 Long term (current) use of insulin; E11.9 Type 2 diabetes mellitus without complications; E78.00 Pure hypercholesterolemia, unspecified; I10 Essential (primary) hypertension; B97.4 Respiratory syncytial virus as the cause of diseases classified elsewhere; R42 Dizziness and giddiness; E66.9 Obesity, unspecified
CPT/HCPCS: 80048; 81001; 83735; 85025; 87631; 93005; 96360; 96361; 99285; J7030; A4216